=== PATIENT | male | born 1960 | race Caucasian/White ===

== ENCOUNTER 2017-08-08 11:42 | Inpatient (IN) ==
[2017-08-08] MEDS ORDERED: methylPREDNISolone 125 MG/2 ML VIAL IVP ONE (11:47)
[2017-08-08] MEDS ORDERED: Ipratropium/Albuterol Neb 3 ML IH ONE ×2 (11:47→13:13)
--- NOTE | 2017-08-08 11:50 | Emergency Department Note ---
Disposition Clinical Impression: Acute exacerbation of chronic obstructive airways disease, Tobacco abuse, Hypoxia, Respiratory distress, Respiratory acidosis, Acute on chronic respiratory failure with hypoxia and hypercapnia Disposition: Admitted As Inpatient Condition: Good Time of Disposition: 13:10 SOB HPI - General Chief Complaint: ED Shortness of Breath/Dyspnea Stated Complaint: CAMERON Time Seen by Provider: 08/08/17 11:43 Source: patient Mode of arrival: wheelchair Limitations: no limitations Nursing Notes Reviewed: Yes Vital Signs Reviewed: Yes - History of Present Illness 57-year-old male history of COPD pack per day smoker presents with difficulty breathing. Symptoms worse over the past 2 days. Reports intermittent fever with productive cough yellow sputum. He has been using his inhalers with minimal relief. No congestion. No chest pain. He does take a water pill. Denies history of blood clots. No history of coronary arterial disease he reports. Patient a his hypoxic at bedside 70% with audible wheezing in the room. Respiratory is at bedside will give him breathing treatment, steroids and BiPAP. No recent hospitalization. States it feels similar to COPD exacerbation in the past. Will place him on Levaquin Pt Subjective Complaint: shortness of breath, cough - Related Data Home Medications Medication Instructions Recorded Confirmed Fluticasone/Vilanterol [Breo 1 puff IH DAILY 08/08/17 08/08/17 Ellipta 100-25 Mcg INH] Naproxen [Naproxen] 375 mg PO BID PRN 08/08/17 08/08/17 Spironolactone [Aldactone] 25 mg PO BID 08/08/17 08/08/17 Allergies Allergy/AdvReac Type Severity Reaction Status Date / Time No Known Allergies Allergy Verified 03/03/17 09:45 All systems ED: reviewed and negative except as stated. Review of Systems: As Per HPI Constitutional: Reports: fever. Denies: chills ENT ED: Reports: congestion. Denies: throat pain, dysphagia Cardiovascular: Reports: dyspnea on exertion. Denies: chest pain Respiratory: Reports: cough, dyspnea, wheezes Gastrointestinal: Denies: abdominal pain, nausea, vomiting Genitourinary: Denies: urgency, dysuria Musculoskeletal: Denies: back pain, neck pain Integumentary: Denies: rash, abrasion, lesions Neurological: Denies: headache Psychiatric: Denies: anxiety Past Medical History - Past Medical History Attestation: Yes The following information was validated with the patient. Source: patient Medical history: Reports: CHF, COPD - Social History Smoking Status: Current every day smoker Alcohol use: Reports: occasionally Physical Exam - General Limitations: no limitations General appearance: alert, in no apparent distress - Head Head exam: atraumatic, normocephalic, normal inspection - Eye Eye exam: Present: normal appearance, PERRL, EOMI - ENT ENT exam: normal exam, normal oropharynx, mucous membranes moist - Neck Neck exam: Present: normal inspection, full ROM, trachea midline. Absent: tenderness - Chest Chest inspection: Present: normal inspection, symmetric chest wall rise - Respiratory Respiratory exam: Present: respiratory distress, wheezes - Expanded Respiratory Exam Location: wheezes: Left, Right - Cardiovascular Cardiovascular exam: Present: regular rate, normal rhythm, normal heart sounds - Abdominal Exam Abdominal exam: Present: soft (obese), Non-Tender, normal bowel sounds. Absent : tenderness, distention, guarding, rebound, rigidity - Extremities Exam Extremities exam: Present: normal inspection, full ROM, normal capillary refill , pedal edema (+2 symmetrical). Absent: tenderness, calf tenderness - Neurological Exam Neurological exam: Present: alert, oriented X3, normal gait - Psychiatric Psychiatric exam: Present: normal affect, normal mood - Skin Skin exam: Present: warm, dry, intact, normal color. Absent: rash, cyanosis, diaphoresis Course - Reevaluation(s) Reevaluation #1: Initially patient was hypertensive on arrival and respiratory distress oxygen sectors 70%. BiPAP was immediately placed with DuoNeb treatments and steroids. Patient has been tolerating BiPAP very well. Lungs continue to be scattered wheezing bilaterally. Oxygen saturation has improved. Chest x-ray does not reveal pneumonia. Her arterial blood gas shows a respiratory acidosis 7.22 with a carbon dioxide level 92 with adequate O2 saturation and appears compensated with elevated bicarb 38. This is very consistent with a COPD exacerbation. At this time he he continues to meditate fine awake alert and oriented to person place and time. Does not require intubation at this time. Treated with Levaquin for likely COPD exacerbation. He is in agreement with this plan. Reevaluation of his blood pressure has significantly improved spontaneously 115/65. Impression is COPD exacerbation, respiratory acidosis, hypercapnia, hypoxia - Consultations Consultation #1: Spoke with on-call hospitalist claus Davis to admit for COPD exacerbation, hypoxia, hypercapnia, respiratory distress/acidosis. No further orders at this time Time: 13:31 Vital Signs O2 Sat by Pulse Oximetry 52 08/08/17 11:43 Temperature 97.6 F 08/08/17 11:47 Pulse Rate 82 08/08/17 13:13 Respiratory Rate 22 08/08/17 13:18 Blood Pressure 115/65 08/08/17 13:13 O2 Sat by Pulse Oximetry 99 08/08/17 13:18 Oxygen Delivery Oxygen Delivery Bipap Shortness of Breath/Dyspnea - MDM Narrative Medical decision making narrative: Patient was discussed with my attending physician who agrees with ED management and final disposition. They independently evaluated the patient. Please refer to their attestation to this encounter for additional information. This note was generated by [employer] voice recognition software and as a result grammatical or spelling errors may occur using this program. - Medical Records Medical records reviewed: Yes I reviewed the patient's medical records. - Lab Data Lab results reviewed: Yes I reviewed the patient's lab results. Result diagrams: 08/08/17 12:19 08/08/17 12:19 Lab Results 08/08/17 08/08/17 08/08/17 Range/Units 12:08 12:19 12:19 WBC 11.4 H (4.3-11.1) K/mcL RBC 4.62 (4.19-5.50) M/mcL Hgb 15.2 (12.9-16.9) g/dL Hct 45.6 (37.5-50.1) % MCV 98.7 (83.0-100.0) fL MCH 32.9 (28.0-33.3) pg MCHC 33.3 (31.6-35.5) g/dL RDW 14.6 H (11.5-14.5) % Plt Count 324 (140-400) K/mcL MPV 10.7 (9.4-12.4) fL Immature Gran % 0.6 (0-4) % Seg Neutrophils % 68.2 % Lymphocytes % 9.9 % Monocytes % 9.1 % Eosinophils % 11.0 % Basophils % 1.2 % Neutrophils # 7.8 (1.6-8.9) K/mcL Lymphocytes # 1.1 (0.6-4.6) K/mcL Monocytes # 1.0 (0.0-1.3) K/mcL Eosinophils # 1.3 H (0.0-0.6) K/mcL Basophils # 0.1 (0.0-0.2) K/mcL Immature Plt Fraction 5.8 (1.1-6.1) % ABG pH 7.22 L (7.32-7.45) pH Units ABG pCO2 92 H* (35-45) mmHg ABG pO2 124 H (85-104) mmHg ABG HCO3 38 H (21-27) mEq/L ABG Total CO2 40 H (20-26) mEq/L ABG O2 Saturation 98 (95-98) % ABG Base Excess 6 H (-2 to 3) mEq/L Sodium 138 (136-145) mEq/L Potassium 4.2 (3.5-5.1) mEq/L Chloride 100 (98-107) mEq/L Carbon Dioxide 31 H (23-29) mEq/L BUN 15 (6-20) mg/dL Creatinine 0.79 (0.70-1.30) mg/dL Est GFR ( Amer) > 60 (> 60) Est GFR (Non-Af Amer) > 60 (> 60) BUN/Creatinine Ratio 19 (6-26) Glucose 115 H (70-105) mg/dL Calculated Osmolality 288 (280-300) Lactic Acid (0.5-2.2) mmol/L Calcium 9.0 (8.6-10.3) mg/dL Troponin I (< 0.04) ng/mL B-Natriuretic Peptide (Less than 100) pg/mL Person Notif of Lynne MCKEON 08/08/17 08/08/17 08/08/17 Range/Units 12:19 12:19 12:19 WBC (4.3-11.1) K/mcL RBC (4.19-5.50) M/mcL Hgb (12.9-16.9) g/dL Hct (37.5-50.1) % MCV (83.0-100.0) fL MCH (28.0-33.3) pg MCHC (31.6-35.5) g/dL RDW (11.5-14.5) % Plt Count (140-400) K/mcL MPV (9.4-12.4) fL Immature Gran % (0-4) % Seg Neutrophils % % Lymphocytes % % Monocytes % % Eosinophils % % Basophils % % Neutrophils # (1.6-8.9) K/mcL Lymphocytes # (0.6-4.6) K/mcL Monocytes # (0.0-1.3) K/mcL Eosinophils # (0.0-0.6) K/mcL Basophils # (0.0-0.2) K/mcL Immature Plt Fraction (1.1-6.1) % ABG pH (7.32-7.45) pH Units ABG pCO2 (35-45) mmHg ABG pO2 (85-104) mmHg ABG HCO3 (21-27) mEq/L ABG Total CO2 (20-26) mEq/L ABG O2 Saturation (95-98) % ABG Base Excess (-2 to 3) mEq/L Sodium (136-145) mEq/L Potassium (3.5-5.1) mEq/L Chloride (98-107) mEq/L Carbon Dioxide (23-29) mEq/L BUN (6-20) mg/dL Creatinine (0.70-1.30) mg/dL Est GFR ( Amer) (> 60) Est GFR (Non-Af Amer) (> 60) BUN/Creatinine Ratio (6-26) Glucose (70-105) mg/dL Calculated Osmolality (280-300) Lactic Acid 1.6 (0.5-2.2) mmol/L Calcium (8.6-10.3) mg/dL Troponin I < 0.03 (< 0.04) ng/mL B-Natriuretic Peptide 44 (Less than 100) pg/mL Person Notif of Crit - Radiology Data Radiology results reviewed: Yes I reviewed the patient's radiology results. Chest X-Ray 08/08/17 11:48 IMPRESSION: No acute abnormality. D/ / Manolo Espinoza MD / Manolo Espinoza MD Interpreting Provider: Manolo Espinoza MD - EKG Data EKG attestation: Yes I reviewed and interpreted this EKG. EKG results narrative: EKG performed 1148 normal sinus rhythm 90 bpm, normal axis, good R wave progression, intervals within normal limits, no ST elevations or depression, T wave inversion, compared to old EKG performed 01/23/2015 shows similar consistent findings. No acute ischemic changes. Critical Care Time Critical Care Time: Yes Total Critical Care Time: 35 Attestation: Critical care performed: Time is exclusive of separately billable procedures. Time includes: direct patient care, patient reassessment, coordination of patient care, interpretation of data (laboratory data, radiology data, and respiratory data), review of patient's medical records, medical consultation and documentation of patient care. Procedures included in critical care time: Procedures excluded from critical care time: Attestation Statement - Attestation Attestation: I, Shaun Miles DO, examined this patient [id number] and my medical decision-making was reviewed with Hernán Parkinson DO , Resident Physician. I agree with the documented findings, disposition and treatment plan as described except to the extent set forth below. Please see my progress notes for details. 57-year-old male presents to emergency room significantly and profoundly hypoxic with increased work of breathing. He has known COPD. He has not been utilizing his medications at home as needed. He denies any chest pain fevers chills cough congestion outside of his normal persistent cough. He has had productive sputum. Lungs are diffusely coarse and wheezy on presentation. He does have accessory muscle use he does have a cyanotic on presentation to his skin. Immediately BiPAP was applied with breathing treatments and oxygen. Pulse ox came up to greater than 90. Breathing and respirations became less labored. EKG did not show any acute signs of ST segment elevation but there is obvious ischemia noted that does appear to be acute on chronic this time. Patient again is denying any cardiac-like presentation her symptoms at this point. Vital signs reviewed. Patient's EKG chest x-ray labs and symptom treatment started here in the emergency room. IV antibiotics will most likely be provided. Hospitalist Dr. mohr evaluated the patient here in the emergency room and is happy for acceptance for admission and definitive management. No other concerns or issues noted initially. Patient will be admitted for what appears to be CHF exacerbation and bronchitis. Patient had profound hypoxia noted on presentation with an ABG of 7.2 and a PCO2 of 91. BiPAP and treatment course to be completed inpatient setting. Pulse is 35 minutes of critical care provider in this patient's treatment course. 1400 Patient feels much better after breathing treatments treatment course. No other concerns or issues noted this time. Patient will be admitted this time for definitive management.
[2017-08-08] MEDS ORDERED: Levofloxacin 750 MG/150 ML 750 MG/150 ML BAG IVPB ONE (11:52)
[2017-08-08 12:15] LABS: ABG Base Excess 6 mEq/L (-2 to 3); ABG HCO3 38 mEq/L (21-27); ABG Oxygen Saturation 98 % (95-98); ABG PCO2 92 mmHg (35-45); ABG PH 7.22 pH Units (7.32-7.45); ABG PO2 124 mmHg (85-104); ABG TCO2 40 mEq/L (20-26)
[2017-08-08 12:42] LABS: BUN/Creatinine Ratio 19 (6-26); Blood Urea Nitrogen 15 mg/dL (6-20); Carbon Dioxide 31 mEq/L (23-29); Chloride 100 mEq/L (98-107); Glucose 115 mg/dL (70-105); Osmolality,Calculated 288 (280-300); Potassium 4.2 mEq/L (3.5-5.1); Sodium 138 mEq/L (136-145); eGFR For African Americans > 60 (> 60); eGFR For Non-African Americans > 60 (> 60)
[2017-08-08] MEDS ORDERED: Naloxone 0.4 MG/ML INJ IVP PRN (12:51)
[2017-08-08] MEDS ORDERED: Ondansetron ODT 4 MG TAB.RAPDIS SL PRN (12:51)
--- NOTE | 2017-08-08 12:57 | Internal Med History&Physical ---
Date of Encounter: 08/08/17 Time of Encounter: 13:00 Assessment and Plan (1) COPD exacerbation Current visit: Yes Status: Acute We will admit the patient to the hospitalist service. We will keep her on BiPAP for now. We will repeat an ABG in 2 hours. If it still showing signs of acidosis will consult with pulmonary. Continue with IV steroids. Continue Levaquin. Continue with DuoNeb's. Wean off BiPAP as tolerated. (2) Hypertensive urgency Current visit: Yes Status: Acute Blood pressure is elevated on arrival. Per report he was in the 220s systolically. He has not received any antihypertensives while in the ED. This may be all acute secondary to his clinical picture of COPD exacerbation. I will add hydralazine to be used when necessary with parameters. (3) Tobacco abuse Current visit: Yes Status: Acute Nicotine patch (4) DVT prophylaxis Current visit: Yes Status: Acute [facility] Internal Medicine - H&P: HPI Chief complaint: Shortness of breath Admitted From: Home Plans for Post Hospital Care: Home History of present illness: Mr. Paris is a 57 year old male who has a history of tobacco abuse, chronic lower exam is swelling, suspected COPD although he has never had PFT testing who presents on 08/08/2017 through the ER the [facility] with complaints of shortness of breath that has been going on for the last 2-3 days and has been progressively getting worse despite nebulizer treatments at home. He says he used his nebulizer around the clock yesterday which gave him minimal relief and when he woke up this morning he felt significant shortness of breath for which he came to the emergency department. Upon presentation he was noted to be significantly wheezy and his oxygenation was as low as 70s per report, however I am seeing oxygenation saturations that is in the 50s per EMR. The patient was put on BiPAP right away. He was completely alert and oriented throughout this ER stay. He underwent workup including a chest x-ray which was unremarkable. He had an ABG that came back with a pH of 7.22 with a PCO2 of 92 with bicarbonate of 38. His pO2 was 124 on that. This was obtained on his BiPAP. The patient's white count was 11.4. He says he has been feeling febrile at home however is never measured her temperature. He has received multiple breathing treatments in the emergency department. He is received 125 mg of Solu-Medrol IV as well as Levaquin IV. Of note the patient's systolic blood pressure was in the 220s upon presentation which did come down without any antihypertensives and by the time of seeing the patient it was in the 130s systolically. He carries no diagnosis of hypertension. I was called to admit the patient for COPD exacerbation. He denies any sick contacts. He continues to smoke about a pack a day. He has done this for the last 30-40 years. Denies any headache, blurry vision, nausea, vomiting chest pain, abdominal pain , urinary symptoms, or neurological symptoms. Past Med Surg Social Fam HX - Past Medical History Medical history: CHF, COPD Psychiatric history: no psych history - Social History Smoking Status: Current every day smoker Smokeless Tobacco Status: No Alcohol use: occasionally Drug use: none Internal Medicine - H&P: Meds Cephalexin [Keflex] 500 mg PO QID #28 capsule 03/03/17 [Rx] 3 Allergy/AdvReac Type Severity Reaction Status Date / Time No Known Allergies Allergy Verified 03/03/17 09:45 All Systems PM: A 10-system review of systems was performed and is negative for pertinent findings except as documented above in the HPI. Review of systems: All systems reviewed are negative except as mentioned above - Constitutional Vitals: Temp Pulse Resp BP Pulse Ox 97.6 F 91 26 181/86 96 08/08/17 11:47 08/08/17 11:47 08/08/17 12:00 08/08/17 11:50 08/08/17 12:00 Exam: GEN: NAD HEENT: AT, NC, No cyanosis, oral mucosa is moist, No JVD Lymphatics: No lymphadenoapthy Eyes: Extrocular muscles intact, anicteric CVS:RRR. S1, S2, No m/r/g RESP: diminshed. Expiratroy wheezes posteriorly ABD: Soft, NT, ND, +BS EXT: No edema, No rashes, 2+ DP NEURO: Nonfocal, CN II-XII intact, No focal motor or sensory deficits Psych: Cooperative, Not anxious or depressed Internal Med - H&P Results - Labs CBC & Chem 7: 08/08/17 12:19 08/08/17 12:19 Labs: BMP 08/08/17 12:19 Sodium 138 Potassium 4.2 Chloride 100 Carbon Dioxide 31 H BUN 15 Creatinine 0.79 Glucose 115 H Calcium 9.0 Cardiac Enzymes 08/08/17 Range/Units 12:19 Troponin I < 0.03 (< 0.04) ng/mL - ABG Interpretation ABG results: 08/08/17 12:08 ABG pH 7.22 L ABG pCO2 92 H* ABG pO2 124 H ABG HCO3 38 H ABG Total CO2 40 H ABG O2 Saturation 98 ABG Base Excess 6 H - Impressions ITS Impressions Chest X-Ray 08/08/17 11:48 IMPRESSION: No acute abnormality. D/ / Manolo Espinoza MD / Manolo Espinoza MD Interpreting Provider: Manolo Espinoza MD
[2017-08-08 13:12] LABS: Basophils # 0.1 K/mcL (0.0-0.2); Basophils % 1.2 %; Eosinophils # 1.3 K/mcL (0.0-0.6); Hematocrit 45.6 % (37.5-50.1); Hemoglobin 15.2 g/dL (12.9-16.9); Immature Granulocytes % 0.6 % (0-4); Immature Platelets 5.8 % (1.1-6.1); Lymphocytes # 1.1 K/mcL (0.6-4.6); Lymphocytes % 9.9 %; Mean Corpuscular HGB Conc 33.3 g/dL (31.6-35.5); Mean Corpuscular Hemoglobin 32.9 pg (28.0-33.3); Mean Platelet Volume 10.7 fL (9.4-12.4); Monocytes % 9.1 %; Neutrophils # 7.8 K/mcL (1.6-8.9); Platelet Count 324 K/mcL (140-400); Red Blood Count 4.62 M/mcL (4.19-5.50); Red Cell Distribution Width 14.6 % (11.5-14.5); Segmented Neutrophils % 68.2 %
[2017-08-08 13:13] LABS: Mean Corpuscular Volume 98.7 fL (83.0-100.0)
[2017-08-08] MEDS: Ipratropium/Albuterol Neb 3 ML IH SCH ×4 (13:17→21:24)
[2017-08-08] MEDS: Levofloxacin 500 MG/100 ML 500 MG/100 ML BAG IVPB SCH (16:21)
[2017-08-08 16:29] LABS: ABG Base Excess 6 mEq/L (-2 to 3); ABG HCO3 34 mEq/L (21-27); ABG Oxygen Saturation 91 % (95-98); ABG PCO2 61 mmHg (35-45); ABG PH 7.36 pH Units (7.32-7.45); ABG PO2 65 mmHg (85-104); ABG TCO2 36 mEq/L (20-26)
[2017-08-08] MEDS: methylPREDNISolone 125 MG/2 ML VIAL IVP SCH (18:43)
[2017-08-08] MEDS: Nicotine 21 MG PATCH.TD24 TD SCH (22:00)
[2017-08-09] MEDS: methylPREDNISolone 125 MG/2 ML VIAL IVP SCH ×2 (00:20→05:51)
[2017-08-09] MEDS: Ipratropium/Albuterol Neb 3 ML IH SCH ×4 (03:33→22:13)
[2017-08-09] MEDS: *HR* Enoxaparin 40 MG/0.4 ML SYRINGE SQ SCH (05:51)
[2017-08-09 06:30] LABS: Basophils % 0.1 %; Hematocrit 44.7 % (37.5-50.1); Hemoglobin 14.8 g/dL (12.9-16.9); Immature Granulocytes % 0.7 % (0-4); Lymphocytes # 0.5 K/mcL (0.6-4.6); Lymphocytes % 3.5 %; Mean Corpuscular HGB Conc 33.1 g/dL (31.6-35.5); Mean Corpuscular Hemoglobin 32.7 pg (28.0-33.3); Mean Corpuscular Volume 98.7 fL (83.0-100.0); Mean Platelet Volume 10.2 fL (9.4-12.4); Monocytes # 0.4 K/mcL (0.0-1.3); Monocytes % 2.6 %; Neutrophils # 12.8 K/mcL (1.6-8.9); Platelet Count 318 K/mcL (140-400); Red Blood Count 4.53 M/mcL (4.19-5.50); Red Cell Distribution Width 14.2 % (11.5-14.5); Segmented Neutrophils % 93.1 %
[2017-08-09 06:43] LABS: BUN/Creatinine Ratio 22 (6-26); Blood Urea Nitrogen 20 mg/dL (6-20); Calcium 9.3 mg/dL (8.6-10.3); Carbon Dioxide 35 mEq/L (23-29); Chloride 101 mEq/L (98-107); Glucose 146 mg/dL (70-105); Osmolality,Calculated 291 (280-300); Potassium 4.7 mEq/L (3.5-5.1); Sodium 138 mEq/L (136-145); eGFR For African Americans > 60 (> 60); eGFR For Non-African Americans > 60 (> 60)
[2017-08-09] MEDS ORDERED: Spironolactone 25 MG TABLET PO SCH (09:00)
--- NOTE | 2017-08-09 10:10 | Internal Med Progress Note ---
Date of Encounter: 08/09/17 Time of Encounter: 10:06 - Assessment and plan (1) Acute hypercapnic respiratory failure Current Visit: Yes Status: Acute Assessment and plan: Improved off the BiPAP now Will use BiPAP as needed (2) Acute respiratory failure with hypoxia Current Visit: Yes Status: Acute Assessment and plan: IV steroids + Duoneb Try to wean him off the O2 as he tolerates (3) Acute exacerbation of chronic obstructive airways disease Current Visit: Yes Status: Acute Assessment and plan: triggered by bronchitis and smoking on empirical abx start tapering steroids cont Duoneb ROSA (4) Acute bronchitis Current Visit: Yes Status: Acute Assessment and plan: Mostly bacterial cont empirical abx Levaquin Qualifiers: Qualified Code(s): J20.9 - Acute bronchitis, unspecified (5) Tobacco abuse Current Visit: Yes Status: Acute Assessment and plan: counseled to quit smoking on nicotine patch (6) Hypertensive urgency Current Visit: Yes Status: Acute Assessment and plan: mostly due to resp failure improved and resolved now - Subjective Interval history: Mr. Paris is a 57 year old male who has a history of tobacco abuse, COPD and not on home O2 dependent who presented to ER with progressively worsening SOB and VARGAS, as well as ocugh with expectoration. He happened to be in severe hypercapneic resp failure, placed him on BiPAP. Now he is off the BiPAP, he is more alert, awake and O x 3. Denied any CP . Still has moderate VARGAS. - Constitutional Vitals: Temp Pulse Resp BP Pulse Ox 97.8 F 80 14 135/82 90 08/09/17 07:41 08/09/17 07:41 08/09/17 07:41 08/09/17 07:41 08/09/17 07:41 General appearance: Present: A&O X 3, no acute distress - Head Head exam: Present: atraumatic, normal inspection - Neck Neck exam general surgery: Present: supple - Respiratory Respiratory exam: Present: decreased breath sounds, wheezes (diffuse wheezing). Absent: rales, respiratory distress, rhonchi - Cardiovascular Cardiovascular exam: Present: RRR, +S1, +S2. Absent: tachycardia - GI/Abdominal GI/Abdominal exam: Present: normal bowel sounds, soft. Absent: rebound, rigid, tenderness - Extremities Exam Extremities exam: Absent: calf tenderness, pedal edema, tenderness - Back Exam Back exam: Absent: CVA tenderness (L), CVA tenderness (R) - Psychiatric Psychiatric exam: Present: normal affect, normal mood Internal Medicine: Result - Labs CBC & Chem 7: 08/09/17 06:04 08/09/17 06:04 Labs: Short CBC 08/09/17 Range/Units 06:04 WBC 13.8 H (4.3-11.1) K/mcL Hgb 14.8 (12.9-16.9) g/dL Hct 44.7 (37.5-50.1) % Plt Count 318 (140-400) K/mcL Neutrophils # 12.8 H (1.6-8.9) K/mcL BMP 08/09/17 06:04 Sodium 138 Potassium 4.7 Chloride 101 Carbon Dioxide 35 H BUN 20 Creatinine 0.90 Glucose 146 H Calcium 9.3 - ABG Interpretation ABG results: ABG ABG pH 7.36 pH Units (7.32-7.45) D 08/08/17 16:20 ABG pCO2 61 mmHg (35-45) H D 08/08/17 16:20 ABG pO2 65 mmHg (85-104) L D 08/08/17 16:20 ABG O2 Saturation 91 % (95-98) L 08/08/17 16:20 - VTE Documentation of Mechanical Device: Intermittent pneumatic compression device Consult Discharge Plan - Plan Referrals: Edinson Cool MD [Primary Care Provider] -
[2017-08-09] MEDS: Nicotine 21 MG PATCH.TD24 TD SCH (10:21)
[2017-08-09] MEDS: Levofloxacin 500 MG/100 ML 500 MG/100 ML BAG IVPB SCH (11:57)
[2017-08-09] MEDS: MethylPREDNISolone 40 MG/ML VIAL IVP SCH (16:51)
--- NOTE | 2017-08-09 19:55 | Electrocardiograph Report ---
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
[2017-08-10] MEDS: MethylPREDNISolone 40 MG/ML VIAL IVP SCH ×3 (00:20→18:37)
[2017-08-10 04:01] LABS: Basophils % 0.1 %; Hematocrit 40.9 % (37.5-50.1); Hemoglobin 13.8 g/dL (12.9-16.9); Immature Granulocytes % 0.7 % (0-4); Lymphocytes # 0.6 K/mcL (0.6-4.6); Lymphocytes % 2.4 %; Mean Corpuscular HGB Conc 33.7 g/dL (31.6-35.5); Mean Corpuscular Hemoglobin 33.3 pg (28.0-33.3); Mean Corpuscular Volume 98.6 fL (83.0-100.0); Mean Platelet Volume 10.4 fL (9.4-12.4); Monocytes # 1.2 K/mcL (0.0-1.3); Monocytes % 4.9 %; Neutrophils # 22.6 K/mcL (1.6-8.9); Platelet Count 288 K/mcL (140-400); Red Blood Count 4.15 M/mcL (4.19-5.50); Red Cell Distribution Width 14.2 % (11.5-14.5); Segmented Neutrophils % 91.9 %
[2017-08-10] MEDS: Ipratropium/Albuterol Neb 3 ML IH SCH ×4 (04:02→22:04)
[2017-08-10 04:18] LABS: BUN/Creatinine Ratio 31 (6-26); Blood Urea Nitrogen 28 mg/dL (6-20); Calcium 9.1 mg/dL (8.6-10.3); Carbon Dioxide 33 mEq/L (23-29); Chloride 99 mEq/L (98-107); Glucose 160 mg/dL (70-105); Magnesium 2.2 mg/dL (1.6-2.6); Osmolality,Calculated 293 (280-300); Potassium 4.2 mEq/L (3.5-5.1); Sodium 137 mEq/L (136-145); eGFR For African Americans > 60 (> 60); eGFR For Non-African Americans > 60 (> 60)
[2017-08-10 05:28] LABS: Hypersegmented Neutrophils Present (Not Present); Platelet Estimate Normal (Normal); Toxic Granulation Present (Not Present)
[2017-08-10] MEDS: *HR* Enoxaparin 40 MG/0.4 ML SYRINGE SQ SCH (05:59)
[2017-08-10] MEDS: Nicotine 21 MG PATCH.TD24 TD SCH (10:21)
[2017-08-10] MEDS: Levofloxacin 500 MG/100 ML 500 MG/100 ML BAG IVPB SCH (14:13)
--- NOTE | 2017-08-10 16:14 | Internal Med Progress Note ---
Date of Encounter: 08/10/17 Time of Encounter: 16:11 - Assessment and plan (1) Acute respiratory failure with hypoxia Current Visit: Yes Status: Acute Assessment and plan: Still on 3 lit O2 improving slowly Start tapering IV steroids + Cont ROSA Duoneb Try to wean him off the O2 as he tolerates may need home O2 eval in AM WBC started trending up..mostly due to steroids and reactive (2) Acute hypercapnic respiratory failure Current Visit: Yes Status: Acute Assessment and plan: Improved off the BiPAP now (3) Acute exacerbation of chronic obstructive airways disease Current Visit: Yes Status: Acute Assessment and plan: triggered by bronchitis and smoking on empirical abx started tapering steroids cont Duoneb ROSA (4) Acute bronchitis Current Visit: Yes Status: Acute Assessment and plan: Mostly bacterial cont empirical abx Levaquin Qualifiers: Qualified Code(s): J20.9 - Acute bronchitis, unspecified (5) Tobacco abuse Current Visit: Yes Status: Acute Assessment and plan: counseled to quit smoking on nicotine patch (6) Hypertensive urgency Current Visit: Yes Status: Acute Assessment and plan: mostly due to resp failure improved and resolved now - Subjective Interval history: Mr. Paris is a 57 year old male who has a history of tobacco abuse, COPD and not on home O2 dependent who presented to ER with progressively worsening SOB and VARGAS, as well as cough with expectoration. He happened to be in severe hypercapneic resp failure, placed him on BiPAP. Now he is off the BiPAP from last 24hrs. He is more alert, awake and O x 3. Denied any CP . Still has moderate VARGAS. Still has cough with greenish expectoration. No fever / chills. Currently on 3 lit O2 - Constitutional Vitals: Temp Pulse Resp BP Pulse Ox 98.3 F 85 18 137/68 91 08/10/17 15:16 08/10/17 15:16 08/10/17 15:16 08/10/17 15:16 08/10/17 15:16 General appearance: Present: A&O X 3, no acute distress - Head Head exam: Present: atraumatic, normal inspection - Respiratory Respiratory exam: Present: decreased breath sounds, wheezes (moderate). Absent : rales, respiratory distress, rhonchi - Cardiovascular Cardiovascular exam: Present: RRR, +S1, +S2. Absent: tachycardia - GI/Abdominal GI/Abdominal exam: Present: distended, normal bowel sounds, soft. Absent: rebound, rigid, tenderness - Extremities Exam Extremities exam: Absent: calf tenderness, pedal edema, tenderness - Back Exam Back exam: Absent: CVA tenderness (L), CVA tenderness (R) - Neurological Exam Neurological exam: Present: alert, oriented X3 - Psychiatric Psychiatric exam: Present: normal affect, normal mood Internal Medicine: Result - Labs CBC & Chem 7: 08/10/17 03:44 08/10/17 03:44 Labs: Short CBC 08/10/17 Range/Units 03:44 WBC 24.6 H D (4.3-11.1) K/mcL Hgb 13.8 (12.9-16.9) g/dL Hct 40.9 (37.5-50.1) % Plt Count 288 (140-400) K/mcL Neutrophils # 22.6 H (1.6-8.9) K/mcL BMP 08/10/17 03:44 Sodium 137 Potassium 4.2 Chloride 99 Carbon Dioxide 33 H BUN 28 H Creatinine 0.90 Glucose 160 H Calcium 9.1 - ABG Interpretation ABG results: ABG ABG pH 7.36 pH Units (7.32-7.45) D 08/08/17 16:20 ABG pCO2 61 mmHg (35-45) H D 08/08/17 16:20 ABG pO2 65 mmHg (85-104) L D 08/08/17 16:20 ABG O2 Saturation 91 % (95-98) L 08/08/17 16:20 - VTE Documentation of Mechanical Device: Intermittent pneumatic compression device Consult Discharge Plan - Plan Referrals: Edinson Cool MD [Primary Care Provider] -
[2017-08-11] MEDS: Ipratropium/Albuterol Neb 3 ML IH SCH ×3 (04:35→15:51)
[2017-08-11] MEDS: *HR* Enoxaparin 40 MG/0.4 ML SYRINGE SQ SCH (06:26)
[2017-08-11] MEDS: MethylPREDNISolone 40 MG/ML VIAL IVP SCH (06:26)
[2017-08-11 06:57] LABS: Basophils % 0.1 %; Hematocrit 42.9 % (37.5-50.1); Hemoglobin 13.6 g/dL (12.9-16.9); Immature Granulocytes % 0.5 % (0-4); Immature Platelets 7.1 % (1.1-6.1); Lymphocytes # 0.7 K/mcL (0.6-4.6); Lymphocytes % 3.8 %; Mean Corpuscular HGB Conc 31.7 g/dL (31.6-35.5); Mean Corpuscular Hemoglobin 32.4 pg (28.0-33.3); Mean Corpuscular Volume 102.1 fL (83.0-100.0); Mean Platelet Volume 10.7 fL (9.4-12.4); Monocytes # 1.2 K/mcL (0.0-1.3); Monocytes % 6.3 %; Neutrophils # 16.2 K/mcL (1.6-8.9); Platelet Count 286 K/mcL (140-400); Red Cell Distribution Width 14.7 % (11.5-14.5); Segmented Neutrophils % 89.3 %
[2017-08-11] MEDS ORDERED: levoFLOXacin 500 MG TABLET PO SCH (09:00)
[2017-08-11] MEDS: Nicotine 21 MG PATCH.TD24 TD SCH (10:02)
[2017-08-11 11:43] VITALS: BP 136/77
--- NOTE | 2017-08-11 13:56 | Discharge Summary ---
Date of Encounter: 08/11/17 Time of Encounter: 13:52 - Discharge Diagnosis (1) Acute respiratory failure with hypoxia Priority: Primary Status: Acute (2) Acute hypercapnic respiratory failure Priority: Primary Status: Acute (3) Acute exacerbation of chronic obstructive airways disease Priority: Primary Status: Acute (4) Acute bronchitis Priority: Primary Status: Acute Qualifiers: Qualified Code(s): J20.9 - Acute bronchitis, unspecified (5) Tobacco abuse Priority: Secondary Status: Acute (6) Hypertensive urgency Priority: Secondary Status: Acute - Discharge Medications Prescriptions: Albuterol Sulfate [Albuterol Inhaler] 2 puff IH Q6HR PRN #1 hfa.aer.ad PRN Reason: Shortness Of Breath levoFLOXacin [Levaquin] 500 mg PO DAILY #4 tablet Nicotine Patch [Nicoderm] 21 mg TD DAILY #30 patch.td24 PredniSONE [Deltasone] 40 mg PO DAILY #10 tablet Home Medications: Fluticasone/Vilanterol [Breo Ellipta 100-25 Mcg INH] 1 puff IH DAILY 08/08/17 [ History] Spironolactone [Aldactone] 25 mg PO BID 08/08/17 [History] Albuterol Sulfate [Albuterol Inhaler] 2 puff IH Q6HR PRN #1 hfa.aer.ad 08/11/17 [Rx] Nicotine Patch [Nicoderm] 21 mg TD DAILY #30 patch.td24 08/11/17 [Rx] PredniSONE [Deltasone] 40 mg PO DAILY #10 tablet 08/11/17 [Rx] levoFLOXacin [Levaquin] 500 mg PO DAILY #4 tablet 08/11/17 [Rx] Allergies/Adverse Reactions: 3 Allergy/AdvReac Type Severity Reaction Status Date / Time No Known Allergies Allergy Verified 03/03/17 09:45 Date of admission: 08/08/17 13:21 Primary care physician: Edinson Cool MD - Patient Status Disposition: Home, Self-Care Condition: Good Overall status at discharge: patient is back to baseline - Discharge Instructions Instructions: Heart Failure (GEN), Acute Respiratory Distress Syndrome (DC), Chronic Obstructive Pulmonary Disease (DC), Chronic Obstructive Pulmonary Disease (GEN), Abuse of Alcohol (DC), Abuse of Alcohol (GEN), Cigarette Smoking and Your Health, Sales Engagement Manager (GEN), BiPAP, Sales Engagement Manager (GEN), BiPAP (GEN ) Follow Up With: Edinson Cool MD [Primary Care Provider] - Rosalina Black MD [Partnered Physician] - Additional Instructions: Need to f/ with Pulmonary as an out pt in 1-2 weeks - Diet and Activity Activity: increase activity as tolerated, wear oxygen at all times (3 lit) Diet: low salt diet Hospital course: Mr. Paris is a 57 year old male who has a history of tobacco abuse, COPD and not on home O2 dependent who presented to ER with progressively worsening SOB and VARGAS, as well as cough with expectoration. He happened to be in severe hypercapneic resp failure, placed him on BiPAP. Also gave him high dose IV steroids and empirical abx. His symptoms started improving slowly.Now he is more alert, awake and O x 3. Denied any CP . His WBC also started trending down. It seems to be he does have chronic CO2 retaining, so I did over night BiPAP study, and he did qualify for BiAP with 16/6 RR 8, Fio2 32% / 3 lit. Also did home O2 evaluation, his Spoe dropped down to 82 % on RA, needed 3 lit O2 continuously. Consulted SW, who is trying to arrange all the equipment for him including BiPAP, Home o2, Portable tank, converted too since pt does ambulate and pretty active. I did talk to the pt about quitting smoking. Also noticed he was on Aldactone at home as diuretic, which may not be the ideal diuretic, recommend to talk to PCP about switching to HCTZ or Lasix. Recommend to f/u with Weather Teacher as an out pt in 2 weeks. - Time Spent with Patient Total time spent providing and/or coordinating discharge services: Greater than 30 minutes (Spent 45 minutes on this patient's discharge summary due to complex medical problems and patient needed a lot of education regarding discharge instructions) - Constitutional Vitals: Temp Pulse Resp BP Pulse Ox 98.4 F 102 16 136/77 95 08/11/17 11:40 08/11/17 11:40 08/11/17 11:40 08/11/17 11:40 08/11/17 13:30 General appearance: Present: A&O X 3, no acute distress - Head Head exam: Present: atraumatic, normal inspection - Neck Neck exam general surgery: Present: supple - Respiratory Respiratory exam: Present: decreased breath sounds, wheezes (mild). Absent: rales, respiratory distress, rhonchi - Cardiovascular Cardiovascular exam: Present: RRR, +S1, +S2. Absent: tachycardia - GI/Abdominal GI/Abdominal exam: Present: normal bowel sounds, soft. Absent: rebound, rigid, tenderness - Extremities Exam Extremities exam: Present: pedal edema (chronic). Absent: calf tenderness, tenderness - Back Exam Back exam: Absent: CVA tenderness (L), CVA tenderness (R) - Neurological Exam Neurological exam: Present: alert, oriented X3 - Psychiatric Psychiatric exam: Present: normal affect, normal mood - VTE Documentation of Mechanical Device: Intermittent pneumatic compression device
== END 2017-08-11 16:45 | disposition home or self-care (01) | DRG 189 ==
LOC: EMEROO 11:42 → 2NENU 13:21
PROVIDERS: ADMIT Internal Medicine Nephrology; ATTEND Family Medicine

== ENCOUNTER 2017-09-23 23:54 | Observation (INO) ==
[2017-09-24] MEDS ORDERED: Ipratropium/Albuterol Neb 3 ML ONE
[2017-09-24] MEDS ORDERED: Ipratropium/Albuterol Neb 3 ML IH ONE (00:28)
[2017-09-24] MEDS ORDERED: methylPREDNISolone 125 MG/2 ML VIAL IVP ONE (00:28)
[2017-09-24] MEDS ORDERED: Furosemide 40 MG/4 ML VIAL IVP ONE (00:29)
--- NOTE | 2017-09-24 00:36 | Emergency Department Note ---
Disposition Clinical Impression: COPD exacerbation, Hypoxia CHF (congestive heart failure) Qualifiers: Heart failure type: unspecified Heart failure chronicity: acute Qualified Code( s): I50.9 - Heart failure, unspecified Disposition: Admitted As Inpatient Condition: Serious Time of Disposition: 01:23 SOB HPI - General Chief Complaint: ED Shortness of Breath/Dyspnea Stated Complaint: CAMERON Time Seen by Provider: 09/24/17 00:06 Source: patient Limitations: no limitations Nursing Notes Reviewed: Yes Vital Signs Reviewed: Yes - History of Present Illness 57-year-old male complains of acute onset of severe shortness of breath 1 hour ago. Patient states he started feeling short of breath 3 Hours ago and took a DuoNeb treatment 1 hour later, but became severely short of breath and told his to call EMS. Patient denies any chest pain. Patient is a history of COPD, and denies history of CHF. Patient never been intubated for COPD exacerbation. He is on O2 at home 3L via nasal cannula - Related Data Home Medications Medication Instructions Recorded Confirmed Fluticasone/Vilanterol [Breo 1 puff IH DAILY 08/08/17 08/08/17 Ellipta 100-25 Mcg INH] Spironolactone [Aldactone] 25 mg PO BID 08/08/17 08/08/17 Previous Rx's Medication Instructions Recorded Albuterol Sulfate [Albuterol 2 puff IH Q6HR PRN #1 hfa.aer.ad 08/11/17 Inhaler] Nicotine Patch [Nicoderm] 21 mg TD DAILY #30 patch.td24 08/11/17 PredniSONE [Deltasone] 40 mg PO DAILY #10 tablet 08/11/17 levoFLOXacin [Levaquin] 500 mg PO DAILY #4 tablet 08/11/17 Azithromycin [Zithromax] 0 tab PO DAILY #6 tablet 08/31/17 Montelukast [Singulair] 10 mg PO HS #30 tablet 08/31/17 predniSONE [PredniSONE] 0 mg PO DAILY #22 tablet 08/31/17 Allergies Allergy/AdvReac Type Severity Reaction Status Date / Time No Known Allergies Allergy Verified 03/03/17 09:45 All systems ED: reviewed and negative except as stated. Review of Systems: As Per HPI Constitutional: Denies: fever, chills, weakness Eyes: Denies: vision change Cardiovascular: Denies: chest pain, palpitations Respiratory: Reports: dyspnea, wheezes. Denies: cough Gastrointestinal: Denies: abdominal pain, nausea, vomiting Genitourinary: Denies: urgency, dysuria, frequency Past Medical History - Past Medical History Attestation: Yes The following information was validated with the patient. Source: patient, nursing notes reviewed Medical history: Reports: COPD Psychiatric history: Reports: no psych history - Social History Smoking Status: Former smoker Smokeless Tobacco Status: Yes Alcohol use: Reports: none Drug use: Reports: none Physical Exam Vital Signs Temperature 97.9 F 09/23/17 23:58 Pulse Rate 96 09/23/17 23:58 Respiratory Rate 24 09/23/17 23:58 Blood Pressure 200/110 09/23/17 23:58 O2 Sat by Pulse Oximetry 94 09/23/17 23:58 Temperature 97.9 F 09/23/17 23:58 Pulse Rate 85 09/24/17 00:48 Respiratory Rate 20 09/24/17 00:48 Blood Pressure 124/82 09/24/17 00:48 O2 Sat by Pulse Oximetry 98 09/24/17 00:48 Oxygen Delivery Oxygen Delivery Room Air CONSTITUTIONAL: This is a 57-year-old male who is A&O X 3, and has ashen bluish coloration to his face. Patient is in respiratory distress. He is to keep neck and has severe conversational dyspnea and has to pause after each to breathe HEAD: Normocephalic; atraumatic EYES: PERRL, no scleral icterus NOSE: The nose is normal in appearance without rhinorrhea NECK: No JVD or distended neck veins RESP: Shallow breath sounds with wheezing heard on auscultation bilaterally CARD: Regular rhythm, without murmurs, rub or gallop ABD: Non-distended; non-tender, soft, without rigidity, rebound or guarding,no pulsatile mass CHEST: No pain with palpation SKIN: Normal for age and race; warm and dry without diaphoresis ; no apparent lesions EXTREMITIES: Pulses are 2 plus and equal times 2 upper extremities, bilateral lower extremity edema nonpitting skin is tense to palpation nontender - General Limitations: no limitations General appearance: alert Course - Reevaluation(s) Reevaluation #1: On reevaluation patient is doing much better. BiPAP has been removed and patient is tolerating O2 via nasal cannula. Current plan is for admission. Patient accepts this and for admission. Time: 01:18 Reevaluation #2: Patient's lab work shows no acute clinically relevant lab abnormalities. Patient continues to do well off BiPAP. He is currently comfortable and has no chest pain and has no complaints. Patient currently waiting on transfer up to inpatient he Time: 02:13 Vital Signs Temperature 97.9 F 09/23/17 23:58 Pulse Rate 96 09/23/17 23:58 Respiratory Rate 24 09/23/17 23:58 Blood Pressure 200/110 09/23/17 23:58 O2 Sat by Pulse Oximetry 94 09/23/17 23:58 Temperature 97.9 F 09/23/17 23:58 Pulse Rate 85 09/24/17 01:35 Respiratory Rate 18 09/24/17 01:35 Blood Pressure 121/76 09/24/17 01:35 O2 Sat by Pulse Oximetry 96 09/24/17 01:35 Oxygen Delivery Oxygen Delivery Nasal Cannula Shortness of Breath/Dyspnea - MDM Narrative Medical decision making narrative: Patient presents with high suspicion for CHF exacerbation and associated COPD exacerbation. Patient placed on BiPAP immediately. Patient's respiratory effort, down on BiPAP. Abdomen abscess 3 ordered, chest x-ray, CBC, BMP, troponin and BNP ordered. Nitroglycerin drip ordered and Lasix ordered. After being on BiPAP, patient had great improvement in his symptoms and came off BiPAP. He has since been able to tolerate O2 via nasal cannula at 4 L and maintaining O2 sat at 92- 94%. Patient is not back at his baseline of 3 L. Patient has no complaints at this time and accepts this is for admission for acute CHF exacerbation and associated COPD exacerbation. Chest x-ray showed no consolidations/opacification for pneumonia, no pneumothorax. It does show punctate scattered calcified granulomas seen on previous chest x-ray with no change. Dr. Richey the hospitalist has accepted patient for admission at 0122 hrs. - Lab Data Lab results reviewed: Yes I reviewed the patient's lab results. Lab results narrative: Short CBC 09/24/17 Range/Units 00:30 WBC 6.2 (4.3-11.1) K/mcL Hgb 13.6 (12.9-16.9) g/dL Hct 39.8 (37.5-50.1) % Plt Count 265 (140-400) K/mcL Neutrophils # 3.1 (1.6-8.9) K/mcL BMP 09/24/17 Range/Units 00:30 Sodium 138 (136-145) mEq/L Potassium 4.1 (3.5-5.1) mEq/L Chloride 99 (98-107) mEq/L Carbon Dioxide 36 H (23-29) mEq/L BUN 20 (6-20) mg/dL Creatinine 0.90 (0.70-1.30) mg/dL Glucose 124 H (70-105) mg/dL Calcium 8.8 (8.6-10.3) mg/dL Cardiac Enzymes 09/24/17 Range/Units 00:30 Troponin I < 0.03 (< 0.04) ng/mL Result diagrams: 09/24/17 00:30 09/24/17 00:30 Lab Results 09/24/17 09/24/17 09/24/17 Range/Units 00:30 00:30 00:30 WBC 6.2 (4.3-11.1) K/mcL RBC 4.11 L (4.19-5.50) M/mcL Hgb 13.6 (12.9-16.9) g/dL Hct 39.8 (37.5-50.1) % MCV 96.8 (83.0-100.0) fL MCH 33.1 (28.0-33.3) pg MCHC 34.2 (31.6-35.5) g/dL RDW 13.9 (11.5-14.5) % Plt Count 265 (140-400) K/mcL MPV 10.1 (9.4-12.4) fL Immature Gran % 0.8 (0-4) % Seg Neutrophils % 50.4 % Lymphocytes % 21.0 % Monocytes % 15.5 % Eosinophils % 10.9 % Basophils % 1.4 % Neutrophils # 3.1 (1.6-8.9) K/mcL Lymphocytes # 1.3 (0.6-4.6) K/mcL Monocytes # 1.0 (0.0-1.3) K/mcL Eosinophils # 0.7 H (0.0-0.6) K/mcL Basophils # 0.1 (0.0-0.2) K/mcL Sodium 138 (136-145) mEq/L Potassium 4.1 (3.5-5.1) mEq/L Chloride 99 (98-107) mEq/L Carbon Dioxide 36 H (23-29) mEq/L BUN 20 (6-20) mg/dL Creatinine 0.90 (0.70-1.30) mg/dL Est GFR ( Amer) > 60 (> 60) Est GFR (Non-Af Amer) > 60 (> 60) BUN/Creatinine Ratio 22 (6-26) Glucose 124 H (70-105) mg/dL Calculated Osmolality 290 (280-300) Calcium 8.8 (8.6-10.3) mg/dL Troponin I < 0.03 (< 0.04) ng/mL B-Natriuretic Peptide (Less than 100) pg/mL 09/24/17 Range/Units 00:30 WBC (4.3-11.1) K/mcL RBC (4.19-5.50) M/mcL Hgb (12.9-16.9) g/dL Hct (37.5-50.1) % MCV (83.0-100.0) fL MCH (28.0-33.3) pg MCHC (31.6-35.5) g/dL RDW (11.5-14.5) % Plt Count (140-400) K/mcL MPV (9.4-12.4) fL Immature Gran % (0-4) % Seg Neutrophils % % Lymphocytes % % Monocytes % % Eosinophils % % Basophils % % Neutrophils # (1.6-8.9) K/mcL Lymphocytes # (0.6-4.6) K/mcL Monocytes # (0.0-1.3) K/mcL Eosinophils # (0.0-0.6) K/mcL Basophils # (0.0-0.2) K/mcL Sodium (136-145) mEq/L Potassium (3.5-5.1) mEq/L Chloride (98-107) mEq/L Carbon Dioxide (23-29) mEq/L BUN (6-20) mg/dL Creatinine (0.70-1.30) mg/dL Est GFR ( Amer) (> 60) Est GFR (Non-Af Amer) (> 60) BUN/Creatinine Ratio (6-26) Glucose (70-105) mg/dL Calculated Osmolality (280-300) Calcium (8.6-10.3) mg/dL Troponin I (< 0.04) ng/mL B-Natriuretic Peptide 11 (Less than 100) pg/mL - EKG Data EKG attestation: Yes I reviewed and interpreted this EKG. Attestation Statement - Attestation Attestation: I examined this patient and my medical decision-making was reviewed with the Resident Physician. I agree with the documented findings, disposition and treatment plan as described except to the extent set forth below. Patient to the ED with shortness of breath. Cough. Swelling. History of COPD. He wears 2 L of home oxygen. Progressively worse over the last hour. On examination he is visibly dyspneic. Accessory muscle use. Tachypneic. Lew. Plan. Patient's oxygen saturations in the 70s. He improved drastically with CPAP. He is on nitroglycerin. Steroids and nebs. We were able to transition him to a nasal cannula. He is admitted to medicine. 30 minutes of critical care exclusive of separately billable procedures.
[2017-09-24] MEDS ORDERED: Nitroglycerin 25 MG/250 ML INFUS..BTL IVC SCH ×2 (00:45→01:00)
[2017-09-24 00:49] LABS: Basophils # 0.1 K/mcL (0.0-0.2); Basophils % 1.4 %; Eosinophils # 0.7 K/mcL (0.0-0.6); Eosinophils % 10.9 %; Hematocrit 39.8 % (37.5-50.1); Hemoglobin 13.6 g/dL (12.9-16.9); Immature Granulocytes % 0.8 % (0-4); Lymphocytes # 1.3 K/mcL (0.6-4.6); Mean Corpuscular HGB Conc 34.2 g/dL (31.6-35.5); Mean Corpuscular Hemoglobin 33.1 pg (28.0-33.3); Mean Corpuscular Volume 96.8 fL (83.0-100.0); Mean Platelet Volume 10.1 fL (9.4-12.4); Monocytes % 15.5 %; Neutrophils # 3.1 K/mcL (1.6-8.9); Platelet Count 265 K/mcL (140-400); Red Blood Count 4.11 M/mcL (4.19-5.50); Red Cell Distribution Width 13.9 % (11.5-14.5); Segmented Neutrophils % 50.4 %
[2017-09-24 01:10] LABS: BUN/Creatinine Ratio 22 (6-26); Blood Urea Nitrogen 20 mg/dL (6-20); Calcium 8.8 mg/dL (8.6-10.3); Carbon Dioxide 36 mEq/L (23-29); Chloride 99 mEq/L (98-107); Glucose 124 mg/dL (70-105); Osmolality,Calculated 290 (280-300); Potassium 4.1 mEq/L (3.5-5.1); Sodium 138 mEq/L (136-145); eGFR For African Americans > 60 (> 60); eGFR For Non-African Americans > 60 (> 60)
[2017-09-24] MEDS ORDERED: Naloxone 0.4 MG/ML INJ IVP PRN (02:25)
[2017-09-24] MEDS ORDERED: Ipratropium/Albuterol Neb 3 ML IH PRN (02:25)
--- NOTE | 2017-09-24 02:29 | Internal Med History&Physical ---
Date of Encounter: 09/24/17 Time of Encounter: 02:27 Assessment and Plan (1) COPD exacerbation Current visit: Yes Status: Acute IV duonebs, IV azithro, IV steroids prn BIPAP pulse ox (2) Obesity Current visit: Yes Status: Acute outpatient lifestyle adjustment - diet and exercise Qualifiers: Obesity classification: adult class 3 (BMI >= 40) Qualified Code(s): E66.9 - Obesity, unspecified; Z68.41 - Body mass index (BMI) 40.0-44.9, adult; Z68.41 - Body mass index (BMI) 40.0-44.9, adult; Z68.41 - Body mass index (BMI) 40.0- 44.9, adult; Z68.41 - Body mass index (BMI) 40.0-44.9, adult Internal Medicine - H&P: HPI Chief complaint: SOB History of present illness: Mr. Paris is a 57 year old male with a history of COPD who presents with acute on subacute COPD exacerbation. At baseline he uses 3 L of oxygen. He has not been feeling well since last [facility] but had continued to remain at home. He developed acute worsening of shortness of breath on home today. Shortness of breath was with ambulation. Shortness of breath improved with rest and BiPAP. He denies any flu-like symptoms. On review, has chronic back pain and he takes naproxen for that. He has quit smoking I do not see an EKG ordered. I will order one HISTORY: ORDERING SYSTEM PROVIDED HISTORY: CAMERON FINDINGS: Normal lung volumes. Scattered punctate calcified granulomas are unchanged. No pneumothorax, pleural effusion or airspace consolidation. Normal heart size and mediastinal contours. Normal pulmonary vascular markings. No acute osseous abnormality. XR/XR chest 1V portable IMPRESSION: No acute findings. Past Med Surg Social Fam HX - Past Medical History Medical history: COPD Psychiatric history: no psych history - Past Surgical History Surgical History: no surgical history - Social History Smoking Status: Former smoker Smokeless Tobacco Status: Yes Alcohol use: none Drug use: none - Family History Father Living Status: Still Living Hx Family Cardiac Disorders: Yes (open heart and stents) Internal Medicine - H&P: Meds Fluticasone/Vilanterol [Breo Ellipta 100-25 Mcg INH] 1 puff IH DAILY 08/08/17 [ History] Spironolactone [Aldactone] 25 mg PO BID 08/08/17 [History] Albuterol Sulfate [Albuterol Inhaler] 2 puff IH Q6HR PRN #1 hfa.aer.ad 08/11/17 [Rx] Nicotine Patch [Nicoderm] 21 mg TD DAILY #30 patch.td24 08/11/17 [Rx] PredniSONE [Deltasone] 40 mg PO DAILY #10 tablet 08/11/17 [Rx] levoFLOXacin [Levaquin] 500 mg PO DAILY #4 tablet 08/11/17 [Rx] Azithromycin [Zithromax] 0 tab PO DAILY #6 tablet 08/31/17 [Rx] Montelukast [Singulair] 10 mg PO HS #30 tablet 08/31/17 [Rx] predniSONE [PredniSONE] 0 mg PO DAILY #22 tablet 08/31/17 [Rx] 3 Allergy/AdvReac Type Severity Reaction Status Date / Time No Known Allergies Allergy Verified 03/03/17 09:45 All Systems PM: A 10-system review of systems was performed and is negative for pertinent findings except as documented above in the HPI. Review of systems: ROS 14 point review of systems reviewed as best as possible given presentation. Pertinent positive or negative as per HPI or otherwise reviewed as negative - Constitutional Vitals: Temp Pulse Resp BP Pulse Ox 97.9 F 83 20 129/80 94 09/23/17 23:58 09/24/17 02:13 09/24/17 02:13 09/24/17 02:13 09/24/17 02:13 Exam: General - AAO x 3. Obesity Psych - Appropriate affect/speech. No agitation Eyes - CHLOE. Eye lids intact. No scleral icterus Heart - Sinus. RRR. S1 and S2 present. No added HS/murmurs appreciated. No elevated JVD appreciated. Lung - Decrease air entry b/l, Diffuse wheezes appreciated GI - Soft, non-tender. No hepatosplenomegaly/ascites. BS+ - No CVA/suprapubic tenderness or palpable bladder distension Skin - Intact. No rash/petechiae/ecchymosis. Warm extremities Internal Med - H&P Results - Labs CBC & Chem 7: 09/24/17 00:30 09/24/17 00:30
[2017-09-24] MEDS: Azithromycin 500 MG in D5% in Water 250 ML IVPB SCH (03:28)
[2017-09-24] MEDS: Ipratropium/Albuterol Neb 3 ML IH SCH ×4 (04:30→22:10)
[2017-09-24] MEDS: MethylPREDNISolone 40 MG/ML VIAL IVP SCH ×3 (05:46→20:12)
--- NOTE | 2017-09-24 15:35 | Event Note ---
Date of Encounter: 09/24/17 Time of Encounter: 13:00 Mr Paris was placed in observation earlier today for acute exac COPD. He is beginning to feel somewhat better. His breathing has begun to improve. No fever or chills. Exam Alert Comfortable Mucus membranes dry Heart reg Diffuse end exp wheeze with good air movement. I/P 1. Exac COPD Begin taper steroids. Outpatient pulm follow up.
[2017-09-24] MEDS: Spironolactone 25 MG TABLET PO SCH (20:12)
[2017-09-25] MEDS: Azithromycin 500 MG in D5% in Water 250 ML IVPB SCH (03:51)
[2017-09-25] MEDS: MethylPREDNISolone 40 MG/ML VIAL IVP SCH ×2 (03:52→13:05)
[2017-09-25] MEDS: Ipratropium/Albuterol Neb 3 ML IH SCH ×4 (04:37→22:15)
[2017-09-25] MEDS ORDERED: (Fluticasone/Vilanterol [Breo Ellipta 100-25 Mcg Inh]) IH SCH (09:00)
[2017-09-25] MEDS: Spironolactone 25 MG TABLET PO SCH ×2 (09:45→20:30)
[2017-09-25] MEDS: Nicotine 21 MG PATCH.TD24 TD SCH (09:48)
[2017-09-25] MEDS ORDERED: predniSONE 20 MG TABLET PO ONE (13:04)
--- NOTE | 2017-09-25 13:07 | Discharge Summary ---
<Cliff Gil - Last Filed: 09/25/17 13:35> Date of Encounter: 09/25/17 Time of Encounter: 13:05 - Discharge Diagnosis (1) Acute exacerbation of chronic obstructive airways disease Priority: Primary Status: Acute (2) Acute on chronic respiratory failure with hypoxia and hypercapnia Priority: Primary Status: Acute (3) CHF (congestive heart failure) Priority: Secondary Status: Chronic Qualifiers: Heart failure type: diastolic Heart failure chronicity: chronic Qualified Code(s): I50.32 - Chronic diastolic (congestive) heart failure - Discharge Medications Prescriptions: Azithromycin [Zithromax Tri-David] 500 mg PO DAILY #3 tablet PredniSONE [Deltasone] 40 mg PO DAILY #6 tablet Home Medications: Fluticasone/Vilanterol [Breo Ellipta 100-25 Mcg INH] 1 puff IH DAILY 08/08/17 [ History] Spironolactone [Aldactone] 25 mg PO BID 08/08/17 [History] Albuterol Sulfate [Albuterol Inhaler] 2 puff IH Q6HR PRN #1 hfa.aer.ad 08/11/17 [Rx] Nicotine Patch [Nicoderm] 21 mg TD DAILY #30 patch.td24 08/11/17 [Rx] Montelukast [Singulair] 10 mg PO HS #30 tablet 08/31/17 [Rx] Albuterol Neb [Proventil Neb] 2.5 mg IH PRN PRN 09/24/17 [History] Azithromycin [Zithromax Tri-David] 500 mg PO DAILY #3 tablet 09/25/17 [Rx] PredniSONE [Deltasone] 40 mg PO DAILY #6 tablet 09/25/17 [Rx] Allergies/Adverse Reactions: 3 Allergy/AdvReac Type Severity Reaction Status Date / Time No Known Allergies Allergy Verified 03/03/17 09:45 Procedures/tests Complete & Pending: Procedures Performed prior 72 hours Category Date Time Status EKG [ECG 12 lead ECG] [ECG] Routine Y 09/24/17 02:33 Ordered EV echocardiogram Routine Y 09/25/17 15:41 Completed Date of admission: 09/24/17 01:29 Primary care physician: Edinson Cool MD Discharging clinician: Cliff Gil Anticipated date of discharge: 09/25/17 - Patient Status Disposition: Home, Self-Care Condition: Good Functional capacity at discharge: independent ambulation Overall status at discharge: patient is back to baseline - Discharge Instructions Follow Up With: Edinson Cool MD [Primary Care Provider] - (within one week) [facility] [Provider Group] Additional Instructions: Please follow up with your primary care provider at the next available appointment. Please contact and schedule an appointment for an office visit with pulmonology. Please take all medications as prescribed. Please take your azithromycin and prednisone for the next 3 days. If you have any new or worsening symptoms please return to the emergency department or contact your primary care physician. - Diet and Activity Activity: increase activity as tolerated, wear oxygen at all times Diet: advance to your usual diet Interval History: Mr. Paris states that he is doing well today. States that his breathing has improved. States that he feels like he is back to his baseline. 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 Patient denies any chest pain at this time. Patient states that he feels like he is able to go home today. Hospital course: Mr. Paris is a 57 year old male that presented to the hospital for shortness of breath. The patient was diagnosed with acute exacerbation of his COPD. Patient was given IV steroids, antibiotics and DuoNeb breathing treatments. Patient states that he has had a significant improvement and he is feeling much better at this time. Due to the patient having shortness of breath and some peripheral edema and echocardiogram was obtained that showed mild diastolic dysfunction but with a preserved ejection fraction. There was normal function of the left ventricle and right ventricle. Patient stated that he feels like he is able to go home today. Patient will be given a three-day prescription for prednisone and azithromycin to complete a 5 day course. Patient is stable and appropriate for discharge. Patient will be discharged home today. - Time Spent with Patient Total time spent providing and/or coordinating discharge services: - Constitutional Vitals: Temp Pulse Resp BP Pulse Ox 97.8 F 103 18 149/74 91 09/25/17 10:53 09/25/17 10:53 09/25/17 11:14 09/25/17 10:53 09/25/17 11:14 General appearance: Present: A&O X 3 - Head Head exam: Present: atraumatic, normocephalic - Neck Neck exam general surgery: Present: full ROM, supple, trachea midline - Respiratory Respiratory exam: Present: wheezes - Cardiovascular Cardiovascular exam: Present: +S1, +S2, tachycardia - GI/Abdominal GI/Abdominal exam: Present: normal bowel sounds, soft, no peritoneal signs. Absent: distended, tenderness - Extremities Exam Extremities exam: Present: pedal edema, warm - Neurological Exam Neurological exam: Present: oriented X3, no focal deficits. Absent: facial droop, speech deficit - Psychiatric Psychiatric exam: Present: normal affect, normal mood - Skin Skin exam: Present: dry, intact <Juan Schaeffer Michi - Last Filed: 09/25/17 15:22> Date of Encounter: 09/25/17 - Discharge Diagnosis (1) Acute respiratory failure with hypoxia Priority: Primary Status: Resolved (2) Acute exacerbation of chronic obstructive airways disease Status: Resolved (3) CHF (congestive heart failure) Status: Chronic Qualifiers: Heart failure type: diastolic Heart failure chronicity: chronic Qualified Code(s): I50.32 - Chronic diastolic (congestive) heart failure (4) Hypertensive urgency Priority: Secondary Status: Resolved (5) Morbid obesity with BMI of 40.0-44.9, adult Priority: Secondary Status: Chronic Procedures/tests Complete & Pending: Procedures Performed prior 72 hours Category Date Time Status EKG [ECG 12 lead ECG] [ECG] Routine Y 09/24/17 02:33 Completed EV echocardiogram Routine Y 09/25/17 15:41 Completed Date of admission: 09/24/17 01:29 Primary care physician: Edinson Cool MD Consults: 09/25/17 13:52 Consult to Pulmonology [CONS] Routine Consulting Provider: [facility] Reason for Consult: COPD exacerbation Time Notified: 13:52 Call Completed: Yes Hospital course: Mr. Paris is a 57 year old male - Time Spent with Patient Total time spent providing and/or coordinating discharge services: - Constitutional Vitals: Temp Pulse Resp BP Pulse Ox 99 F 103 18 145/72 93 09/25/17 15:02 09/25/17 15:02 09/25/17 15:02 09/25/17 15:02 09/25/17 15:02 - Attending Attestation I examined this patient and my medical decision-making was reviewed with the Resident Physician on 09/25/17. I agree with the documented findings, disposition and treatment plan as described except to the extent set forth below. Mr Paris has been admitted for acute exac COPD. He has steadily improved. He is breathing better and vitals are stable. He is ready for discharge home. Exam alert Comfortable Mucus membranes dry Heart reg Lungs with scattered end exp wheeze but better overall Abd soft Plan D/C home today Prednisone Follow up with PCP and pulm
--- NOTE | 2017-09-25 15:24 | Event Note ---
Date of Encounter: 09/25/17 Time of Encounter: 12:30 Mr Paris was to be discharged today but he is concerned about his overall condition. He appears to be high risk for readmission at this time. Will change to PO steroids today and monitor overnight. Anticipate d/c tomorrow.
--- NOTE | 2017-09-25 16:38 | Pulmonology Consult Note ---
Date of Encounter: 09/25/17 Time of Encounter: 04:00 Assessment and Plan (1) COPD exacerbation Current Visit: No Status: Resolved This is a very pleasant 57-year-old male with COPD exacerbation and I have explained to him there is no role for a long-term prednisone for COPD management and he understand that. I will start him on Symbicort and continue rescue inhaler. Another taper systemic steroid and antibiotics is reasonable. I have told him we will see him in the office before his vacation next month and will evaluate for oxygen need. This is discussed with primary team and thank you for consultation. (2) Suspected sleep apnea Current Visit: Yes Status: Suspected Patient was given BiPAP and has not been tolerating. I would arrange a sleep study as outpatient and appropriate titration which hopefully will help him to tolerate it better. History of Present Illness Consult date: 09/25/17 Requesting physician: Juan Schaeffer Reason for consult: COPD Chief complaint: Shortness of breath History of present illness: His is a very pleasant 57-year-old male with diagnosis of COPD who was recently discharged from the hospital and presented again with shortness of breath and the patient is concerned about if he discharged home he might have another exacerbation after he is completely off prednisone. Patient is feeling better now and he was given CPAP but has not been able to tolerate it. Patient never had a sleep study done. Patient has dyspnea on exertion and with some cough and denies any significant wheezing and denies any hemoptysis or chest pain. Patient is on oxygen 3 L. Past Med Surg Social Fam HX - Past Medical History Medical history: CHF, COPD Psychiatric history: no psych history - Past Surgical History Surgical History: no surgical history - Social History Smoking Status: Former smoker Smokeless Tobacco Status: Yes Alcohol use: none Drug use: none - Family History Father Age: 79 Living Status: Still Living Hx Family Cardiac Disorders: Yes (open heart and stents) Medications and Allergies Fluticasone/Vilanterol [Breo Ellipta 100-25 Mcg INH] 1 puff IH DAILY 08/08/17 [ History] Spironolactone [Aldactone] 25 mg PO BID 08/08/17 [History] Albuterol Sulfate [Albuterol Inhaler] 2 puff IH Q6HR PRN #1 hfa.aer.ad 08/11/17 [Rx] Nicotine Patch [Nicoderm] 21 mg TD DAILY #30 patch.td24 08/11/17 [Rx] Montelukast [Singulair] 10 mg PO HS #30 tablet 08/31/17 [Rx] Albuterol Neb [Proventil Neb] 2.5 mg IH PRN PRN 09/24/17 [History] Azithromycin [Zithromax Tri-David] 500 mg PO DAILY #3 tablet 09/25/17 [Rx] PredniSONE [Deltasone] 40 mg PO DAILY #6 tablet 09/25/17 [Rx] 3 Allergy/AdvReac Type Severity Reaction Status Date / Time No Known Allergies Allergy Verified 03/03/17 09:45 All Systems: A 10-system review of systems was performed and is negative for pertinent findings except as documented above in the HPI. Physical Examination Vital Signs: Vital Signs, Last 4 Hours Temp Pulse Resp BP Pulse Ox 09/25/17 16:01 18 93 09/25/17 15:02 99 F 103 18 145/72 93 General appearance: no acute distress Eyes: nonicteric ENT: oropharynx moist Mallampati (class): 4 Neck: supple Effort: normal Inspection: normal Auscultation: bilateral: diminished breath sounds Percussion: bilateral: not dull Cardiovascular: regular rate and rhythm Gastrointestinal: normoactive bowel sounds, non-distended Extremities: no cyanosis normal mental status, non-focal exam mood appropriate Results - Laboratory Findings CBC and BMP: 09/24/17 00:30 09/24/17 00:30 Abnormal lab findings: Abnormal lab results RBC 4.11 M/mcL (4.19-5.50) L 09/24/17 00:30 Eosinophils # 0.7 K/mcL (0.0-0.6) H 09/24/17 00:30 Carbon Dioxide 36 mEq/L (23-29) H 09/24/17 00:30 Glucose 124 mg/dL (70-105) H 09/24/17 00:30 - Diagnostic Findings Chest x-ray: report reviewed, image reviewed - Clinical Findings Intake & Output: Intake & Output 09/25/17 09/25/17 09/25/17 07:59 15:59 23:59 Intake Total 490 / 490 1760 / 1760 Output Total 0 / 0 Balance 490 / 490 1760 / 1760 Weight 133.8 kg Consult Discharge Plan - Plan Additional Instructions: Please follow up with your primary care provider at the next available appointment. Please contact and schedule an appointment for an office visit with pulmonology. Please take all medications as prescribed. Please take your azithromycin and prednisone for the next 3 days. If you have any new or worsening symptoms please return to the emergency department or contact your primary care physician. Referrals: [facility] [Provider Group] Edinson Cool MD [Primary Care Provider] - (within one week) Prescriptions: Azithromycin [Zithromax Tri-David] 500 mg PO DAILY #3 tablet PredniSONE [Deltasone] 40 mg PO DAILY #6 tablet
--- NOTE | 2017-09-25 17:02 | Electrocardiograph Report ---
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
[2017-09-25] MEDS ORDERED: Budesonide/Formoterol 160/4.5 MDI IH SCH (22:00)
[2017-09-26] MEDS: Ipratropium/Albuterol Neb 3 ML IH SCH (03:47)
[2017-09-26 06:28] VITALS: BP 121/67
[2017-09-26] MEDS ORDERED: predniSONE 20 MG TABLET PO ONE (07:00)
--- NOTE | 2017-09-26 07:41 | Internal Med Progress Note ---
<Lemuel Yarbrough - Last Filed: 09/26/17 08:45> Date of Encounter: 09/26/17 Time of Encounter: 07:39 - Assessment and plan (1) Acute exacerbation of chronic obstructive airways disease Status: Resolved Assessment and plan: Patient appears to be back at baseline. He has been transitioned to oral abx and extrended steroid taper. He was seen by pulmonology who recommended continuing his ICS/LABA and will follow-up as an outpatient. Patient is stable for discharge, please refer to yesterday's discharge summary for complete discharge information. (2) Acute on chronic respiratory failure with hypoxia and hypercapnia Status: Chronic (3) CHF (congestive heart failure) Status: Chronic Qualifiers: Heart failure type: diastolic Heart failure chronicity: chronic Qualified Code(s): I50.32 - Chronic diastolic (congestive) heart failure - Time Spent With Patient 25 - 35 minutes (Time spent on discharge) - Subjective Interval history: Patient seen and examined at bedside. Patient has no complaints this morning. He states that he feels back to baseline. He denies cough, shortness of breath , wheezing. He has baseline oxygen use - Constitutional Vitals: Temp Pulse Resp BP Pulse Ox 98 F 86 18 121/67 93 09/26/17 06:27 09/26/17 06:27 09/26/17 06:27 09/26/17 06:27 09/26/17 06:27 General appearance: Present: A&O X 3, pleasant, no acute distress - Respiratory Respiratory exam: Present: decreased breath sounds. Absent: rales, rhonchi, wheezes - Cardiovascular Cardiovascular exam: Present: RRR. Absent: gallop, rubs, systolic murmur - GI/Abdominal GI/Abdominal exam: Present: normal bowel sounds, soft. Absent: distended, tenderness - Neurological Exam Neurological exam: Present: alert, CN II-XII intact, oriented X3, no focal deficits Internal Medicine: Result - Labs CBC & Chem 7: 09/24/17 00:30 09/24/17 00:30 - Impressions Impressions Echocardiogram 09/25/17 15:41 Impressions: LVEF > 70%. Normal LV chamber size and function. Mild concentric left ventricular hypertrophy. Mild left ventricular diastolic dysfunction. Normal right ventricular structure and function. No obvious significant valvular dysfunction. No evidence of pulmonary hypertension. RVSP not well obtained due to poor TR jet. Left Ventricular Wall Motion: Rest Echo Findings All wall segments showed normal motion. Findings: Study Quality * Technically sub-optimal due to body habitus. ECG Findings * Sinus tachycardia. Left Ventricle * LVEF > 70%. * Normal LV chamber size and function. * Mild concentric left ventricular hypertrophy. * Mild left ventricular diastolic dysfunction. Right Ventricle * Normal right ventricular structure and function. Left Atrium * Moderately dilated left atrium. Right Atrium * Mild to moderately dilated right atrium. Interatrial Septum * Interatrial septum not well evaluated. Aortic Valve * Aortic valve not well visualized. * No aortic regurgitation. * No aortic stenosis. Mitral Valve * Normal mitral valve structure and function. * No mitral regurgitation. * No mitral stenosis. Tricuspid Valve * Normal tricuspid valve structure and function. * Trace tricuspid regurgitation. * No evidence of pulmonary hypertension. RVSP not well obtained due to poor TR jet. Pulmonic Valve * Pulmonic valve not well visualized. * No pulmonic regurgitation. Aorta * Normally sized aortic root. Pericardium * The pericardium appears normal. IVC * Normal IVC dimensions and inspiratory collapse. Pulmonary Artery * Pulmonary artery not well visualized. Consult Discharge Plan - Plan Instructions: Heart Failure (DC), Chronic Obstructive Pulmonary Disease (DC) Additional Instructions: Please follow up with your primary care provider at the next available appointment. Please contact and schedule an appointment for an office visit with pulmonology. Please take all medications as prescribed. Please take your azithromycin and prednisone for the next 3 days. If you have any new or worsening symptoms please return to the emergency department or contact your primary care physician. Referrals: [facility] [Provider Group] - 10/11/17 1:30 pm Edinson Cool MD [Primary Care Provider] - (within one week) Prescriptions: Azithromycin [Zithromax Tri-David] 500 mg PO DAILY #3 tablet PredniSONE [Deltasone] 40 mg PO DAILY #6 tablet predniSONE [PredniSONE] See Taper PO DAILY #50 tablet <Peterson Lopes - Last Filed: 09/26/17 10:33> Date of Encounter: 09/26/17 - Constitutional Vitals: Temp Pulse Resp BP Pulse Ox 98 F 86 18 121/67 93 09/26/17 06:27 09/26/17 06:27 09/26/17 06:27 09/26/17 06:27 09/26/17 06:27 Internal Medicine: Result - Labs CBC & Chem 7: 09/24/17 00:30 09/24/17 00:30 - Impressions Impressions Echocardiogram 09/25/17 15:41 Impressions: LVEF > 70%. Normal LV chamber size and function. Mild concentric left ventricular hypertrophy. Mild left ventricular diastolic dysfunction. Normal right ventricular structure and function. No obvious significant valvular dysfunction. No evidence of pulmonary hypertension. RVSP not well obtained due to poor TR jet. Left Ventricular Wall Motion: Rest Echo Findings All wall segments showed normal motion. Findings: Study Quality * Technically sub-optimal due to body habitus. ECG Findings * Sinus tachycardia. Left Ventricle * LVEF > 70%. * Normal LV chamber size and function. * Mild concentric left ventricular hypertrophy. * Mild left ventricular diastolic dysfunction. Right Ventricle * Normal right ventricular structure and function. Left Atrium * Moderately dilated left atrium. Right Atrium * Mild to moderately dilated right atrium. Interatrial Septum * Interatrial septum not well evaluated. Aortic Valve * Aortic valve not well visualized. * No aortic regurgitation. * No aortic stenosis. Mitral Valve * Normal mitral valve structure and function. * No mitral regurgitation. * No mitral stenosis. Tricuspid Valve * Normal tricuspid valve structure and function. * Trace tricuspid regurgitation. * No evidence of pulmonary hypertension. RVSP not well obtained due to poor TR jet. Pulmonic Valve * Pulmonic valve not well visualized. * No pulmonic regurgitation. Aorta * Normally sized aortic root. Pericardium * The pericardium appears normal. IVC * Normal IVC dimensions and inspiratory collapse. Pulmonary Artery * Pulmonary artery not well visualized. - Attending Attestation The patient was discharged on a prolonged prednisone taper 40 mg for 5 days, then 30 mg for 5 days, 20 mg for 5 days and 10 mg for 5 days. I examined this patient and my medical decision-making was reviewed with the Resident Physician. I agree with the documented findings, disposition and treatment plan as described except to the extent set forth below.
[2017-09-26] MEDS: Nicotine 21 MG PATCH.TD24 TD SCH (07:50)
[2017-09-26] MEDS: Spironolactone 25 MG TABLET PO SCH (07:50)
[2017-09-26] MEDS ORDERED: Azithromycin 250 MG TABLET PO SCH (09:00)
== END 2017-09-26 10:00 | disposition home or self-care (01) ==
LOC: 2NENU 23:54 → EMEROO 23:54 → 2NENU 09-24 02:36
PROVIDERS: ADMIT Internal Medicine Hematology & Oncology; ATTEND Internal Medicine

== ENCOUNTER 2017-11-13 18:02 | Inpatient (IN) ==
[2017-11-13] MEDS ORDERED: methylPREDNISolone 125 MG/2 ML VIAL IVP ONE (18:25)
[2017-11-13] MEDS ORDERED: Ipratropium/Albuterol Neb 3 ML IH ONE (18:25)
--- NOTE | 2017-11-13 18:35 | Emergency Department Note ---
Disposition Clinical Impression: Acute exacerbation of chronic obstructive airways disease Disposition: Still a Patient Condition: Fair Forms: ED Satisfaction Letter Time of Disposition: 18:45 SOB HPI - General Chief Complaint: ED Shortness of Breath/Dyspnea Stated Complaint: CAMERON Time Seen by Provider: 11/13/17 18:23 Source: patient Limitations: no limitations Nursing Notes Reviewed: Yes Vital Signs Reviewed: Yes - History of Present Illness Shortness of breath this started earlier today. Denies any chest pain Is on oxygen as any fevers. Denies any chest pain. Nonproductive cough. - Related Data Home Medications Medication Instructions Recorded Confirmed Fluticasone/Vilanterol [Breo 1 puff IH DAILY 08/08/17 09/24/17 Ellipta 100-25 Mcg INH] Spironolactone [Aldactone] 25 mg PO BID 08/08/17 09/24/17 Albuterol Neb [Proventil Neb] 2.5 mg IH PRN PRN 09/24/17 09/24/17 Previous Rx's Medication Instructions Recorded Albuterol Sulfate [Albuterol 2 puff IH Q6HR PRN #1 hfa.aer.ad 08/11/17 Inhaler] Nicotine Patch [Nicoderm] 21 mg TD DAILY #30 patch.td24 08/11/17 Montelukast [Singulair] 10 mg PO HS #30 tablet 08/31/17 Azithromycin [Zithromax Tri-David] 500 mg PO DAILY #3 tablet 09/25/17 PredniSONE [Deltasone] 40 mg PO DAILY #6 tablet 09/25/17 predniSONE [PredniSONE] See Taper PO DAILY #50 tablet 09/26/17 Allergies Allergy/AdvReac Type Severity Reaction Status Date / Time No Known Allergies Allergy Verified 11/13/17 18:19 All systems ED: reviewed and negative except as stated. Constitutional: Denies: fever, chills ENT ED: Denies: congestion Cardiovascular: Reports: dyspnea on exertion. Denies: chest pain, palpitations , syncope Respiratory: Reports: cough, dyspnea. Denies: wheezes Gastrointestinal: Denies: abdominal pain, nausea, vomiting Genitourinary: Denies: urgency, dysuria, frequency Musculoskeletal: Denies: back pain Integumentary: Denies: rash, abrasion Neurological: Denies: headache, weakness Past Medical History - Past Medical History Attestation: Yes The following information was validated with the patient. Source: patient Medical history: Reports: CHF, COPD Surgical history: Reports: no surgical history Psychiatric history: Reports: no psych history - Social History Smoking Status: Former smoker Smokeless Tobacco Status: Yes Alcohol use: Reports: none Drug use: Reports: none Physical Exam - General Limitations: no limitations General appearance: alert, in distress (Complaints of shortness of breath. Does appear to be short of breath. Diaphoretic.) - Head Head exam: atraumatic, normocephalic, normal inspection - Eye Eye exam: Present: normal appearance, PERRL, EOMI - ENT ENT exam: normal exam, normal oropharynx - Neck Neck exam: Present: normal inspection, full ROM - Chest Chest inspection: Present: normal inspection, symmetric chest wall rise. Absent : tenderness - Respiratory Respiratory exam: Present: respiratory distress, wheezes (Diffusely throughout) , accessory muscle use - Cardiovascular Cardiovascular exam: Present: normal rhythm, tachycardia, normal heart sounds - Abdominal Exam Abdominal exam: Present: soft, Non-Tender. Absent: tenderness, distention, guarding, rebound, rigidity - Extremities Exam Extremities exam: Present: normal inspection, full ROM, normal capillary refill , pedal edema (Pitting to knees). Absent: tenderness - Back Exam Back exam: Present: normal inspection, full ROM. Absent: tenderness - Neurological Exam Neurological exam: Present: alert, oriented X3 - Psychiatric Psychiatric exam: Present: normal affect, normal mood - Skin Skin exam: Present: warm, intact, normal color, diaphoresis Course Course Narrative: Male patient presenting to the emergency department waiting of shortness of breath. States it started earlier today whenever he was sitting on the couch. Does have a history of COPD. Is on 3 L of oxygen all the time. Not smoking. Does have wheezing diffusely. Denies any chest pain. Is diaphoretic on exam. Abdomen is distended with no peritoneal signs. No pain on palpation. Denies any nausea vomiting or diarrhea. Does have some bilateral lower extremity edema. Has been out of his Aldactone for significant amount of time. We will do a cardiac workup on patient for by them with 3 duo nebs and give steroids on board. We will get a chest x-ray. I anticipate admission for this patient. - Reevaluation(s) Reevaluation #1: We will send the patient out to the night crew. Time: 18:45 Vital Signs Temperature 98.3 F 11/13/17 18:16 Pulse Rate 97 11/13/17 18:16 Respiratory Rate 26 11/13/17 18:16 Blood Pressure 161/95 11/13/17 18:16 O2 Sat by Pulse Oximetry 87 11/13/17 18:16 Temperature 98.3 F 11/13/17 18:16 Pulse Rate 97 11/13/17 18:16 Respiratory Rate 22 11/13/17 18:33 Blood Pressure 161/95 11/13/17 18:16 O2 Sat by Pulse Oximetry 95 11/13/17 18:33 Oxygen Delivery Oxygen Delivery Nasal Cannula S.Magalys.Amy. - [place] Background: Presenting Complaint (Shortest of breath diaphoretic wheezing throughout), Relevant PMH, Meds, & Allergies (COPD) Assessment: Course and respsone to treatment (Getting 3 duo nebs. As well as steroids.) Recommendation: Recommendation based on pending studies, treatments, or consults (Chest x-ray pending, likely admission.) S.B.A.RMarilyn Report Given to: Dennis Blake Repor Time: 18:46
--- NOTE | 2017-11-13 18:36 | Emergency Department Note ---
Disposition Clinical Impression: Acute exacerbation of chronic obstructive airways disease Disposition: Still a Patient Forms: ED Satisfaction Letter General Adult HPI - General Chief complaint: ED Shortness of Breath/Dyspnea Stated complaint: CAMERON Time Seen by Provider: 11/13/17 18:23 Source: patient Limitations: no limitations Nursing Notes Reviewed: Yes Vital Signs Reviewed: Yes - History of Present Illness Pain Scale: 0 - Related Data Home Medications Medication Instructions Recorded Confirmed Fluticasone/Vilanterol [Breo 1 puff IH DAILY 08/08/17 09/24/17 Ellipta 100-25 Mcg INH] Spironolactone [Aldactone] 25 mg PO BID 08/08/17 09/24/17 Albuterol Neb [Proventil Neb] 2.5 mg IH PRN PRN 09/24/17 09/24/17 Previous Rx's Medication Instructions Recorded Albuterol Sulfate [Albuterol 2 puff IH Q6HR PRN #1 hfa.aer.ad 08/11/17 Inhaler] Nicotine Patch [Nicoderm] 21 mg TD DAILY #30 patch.td24 08/11/17 Montelukast [Singulair] 10 mg PO HS #30 tablet 08/31/17 Azithromycin [Zithromax Tri-David] 500 mg PO DAILY #3 tablet 09/25/17 PredniSONE [Deltasone] 40 mg PO DAILY #6 tablet 09/25/17 predniSONE [PredniSONE] See Taper PO DAILY #50 tablet 09/26/17 Allergies Allergy/AdvReac Type Severity Reaction Status Date / Time No Known Allergies Allergy Verified 11/13/17 18:19 Past Medical History - Past Medical History Medical history: Reports: CHF, COPD Surgical history: Reports: no surgical history Psychiatric history: Reports: no psych history - Social History Smoking Status: Former smoker Smokeless Tobacco Status: Yes Alcohol use: Reports: none Drug use: Reports: none Physical Exam - General Limitations: no limitations General appearance: alert Course Vital Signs Temperature 98.3 F 11/13/17 18:16 Pulse Rate 97 11/13/17 18:16 Respiratory Rate 26 11/13/17 18:16 Blood Pressure 161/95 11/13/17 18:16 O2 Sat by Pulse Oximetry 87 11/13/17 18:16 Temperature 98.3 F 11/13/17 18:16 Pulse Rate 97 11/13/17 18:16 Respiratory Rate 26 11/13/17 18:16 Blood Pressure 161/95 11/13/17 18:16 O2 Sat by Pulse Oximetry 87 11/13/17 18:16 Oxygen Delivery Oxygen Delivery Nasal Cannula Medical Decision Making - MDM Narrative Medical decision making narrative: This documentation is done with the assistance of Dragon dictation. Despite efforts made to ensure accuracy, there may be inaccuracies in supervisor capacitor processing or spelling and typographical errors. I examined this patient and my medical decision-making was reviewed with the Resident Physician. I agree with the documented findings, disposition and treatment plan as described except to the extent set forth below. Patient was seen and evaluated on arrival with Dr. Huitron and myself, agree with her evaluation management plan, supervise care the patient's stay. Patient resists stay with edema and COPD symptoms. Dyspnea. No chest pain at this time. Getting a cardiac workup and most likely will need admission. Patient will be stabilized and then signed out to the evening ER physician Dr. Lafleur for further management and disposition. 1825 hrs. EKG shows a sinus rhythm with a rate of 99, QRS is 95, QTC 365, no signs of acute ischemia, compare this with an EKG done earlier this year shows no changes except for rate.
[2017-11-13] MEDS ORDERED: Furosemide 40 MG/4 ML VIAL IVP ONE (18:38)
[2017-11-13 19:42] LABS: BUN/Creatinine Ratio 17 (6-26); Blood Urea Nitrogen 17 mg/dL (6-20); Carbon Dioxide 37 mEq/L (23-29); Chloride 99 mEq/L (98-107); Glucose 135 mg/dL (70-105); Osmolality,Calculated 292 (280-300); Potassium 3.9 mEq/L (3.5-5.1); Sodium 139 mEq/L (136-145); Troponin I < 0.03 ng/mL (< 0.04); eGFR For African Americans > 60 (> 60); eGFR For Non-African Americans > 60 (> 60)
--- NOTE | 2017-11-13 20:10 | Emergency Department Note ---
Disposition Clinical Impression: Acute exacerbation of chronic obstructive airways disease Disposition: Admitted As Inpatient Condition: Good Referrals: NONE,PCP [Primary Care Provider] - Forms: ED Satisfaction Letter Time of Disposition: 20:35 SOB HPI - General Chief Complaint: ED Shortness of Breath/Dyspnea Stated Complaint: CAMERON Time Seen by Provider: 11/13/17 18:23 Source: patient Limitations: no limitations - Related Data Home Medications Medication Instructions Recorded Confirmed Albuterol Neb [Proventil Neb] 2.5 mg IH PRN PRN 09/24/17 11/13/17 Levalbuterol Tartrate 1 puff IH DAILY 11/13/17 11/13/17 [Levalbuterol Tartrate Hfa] Naproxen [Naproxen] 375 mg PO BID PRN 11/13/17 11/13/17 Previous Rx's Medication Instructions Recorded Albuterol Sulfate [Albuterol 2 puff IH Q6HR PRN #1 hfa.aer.ad 08/11/17 Inhaler] Montelukast [Singulair] 10 mg PO HS #30 tablet 08/31/17 Allergies Allergy/AdvReac Type Severity Reaction Status Date / Time No Known Allergies Allergy Verified 11/13/17 20:29 Constitutional: Denies: fever, chills ENT ED: Denies: congestion Cardiovascular: Reports: dyspnea on exertion. Denies: chest pain, palpitations , syncope Respiratory: Reports: cough, dyspnea. Denies: wheezes Gastrointestinal: Denies: abdominal pain, nausea, vomiting Genitourinary: Denies: urgency, dysuria, frequency Musculoskeletal: Denies: back pain Integumentary: Denies: rash, abrasion Neurological: Denies: headache, weakness Past Medical History - Past Medical History Medical history: Reports: CHF, COPD Surgical history: Reports: no surgical history Psychiatric history: Reports: no psych history - Social History Smoking Status: Former smoker Smokeless Tobacco Status: Yes Alcohol use: Reports: none Drug use: Reports: none Physical Exam - General Limitations: no limitations General appearance: alert, in distress (Complaints of shortness of breath. Does appear to be short of breath. Diaphoretic.) Course Course Narrative: 57-year-old male signed out to us by the day team with COPD exacerbation. Patient had basic laboratory analysis which was within normal limits. Chest x- ray within normal limits. Patient does have diffuse wheezing even after 3 back- to-back do nebs. Patient given steroids. Patient did have 2+ pitting edema on the bilateral lower extremities the patient states this is baseline for him. X- ray did not show any signs of CHF. Patient was given IV Lasix as well. Patient is alert and oriented 3 in the room with stable vital signs. We will plan to admit the patient at this time for COPD exacerbation. I spoke with the hospitalist on-call Dr. Rai who agrees to accept the patient at this time. Patient agrees with this plan. Vital Signs Temperature 98.3 F 11/13/17 18:16 Pulse Rate 97 11/13/17 18:16 Respiratory Rate 26 11/13/17 18:16 Blood Pressure 161/95 11/13/17 18:16 O2 Sat by Pulse Oximetry 87 11/13/17 18:16 Temperature 98.3 F 11/13/17 18:16 Pulse Rate 91 11/13/17 20:08 Respiratory Rate 18 11/13/17 20:08 Blood Pressure 139/83 11/13/17 20:08 O2 Sat by Pulse Oximetry 93 11/13/17 20:08 Oxygen Delivery Oxygen Delivery Nasal Cannula Shortness of Breath/Dyspnea - Lab Data Result diagrams: 11/13/17 18:51 11/13/17 18:51 Lab Results 11/13/17 11/13/17 11/13/17 Range/Units 18:51 18:51 18:51 WBC 9.7 (4.3-11.1) K/mcL RBC 3.97 L (4.19-5.50) M/mcL Hgb 13.2 (12.9-16.9) g/dL Hct 38.6 (37.5-50.1) % MCV 97.2 (83.0-100.0) fL MCH 33.2 (28.0-33.3) pg MCHC 34.2 (31.6-35.5) g/dL RDW 13.7 (11.5-14.5) % Plt Count 332 (140-400) K/mcL MPV 10.4 (9.4-12.4) fL Immature Gran % 0.7 (0-4) % Seg Neutrophils % 65.7 % Lymphocytes % 10.9 % Monocytes % 11.9 % Eosinophils % 10.0 % Basophils % 0.8 % Neutrophils # 6.4 (1.6-8.9) K/mcL Lymphocytes # 1.1 (0.6-4.6) K/mcL Monocytes # 1.2 (0.0-1.3) K/mcL Eosinophils # 1.0 H (0.0-0.6) K/mcL Basophils # 0.1 (0.0-0.2) K/mcL Nucleated RBCs/100 WBC 0.2 H (0) /100 WBC Immature Plt Fraction 3.4 (1.1-6.1) % Sodium 139 (136-145) mEq/L Potassium 3.9 (3.5-5.1) mEq/L Chloride 99 (98-107) mEq/L Carbon Dioxide 37 H (23-29) mEq/L BUN 17 (6-20) mg/dL Creatinine 0.99 (0.70-1.30) mg/dL Est GFR ( Amer) > 60 (> 60) Est GFR (Non-Af Amer) > 60 (> 60) BUN/Creatinine Ratio 17 (6-26) Glucose 135 H (70-105) mg/dL Calculated Osmolality 292 (280-300) Lactic Acid 1.1 (0.5-2.2) mmol/L Calcium 9.0 (8.6-10.3) mg/dL Troponin I < 0.03 (< 0.04) ng/mL B-Natriuretic Peptide (Less than 100) pg/mL 11/13/17 Range/Units 18:51 WBC (4.3-11.1) K/mcL RBC (4.19-5.50) M/mcL Hgb (12.9-16.9) g/dL Hct (37.5-50.1) % MCV (83.0-100.0) fL MCH (28.0-33.3) pg MCHC (31.6-35.5) g/dL RDW (11.5-14.5) % Plt Count (140-400) K/mcL MPV (9.4-12.4) fL Immature Gran % (0-4) % Seg Neutrophils % % Lymphocytes % % Monocytes % % Eosinophils % % Basophils % % Neutrophils # (1.6-8.9) K/mcL Lymphocytes # (0.6-4.6) K/mcL Monocytes # (0.0-1.3) K/mcL Eosinophils # (0.0-0.6) K/mcL Basophils # (0.0-0.2) K/mcL Nucleated RBCs/100 WBC (0) /100 WBC Immature Plt Fraction (1.1-6.1) % Sodium (136-145) mEq/L Potassium (3.5-5.1) mEq/L Chloride (98-107) mEq/L Carbon Dioxide (23-29) mEq/L BUN (6-20) mg/dL Creatinine (0.70-1.30) mg/dL Est GFR ( Amer) (> 60) Est GFR (Non-Af Amer) (> 60) BUN/Creatinine Ratio (6-26) Glucose (70-105) mg/dL Calculated Osmolality (280-300) Lactic Acid (0.5-2.2) mmol/L Calcium (8.6-10.3) mg/dL Troponin I (< 0.04) ng/mL B-Natriuretic Peptide 20 (Less than 100) pg/mL
[2017-11-13 20:22] LABS: Basophils # 0.1 K/mcL (0.0-0.2); Basophils % 0.8 %; Hematocrit 38.6 % (37.5-50.1); Hemoglobin 13.2 g/dL (12.9-16.9); Immature Granulocytes % 0.7 % (0-4); Immature Platelets 3.4 % (1.1-6.1); Lymphocytes # 1.1 K/mcL (0.6-4.6); Lymphocytes % 10.9 %; Mean Corpuscular HGB Conc 34.2 g/dL (31.6-35.5); Mean Corpuscular Hemoglobin 33.2 pg (28.0-33.3); Mean Corpuscular Volume 97.2 fL (83.0-100.0); Mean Platelet Volume 10.4 fL (9.4-12.4); Monocytes # 1.2 K/mcL (0.0-1.3); Monocytes % 11.9 %; Neutrophils # 6.4 K/mcL (1.6-8.9); Nucleated Red Blood Cells 0.2 /100 WBC (0); Platelet Count 332 K/mcL (140-400); Red Blood Count 3.97 M/mcL (4.19-5.50); Red Cell Distribution Width 13.7 % (11.5-14.5); Segmented Neutrophils % 65.7 %
--- NOTE | 2017-11-13 20:55 | Internal Med History&Physical ---
Date of Encounter: 11/13/17 Time of Encounter: 20:53 Assessment and Plan (1) Acute exacerbation of chronic obstructive airways disease Current visit: Yes Status: Acute The patient will be admitted for COPD exacerbation. O2 support and wean down to his chronic O2 needs as tolerated. Continue IV Solu-Medrol. Continue nebulizers. We will start the patient on IV Zithromax. (2) Lower extremity edema Current visit: Yes Status: Acute The patient has been out of his spironolactone. He is not sure how much he is on. He gets it from his PCP. Received a dose of Lasix IV. Monitor I&O's. The patient is not to have overt signs of CHF other than lower extremity edema. We will see how he does with the Lasix. Restart home Spironalactone once dose is confirmed by pharmacy. (3) Morbid obesity with BMI of 40.0-44.9, adult Current visit: No Status: Chronic Counseled (4) DVT prophylaxis Current visit: No Status: Acute Heparin subcutaneous Internal Medicine - H&P: HPI Admitted From: Emergency Dept Plans for Post Hospital Care: Home (Shortness of breath) History of present illness: Mr. Paris is a 57 year old male with a history of COPD, diastolic heart failure who presents with shortness of breath has been worsening for couple days. The patient is on chronic 2-3 L O2. In the emergency department he was satting 91-93% on 4 L. According to the ED staff the patient was significantly wheezy and needed 3 nebulizers treatments and was still wheezing. Received 125 mg of IV Solu-Medrol. The patient usually takes spironolactone has been out of it for a few days. They noted that his lower extremities were swollen and they gave Lasix 40 mg IV. Chest x-ray with no acute disease. Labs were mostly unremarkable. Denies fever, chills, headache, nausea, vomiting, chest pain, abdominal pain, urinary symptoms, or neurological symptoms. The patient had a recent admission in September for COPD exacerbation. Past Med Surg Social Fam HX - Past Medical History Medical history: CHF, COPD Psychiatric history: no psych history - Past Surgical History Surgical History: no surgical history - Social History Smoking Status: Former smoker Smokeless Tobacco Status: Yes Alcohol use: none Drug use: none - Family History Father Living Status: Still Living Hx Family Cardiac Disorders: Yes (open heart and stents) Internal Medicine - H&P: Meds Albuterol Sulfate [Albuterol Inhaler] 2 puff IH Q6HR PRN #1 hfa.aer.ad 08/11/17 [Rx] Montelukast [Singulair] 10 mg PO HS #30 tablet 08/31/17 [Rx] Albuterol Neb [Proventil Neb] 2.5 mg IH PRN PRN 09/24/17 [History] Levalbuterol Tartrate [Levalbuterol Tartrate Hfa] 1 puff IH DAILY 11/13/17 [ History] Naproxen [Naproxen] 375 mg PO BID PRN 11/13/17 [History] 3 Allergy/AdvReac Type Severity Reaction Status Date / Time No Known Allergies Allergy Verified 11/13/17 20:29 All Systems PM: A 10-system review of systems was performed and is negative for pertinent findings except as documented above in the HPI. Review of systems: All systems are negative except as mentioned above - Constitutional Vitals: Temp Pulse Resp BP Pulse Ox 98.3 F 91 18 139/83 93 11/13/17 18:16 11/13/17 20:08 11/13/17 20:08 11/13/17 20:08 11/13/17 20:08 Exam: GEN: NAD HEENT: AT, NC, No cyanosis, oral mucosa is moist, No JVD Lymphatics: No lymphadenoapthy Eyes: Extrocular muscles intact, anicteric CVS:RRR. S1, S2, No m/r/g RESP: Diminished with expiratory wheezes posteriorly ABD: Soft, NT, ND, +BS EXT:2+ edema, No rashes, 2+ DP NEURO: Nonfocal, CN II-XII intact, No focal motor or sensory deficits Psych: Cooperative, Not anxious or depressed Internal Med - H&P Results - Labs CBC & Chem 7: 11/13/17 18:51 11/13/17 18:51 Labs: Short CBC 11/13/17 Range/Units 18:51 WBC 9.7 (4.3-11.1) K/mcL Hgb 13.2 (12.9-16.9) g/dL Hct 38.6 (37.5-50.1) % Plt Count 332 (140-400) K/mcL Neutrophils # 6.4 (1.6-8.9) K/mcL BMP 11/13/17 18:51 Sodium 139 Potassium 3.9 Chloride 99 Carbon Dioxide 37 H BUN 17 Creatinine 0.99 Glucose 135 H Calcium 9.0 Cardiac Enzymes 11/13/17 Range/Units 18:51 Troponin I < 0.03 (< 0.04) ng/mL - Impressions ITS Impressions Chest X-Ray 11/13/17 18:25 IMPRESSION: 1. No active pulmonary disease. D/ / Aakash Lyle MD / Aakash Lyle MD Interpreting Provider: Aakash Lyle MD
[2017-11-13] MEDS ORDERED: Naloxone 0.4 MG/ML INJ IVP PRN (20:58)
[2017-11-13] MEDS ORDERED: Acetaminophen 325 MG TABLET PO PRN (20:58)
[2017-11-13] MEDS: *HR* Heparin 5,000 UNIT/ML VIAL SQ SCH (22:39)
[2017-11-13] MEDS: Azithromycin 500 MG in D5% in Water 250 ML IVPB SCH (22:40)
[2017-11-13] MEDS: Ipratropium/Albuterol Neb 3 ML IH SCH (23:39)
[2017-11-14] MEDS: methylPREDNISolone 125 MG/2 ML VIAL IVP SCH ×4 (01:03→23:03)
[2017-11-14] MEDS: Ipratropium/Albuterol Neb 3 ML IH SCH ×4 (04:03→21:09)
[2017-11-14] MEDS: *HR* Heparin 5,000 UNIT/ML VIAL SQ SCH ×3 (05:15→21:46)
[2017-11-14 07:48] LABS: Mean Platelet Volume 10.5 fL (9.4-12.4)
[2017-11-14 08:45] LABS: Basophils % 0.3 %; Hemoglobin 12.7 g/dL (12.9-16.9); Immature Granulocytes % 1.3 % (0-4); Immature Platelets 3.7 % (1.1-6.1); Lymphocytes # 0.4 K/mcL (0.6-4.6); Lymphocytes % 5.6 %; Mean Corpuscular HGB Conc 34.3 g/dL (31.6-35.5); Mean Corpuscular Hemoglobin 32.8 pg (28.0-33.3); Monocytes # 0.1 K/mcL (0.0-1.3); Monocytes % 1.3 %; Neutrophils # 6.8 K/mcL (1.6-8.9); Platelet Count 326 K/mcL (140-400); Red Blood Count 3.87 M/mcL (4.19-5.50); Red Cell Distribution Width 13.7 % (11.5-14.5); Segmented Neutrophils % 91.5 %
[2017-11-14 08:55] LABS: Mean Corpuscular Volume 95.6 fL (83.0-100.0)
[2017-11-14 09:33] LABS: BUN/Creatinine Ratio 18 (6-26); Blood Urea Nitrogen 17 mg/dL (6-20); Calcium 8.9 mg/dL (8.6-10.3); Carbon Dioxide 32 mEq/L (23-29); Chloride 100 mEq/L (98-107); Glucose 244 mg/dL (70-105); Osmolality,Calculated 300 (280-300); Potassium 4.1 mEq/L (3.5-5.1); Sodium 140 mEq/L (136-145); eGFR For African Americans > 60 (> 60); eGFR For Non-African Americans > 60 (> 60)
--- NOTE | 2017-11-14 15:57 | Internal Med Progress Note ---
Date of Encounter: 11/14/17 Time of Encounter: 15:57 - Assessment and plan (1) DVT prophylaxis Current Visit: No Status: Acute Assessment and plan: heparin subcut (2) Morbid obesity with BMI of 40.0-44.9, adult Current Visit: No Status: Chronic Assessment and plan: Lifestyle modifications and dietary modifications recommended (3) Acute exacerbation of chronic obstructive airways disease Current Visit: Yes Status: Acute Assessment and plan: 49-year-old male with a history of COPD, diastolic HEART failure and smokeless tobacco use with home O2 of 2-3 L presented with shortness of breath that had been worsening over the previous few days before admission. Patient was placed on 4 L and emergency room was satting 91-93%. Patient was significantly wheezy and required 3 nebulizer treatments and 125 mg of IV Solu-Medrol to contain the wheeze. Patient states he has been out of spironolactone since October 12. He was noted to have significant lower extremity edema and was given Lasix 40 mg IV 1. Chest x-ray showed no acute pulmonary findings. Continue Solu-Medrol at decreased dose and wean Continue nebulizers Continue IV Zithromax Continue to monitor O2 sats and titrate O2 to maintain sats greater than 92% tessalon for cough control (4) Lower extremity edema Current Visit: Yes Status: Acute Assessment and plan: Repeat Lasix 40 IV Intake and output Daily weights Monitor blood work (5) Patient's noncompliance with other medical treatment and regimen Current Visit: Yes Status: Acute Assessment and plan: Patient's PCP retired and he had not followed up with a new primary care physician. His prescriptions and he has had none of his home medications since October 14. He states he is to see an CALIBRATION TECHNICIAN in office on the of this month. He is requesting prescriptions to get him through until he would see her. We are checking with [facility] for his medication list and dosages (6) Tobacco chew use Current Visit: Yes Status: Chronic Assessment and plan: cessation advised - Time Spent With Patient Total time spent is greater than 50% in coordination of care (as documented) at patient's floor/unit and/or counseling patient: - Subjective Interval history: Patient is feeling a little bit better. He is at his baseline oxygen at this time. His edema is a little bit better but still worse than normal per the patient's report. He feels his breathing is a little better. No fevers chills or sweats. Still with productive harsh cough - Constitutional Vitals: Temp Pulse Resp BP Pulse Ox 98.4 F 87 17 130/72 93 11/14/17 15:41 11/14/17 15:41 11/14/17 15:41 11/14/17 15:41 11/14/17 15:41 General appearance: Present: cooperative, pleasant, obese, answers questions appropriately - Head Head exam: Present: atraumatic, normocephalic - Eye Eye exam: Present: PERRL, conjuntiva pink, sclera anicteric Pupils: Present: PERRL - Neck Neck exam general surgery: Present: supple, trachea midline. Absent: lymphadenopathy - Respiratory Respiratory exam: Present: decreased breath sounds, prolonged expiratory phase, wheezes. Absent: accessory muscle use, rales, respiratory distress, rhonchi - Cardiovascular Cardiovascular exam: Present: RRR, +S1, +S2. Absent: diastolic murmur, gallop, rubs, systolic murmur - GI/Abdominal GI/Abdominal exam: Present: normal bowel sounds, soft, no peritoneal signs. Absent: distended, tenderness - Extremities Exam Extremities exam: Present: pedal edema, warm, radial pulses palpable and symmetrical. Absent: calf tenderness, cyanotic - Neurological Exam Neurological exam: Present: CN II-XII intact, oriented X3, no focal deficits. Absent: pronater drift, facial droop, speech deficit - Skin Skin exam: Present: dry, intact, normal color, warm Internal Medicine: Result - Labs CBC & Chem 7: 11/14/17 06:33 11/14/17 06:33 Labs: Short CBC 11/14/17 Range/Units 06:33 WBC 7.4 (4.3-11.1) K/mcL Hgb 12.7 L (12.9-16.9) g/dL Hct 37.0 L (37.5-50.1) % Plt Count 326 (140-400) K/mcL Neutrophils # 6.8 (1.6-8.9) K/mcL BMP 11/14/17 06:33 Sodium 140 Potassium 4.1 Chloride 100 Carbon Dioxide 32 H BUN 17 Creatinine 0.92 Glucose 244 H Calcium 8.9 Consult Discharge Plan - Plan Referrals: NONE,PCP [Primary Care Provider] -
[2017-11-14] MEDS ORDERED: Furosemide 40 MG/4 ML VIAL IVP ONE (16:05)
[2017-11-14] MEDS ORDERED: Benzonatate 100 MG CAPSULE PO PRN (16:06)
--- NOTE | 2017-11-14 19:32 | Electrocardiograph Report ---
[place] [id number] Test Date: 2017-11-13 Pat Name: Maksim Paris Department: 103 Room: 3B Gender: M Titrator: : 1960 Requested By: Christie Huitron Order Number: [id number] Reading MD: Justin Niño Measurements Intervals [place] Rate: 99 P: 72 MA: 178 QRS: 64 QRSD: 95 T: 59 QT: 309 QTc: 365 Interpretive Statements SINUS RHYTHM Electronically Signed On 11-14-2017 19:30:57 EDT by Justin Niño
[2017-11-14] MEDS: Azithromycin 500 MG in D5% in Water 250 ML IVPB SCH (21:51)
[2017-11-15] MEDS: Ipratropium/Albuterol Neb 3 ML IH SCH ×3 (03:52→15:40)
[2017-11-15] MEDS: *HR* Heparin 5,000 UNIT/ML VIAL SQ SCH (05:02)
[2017-11-15] MEDS: methylPREDNISolone 125 MG/2 ML VIAL IVP SCH (09:17)
[2017-11-15 09:42] LABS: BUN/Creatinine Ratio 24 (6-26); Blood Urea Nitrogen 23 mg/dL (6-20); Calcium 9.1 mg/dL (8.6-10.3); Carbon Dioxide 34 mEq/L (23-29); Chloride 100 mEq/L (98-107); Glucose 309 mg/dL (70-105); Osmolality,Calculated 305 (280-300); Potassium 5.1 mEq/L (3.5-5.1); Sodium 140 mEq/L (136-145); eGFR For African Americans > 60 (> 60); eGFR For Non-African Americans > 60 (> 60)
[2017-11-15 10:52] VITALS: BP 117/62
[2017-11-15 12:00] LABS: Hematocrit 33.7 % (37.5-50.1); Hemoglobin 11.6 g/dL (12.9-16.9); Mean Corpuscular HGB Conc 34.4 g/dL (31.6-35.5); Mean Corpuscular Hemoglobin 33.1 pg (28.0-33.3); Mean Platelet Volume 10.4 fL (9.4-12.4); Platelet Count 307 K/mcL (140-400)
[2017-11-15 12:02] LABS: Mean Corpuscular Volume 96.3 fL (83.0-100.0)
--- NOTE | 2017-11-15 15:01 | Discharge Summary ---
- NOTES TO OUTPATIENT PROVIDER Notes to Outpatient Provider: f/u with new provider on 11/28/17 as scheduled Date of Encounter: 11/15/17 Time of Encounter: 14:51 - Discharge Diagnosis (1) Morbid obesity with BMI of 40.0-44.9, adult Priority: Primary Status: Chronic Comments: Would benefit from lifestyle modifications including activity and dietary modifications (2) Acute exacerbation of chronic obstructive airways disease Priority: Primary Status: Acute Comments: Patient was on Solu-Medrol during his hospitalization Discharged on prednisone taper and Levaquin to complete a course of antibiotic treatment. He will resume his home O2 of 3 L nasal cannula as that is why he required during his stay. Provided Tessalon for cough control Provided duo nebs for his home nebulizer (3) Lower extremity edema Priority: Primary Status: Acute Comments: Improved with Lasix. We will discharge on Lasix 20 by mouth daily He was previously on spironolactone but had not taken for over a month (4) Patient's noncompliance with other medical treatment and regimen Priority: Primary Status: Acute Comments: Gave him a month's supply of his prescriptions until he can get to see a new provider that is scheduled to be seen next week. (5) Tobacco chew use Priority: Primary Status: Chronic Comments: Not interested in cessation (6) Diastolic CHF Priority: Primary Status: Chronic Comments: Chest x-ray with no acute pulmonary disease Maintain oxygen levels with home O2 of 3 L BNP was 20 Peripheral edema was chronic per patient report Qualifiers: Heart failure chronicity: chronic Qualified Code(s): I50.32 - Chronic diastolic (congestive) heart failure (7) Diastolic CHF, chronic Priority: Primary Status: Chronic Hospital course: Mr. Paris is a 57 year old male - Time Spent with Patient Total time spent providing and/or coordinating discharge services: - Discharge Medications Prescriptions: Albuterol Sulfate [Albuterol Inhaler] 2 puff IH Q6HR PRN #1 hfa.aer.ad PRN Reason: Shortness Of Breath Benzonatate [Tessalon] 200 mg PO TID PRN #21 capsule PRN Reason: Cough Furosemide [Lasix] 20 mg PO DAILY #15 tablet Montelukast [Singulair] 10 mg PO HS #30 tablet Naproxen 375 mg PO BID #20 tablet predniSONE [PredniSONE] 10 mg PO DAILY #30 tablet Home Medications: Albuterol Neb [Proventil Neb] 2.5 mg IH PRN PRN 09/24/17 [History] Levalbuterol Tartrate [Levalbuterol Tartrate Hfa] 1 puff IH DAILY 11/13/17 [ History] Albuterol Sulfate [Albuterol Inhaler] 2 puff IH Q6HR PRN #1 hfa.aer.ad 11/15/17 [Rx] Benzonatate [Tessalon] 200 mg PO TID PRN #21 capsule 11/15/17 [Rx] Furosemide [Lasix] 20 mg PO DAILY #15 tablet 11/15/17 [Rx] Montelukast [Singulair] 10 mg PO HS #30 tablet 11/15/17 [Rx] Naproxen 375 mg PO BID #20 tablet 11/15/17 [Rx] predniSONE [PredniSONE] 10 mg PO DAILY #30 tablet 11/15/17 [Rx] Allergies/Adverse Reactions: 3 Allergy/AdvReac Type Severity Reaction Status Date / Time No Known Allergies Allergy Verified 11/13/17 20:29 Date of admission: 11/13/17 21:05 Primary care physician: PCP NONE Consults: 11/14/17 10:13 Consult to Nurse Navigator [CONS] Routine Comment: Discharging clinician: Lanie Holloway Anticipated date of discharge: 11/15/17 - Constitutional Vitals: Temp Pulse Resp BP Pulse Ox 97.9 F 88 18 117/62 98 11/15/17 10:51 11/15/17 10:51 11/15/17 07:23 11/15/17 10:51 11/15/17 10:51 General appearance: Present: cooperative, pleasant, obese, answers questions appropriately - Patient Status Disposition: Home, Self-Care Condition: Good Functional capacity at discharge: independent ambulation Overall status at discharge: patient is back to baseline - Discharge Instructions Instructions: Benzonatate (By mouth), Furosemide (By mouth), Naproxen (By mouth ), Albuterol (By breathing), Prednisone (By mouth), Montelukast (By mouth) Follow Up With: NONE,PCP [Primary Care Provider] - - Diet and Activity Activity: increase activity as tolerated Diet: advance to your usual diet, low fat, low cholesterol, low salt diet
--- NOTE | 2017-11-15 18:35 | Discharge Summary ---
- NOTES TO OUTPATIENT PROVIDER Notes to Outpatient Provider: Follow-up with new provider on 11/28/17 as scheduled Date of Encounter: 11/15/17 Time of Encounter: 18:29 - Discharge Diagnosis (1) Morbid obesity with BMI of 40.0-44.9, adult Priority: Primary Status: Chronic Comments: Would benefit from lifestyle modifications including both activity and dietary (2) Acute exacerbation of chronic obstructive airways disease Priority: Primary Status: Acute Comments: Patient was on Solu-Medrol during this hospitalization and discharge on a prednisone taper. He was also on antibiotics and was discharged with oral Levaquin to complete a course of treatment. He will continue his home O2 of 3 L nasal cannula as that is likely he required during his stay. Tessalon pearls for cough control Continue albuterol inhaler as previously (3) Lower extremity edema Priority: Primary Status: Acute Comments: Improved with IV Lasix. Discharged on Lasix 20 a mouth daily. Also given prescription for potassium 10 mEq daily. He was previously on Spironalatohe which he had not taken for over a month (4) Patient's noncompliance with other medical treatment and regimen Priority: Primary Status: Chronic Comments: gave him a month's supplled to be seen ne (5) Tobacco chew use Priority: Primary Status: Chronic Comments: no desire to quit (6) Diastolic CHF, chronic Priority: Primary Status: Chronic Comments: Chest x-ray with no acute pulmonary disease Maintain oxygen levels with home O2 level 3 L nasal cannula BNP was 20 Peripheral edema chronic but was improved after IV Lasix. Hospital course: Mr. Paris is a 57 year old male admitted with exacerbation of COPD and increased peripheral edema with noncompliance of his home medication regime. Please refer to details in assessment and plan for further information on this admission. Discharge discussed with: patient, family, nurse Time spent discussing smoking cessation with patient: 3 to 10 minutes - Time Spent with Patient Total time spent providing and/or coordinating discharge services: Less than 30 minutes - Discharge Medications Prescriptions: Albuterol Sulfate [Albuterol Inhaler] 2 puff IH Q6HR PRN #1 hfa.aer.ad PRN Reason: Shortness Of Breath Benzonatate [Tessalon] 200 mg PO TID PRN #21 capsule PRN Reason: Cough Furosemide [Lasix] 20 mg PO DAILY #15 tablet Montelukast [Singulair] 10 mg PO HS #30 tablet Naproxen 375 mg PO BID #20 tablet predniSONE [PredniSONE] 10 mg PO DAILY #30 tablet Home Medications: Albuterol Neb [Proventil Neb] 2.5 mg IH PRN PRN 09/24/17 [History] Levalbuterol Tartrate [Levalbuterol Tartrate Hfa] 1 puff IH DAILY 11/13/17 [ History] Albuterol Sulfate [Albuterol Inhaler] 2 puff IH Q6HR PRN #1 hfa.aer.ad 11/15/17 [Rx] Benzonatate [Tessalon] 200 mg PO TID PRN #21 capsule 11/15/17 [Rx] Furosemide [Lasix] 20 mg PO DAILY #15 tablet 11/15/17 [Rx] Montelukast [Singulair] 10 mg PO HS #30 tablet 11/15/17 [Rx] Naproxen 375 mg PO BID #20 tablet 11/15/17 [Rx] predniSONE [PredniSONE] 10 mg PO DAILY #30 tablet 11/15/17 [Rx] Allergies/Adverse Reactions: 3 Allergy/AdvReac Type Severity Reaction Status Date / Time No Known Allergies Allergy Verified 11/13/17 20:29 Date of admission: 11/13/17 21:05 Primary care physician: PCP NONE Consults: 11/14/17 10:13 Consult to Nurse Navigator [CONS] Routine Comment: Discharging clinician: Lanie Holloway Anticipated date of discharge: 11/15/17 - Constitutional Vitals: Temp Pulse Resp BP Pulse Ox 97.9 F 88 18 117/62 97 11/15/17 10:51 11/15/17 10:51 11/15/17 15:40 11/15/17 10:51 11/15/17 15:40 General appearance: Present: cooperative, pleasant, obese, answers questions appropriately - Head Head exam: Present: atraumatic, normocephalic - Eye Eye exam: Present: PERRL, conjuntiva pink, sclera anicteric Pupils: Present: PERRL - Neck Neck exam general surgery: Present: supple, trachea midline. Absent: lymphadenopathy - Respiratory Respiratory exam: Present: decreased breath sounds, CTAB, prolonged expiratory phase. Absent: accessory muscle use, rales, rhonchi, wheezes - Cardiovascular Cardiovascular exam: Present: RRR, +S1, +S2. Absent: diastolic murmur, gallop, rubs, systolic murmur - GI/Abdominal GI/Abdominal exam: Present: normal bowel sounds, soft, no peritoneal signs. Absent: distended, tenderness - Extremities Exam Extremities exam: Present: pedal edema, warm, radial pulses palpable and symmetrical. Absent: calf tenderness, cyanotic - Neurological Exam Neurological exam: Present: alert, CN II-XII intact, normal gait, oriented X3, no focal deficits, strengths equal and symetr throughout. Absent: pronater drift, facial droop, speech deficit - Skin Skin exam: Present: dry, intact, normal color, warm - Patient Status Disposition: Home, Self-Care Condition: Good - Discharge Instructions Instructions: Benzonatate (By mouth), Furosemide (By mouth), Naproxen (By mouth ), Albuterol (By breathing), Prednisone (By mouth), Montelukast (By mouth) Follow Up With: NONE,PCP [Primary Care Provider] -
== END 2017-11-15 16:15 | disposition home or self-care (01) | DRG 191 ==
LOC: EMEROO 18:02 → 3BNU 18:02
PROVIDERS: ADMIT Internal Medicine; ATTEND Registered Nurse

== ENCOUNTER 2017-12-08 09:40 | Observation (INO) ==
[2017-12-08] MEDS ORDERED: Ipratropium/Albuterol Neb 3 ML ONE (09:43)
[2017-12-08] MEDS ORDERED: Ipratropium/Albuterol Neb 3 ML IH ONE (09:49)
[2017-12-08] MEDS ORDERED: methylPREDNISolone 125 MG/2 ML VIAL IVP ONE (09:49)
[2017-12-08] MEDS ORDERED: Albuterol 2.5 MG/3 ML NEBULIZER IH ONE (09:50)
--- NOTE | 2017-12-08 09:52 | Emergency Department Note ---
Disposition Clinical Impression: COPD with acute exacerbation, SOB (shortness of breath) on exertion, Hypercapnia Disposition: Admitted As Inpatient Condition: Good Prescriptions: Doxycycline 100 mg PO BID #14 capsule Referrals: NONE,PCP [Primary Care Provider] - Time of Disposition: 12:59 General Adult HPI - General Chief complaint: ED Shortness of Breath/Dyspnea Stated complaint: CAMERON/Chest pain Time Seen by Provider: 12/08/17 09:44 Nursing Notes Reviewed: Yes Vital Signs Reviewed: Yes - History of Present Illness HPI Narrative: 57-year-old male complains of acute onset of shortness of breath times one day ago. Patient has a history of COPD, and he is on home O2 at 3 L. Patient states that since worsening of shortness of breath symptoms he has been using his DuoNeb times every 4 hours and increase his O2 to 4 L symptoms continue to worsen. Patient brought in by EMS who placed him on an DuoNeb and brought him. Patient denies fever, chills, chest pain but complains of some chest tightness. Also, has dyspnea on exertion, but denies any radiating chest pain, diaphoresis, nausea or vomiting. Patient denies prior HI but has a history of CHF. - Related Data Home Medications Medication Instructions Recorded Confirmed Albuterol Neb [Proventil Neb] 2.5 mg IH PRN PRN 09/24/17 11/13/17 Levalbuterol Tartrate 1 puff IH DAILY 11/13/17 11/13/17 [Levalbuterol Tartrate Hfa] Naproxen 375 mg PO BID PRN 12/08/17 12/08/17 Previous Rx's Medication Instructions Recorded Albuterol Sulfate [Albuterol 2 puff IH Q6HR PRN #1 hfa.aer.ad 11/15/17 Inhaler] Furosemide [Lasix] 20 mg PO DAILY #15 tablet 11/15/17 Montelukast [Singulair] 10 mg PO HS #30 tablet 11/15/17 Doxycycline 100 mg PO BID #14 capsule 12/08/17 Allergies Allergy/AdvReac Type Severity Reaction Status Date / Time No Known Allergies Allergy Verified 11/13/17 20:29 All systems ED: reviewed and negative except as stated. Review of Systems: As Per HPI Constitutional: Denies: fever, chills ENT ED: Denies: congestion Cardiovascular: Denies: chest pain, palpitations Respiratory: Reports: cough, dyspnea, wheezes Gastrointestinal: Denies: abdominal pain, nausea, vomiting, diarrhea Musculoskeletal: Denies: back pain Past Medical History - Past Medical History Attestation: Yes The following information was validated with the patient. Source: patient, nursing notes reviewed Medical history: Reports: CHF, COPD Surgical history: Reports: no surgical history Psychiatric history: Reports: no psych history - Social History Smoking Status: Former smoker Smokeless Tobacco Status: Yes Alcohol use: Reports: none Drug use: Reports: none Physical Exam Vital Signs Temperature 0 F L 12/08/17 09:47 Pulse Rate 110 12/08/17 09:47 Respiratory Rate 24 12/08/17 09:47 Blood Pressure 126/103 12/08/17 09:47 O2 Sat by Pulse Oximetry 100 12/08/17 09:47 Temperature 0 F L 12/08/17 09:47 Pulse Rate 110 12/08/17 09:47 Respiratory Rate 24 12/08/17 09:47 Blood Pressure 126/103 12/08/17 09:47 O2 Sat by Pulse Oximetry 100 12/08/17 09:47 Oxygen Delivery Oxygen Delivery Aerosol Mask CONSTITUTIONAL: Unwell-appearing; well-nourished; A&O X 3, in acute respiratory distress. Patient has to take a breath after each word. HEAD: Normocephalic; atraumatic EYES: PERRL, no scleral icterus NOSE: The nose is normal in appearance without rhinorrhea NECK: No JVD or distended neck veins RESP: Shallow breathing bilaterally with markedly wheezing bilaterally. No rhonchi or rales CARD: Regular rhythm, without murmurs, rub or gallop ABD: Non-distended; non-tender, soft, without rigidity, rebound or guarding,no pulsatile mass CHEST: No pain with palpation SKIN: Normal for age and race; warm and dry without diaphoresis ; no apparent lesions EXTREMITIES: Pulses are 2 plus and equal times 4 extremities, no calf muscle pain. Patient positive for bilateral lower extremity 1 plus pitting edema. - General General appearance: alert, anxious Course - Reevaluation(s) Reevaluation #1: On DuoNeb therapy Time: 10:48 Reevaluation #2: Patient is breathing better after completion of DuoNeb therapy and albuterol nebulizer therapy. He still has wheezing of bilateral lung tariq and will start treatment with albuterol inhaler and spacer. Patient's O2 consumption via nasal cannula is currently at 3 L and he is maintaining O2 saturation 92-95% , still is very short of breath. Patient's laboratory findings reflect negative elevation of WBC, his anemia is at his normal baseline, and CO2 around baseline elevation. waiting for VBG to assess for hypercapnia. Patient currently does not require BiPAP. Patient's chest x-ray today appears improved from previous chest x-ray used for comparison taken on 11/13/2017. No consolidation seen on today's chest x-ray for pneumonia, no pneumothorax, no pleural effusions. Time: 11:10 Reevaluation #3: The patient's ABG shows that he is retaining CO2 above what his lab for his expected compensation. Since patient has hypercapnia patient will be admitted and started on IV antibiotics, doxycycline 100 mg twice a day. Patient is improving but still has persistent wheezing as well. Patient understands and agrees to treatment and plan for admission. Time: 11:52 - Consultations Consultation #1: Dr. Doshi the hospitalist's has accepted the patient for admission. Time: 12:59 Vital Signs Temperature 98.3 F 12/08/17 09:47 Pulse Rate 110 12/08/17 09:47 Respiratory Rate 24 12/08/17 09:47 Blood Pressure 126/103 12/08/17 09:47 O2 Sat by Pulse Oximetry 100 12/08/17 09:47 Temperature 98.8 F 12/08/17 13:39 Pulse Rate 99 12/08/17 13:39 Respiratory Rate 18 12/08/17 13:19 Blood Pressure 122/73 12/08/17 13:39 O2 Sat by Pulse Oximetry 95 12/08/17 13:39 Oxygen Delivery Oxygen Delivery Room Air Medical Decision Making - [facility] Narrative Medical decision making narrative: Patient is acute COPD exacerbation. Patient complains of chest tightness and will investigate of signs of ACS/HI. Chest x-ray will identify any pneumothorax but patient does not have any unilateral decrease in lung sounds on exam. Patient is tachycardic but does not have any other clinical signs or symptoms of DVT, no pleuritic chest pain, and has not been immobile for the past 3 days or have any previous surgeries in the past 4 weeks, no hemoptysis or malignancies. low risk under Wells criteria for PE. DuoNeb therapy 3 as well as albuterol nebulizer 3 and IV Solu-Medrol 125 mg. Labs were negative for elevation of WBC, and troponin. Patient's CO2 was elevated, so I checked a VBG which reflected hypercapnia within increase in CO2 above allowable compensation with bicarbonate levels. Given patient's overall impression of persistent wheezing recommend admission palpation return to baseline COPD status. Patient started on doxycycline 100 mg IV for prophylaxis against lung infection, given 125 Solu-Medrol, DuoNeb therapy 3, albuterol therapy 3, albuterol inhaler 4 puffs, but still has some mild wheezing. Of note, patient states that he is out of his home prescription for Lasix and does not have a prescriber currently. Ordered 40 mg IV Lasix for the patient today for bilateral lower extremity pitting edema. Patient understands and agrees to decision for admission for COPD exacerbation with hypercapnia. Dr. Doshi the hospitalist's has accepted the patient for admission. - Medical Records Medical records reviewed: Yes I reviewed the patient's medical records. Review of patient's echocardiogram taken 09/25/2017 shows a EF of 70% with mild diastolic dysfunction. - Lab Data Lab results reviewed: Yes I reviewed the patient's lab results. Result diagrams: 12/08/17 10:05 12/08/17 10:05 Lab Results 12/08/17 12/08/17 12/08/17 Range/Units 10:05 10:05 11:15 WBC 8.2 (4.3-11.1) K/mcL RBC 3.64 L (4.19-5.50) M/mcL Hgb 12.6 L (12.9-16.9) g/dL Hct 35.9 L (37.5-50.1) % MCV 98.6 (83.0-100.0) fL MCH 34.6 H (28.0-33.3) pg MCHC 35.1 (31.6-35.5) g/dL RDW 14.6 H (11.5-14.5) % Plt Count 309 (140-400) K/mcL MPV 10.0 (9.4-12.4) fL Immature Gran % 0.7 (0-4) % Seg Neutrophils % 56.8 % Lymphocytes % 12.8 % Monocytes % 11.2 % Eosinophils % 17.6 % Basophils % 0.9 % Neutrophils # 4.7 (1.6-8.9) K/mcL Lymphocytes # 1.1 (0.6-4.6) K/mcL Monocytes # 0.9 (0.0-1.3) K/mcL Eosinophils # 1.5 H (0.0-0.6) K/mcL Basophils # 0.1 (0.0-0.2) K/mcL VBG pH 7.33 (7.32-7.42) pH Units VBG pCO2 68 H (41-51) mmHg VBG pO2 141 H (25-50) mmHg VBG HCO3 36 H (21-27) mEq/L Sodium 140 (136-145) mEq/L Potassium 4.5 (3.5-5.1) mEq/L Chloride 99 (98-107) mEq/L Carbon Dioxide 38 H (23-29) mEq/L BUN 16 (6-20) mg/dL Creatinine 0.85 (0.70-1.30) mg/dL Est GFR ( Amer) > 60 (> 60) Est GFR (Non-Af Amer) > 60 (> 60) BUN/Creatinine Ratio 19 (6-26) Glucose 124 H (70-105) mg/dL Calculated Osmolality 293 (280-300) Calcium 9.0 (8.6-10.3) mg/dL Troponin I < 0.03 (< 0.04) ng/mL B-Natriuretic Peptide (Less than 100) pg/mL 12/08/17 Range/Units 11:49 WBC (4.3-11.1) K/mcL RBC (4.19-5.50) M/mcL Hgb (12.9-16.9) g/dL Hct (37.5-50.1) % MCV (83.0-100.0) fL MCH (28.0-33.3) pg MCHC (31.6-35.5) g/dL RDW (11.5-14.5) % Plt Count (140-400) K/mcL MPV (9.4-12.4) fL Immature Gran % (0-4) % Seg Neutrophils % % Lymphocytes % % Monocytes % % Eosinophils % % Basophils % % Neutrophils # (1.6-8.9) K/mcL Lymphocytes # (0.6-4.6) K/mcL Monocytes # (0.0-1.3) K/mcL Eosinophils # (0.0-0.6) K/mcL Basophils # (0.0-0.2) K/mcL VBG pH (7.32-7.42) pH Units VBG pCO2 (41-51) mmHg VBG pO2 (25-50) mmHg VBG HCO3 (21-27) mEq/L Sodium (136-145) mEq/L Potassium (3.5-5.1) mEq/L Chloride (98-107) mEq/L Carbon Dioxide (23-29) mEq/L BUN (6-20) mg/dL Creatinine (0.70-1.30) mg/dL Est GFR ( Amer) (> 60) Est GFR (Non-Af Amer) (> 60) BUN/Creatinine Ratio (6-26) Glucose (70-105) mg/dL Calculated Osmolality (280-300) Calcium (8.6-10.3) mg/dL Troponin I (< 0.04) ng/mL B-Natriuretic Peptide 21 (Less than 100) pg/mL - Radiology Data Radiology results reviewed: Yes I reviewed the patient's radiology results. Chest X-Ray 12/08/17 09:51 IMPRESSION: No acute cardiopulmonary disease D/ / Edmundo Harrison MD / Edmundo Harrison MD Interpreting Provider: Edmundo Harrison MD - EKG Data EKG #1 EKG attestation: Yes I reviewed and interpreted this EKG. EKG results narrative: EKG taken 12/08/2017 0950 hrs. shows a sinus rhythm at a rate of [address] elevations or depressions and a leads, QRS widening or QT prolongation. No change in EKG morphology from previous EKG taken 11/13/2017 for comparison.
[2017-12-08 10:10] LABS: Basophils # 0.1 K/mcL (0.0-0.2); Basophils % 0.9 %; Eosinophils # 1.5 K/mcL (0.0-0.6); Eosinophils % 17.6 %; Hematocrit 35.9 % (37.5-50.1); Hemoglobin 12.6 g/dL (12.9-16.9); Immature Granulocytes % 0.7 % (0-4); Lymphocytes # 1.1 K/mcL (0.6-4.6); Lymphocytes % 12.8 %; Mean Corpuscular HGB Conc 35.1 g/dL (31.6-35.5); Mean Corpuscular Hemoglobin 34.6 pg (28.0-33.3); Mean Corpuscular Volume 98.6 fL (83.0-100.0); Monocytes # 0.9 K/mcL (0.0-1.3); Monocytes % 11.2 %; Neutrophils # 4.7 K/mcL (1.6-8.9); Platelet Count 309 K/mcL (140-400); Red Blood Count 3.64 M/mcL (4.19-5.50); Red Cell Distribution Width 14.6 % (11.5-14.5); Segmented Neutrophils % 56.8 %
[2017-12-08 10:30] LABS: BUN/Creatinine Ratio 19 (6-26); Blood Urea Nitrogen 16 mg/dL (6-20); Carbon Dioxide 38 mEq/L (23-29); Chloride 99 mEq/L (98-107); Glucose 124 mg/dL (70-105); Osmolality,Calculated 293 (280-300); Potassium 4.5 mEq/L (3.5-5.1); Sodium 140 mEq/L (136-145); eGFR For African Americans > 60 (> 60); eGFR For Non-African Americans > 60 (> 60)
[2017-12-08] MEDS ORDERED: Doxycycline 100 MG CAPSULE PO ONE (11:09)
[2017-12-08 11:18] LABS: VBG HCO3 36 mEq/L (21-27); VBG PCO2 68 mmHg (41-51); VBG PH 7.33 pH Units (7.32-7.42); VBG PO2 141 mmHg (25-50)
[2017-12-08] MEDS ORDERED: Doxycycline 100 MG in 0.9 % Sodium Chloride Mini Bag 100 ML IVPB ONE (11:46)
[2017-12-08 11:52] LABS: Troponin I < 0.03 ng/mL (< 0.04)
--- NOTE | 2017-12-08 12:23 | Emergency Department Note ---
Disposition Clinical Impression: COPD with acute exacerbation, SOB (shortness of breath) on exertion, Hypercapnia Disposition: Admitted As Inpatient Condition: Good Prescriptions: Doxycycline 100 mg PO BID #14 capsule Referrals: NONE,PCP [Primary Care Provider] - General Adult HPI - General Chief complaint: ED Shortness of Breath/Dyspnea Stated complaint: CAMERON/Chest pain Time Seen by Provider: 12/08/17 09:44 Source: patient Limitations: no limitations - History of Present Illness Pain Scale: 0 - Related Data Home Medications Medication Instructions Recorded Confirmed Albuterol Neb [Proventil Neb] 2.5 mg IH PRN PRN 09/24/17 11/13/17 Levalbuterol Tartrate 1 puff IH DAILY 11/13/17 11/13/17 [Levalbuterol Tartrate Hfa] Naproxen 375 mg PO BID PRN 12/08/17 12/08/17 Previous Rx's Medication Instructions Recorded Albuterol Sulfate [Albuterol 2 puff IH Q6HR PRN #1 hfa.aer.ad 11/15/17 Inhaler] Furosemide [Lasix] 20 mg PO DAILY #15 tablet 11/15/17 Montelukast [Singulair] 10 mg PO HS #30 tablet 11/15/17 Doxycycline 100 mg PO BID #14 capsule 12/08/17 Allergies Allergy/AdvReac Type Severity Reaction Status Date / Time No Known Allergies Allergy Verified 11/13/17 20:29 Constitutional: Denies: fever, chills ENT ED: Denies: congestion Cardiovascular: Denies: chest pain, palpitations Respiratory: Reports: cough, dyspnea, wheezes Gastrointestinal: Denies: abdominal pain, nausea, vomiting, diarrhea Musculoskeletal: Denies: back pain Past Medical History - Past Medical History Medical history: Reports: CHF, COPD Surgical history: Reports: no surgical history Psychiatric history: Reports: no psych history - Social History Smoking Status: Former smoker Smokeless Tobacco Status: Yes Alcohol use: Reports: none Drug use: Reports: none Physical Exam - General Limitations: no limitations General appearance: alert, anxious Course Vital Signs Temperature 98.3 F 12/08/17 09:47 Pulse Rate 110 12/08/17 09:47 Respiratory Rate 24 12/08/17 09:47 Blood Pressure 126/103 12/08/17 09:47 O2 Sat by Pulse Oximetry 100 12/08/17 09:47 Temperature 98.8 F 12/08/17 13:39 Pulse Rate 99 12/08/17 13:39 Respiratory Rate 18 12/08/17 13:19 Blood Pressure 122/73 12/08/17 13:39 O2 Sat by Pulse Oximetry 95 12/08/17 13:39 Oxygen Delivery Oxygen Delivery Room Air Medical Decision Making - Lab Data Result diagrams: 12/08/17 10:05 12/08/17 10:05 Lab Results 12/08/17 12/08/17 12/08/17 Range/Units 10:05 10:05 11:15 WBC 8.2 (4.3-11.1) K/mcL RBC 3.64 L (4.19-5.50) M/mcL Hgb 12.6 L (12.9-16.9) g/dL Hct 35.9 L (37.5-50.1) % MCV 98.6 (83.0-100.0) fL MCH 34.6 H (28.0-33.3) pg MCHC 35.1 (31.6-35.5) g/dL RDW 14.6 H (11.5-14.5) % Plt Count 309 (140-400) K/mcL MPV 10.0 (9.4-12.4) fL Immature Gran % 0.7 (0-4) % Seg Neutrophils % 56.8 % Lymphocytes % 12.8 % Monocytes % 11.2 % Eosinophils % 17.6 % Basophils % 0.9 % Neutrophils # 4.7 (1.6-8.9) K/mcL Lymphocytes # 1.1 (0.6-4.6) K/mcL Monocytes # 0.9 (0.0-1.3) K/mcL Eosinophils # 1.5 H (0.0-0.6) K/mcL Basophils # 0.1 (0.0-0.2) K/mcL VBG pH 7.33 (7.32-7.42) pH Units VBG pCO2 68 H (41-51) mmHg VBG pO2 141 H (25-50) mmHg VBG HCO3 36 H (21-27) mEq/L Sodium 140 (136-145) mEq/L Potassium 4.5 (3.5-5.1) mEq/L Chloride 99 (98-107) mEq/L Carbon Dioxide 38 H (23-29) mEq/L BUN 16 (6-20) mg/dL Creatinine 0.85 (0.70-1.30) mg/dL Est GFR ( Amer) > 60 (> 60) Est GFR (Non-Af Amer) > 60 (> 60) BUN/Creatinine Ratio 19 (6-26) Glucose 124 H (70-105) mg/dL Calculated Osmolality 293 (280-300) Calcium 9.0 (8.6-10.3) mg/dL Troponin I < 0.03 (< 0.04) ng/mL B-Natriuretic Peptide (Less than 100) pg/mL 12/08/17 Range/Units 11:49 WBC (4.3-11.1) K/mcL RBC (4.19-5.50) M/mcL Hgb (12.9-16.9) g/dL Hct (37.5-50.1) % MCV (83.0-100.0) fL MCH (28.0-33.3) pg MCHC (31.6-35.5) g/dL RDW (11.5-14.5) % Plt Count (140-400) K/mcL MPV (9.4-12.4) fL Immature Gran % (0-4) % Seg Neutrophils % % Lymphocytes % % Monocytes % % Eosinophils % % Basophils % % Neutrophils # (1.6-8.9) K/mcL Lymphocytes # (0.6-4.6) K/mcL Monocytes # (0.0-1.3) K/mcL Eosinophils # (0.0-0.6) K/mcL Basophils # (0.0-0.2) K/mcL VBG pH (7.32-7.42) pH Units VBG pCO2 (41-51) mmHg VBG pO2 (25-50) mmHg VBG HCO3 (21-27) mEq/L Sodium (136-145) mEq/L Potassium (3.5-5.1) mEq/L Chloride (98-107) mEq/L Carbon Dioxide (23-29) mEq/L BUN (6-20) mg/dL Creatinine (0.70-1.30) mg/dL Est GFR ( Amer) (> 60) Est GFR (Non-Af Amer) (> 60) BUN/Creatinine Ratio (6-26) Glucose (70-105) mg/dL Calculated Osmolality (280-300) Calcium (8.6-10.3) mg/dL Troponin I (< 0.04) ng/mL B-Natriuretic Peptide 21 (Less than 100) pg/mL Attestation Statement - Attestation Attestation: I examined this patient and my medical decision-making was reviewed with the Resident Physician. I agree with the documented findings, disposition and treatment plan as described except to the extent set forth below. Patient to the ED with shortness of breath. Started last night. Been using home nebulizer without much relief. Patient appears dyspneic on examination. He is tachypneic tachycardic. Lungs with diffuse wheezing. Plan. Patient improved with nebs and steroids. He is satting well on nasal cannula. Labs unremarkable. Patient is admitted for further treatment of his COPD exacerbation is requiring increasing oxygen demand. Patient given antibiotics. Improved with nebs. Admitted to hospitalists.
[2017-12-08] MEDS ORDERED: Furosemide 40 MG/4 ML VIAL IVP ONE (12:40)
[2017-12-08] MEDS ORDERED: Naloxone 0.4 MG/ML INJ IVP PRN (13:22)
--- NOTE | 2017-12-08 13:30 | Internal Med History&Physical ---
Date of Encounter: 12/08/17 Time of Encounter: 13:26 Internal Medicine - H&P: HPI Admitted From: Home Plans for Post Hospital Care: Home History of present illness: Mr. Paris is a 57 year old male with history of severe COPD on 3 L home oxygen , ERNESTINA on CPAP, diastolic heart failure with preserved EF echo was done in September 2017 presented to ER with complaint of acute onset of shortness of breath times started yesterday afternoon when he tried to walk to the bathroom without oxygen. Generally he wears 3 L home oxygen. After coming back from bathroom he increased home oxygen level 4 L but still did not feel any relieved. He took 5-6 breathing treatment overnight that helped him but did not last long. Today morning felt short of breath getting worse therefore decided to come to ER. In ER patient was found to be in severe dyspnea therefore loading dose of Solu-Medrol along with breathing treatment and 40 mg IV Lasix given and patient felt more than 50% better. ABG consistent with hypercapnia. ER physician called on-call hospitalists for the admission with the diagnosis of COPD exacerbation with hypercapnia. Patient denies fever, chills, nausea, vomiting, headache, dizziness, chest pain , abdominal pain, urinary or bowel complaint. Denies any recent trauma or travel. Past Med Surg Social Fam HX - Past Medical History Medical history: CHF, COPD Psychiatric history: no psych history - Past Surgical History Surgical History: no surgical history - Social History Smoking Status: Former smoker Smokeless Tobacco Status: Yes Alcohol use: none Drug use: none - Family History Father Living Status: Still Living Hx Family Cardiac Disorders: Yes Internal Medicine - H&P: Meds Albuterol Neb [Proventil Neb] 2.5 mg IH PRN PRN 09/24/17 [History] Levalbuterol Tartrate [Levalbuterol Tartrate Hfa] 1 puff IH DAILY 11/13/17 [ History] Albuterol Sulfate [Albuterol Inhaler] 2 puff IH Q6HR PRN #1 hfa.aer.ad 11/15/17 [Rx] Furosemide [Lasix] 20 mg PO DAILY #15 tablet 11/15/17 [Rx] Montelukast [Singulair] 10 mg PO HS #30 tablet 11/15/17 [Rx] Doxycycline 100 mg PO BID #14 capsule 12/08/17 [Rx] Naproxen 375 mg PO BID PRN 12/08/17 [History] 3 Allergy/AdvReac Type Severity Reaction Status Date / Time No Known Allergies Allergy Verified 11/13/17 20:29 All Systems PM: A 10-system review of systems was performed and is negative for pertinent findings except as documented above in the HPI. - Constitutional Vitals: Temp Pulse Resp BP Pulse Ox 98.2 F 110 18 128/99 94 12/08/17 13:19 12/08/17 09:47 12/08/17 13:19 12/08/17 13:19 12/08/17 11:47 Exam: General appearance: No acute distress, A&O X 3, obese, 3 L oxygen by nasal cannula. Family at bedside. Patient has good conversation and also in happy mood with family Head exam: Atraumatic Eye exam: EOMI, PERRLA ENT exam: Moist oral mucosa Neck nontender, supple Respiratory exam: Decreased breath sound and scattered Wheezing bilaterally Cardiovascular exam: Regular rate and rhythm, no systolic murmur Abdominal exam: Soft, nontender, nondistended, positive bowel sounds Extremities exam: No calf tenderness, +2 /3 bilateral pedal edema Present Skin-no rash, warm, dry, intact Neurological exam: Alert, awake, oriented 3, CN II-XII intact, no focal deficits. No facial droop. Normal speech. Normal gait. Romberg sign negative Internal Med - H&P Results - Labs CBC & Chem 7: 12/08/17 10:05 12/08/17 10:05 - Assessment and plan (1) COPD exacerbation Current Visit: Yes Status: Acute Assessment and plan: Patient presented with shortness of breath and no chest pain initial troponin I negative and no acute finding in EKG. Very low risk for PE. Most likely due to Acute on chronic COPD exacerbation. Home oxygen 3 L. Patient had multiple episodes almost 3-4 in last 6 months. Patient also had multiple rounds of antibiotic last Levaquin already this month. Doxycycline was restarted in the ER but patient does not appear toxic and no associated systemic sign and symptom and normal white count therefore will hold on antibiotic for now but consider if needed. Chest x-ray with no acute finding. Patient needs to follow with his pulmonologists on OPD basis for further management. IV Solu- Medrol 40 mg IV every 6 hours, DuoNeb, spirometry and oxygen supplementation as started. (2) Diastolic CHF Current Visit: Yes Status: Chronic Assessment and plan: Chronic diastolic dysfunction. Bilateral lower extremity edema, Normal BNP, echocardiogram done in September 2017 with preserved EF but diastolic dysfunction. IV Lasix 1 given the ER. Will continue home dose of Lasix with a strict I&O's. Qualifiers: Heart failure chronicity: chronic Qualified Code(s): I50.32 - Chronic diastolic (congestive) heart failure (3) ERNESTINA (obstructive sleep apnea) Current Visit: Yes Status: Chronic Assessment and plan: Continue CPAP. (4) DVT prophylaxis Current Visit: Yes Status: Acute Assessment and plan: SCDs - Time Spent With Patient Total time spent is greater than 50% in coordination of care (as documented) at patient's floor/unit and/or counseling patient:
[2017-12-08] MEDS: Ipratropium/Albuterol Neb 3 ML IH SCH ×2 (16:26→22:56)
[2017-12-08] MEDS: MethylPREDNISolone 40 MG/ML VIAL IVP SCH ×2 (16:39→23:27)
--- NOTE | 2017-12-08 19:03 | Electrocardiograph Report ---
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
[2017-12-09] MEDS: Ipratropium/Albuterol Neb 3 ML IH SCH (04:10)
[2017-12-09] MEDS: MethylPREDNISolone 40 MG/ML VIAL IVP SCH (05:34)
[2017-12-09 06:10] LABS: BUN/Creatinine Ratio 23 (6-26); Blood Urea Nitrogen 25 mg/dL (6-20); Carbon Dioxide 30 mEq/L (23-29); Chloride 95 mEq/L (98-107); Glucose 328 mg/dL (70-105); Osmolality,Calculated 299 (280-300); Potassium 4.1 mEq/L (3.5-5.1); Sodium 136 mEq/L (136-145); eGFR For African Americans > 60 (> 60); eGFR For Non-African Americans > 60 (> 60)
[2017-12-09 06:50] LABS: Basophils % 0.2 %; Hematocrit 33.6 % (37.5-50.1); Hemoglobin 11.3 g/dL (12.9-16.9); Immature Granulocytes % 1.2 % (0-4); Immature Platelets 3.9 % (1.1-6.1); Lymphocytes # 0.4 K/mcL (0.6-4.6); Lymphocytes % 2.8 %; Mean Corpuscular HGB Conc 33.6 g/dL (31.6-35.5); Mean Corpuscular Hemoglobin 32.7 pg (28.0-33.3); Mean Corpuscular Volume 97.1 fL (83.0-100.0); Mean Platelet Volume 10.5 fL (9.4-12.4); Monocytes # 0.3 K/mcL (0.0-1.3); Monocytes % 1.6 %; Neutrophils # 14.6 K/mcL (1.6-8.9); Platelet Count 327 K/mcL (140-400); Red Blood Count 3.46 M/mcL (4.19-5.50); Red Cell Distribution Width 14.6 % (11.5-14.5); Segmented Neutrophils % 94.2 %
[2017-12-09] MEDS: Furosemide 20 MG TABLET PO SCH (08:08)
[2017-12-09] MEDS ORDERED: Albuterol 2.5 MG/3 ML NEBULIZER IH PRN (09:13)
--- NOTE | 2017-12-09 09:13 | Internal Med Progress Note ---
Date of Encounter: 12/09/17 Time of Encounter: 09:00 - Assessment and plan (1) COPD exacerbation Current Visit: Yes Status: Acute Assessment and plan: Plan #1 finish 5 days of prednisone #2 start LABA, LAMA, ICS #3 exercise oximetry to assess O2 needs #4 pulmonary function testing and walk test in clinic with bowling ball weigher and packer after discharge #5 pulmonary rehabilitation post discharge (2) ERNESTINA (obstructive sleep apnea) Current Visit: Yes Status: Chronic Assessment and plan: ERNESTINA was uncontrolled with CPAP 16 cm. He had persistent hypopneas. Plan Trial of CPAP 20 cm. He will need a repeat CPAP titration with early transition to BiPAP after discharge (3) Diastolic CHF Current Visit: Yes Status: Chronic Assessment and plan: He does have lower extremity edema but BNP is low. Is unlikely his heart failure is decompensated. Qualifiers: Heart failure chronicity: chronic Qualified Code(s): I50.32 - Chronic diastolic (congestive) heart failure (4) DVT prophylaxis Current Visit: Yes Status: Acute Assessment and plan: SCDs - Time Spent With Patient Total time spent is greater than 50% in coordination of care (as documented) at patient's floor/unit and/or counseling patient: 25 - 35 minutes - Subjective Interval history: Reports improvement in dyspnea. No cough. - Constitutional Vitals: Temp Pulse Resp BP Pulse Ox 97.4 F L 98 18 131/73 95 12/09/17 06:34 12/09/17 06:34 12/09/17 06:34 12/09/17 06:34 12/09/17 08:00 General appearance: Present: A&O X 3 Exam: Physical exam Gen: Comfortable, laying in bed, in no visible distress morbid obesity HEENT: Normocephalic, atraumatic. No conjunctival icterus. Moist oral mucosa. Neck: Supple Lungs: Clear to auscultation, no foreign sounds Heart: Normal S1-S2, no murmurs rubs or gallops Abdomen: Normoactive bowel sounds, no guarding rigidity or tenderness Extremities: 2+ pitting edema Neuro: Alert oriented 3, no focal deficits Skin: No skin lesions Internal Medicine: Result - Labs CBC & Chem 7: 12/09/17 04:16 12/09/17 04:16 Labs: Short CBC 12/09/17 Range/Units 04:16 WBC 15.5 H D (4.3-11.1) K/mcL Hgb 11.3 L (12.9-16.9) g/dL Hct 33.6 L (37.5-50.1) % Plt Count 327 (140-400) K/mcL Neutrophils # 14.6 H (1.6-8.9) K/mcL BMP 12/09/17 04:16 Sodium 136 Potassium 4.1 Chloride 95 L Carbon Dioxide 30 H BUN 25 H Creatinine 1.07 Glucose 328 H Calcium 9.0 Consult Discharge Plan - Plan Referrals: NONE,PCP [Primary Care Provider] -
[2017-12-09] MEDS ORDERED: *HR* Dextrose 50 % in Water (Syg) 50 ML SYRINGE IVP PRN (09:22)
[2017-12-09] MEDS ORDERED: D5% in Water 1,000 ML IVC PRN (09:22)
[2017-12-09] MEDS ORDERED: Dextrose Gel 15 GM/37.5 ML TUBE PO PRN ×2 (09:22)
[2017-12-09] MEDS: predniSONE 20 MG TABLET PO SCH (09:37)
[2017-12-09] MEDS: Tiotropium 18 MCG inhalation IH SCH (11:05)
[2017-12-09] MEDS: Budesonide/Formoterol 160/4.5 MDI IH SCH ×2 (11:05→19:46)
[2017-12-09] MEDS: Insulin LISPRO 300 UNITS/3 ML VIAL SQ SCH ×3 (12:05→21:21)
[2017-12-10 07:07] VITALS: BP 133/70
[2017-12-10] MEDS: Furosemide 20 MG TABLET PO SCH (07:34)
[2017-12-10] MEDS: predniSONE 20 MG TABLET PO SCH (07:34)
[2017-12-10] MEDS: Insulin LISPRO 300 UNITS/3 ML VIAL SQ SCH (07:34)
[2017-12-10 07:58] LABS: Estimated Average Glucose 108 mg/dl; Hemoglobin A1C 5.4 %
--- NOTE | 2017-12-10 09:13 | Discharge Summary ---
- NOTES TO OUTPATIENT PROVIDER Notes to Outpatient Provider: Pulmonary medicine follow-up within next 2-4 weeks Date of Encounter: 12/10/17 Time of Encounter: 08:00 - Discharge Diagnosis (1) COPD exacerbation Priority: Primary Status: Acute Assessment and Plan: Precipitated by poor education and lack of maintenance inhalers outpatient. Plan #1 finish 5 days of prednisone #2 start LABA, LAMA, ICS #3 exercise oximetry to assess O2 needs #4 pulmonary function testing and walk test in clinic with textile converter after discharge #5 pulmonary rehabilitation post discharge (2) ERNESTINA (obstructive sleep apnea) Priority: Primary Status: Chronic Assessment and Plan: ERNESTINA was uncontrolled with CPAP 16 cm. He had persistent hypopneas. Plan He will need a repeat CPAP titration with early transition to BiPAP after discharge (3) Diastolic CHF Priority: Secondary Status: Chronic Assessment and Plan: He does have lower extremity edema but BNP is low. It is unlikely his heart failure is decompensated. Qualifiers: Heart failure chronicity: chronic Qualified Code(s): I50.32 - Chronic diastolic (congestive) heart failure (4) Morbid obesity Priority: Secondary Status: Acute (5) Respiratory failure Priority: Primary Status: Acute Qualifiers: Chronicity: acute on chronic Respiratory failure complication: hypoxia Qualified Code(s): J96.21 - Acute and chronic respiratory failure with hypoxia Hospital course: Mr. Paris is a 57 year old male with known COPD who was recently admitted in early November for a COPD exacerbation and released home. He returned on 2017 with dyspnea on exertion preventing ambulation he went was bathroom. He usually wears 3 L per oxygen all the time for chronic respiratory failure from COPD. He tried 56 venous treatments prior to his arrival. In the emergency room, he was found to be dyspneic and given Solu-Medrol and Lasix. ABG was suggestive of hypercapnia and hypoxemia. He was diagnosed with COPD exacerbation and admitted to the hospital. We continued intravenous steroids and transitioned to oral steroids. There were clear infectious triggers and as such no antibiotics were given. Of note, patient is off any maintenance therapy for COPD. This was started. On further review of his prior history, he has obstructive sleep apnea. His last sleep study showed CPAP of 16 was inadequate to control bleeding events. A repeat CPAP titration will be recommended at discharge. Patient will benefit from outpatient follow-up with pulmonary medicine for repeat pulmonary function testing and a 6 minute walk test. He needs pulmonary rehabilitation. Discharge discussed with: patient - Time Spent with Patient Total time spent providing and/or coordinating discharge services: Greater than 30 minutes - Discharge Medications Prescriptions: Budesonide/Formoterol 160/4.5 [Symbicort 160/4.5] 2 puff IH BIDR #1 inhaler predniSONE [PredniSONE] 40 mg PO DAILY #5 tablet Tiotropium [Spiriva] 18 mcg IH DAILYR #1 inh Home Medications: Albuterol Sulfate [Albuterol Inhaler] 2 puff IH Q6HR PRN #1 hfa.aer.ad 11/15/17 [Rx] Furosemide [Lasix] 20 mg PO DAILY #15 tablet 11/15/17 [Rx] Naproxen 375 mg PO BID PRN 12/08/17 [History] Albuterol Neb [Proventil Neb] 2.5 mg IH [id number] PRN inhsol 12/10/17 [Rx] Budesonide/Formoterol 160/4.5 [Symbicort 160/4.5] 2 puff IH BIDR #1 inhaler [Rx] Tiotropium [Spiriva] 18 mcg IH DAILYR #1 inh 12/10/17 [Rx] predniSONE [PredniSONE] 40 mg PO DAILY #5 tablet 12/10/17 [Rx] Allergies/Adverse Reactions: 3 Allergy/AdvReac Type Severity Reaction Status Date / Time No Known Allergies Allergy Verified 11/13/17 20:29 Date of admission: 12/08/17 12:43 Primary care physician: PCP NONE Consults: 12/08/17 13:22 Consult to Nurse Navigator [CONS] Routine Comment: Discharging clinician: Elizabeth Jones Anticipated date of discharge: 12/10/17 - Constitutional Vitals: Temp Pulse Resp BP Pulse Ox 97.7 F 98 17 133/70 96 12/10/17 07:05 12/10/17 07:05 12/10/17 07:05 12/10/17 07:05 12/10/17 07:30 General appearance: Present: A&O X 3 Exam: Physical exam Gen: Comfortable, laying in bed, in no visible distress, morbidly obese HEENT: Normocephalic, atraumatic. No conjunctival icterus. Moist oral mucosa. Neck: Supple Lungs: Diminished breath sounds Heart: Normal S1-S2, no murmurs rubs or gallops Abdomen: Normoactive bowel sounds, no guarding rigidity or tenderness Extremities: No clubbing or cyanosis. 1+ edema of lower extremities Neuro: Alert oriented 3, no focal deficits Skin: No skin lesions - Patient Status Disposition: Home, Self-Care Condition: Good - Ambulatory Orders Ambulatory Orders: Pulmonary Rehab w COPD [CRS] Time Frame: 4 Weeks, Facility: [facility] [place], Location: Rehab Services - Discharge Instructions Follow Up With: NONE,PCP [Primary Care Provider] - Bijan Goldberg MD [Partnered Physician] - - Diet and Activity Activity: resume usual activities as tolerated, wear oxygen at all times Diet: diabetic diet, low fat, low cholesterol
[2017-12-10] MEDS: Budesonide/Formoterol 160/4.5 MDI IH SCH (10:18)
[2017-12-10] MEDS: Tiotropium 18 MCG inhalation IH SCH (10:19)
== END 2017-12-10 11:13 | disposition home or self-care (01) | DRG 190 ==
LOC: 3BNU 09:40 → EMEROO 09:40 → 3BNU 13:23
PROVIDERS: ADMIT Student in an Organized Health Care Education/Training Program; ATTEND Internal Medicine

== ENCOUNTER 2017-12-24 17:24 | Inpatient (IN) ==
[2017-12-24] MEDS ORDERED: methylPREDNISolone 125 MG/2 ML VIAL IVP ONE (17:38)
[2017-12-24] MEDS ORDERED: Ipratropium/Albuterol Neb 3 ML IH ONE (17:38)
--- NOTE | 2017-12-24 17:59 | Emergency Department Note ---
Disposition Clinical Impression: COPD exacerbation Disposition: Still a Patient Referrals: NONE,PCP [Primary Care Provider] - Forms: ED Satisfaction Letter SOB HPI - General Chief Complaint: ED Shortness of Breath/Dyspnea Stated Complaint: copd Time Seen by Provider: 12/24/17 17:31 Source: patient Mode of arrival: EMS Limitations: no limitations Nursing Notes Reviewed: Yes Vital Signs Reviewed: Yes - History of Present Illness 57 yo M c PMHx of COPD on 3L home O2, diastolic CHF reports to the ED c/o increased SOB since waking up this morning. Patient was recently hospitalized for COPD exacerbation and discharged on 12/10/17. Patient was started on LAMA and LABA at that time. Patient established with a new PCP following this admission on the and followed up with pulmonology on the . He had PFT testing on Monday which showed obstructive pattern. He is scheduled for pulmonary rehab and is having an U/S of his gallbladder tomorrow morning. Patient reports today he felt more short of breath and more tight in his ribs than he had felt previously. He finished a course of prednisone 3-4 days ago. He reports his pulse Ox at home has ranged from 96-88 today. He reports dyspnea on exertion. He denies chest pain, productive cough, fever, increased swelling in his legs. He took albuterol at 4pm today without relief. Pt Subjective Complaint: shortness of breath Onset (ago): hour(s) Known history of: COPD, congestive heart failure Associated symptoms: Denies: chest pain, fever Treatment prior to arrival: oxygen - Related Data Home Medications Medication Instructions Recorded Confirmed Naproxen 375 mg PO BID PRN 12/08/17 12/08/17 Previous Rx's Medication Instructions Recorded Albuterol Sulfate [Albuterol 2 puff IH Q6HR PRN #1 hfa.aer.ad 11/15/17 Inhaler] Albuterol Neb [Proventil Neb] 2.5 mg IH [id number] PRN inhsol 12/10/17 Budesonide/Formoterol 160/4.5 2 puff IH BIDR #1 inhaler 12/10/17 [Symbicort 160/4.5] Furosemide [Lasix] 20 mg PO DAILY #30 tablet 12/10/17 Tiotropium [Spiriva] 18 mcg IH DAILYR #1 inh 12/10/17 predniSONE [PredniSONE] 40 mg PO DAILY #5 tablet 12/10/17 Allergies Allergy/AdvReac Type Severity Reaction Status Date / Time No Known Allergies Allergy Verified 11/13/17 20:29 Review of Systems: As Per HPI Past Medical History - Past Medical History Medical history: Reports: CHF, COPD Surgical history: Reports: no surgical history Psychiatric history: Reports: no psych history - Social History Smoking Status: Former smoker Smokeless Tobacco Status: Yes Alcohol use: Reports: none Drug use: Reports: none Physical Exam - General Limitations: no limitations General appearance: alert - Head Head exam: atraumatic, normocephalic - Eye Eye exam: Present: PERRL, EOMI - ENT ENT exam: normal oropharynx, mucous membranes moist - Neck Neck exam: Present: full ROM, trachea midline - Chest Chest inspection: Present: symmetric chest wall rise. Absent: tenderness - Respiratory Respiratory exam: Present: wheezes (end expiratory), prolonged expiratory phase. Absent: respiratory distress - Cardiovascular Cardiovascular exam: Present: regular rate, normal rhythm, normal heart sounds - Abdominal Exam Abdominal exam: Present: soft, Non-Tender - Extremities Exam Extremities exam: Present: pedal edema (BLE pitting edema). Absent: tenderness - Neurological Exam Neurological exam: Present: alert, oriented X3 - Psychiatric Psychiatric exam: Present: normal affect, normal mood - Skin Skin exam: Present: warm, dry Course Course Narrative: Will check CXR, CBC, BMP, BNP, LA, troponin, EKG. Will treat with duonebs and solumedrol. - Reevaluation(s) Reevaluation #1: CXR shows no acute process. WBC normal. Hgb at baseline. Reevaluation #2: Patient desated on ambulation. Will admit to hospitalist for COPD exacerbation. - Consultations Consultation #1: Discussed case with Hospitalist. Hospitalist requiring d-dimer prior to further discussing the case for admission. Vital Signs Temperature 98.3 F 12/24/17 17:48 Pulse Rate 106 12/24/17 17:48 Respiratory Rate 16 12/24/17 17:48 Blood Pressure 148/93 12/24/17 17:48 O2 Sat by Pulse Oximetry 93 12/24/17 17:48 Temperature 98.3 F 12/24/17 17:54 Pulse Rate 101 12/24/17 17:54 Respiratory Rate 18 12/24/17 17:57 Blood Pressure 148/93 12/24/17 17:54 O2 Sat by Pulse Oximetry 94 12/24/17 17:57 Oxygen Delivery Oxygen Delivery Nasal Cannula Shortness of Breath/Dyspnea - [facility] Narrative Medical decision making narrative: Likely COPD exacerbation. CXR shows no acute process. Patient desated while ambulating. Will admit to hospitlaist for COPD exacerbation once D-Dimer results return. - Lab Data Result diagrams: 12/24/17 18:02 12/24/17 18:02 Lab Results 12/24/17 12/24/17 12/24/17 Range/Units 18:02 18:02 18:02 WBC 9.7 (4.3-11.1) K/mcL RBC 3.38 L (4.19-5.50) M/mcL Hgb 11.8 L (12.9-16.9) g/dL Hct 33.3 L (37.5-50.1) % MCV 98.5 (83.0-100.0) fL MCH 34.9 H (28.0-33.3) pg MCHC 35.4 (31.6-35.5) g/dL RDW 14.5 (11.5-14.5) % Plt Count 283 (140-400) K/mcL MPV 10.3 (9.4-12.4) fL Immature Gran % 1.7 (0-4) % Seg Neutrophils % 62.0 % Lymphocytes % 10.7 % Monocytes % 14.4 % Eosinophils % 10.5 % Basophils % 0.7 % Neutrophils # 6.0 (1.6-8.9) K/mcL Lymphocytes # 1.0 (0.6-4.6) K/mcL Monocytes # 1.4 H (0.0-1.3) K/mcL Eosinophils # 1.0 H (0.0-0.6) K/mcL Basophils # 0.1 (0.0-0.2) K/mcL Sodium 140 (136-145) mEq/L Potassium 3.8 (3.5-5.1) mEq/L Chloride 99 (98-107) mEq/L Carbon Dioxide 34 H (23-29) mEq/L BUN 18 (6-20) mg/dL Creatinine 0.75 (0.70-1.30) mg/dL Est GFR ( Amer) > 60 (> 60) Est GFR (Non-Af Amer) > 60 (> 60) BUN/Creatinine Ratio 24 (6-26) Glucose 151 H (70-105) mg/dL Calculated Osmolality 295 (280-300) Lactic Acid 2.0 (0.5-2.2) mmol/L Calcium 8.8 (8.6-10.3) mg/dL Troponin I < 0.03 (< 0.04) ng/mL B-Natriuretic Peptide (Less than 100) pg/mL 12/24/17 Range/Units 18:02 WBC (4.3-11.1) K/mcL RBC (4.19-5.50) M/mcL Hgb (12.9-16.9) g/dL Hct (37.5-50.1) % MCV (83.0-100.0) fL MCH (28.0-33.3) pg MCHC (31.6-35.5) g/dL RDW (11.5-14.5) % Plt Count (140-400) K/mcL MPV (9.4-12.4) fL Immature Gran % (0-4) % Seg Neutrophils % % Lymphocytes % % Monocytes % % Eosinophils % % Basophils % % Neutrophils # (1.6-8.9) K/mcL Lymphocytes # (0.6-4.6) K/mcL Monocytes # (0.0-1.3) K/mcL Eosinophils # (0.0-0.6) K/mcL Basophils # (0.0-0.2) K/mcL Sodium (136-145) mEq/L Potassium (3.5-5.1) mEq/L Chloride (98-107) mEq/L Carbon Dioxide (23-29) mEq/L BUN (6-20) mg/dL Creatinine (0.70-1.30) mg/dL Est GFR ( Amer) (> 60) Est GFR (Non-Af Amer) (> 60) BUN/Creatinine Ratio (6-26) Glucose (70-105) mg/dL Calculated Osmolality (280-300) Lactic Acid (0.5-2.2) mmol/L Calcium (8.6-10.3) mg/dL Troponin I (< 0.04) ng/mL B-Natriuretic Peptide 11 (Less than 100) pg/mL
[2017-12-24 18:20] LABS: Eosinophils % 10.5 %; Hematocrit 33.3 % (37.5-50.1); Hemoglobin 11.8 g/dL (12.9-16.9); Immature Granulocytes % 1.7 % (0-4); Lymphocytes % 10.7 %; Mean Corpuscular HGB Conc 35.4 g/dL (31.6-35.5); Mean Corpuscular Hemoglobin 34.9 pg (28.0-33.3); Mean Corpuscular Volume 98.5 fL (83.0-100.0); Mean Platelet Volume 10.3 fL (9.4-12.4); Monocytes % 14.4 %; Platelet Count 283 K/mcL (140-400); Red Blood Count 3.38 M/mcL (4.19-5.50); Red Cell Distribution Width 14.5 % (11.5-14.5)
[2017-12-24 18:21] LABS: Basophils # 0.1 K/mcL (0.0-0.2); Basophils % 0.7 %; Monocytes # 1.4 K/mcL (0.0-1.3)
[2017-12-24 18:42] LABS: BUN/Creatinine Ratio 24 (6-26); Blood Urea Nitrogen 18 mg/dL (6-20); Calcium 8.8 mg/dL (8.6-10.3); Carbon Dioxide 34 mEq/L (23-29); Chloride 99 mEq/L (98-107); Glucose 151 mg/dL (70-105); Osmolality,Calculated 295 (280-300); Potassium 3.8 mEq/L (3.5-5.1); Sodium 140 mEq/L (136-145); Troponin I < 0.03 ng/mL (< 0.04); eGFR For African Americans > 60 (> 60); eGFR For Non-African Americans > 60 (> 60)
--- NOTE | 2017-12-24 18:50 | Emergency Department Note ---
Disposition Clinical Impression: COPD exacerbation Disposition: Still a Patient Instructions: Chronic Obstructive Pulmonary Disease (ED) Referrals: NONE,PCP [Primary Care Provider] - Forms: ED Satisfaction Letter General Adult HPI - General Chief complaint: ED Shortness of Breath/Dyspnea Stated complaint: copd Time Seen by Provider: 12/24/17 17:31 Source: patient Mode of arrival: EMS Limitations: no limitations - History of Present Illness Pain Scale: 5 - Related Data Home Medications Medication Instructions Recorded Confirmed Naproxen 375 mg PO BID PRN 12/08/17 12/08/17 Previous Rx's Medication Instructions Recorded Albuterol Sulfate [Albuterol 2 puff IH Q6HR PRN #1 hfa.aer.ad 11/15/17 Inhaler] Albuterol Neb [Proventil Neb] 2.5 mg IH [id number] PRN inhsol 12/10/17 Budesonide/Formoterol 160/4.5 2 puff IH BIDR #1 inhaler 12/10/17 [Symbicort 160/4.5] Furosemide [Lasix] 20 mg PO DAILY #30 tablet 12/10/17 Tiotropium [Spiriva] 18 mcg IH DAILYR #1 inh 12/10/17 predniSONE [PredniSONE] 40 mg PO DAILY #5 tablet 12/10/17 Allergies Allergy/AdvReac Type Severity Reaction Status Date / Time No Known Allergies Allergy Verified 11/13/17 20:29 Past Medical History - Past Medical History Medical history: Reports: CHF, COPD Surgical history: Reports: no surgical history Psychiatric history: Reports: no psych history - Social History Smoking Status: Former smoker Smokeless Tobacco Status: Yes Alcohol use: Reports: none Drug use: Reports: none Physical Exam - General Limitations: no limitations General appearance: alert Course Vital Signs Temperature 98.3 F 12/24/17 17:48 Pulse Rate 106 12/24/17 17:48 Respiratory Rate 16 12/24/17 17:48 Blood Pressure 148/93 12/24/17 17:48 O2 Sat by Pulse Oximetry 93 12/24/17 17:48 Temperature 98.3 F 12/24/17 17:54 Pulse Rate 101 12/24/17 17:54 Respiratory Rate 18 12/24/17 17:57 Blood Pressure 148/93 12/24/17 17:54 O2 Sat by Pulse Oximetry 94 12/24/17 17:57 Oxygen Delivery Oxygen Delivery Nasal Cannula Medical Decision Making - Lab Data Result diagrams: 12/24/17 18:02 12/24/17 18:02 Lab Results 12/24/17 12/24/17 12/24/17 Range/Units 18:02 18:02 18:02 WBC 9.7 (4.3-11.1) K/mcL RBC 3.38 L (4.19-5.50) M/mcL Hgb 11.8 L (12.9-16.9) g/dL Hct 33.3 L (37.5-50.1) % MCV 98.5 (83.0-100.0) fL MCH 34.9 H (28.0-33.3) pg MCHC 35.4 (31.6-35.5) g/dL RDW 14.5 (11.5-14.5) % Plt Count 283 (140-400) K/mcL MPV 10.3 (9.4-12.4) fL Immature Gran % 1.7 (0-4) % Seg Neutrophils % 62.0 % Lymphocytes % 10.7 % Monocytes % 14.4 % Eosinophils % 10.5 % Basophils % 0.7 % Neutrophils # 6.0 (1.6-8.9) K/mcL Lymphocytes # 1.0 (0.6-4.6) K/mcL Monocytes # 1.4 H (0.0-1.3) K/mcL Eosinophils # 1.0 H (0.0-0.6) K/mcL Basophils # 0.1 (0.0-0.2) K/mcL Sodium 140 (136-145) mEq/L Potassium 3.8 (3.5-5.1) mEq/L Chloride 99 (98-107) mEq/L Carbon Dioxide 34 H (23-29) mEq/L BUN 18 (6-20) mg/dL Creatinine 0.75 (0.70-1.30) mg/dL Est GFR ( Amer) > 60 (> 60) Est GFR (Non-Af Amer) > 60 (> 60) BUN/Creatinine Ratio 24 (6-26) Glucose 151 H (70-105) mg/dL Calculated Osmolality 295 (280-300) Lactic Acid 2.0 (0.5-2.2) mmol/L Calcium 8.8 (8.6-10.3) mg/dL Troponin I < 0.03 (< 0.04) ng/mL B-Natriuretic Peptide (Less than 100) pg/mL 12/24/17 Range/Units 18:02 WBC (4.3-11.1) K/mcL RBC (4.19-5.50) M/mcL Hgb (12.9-16.9) g/dL Hct (37.5-50.1) % MCV (83.0-100.0) fL MCH (28.0-33.3) pg MCHC (31.6-35.5) g/dL RDW (11.5-14.5) % Plt Count (140-400) K/mcL MPV (9.4-12.4) fL Immature Gran % (0-4) % Seg Neutrophils % % Lymphocytes % % Monocytes % % Eosinophils % % Basophils % % Neutrophils # (1.6-8.9) K/mcL Lymphocytes # (0.6-4.6) K/mcL Monocytes # (0.0-1.3) K/mcL Eosinophils # (0.0-0.6) K/mcL Basophils # (0.0-0.2) K/mcL Sodium (136-145) mEq/L Potassium (3.5-5.1) mEq/L Chloride (98-107) mEq/L Carbon Dioxide (23-29) mEq/L BUN (6-20) mg/dL Creatinine (0.70-1.30) mg/dL Est GFR ( Amer) (> 60) Est GFR (Non-Af Amer) (> 60) BUN/Creatinine Ratio (6-26) Glucose (70-105) mg/dL Calculated Osmolality (280-300) Lactic Acid (0.5-2.2) mmol/L Calcium (8.6-10.3) mg/dL Troponin I (< 0.04) ng/mL B-Natriuretic Peptide 11 (Less than 100) pg/mL Attestation Statement - Attestation Attestation: I examined this patient and my medical decision-making was reviewed with the Resident Physician. I agree with the documented findings, disposition and treatment plan as described except to the extent set forth below. 57 year old male presents to the ED with complaints of dyspnea with oxygenation of 88% and has been trying steroid therapy with immeadiate relief but as soon as he is off his steroids he becomes more dyspniec. He states that he typically waer 2-3LCN continuosuly at home and now he cant walk more than 20 ft without becoming increasingly short of breath and is dyspneic when speaking and is 88% during exertion. We tried to admit to hospital for COPDE but hospital would nely a D-dimer before admission to rule out PE. Sign out to night team.
--- NOTE | 2017-12-24 20:35 | Emergency Department Note ---
Disposition Clinical Impression: COPD exacerbation, Elevated d-dimer Disposition: Admitted As Inpatient Condition: Good Time of Disposition: 21:53 SOB HPI - General Chief Complaint: ED Shortness of Breath/Dyspnea Stated Complaint: copd Time Seen by Provider: 12/24/17 17:31 Source: patient Mode of arrival: EMS Limitations: no limitations Nursing Notes Reviewed: Yes Vital Signs Reviewed: Yes - History of Present Illness Patient signed out to me from daytime physicians Dr. Bush and Dr. Archer for D dimer result in final disposition. Please see their note for further details. Associated symptoms: Denies: chest pain, fever Treatment prior to arrival: oxygen - Related Data Home Medications Medication Instructions Recorded Confirmed Naproxen 375 mg PO BID PRN 12/08/17 12/08/17 Furosemide [Lasix] 40 mg PO DAILY 12/24/17 12/24/17 Previous Rx's Medication Instructions Recorded Albuterol Neb [Proventil Neb] 2.5 mg IH [id number] PRN inhsol 12/10/17 Budesonide/Formoterol 160/4.5 2 puff IH BIDR #1 inhaler 12/10/17 [Symbicort 160/4.5] Tiotropium [Spiriva] 18 mcg IH DAILYR #1 inh 12/10/17 Allergies Allergy/AdvReac Type Severity Reaction Status Date / Time No Known Allergies Allergy Verified 11/13/17 20:29 Past Medical History - Past Medical History Medical history: Reports: CHF, COPD Surgical history: Reports: no surgical history Psychiatric history: Reports: no psych history - Social History Smoking Status: Former smoker Smokeless Tobacco Status: Yes Alcohol use: Reports: none Drug use: Reports: none Physical Exam - General Limitations: no limitations General appearance: alert Course Course Narrative: Patient signed out to me from daytime physicians Dr. Bush and Dr. Arhcer for D dimer result in final disposition. Please see their note for further details. Maksim is a 57-year-old male history of COPD on 3 L nasal cannula with 27 feet extension presenting with dyspnea. Been ongoing for past few days worse today. Sounds like he was recently placed on steroids without significant improvement. On examination here patient was diffusely wheezing with tight aeration. Treatment for COPD exacerbation. Anemia baseline 11. Labs or otherwise unremarkable. Troponin less than 0.03. Given his tachycardia and hypoxia D dimer was performed per request of hospitalist. Patient d dimer resulted 504. With age adjustment low concern for pulmonary embolism. Patient was also reportedly hypoxic when trying to ambulate through the emergency department. Patient will be admitted for COPD exacerbation. - Consultations Consultation #1: Spoke with on-call hospitalist claus Jones to admit for COPD exacerbation and elevated d-dimer. Patient reports improvement of his breathing. He continues to have some diffuse wheezing on examination. His D dimer is slightly elevated 504 with age adjustment d-dimer low concern for pulmonary embolism. Dr. Reyez recommended to give a one-time dose of 1 milligrams per kilogram Lovenox. No CT scan performed at this time. Patient denies any G.I. symptoms such as what he stool, black tarry stool, hemoptysis or hematemesis. Time: 21:52 Vital Signs Temperature 98.3 F 12/24/17 17:48 Pulse Rate 106 12/24/17 17:48 Respiratory Rate 16 12/24/17 17:48 Blood Pressure 148/93 12/24/17 17:48 O2 Sat by Pulse Oximetry 93 12/24/17 17:48 Temperature 98.3 F 12/24/17 17:54 Pulse Rate 87 12/24/17 22:07 Respiratory Rate 18 12/24/17 22:07 Blood Pressure 118/75 12/24/17 22:07 O2 Sat by Pulse Oximetry 93 12/24/17 22:07 Oxygen Delivery Oxygen Delivery Nasal Cannula Shortness of Breath/Dyspnea - MDM Narrative Medical decision making narrative: Patient was discussed with my attending physician who agrees with ED management and final disposition. They independently evaluated the patient. Please refer to their attestation to this encounter for additional information. This note was generated by [employer] voice recognition software and as a result grammatical or spelling errors may occur using this program. - Medical Records Medical records reviewed: Yes I reviewed the patient's medical records. - Lab Data Lab results reviewed: Yes I reviewed the patient's lab results. Result diagrams: 12/24/17 18:02 12/24/17 18:02 Lab Results 12/24/17 12/24/17 12/24/17 Range/Units 18:02 18:02 18:02 WBC 9.7 (4.3-11.1) K/mcL RBC 3.38 L (4.19-5.50) M/mcL Hgb 11.8 L (12.9-16.9) g/dL Hct 33.3 L (37.5-50.1) % MCV 98.5 (83.0-100.0) fL MCH 34.9 H (28.0-33.3) pg MCHC 35.4 (31.6-35.5) g/dL RDW 14.5 (11.5-14.5) % Plt Count 283 (140-400) K/mcL MPV 10.3 (9.4-12.4) fL Immature Gran % 1.7 (0-4) % Seg Neutrophils % 62.0 % Lymphocytes % 10.7 % Monocytes % 14.4 % Eosinophils % 10.5 % Basophils % 0.7 % Neutrophils # 6.0 (1.6-8.9) K/mcL Lymphocytes # 1.0 (0.6-4.6) K/mcL Monocytes # 1.4 H (0.0-1.3) K/mcL Eosinophils # 1.0 H (0.0-0.6) K/mcL Basophils # 0.1 (0.0-0.2) K/mcL D-Dimer (0-500) ng/mLFEU Sodium 140 (136-145) mEq/L Potassium 3.8 (3.5-5.1) mEq/L Chloride 99 (98-107) mEq/L Carbon Dioxide 34 H (23-29) mEq/L BUN 18 (6-20) mg/dL Creatinine 0.75 (0.70-1.30) mg/dL Est GFR ( Amer) > 60 (> 60) Est GFR (Non-Af Amer) > 60 (> 60) BUN/Creatinine Ratio 24 (6-26) Glucose 151 H (70-105) mg/dL Calculated Osmolality 295 (280-300) Lactic Acid 2.0 (0.5-2.2) mmol/L Calcium 8.8 (8.6-10.3) mg/dL Troponin I < 0.03 (< 0.04) ng/mL B-Natriuretic Peptide (Less than 100) pg/mL 12/24/17 12/24/17 Range/Units 18:02 19:48 WBC (4.3-11.1) K/mcL RBC (4.19-5.50) M/mcL Hgb (12.9-16.9) g/dL Hct (37.5-50.1) % MCV (83.0-100.0) fL MCH (28.0-33.3) pg MCHC (31.6-35.5) g/dL RDW (11.5-14.5) % Plt Count (140-400) K/mcL MPV (9.4-12.4) fL Immature Gran % (0-4) % Seg Neutrophils % % Lymphocytes % % Monocytes % % Eosinophils % % Basophils % % Neutrophils # (1.6-8.9) K/mcL Lymphocytes # (0.6-4.6) K/mcL Monocytes # (0.0-1.3) K/mcL Eosinophils # (0.0-0.6) K/mcL Basophils # (0.0-0.2) K/mcL D-Dimer 504 H (0-500) ng/mLFEU Sodium (136-145) mEq/L Potassium (3.5-5.1) mEq/L Chloride (98-107) mEq/L Carbon Dioxide (23-29) mEq/L BUN (6-20) mg/dL Creatinine (0.70-1.30) mg/dL Est GFR ( Amer) (> 60) Est GFR (Non-Af Amer) (> 60) BUN/Creatinine Ratio (6-26) Glucose (70-105) mg/dL Calculated Osmolality (280-300) Lactic Acid (0.5-2.2) mmol/L Calcium (8.6-10.3) mg/dL Troponin I (< 0.04) ng/mL B-Natriuretic Peptide 11 (Less than 100) pg/mL - Radiology Data Radiology results reviewed: Yes I reviewed the patient's radiology results. Chest X-Ray 12/24/17 17:38 IMPRESSION: No acute process. D/ / Raul Gonzalez MD / Raul Gonzalez MD Interpreting Provider: Raul Gonzalez MD
[2017-12-24] MEDS ORDERED: *HR* Enoxaparin 150 MG/ML SYRINGE SQ STA (21:26)
--- NOTE | 2017-12-24 22:15 | Emergency Department Note ---
Disposition Clinical Impression: COPD exacerbation, Elevated d-dimer Disposition: Admitted As Inpatient Condition: Good General Adult HPI - General Chief complaint: ED Shortness of Breath/Dyspnea Stated complaint: copd Time Seen by Provider: 12/24/17 17:31 Source: patient Mode of arrival: EMS Limitations: no limitations Nursing Notes Reviewed: Yes Vital Signs Reviewed: Yes - History of Present Illness Pain Scale: 5 - Related Data Home Medications Medication Instructions Recorded Confirmed Naproxen 375 mg PO BID PRN 12/08/17 12/08/17 Previous Rx's Medication Instructions Recorded Albuterol Sulfate [Albuterol 2 puff IH Q6HR PRN #1 hfa.aer.ad 11/15/17 Inhaler] Albuterol Neb [Proventil Neb] 2.5 mg IH [id number] PRN inhsol 12/10/17 Budesonide/Formoterol 160/4.5 2 puff IH BIDR #1 inhaler 12/10/17 [Symbicort 160/4.5] Furosemide [Lasix] 20 mg PO DAILY #30 tablet 12/10/17 Tiotropium [Spiriva] 18 mcg IH DAILYR #1 inh 12/10/17 predniSONE [PredniSONE] 40 mg PO DAILY #5 tablet 12/10/17 Allergies Allergy/AdvReac Type Severity Reaction Status Date / Time No Known Allergies Allergy Verified 11/13/17 20:29 Past Medical History - Past Medical History Medical history: Reports: CHF, COPD Surgical history: Reports: no surgical history Psychiatric history: Reports: no psych history - Social History Smoking Status: Former smoker Smokeless Tobacco Status: Yes Alcohol use: Reports: none Drug use: Reports: none Physical Exam - General Limitations: no limitations General appearance: alert Course Vital Signs Temperature 98.3 F 12/24/17 17:48 Pulse Rate 106 12/24/17 17:48 Respiratory Rate 16 12/24/17 17:48 Blood Pressure 148/93 12/24/17 17:48 O2 Sat by Pulse Oximetry 93 12/24/17 17:48 Temperature 98.3 F 12/24/17 17:54 Pulse Rate 87 12/24/17 22:07 Respiratory Rate 18 12/24/17 22:07 Blood Pressure 118/75 12/24/17 22:07 O2 Sat by Pulse Oximetry 93 12/24/17 22:07 Oxygen Delivery Oxygen Delivery Nasal Cannula Medical Decision Making - Lab Data Result diagrams: 12/24/17 18:02 12/24/17 18:02 Lab Results 12/24/17 12/24/17 12/24/17 Range/Units 18:02 18:02 18:02 WBC 9.7 (4.3-11.1) K/mcL RBC 3.38 L (4.19-5.50) M/mcL Hgb 11.8 L (12.9-16.9) g/dL Hct 33.3 L (37.5-50.1) % MCV 98.5 (83.0-100.0) fL MCH 34.9 H (28.0-33.3) pg MCHC 35.4 (31.6-35.5) g/dL RDW 14.5 (11.5-14.5) % Plt Count 283 (140-400) K/mcL MPV 10.3 (9.4-12.4) fL Immature Gran % 1.7 (0-4) % Seg Neutrophils % 62.0 % Lymphocytes % 10.7 % Monocytes % 14.4 % Eosinophils % 10.5 % Basophils % 0.7 % Neutrophils # 6.0 (1.6-8.9) K/mcL Lymphocytes # 1.0 (0.6-4.6) K/mcL Monocytes # 1.4 H (0.0-1.3) K/mcL Eosinophils # 1.0 H (0.0-0.6) K/mcL Basophils # 0.1 (0.0-0.2) K/mcL D-Dimer (0-500) ng/mLFEU Sodium 140 (136-145) mEq/L Potassium 3.8 (3.5-5.1) mEq/L Chloride 99 (98-107) mEq/L Carbon Dioxide 34 H (23-29) mEq/L BUN 18 (6-20) mg/dL Creatinine 0.75 (0.70-1.30) mg/dL Est GFR ( Amer) > 60 (> 60) Est GFR (Non-Af Amer) > 60 (> 60) BUN/Creatinine Ratio 24 (6-26) Glucose 151 H (70-105) mg/dL Calculated Osmolality 295 (280-300) Lactic Acid 2.0 (0.5-2.2) mmol/L Calcium 8.8 (8.6-10.3) mg/dL Troponin I < 0.03 (< 0.04) ng/mL B-Natriuretic Peptide (Less than 100) pg/mL 12/24/17 12/24/17 Range/Units 18:02 19:48 WBC (4.3-11.1) K/mcL RBC (4.19-5.50) M/mcL Hgb (12.9-16.9) g/dL Hct (37.5-50.1) % MCV (83.0-100.0) fL MCH (28.0-33.3) pg MCHC (31.6-35.5) g/dL RDW (11.5-14.5) % Plt Count (140-400) K/mcL MPV (9.4-12.4) fL Immature Gran % (0-4) % Seg Neutrophils % % Lymphocytes % % Monocytes % % Eosinophils % % Basophils % % Neutrophils # (1.6-8.9) K/mcL Lymphocytes # (0.6-4.6) K/mcL Monocytes # (0.0-1.3) K/mcL Eosinophils # (0.0-0.6) K/mcL Basophils # (0.0-0.2) K/mcL D-Dimer 504 H (0-500) ng/mLFEU Sodium (136-145) mEq/L Potassium (3.5-5.1) mEq/L Chloride (98-107) mEq/L Carbon Dioxide (23-29) mEq/L BUN (6-20) mg/dL Creatinine (0.70-1.30) mg/dL Est GFR ( Amer) (> 60) Est GFR (Non-Af Amer) (> 60) BUN/Creatinine Ratio (6-26) Glucose (70-105) mg/dL Calculated Osmolality (280-300) Lactic Acid (0.5-2.2) mmol/L Calcium (8.6-10.3) mg/dL Troponin I (< 0.04) ng/mL B-Natriuretic Peptide 11 (Less than 100) pg/mL Attestation Statement - Attestation Attestation: I, Jose Antonio Rehman MD, personally evaluated this patient and discussed their management with the resident physician. I reviewed the resident's note and agree with the documented findings, medical decision making, and plan of care. This patient was signed out at shift change from Dr. Wedlon and Dr. Christelle Archer. Please refer to their notes for complete details of the history and physical examination. Patient presented with one-day history of increased shortness of breath. He has COPD and is on continuous home oxygen. Workup was unremarkable however patient's oxygen saturation dropped into the 80s with ambulation. They consulted the dayshift hospitalist for admission but the hospitalist refused to accept the patient without a d-dimer. At shift change patient is awaiting a d-dimer. D-dimer returned at 504 with a normal limit up to 500 however patient's age adjusted upper limit is 580. On examination patient is a well-developed obese male in no acute distress. He is alert and oriented 3. There is no cyanosis or diaphoresis. Breath sounds are decreased but equal bilaterally. No rales or wheezes noted. Heart regular rate and rhythm. The hospitalist, Dr. Reyez, was consulted and accepted admission of the patient.
--- NOTE | 2017-12-24 22:54 | Internal Med History&Physical ---
<Yusef Hinkle - Last Filed: 12/25/17 00:55> Date of Encounter: 12/25/17 Time of Encounter: 22:55 Internal Medicine - H&P: HPI Chief complaint: Shortness of Breath Admitted From: Emergency Dept Plans for Post Hospital Care: Home History of present illness: Mr. Paris is a 57 year old male with PMHX of COPD on 3L home O2, diastolic CHF , presents to ED with complaints of worsening SOB since waking up this morning. SOB has not improved with home inhalers Spiriva, Symbicort, and Proventil. Patient reports that he has been hospitalized 5 times in the last 6 months for COPD exacerbation. His last hospitalization was in 12/10/17, when he was started on LAMA and LABA. Outpatient PFTs demonstrated severe airway obstructive pattern and he is scheduled for pulmonary rehab and gallbladder ultrasound tomorrow morning. The patient reports that the current episode differs from previous due to "rib pain". He had finished dose of prednisone 3 days ago and reports that he experiences worsening SOB everytime he discontinues short term steroids. 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 At ED, he received dose of solumedrol, which has relieved his SOB. He denies CP, productive cough, f/c/n/v , recent illness. Does admit to chronically swollen legs, which he takes a water pill for. Reports quitting smoking since his first admission in 07/2017. Past Med Surg Social Fam HX - Past Medical History Medical history: CHF, COPD Psychiatric history: no psych history - Past Surgical History Surgical History: no surgical history - Social History Smoking Status: Former smoker Smokeless Tobacco Status: Yes Alcohol use: none Drug use: none - Family History Father Living Status: Still Living Hx Family Cardiac Disorders: Yes (CABG pacer) Mother Living Status: Hx Family Cardiac Disorders: Yes ([place]) Internal Medicine - H&P: Meds Naproxen 375 mg PO BID PRN 12/08/17 [History] Albuterol Neb [Proventil Neb] 2.5 mg IH [id number] PRN inhsol 12/10/17 [Rx] Budesonide/Formoterol 160/4.5 [Symbicort 160/4.5] 2 puff IH BIDR #1 inhaler [Rx] Tiotropium [Spiriva] 18 mcg IH DAILYR #1 inh 12/10/17 [Rx] Furosemide [Lasix] 40 mg PO DAILY 12/24/17 [History] 3 Allergy/AdvReac Type Severity Reaction Status Date / Time No Known Allergies Allergy Verified 11/13/17 20:29 All Systems PM: A 10-system review of systems was performed and is negative for pertinent findings except as documented above in the HPI. - Constitutional Constitutional: no chills, no fever(s), no night sweats - EENT Eyes: no change in vision, no discharge, no pain, no photophobia Ears: no ear discharge, no ear pain, no tinnitus Nose, mouth and throat: no dysphagia, no nasal discharge, no neck pain, no sore throat - Cardiovascular Cardiovascular ROS IM: no chest pain, no diaphoresis, no dyspnea, no lightheadedness, no palpitations, no syncope - Respiratory Respiratory: dyspnea, wheezing, no cough, no excessive phlegm production - Gastrointestinal Gastrointestinal: no abdominal pain, no diarrhea, no hematemesis, no hematochezia, no melena, no nausea, no vomiting Additional comments: bilateral "rib pain" - Genitourinary Genitourinary ROS male: no dysuria, no hematuria, no urinary urgency - Musculoskeletal Musculoskeletal ROS IM: no numbness, no tingling - Integumentary Integumentary IM: no rash, no unusual bruising - Neurological Neurological ROS: no confusion, no convulsions, no focal weakness, no numbness, no tingling, no tremor(s) - Hematologic/Lymphatic Hematologic/Lymphatic: no easy bruising - Constitutional Vitals: Temp Pulse Resp BP Pulse Ox 98.3 F 87 18 118/75 93 12/24/17 17:54 12/24/17 22:07 12/24/17 22:07 12/24/17 22:07 12/24/17 22:07 General appearance: Present: A&O X 3, no acute distress - Head Head exam: Present: atraumatic, normocephalic - Eye Eye exam: Present: normal appearance, conjuntiva pink, sclera anicteric - Neck Neck exam general surgery: Present: supple, trachea midline. Absent: lymphadenopathy - Respiratory Respiratory exam: Present: CTAB. Absent: accessory muscle use, rales, rhonchi, wheezes - Cardiovascular Cardiovascular exam: Present: RRR, +S1, +S2. Absent: diastolic murmur, gallop, rubs, systolic murmur - GI/Abdominal GI/Abdominal exam: Present: normal bowel sounds, soft, no peritoneal signs. Absent: distended, tenderness - Extremities Exam Extremities exam: Present: warm, radial pulses palpable and symmetrical. Absent : calf tenderness, cyanotic, pedal edema - Neurological Exam Neurological exam: Present: CN II-XII intact, oriented X3, no focal deficits. Absent: pronater drift, facial droop, speech deficit - Skin Skin exam: Present: dry, intact Internal Med - H&P Results - Labs CBC & Chem 7: 12/25/17 00:28 12/24/17 18:02 - Assessment and plan (1) COPD exacerbation Current Visit: Yes Status: Resolved Assessment and plan: 57M with 5th episode of COPD exacerbation in the last 6 months. SOB relieved with steroids and duoneb at ED. Last visit 12/10/17. CXR = negative for acute process Continue with nebulizers, Solu-Medrol. Continue 3L O2 NC with goal O2 88-92% Start doxycycline (2) CHF (congestive heart failure) Current Visit: No Status: Chronic Assessment and plan: Stable. Continue home lasix Qualifiers: Heart failure type: diastolic Heart failure chronicity: chronic Qualified Code(s): I50.32 - Chronic diastolic (congestive) heart failure (3) Obesity (BMI 35.0-39.9 without comorbidity) Current Visit: No Status: Acute (4) DVT prophylaxis Current Visit: No Status: Acute Assessment and plan: Patient received dose of lovenox. Avoid heparin for tonight. (5) Elevated d-dimer Current Visit: Yes Status: Acute Assessment and plan: slightly elevated. Unlikely to be PE. D-dimer can be elevated with any acute inflammatory process. No acute interventions required at this time. - Time Spent With Patient Total time spent is greater than 50% in coordination of care (as documented) at patient's floor/unit and/or counseling patient: Greater than 35 minutes <John Reyez - Last Filed: 12/25/17 03:26> Date of Encounter: 12/25/17 Time of Encounter: 02:05 - Cardiovascular Cardiovascular ROS IM: no chest pain, no lightheadedness - Respiratory Respiratory: dyspnea, wheezing, change in phlegm color, no excessive phlegm production - Gastrointestinal Gastrointestinal: no abdominal pain - Musculoskeletal Musculoskeletal ROS IM: no arthralgias, no back pain - Integumentary Integumentary IM: no rash - Neurological Neurological ROS: no focal weakness, no frequent falls - Psychiatric Psychiatric: no anxiety, no depression - Allergic/Immunologic Allergic/Immunologic: wheezing, GI upset with certain foods - Constitutional Vitals: Temp Pulse Resp BP Pulse Ox 97.7 F 91 19 135/79 92 12/24/17 23:41 12/24/17 23:41 12/24/17 23:41 12/24/17 23:41 12/24/17 23:41 General appearance: Present: cooperative, A&O X 3, pleasant, answers questions appropriately - Eye Eye exam: Absent: scleral icterus - ENT ENT exam: Present: mucous membranes dry, normal oropharynx - Neck Neck exam general surgery: Present: supple, trachea midline - Respiratory Respiratory exam: Present: chest wall tenderness (both lower ribs -- reproducible with palpation), decreased breath sounds, prolonged expiratory phase, wheezes. Absent: CTAB, respiratory distress - Cardiovascular Cardiovascular exam: Present: distant heart sounds, RRR, +S1, +S2. Absent: diastolic murmur, systolic murmur - GI/Abdominal GI/Abdominal exam: Present: soft. Absent: tenderness - Back Exam Back exam: Absent: CVA tenderness (L), CVA tenderness (R) - Neurological Exam Neurological exam: Present: no focal deficits - Psychiatric Psychiatric exam: Present: normal affect, normal mood - Skin Skin exam: Present: dry, warm Internal Med - H&P Results - Labs CBC & Chem 7: 12/25/17 00:28 12/25/17 00:28 Labs: Short CBC 12/25/17 Range/Units 00:28 WBC 10.6 (4.3-11.1) K/mcL Hgb 11.4 L (12.9-16.9) g/dL Hct 33.6 L (37.5-50.1) % Plt Count 271 (140-400) K/mcL Neutrophils # 9.9 H (1.6-8.9) K/mcL BMP 12/25/17 00:28 Sodium 137 Potassium 4.2 Chloride 97 L Carbon Dioxide 31 H BUN 20 Creatinine 0.82 Glucose 263 H Calcium 8.8 Cardiac Enzymes 12/25/17 Range/Units 00:28 Troponin I < 0.03 (< 0.04) ng/mL - Diagnostic Studies Chest x-ray Status: image reviewed by me (negative) - Attending Attestation I discussed the [place], past medical history, review of systems, lab data, and exam findings with Dr. Hinkle. I then saw and examined patient independently. He states he feels much better after aerosols, but he is still short of breath and weak and coughing at times. He states that he's been hospitalized 5 times now in the last 6 months for COPD exacerbation. He states that as soon as he weans off steroids, his COPD flares up and he becomes quite anxious, coughing vigorously, and becomes acutely short of breath. He last finished steroids about 3 days ago and has progressively worsened over last couple days. He denies any fevers or chills. Exam is consistent with COPD exacerbation, and I also note that he improved significantly with aerosol treatments. I discussed with the ER staff the elevated d-dimer which is just borderline. He did receive a one-time dose of Lovenox as I recommended. However, after I saw and examined patient I do not feel he needs any further anticoagulation as I have a very low suspicion of PE. Symptoms appear to be classically and clinically due to COPD flareup. As such, we will treat him for COPD exacerbation and I recommend a slow steroid taper. Given his failed multiple treatments for COPD exacerbation, patient may become steroid-dependent. However, I will defer that to his time study clerk -- Dr. Black. Other than my comments above and noted exam findings, I agree with Dr. Hinkle's assessment and plan. - Assessment and plan (1) COPD exacerbation Current Visit: Yes Status: Resolved (2) CHF (congestive heart failure) Current Visit: No Status: Chronic Qualifiers: Heart failure type: diastolic Heart failure chronicity: chronic Qualified Code(s): I50.32 - Chronic diastolic (congestive) heart failure (3) Obesity (BMI 35.0-39.9 without comorbidity) Current Visit: No Status: Acute (4) DVT prophylaxis Current Visit: No Status: Acute (5) Elevated d-dimer Current Visit: Yes Status: Acute - Time Spent With Patient Total time spent is greater than 50% in coordination of care (as documented) at patient's floor/unit and/or counseling patient:
[2017-12-24] MEDS ORDERED: Acetaminophen 325 MG TABLET PO PRN (23:38)
[2017-12-24] MEDS ORDERED: Naloxone 0.4 MG/ML INJ IVP PRN (23:38)
[2017-12-25 00:39] LABS: Basophils # 0.1 K/mcL (0.0-0.2); Basophils % 0.5 %; Eosinophils # 0.1 K/mcL (0.0-0.6); Eosinophils % 0.5 %; Hematocrit 33.6 % (37.5-50.1); Hemoglobin 11.4 g/dL (12.9-16.9); Immature Granulocytes % 1.8 % (0-4); Lymphocytes # 0.3 K/mcL (0.6-4.6); Lymphocytes % 2.4 %; Mean Corpuscular HGB Conc 33.9 g/dL (31.6-35.5); Mean Corpuscular Hemoglobin 32.9 pg (28.0-33.3); Mean Corpuscular Volume 97.1 fL (83.0-100.0); Monocytes # 0.2 K/mcL (0.0-1.3); Monocytes % 1.9 %; Neutrophils # 9.9 K/mcL (1.6-8.9); Platelet Count 271 K/mcL (140-400); Red Blood Count 3.46 M/mcL (4.19-5.50); Red Cell Distribution Width 14.6 % (11.5-14.5); Segmented Neutrophils % 92.9 %
[2017-12-25 00:43] LABS: INR 1.1; Prothrombin Time 11.3 Seconds (9.4-12.1)
[2017-12-25 01:04] LABS: BUN/Creatinine Ratio 24 (6-26); Blood Urea Nitrogen 20 mg/dL (6-20); Calcium 8.8 mg/dL (8.6-10.3); Carbon Dioxide 31 mEq/L (23-29); Chloride 97 mEq/L (98-107); Glucose 263 mg/dL (70-105); Osmolality,Calculated 296 (280-300); Potassium 4.2 mEq/L (3.5-5.1); Sodium 137 mEq/L (136-145); eGFR For African Americans > 60 (> 60); eGFR For Non-African Americans > 60 (> 60)
[2017-12-25] MEDS: Ipratropium/Albuterol Neb 3 ML IH SCH ×7 (02:29→23:34)
[2017-12-25] MEDS: methylPREDNISolone 125 MG/2 ML VIAL IVP SCH ×2 (06:28→17:21)
[2017-12-25] MEDS: Doxycycline 100 MG in 0.9 % Sodium Chloride Mini Bag 100 ML IVPB SCH ×2 (06:28→17:19)
[2017-12-25] MEDS: *HR* Heparin 5,000 UNIT/ML VIAL SQ SCH ×3 (06:28→21:44)
--- NOTE | 2017-12-25 09:39 | Pulmonology Consult Note ---
Date of Encounter: 12/25/17 Time of Encounter: 09:37 Assessment and Plan (1) Acute on chronic respiratory failure with hypoxia and hypercapnia Current Visit: No Status: Chronic Impression: In conclusion Mr. Paris is a pleasant 57-year-old gentleman who suffers from COPD and heart failure with preserved ejection fraction along with ERNESTINA and morbid obesity. He has had multiple admissions to the hospital for respiratory distress in large part complicated by exacerbation of his underlying obstructive lung disease. This admission appears similar to prior admissions and I agree the patient is in a COPD exacerbation that is undoubtedly complicated by his underlying heart failure preserved ejection fraction still grossly volume overloaded on exam. Although BNP is normal with his obesity I am not sure that this is a accurate representation of his true atrial stretch. Mr. Paris has complex respiratory physiology his underlying obstructive lung disease and she falls into a category consistent with asthma with COPD overlap syndrome (ACOS) and I suspect a strong environmental allergic triggers in large part responsible for his recurrent admissions. This may be driven by his chronic exposure to cats and dogs at home although the pets belong to his and he is almost certain that they could not be removed from the house at this juncture. Although he is had tremendous difficulties with the medical noncompliance in the past every optimistic that he is taken the necessary steps to try to stay out of the hospital he is compliant with all his home medications from COPD standpoint he has been dutifully wearing his CPAP mask at night and during naps and he has lobbied made to enroll him in pulmonary rehabilitation which I did last clinic appointment all this is very encouraging. Additionally he tells me that his tobacco abuse is in remission Recs: -Supplemental O2 to keep saturation greater than 88% around 92% -I agree with steroids would dose 40 mg of prednisone daily with plan to taper by 10 mg weekly and he should be on no lower than 10 mg at next pulmonary follow -up appointment which ideally would be in the next 1-2 weeks. -Agree with doxycycline 100 mg twice a day he can complete about a 5 day course should be appropriate for COPD exacerbation and see any evidence of acute pneumonia -Start fluticasone nasal spray 50 g in both nares daily -Start montelukast 10 mg nightly -Start a nondrowsy second-generation antihistamine such as Zyrtec 10 mg daily -Continue patient's home regimen which includes Symbicort 160/4.5 twice a day and Spiriva Respimat 2 puff once daily -Continue supplemental albuterol treatments via metered-dose inhaler or nebulizer on an as-needed basis -Please provide patient with CPAP while in patient his settings are CPAP [id number] with 3LO2 bleed -Continue active diuresis with goal -1-1.5 L over the next 12-24 hours with the monitoring of electrolytes and renal function per primary medicine service; ideally his diuretic regimen could be optimized prior to discharge blood pressure acceptable but still slightly on the higher side - Outpatient pulmonary follow-up as above okay to continue pulmonary rehabilitation as scheduledbe later in the week or into early next week -Please call with any questions thank you for this consultation (2) Acute exacerbation of chronic obstructive airways disease Current Visit: No Status: Resolved (3) Diastolic CHF Current Visit: No Status: Chronic Qualifiers: Heart failure chronicity: chronic Qualified Code(s): I50.32 - Chronic diastolic (congestive) heart failure (4) ERNESTINA (obstructive sleep apnea) Current Visit: No Status: Chronic (5) Morbid obesity Current Visit: No Status: Acute (6) Environmental allergies Current Visit: Yes Status: Acute History of Present Illness Consult date: 12/25/17 Requesting physician: Madeleine Cleary Chief complaint: Difficulty in Breathing History of present illness: Mr. Paris is a very pleasant 57-year-old gentleman with a past medical history of chronic respiratory failure on 3 L of oxygen; morbid obesity with obstructive sleep apnea, COPD tobacco abuse now in remission, and heart failure with preserved ejection fraction. I had the pleasure of following up with the patient about a week ago in pulmonary clinic were he was seen after a recent hospitalization. At that time he was having baseline breathing function and was being referred to pulmonary rehabilitation. He was on a steroid taper which he completed over the weekend and symptoms including increased shortness of breath wheezing and cough had returned he was admitted with a COPD exacerbation. Given frequent hospitalizations the pulmonary service was appropriately consulted for inpatient evaluation. The patient states he is doing fairly well up until the weekend when he stopped taking steroids and hand acute flare of his breathing. This prompted admission to the hospital. He does note that he does have chronic nasal stuffiness and has 3 cats and 2 dogs at home. He reports compliance with all home COPD medications and his been wearing his CPAP regularly including during times of napping at home. Past Med Surg Social Fam HX - Past Medical History Medical history: CHF, COPD Psychiatric history: no psych history - Past Surgical History Surgical History: no surgical history - Social History Smoking Status: Former smoker Smokeless Tobacco Status: Yes Alcohol use: none Drug use: none - Family History Father Living Status: Still Living Hx Family Cardiac Disorders: Yes (CABG pacer) Mother Living Status: Hx Family Cardiac Disorders: Yes ([place]) Medications and Allergies Naproxen 375 mg PO BID PRN 12/08/17 [History] Albuterol Neb [Proventil Neb] 2.5 mg IH [id number] PRN inhsol 12/10/17 [Rx] Budesonide/Formoterol 160/4.5 [Symbicort 160/4.5] 2 puff IH BIDR #1 inhaler [Rx] Tiotropium [Spiriva] 18 mcg IH DAILYR #1 inh 12/10/17 [Rx] Furosemide [Lasix] 40 mg PO DAILY 12/24/17 [History] 3 Allergy/AdvReac Type Severity Reaction Status Date / Time No Known Allergies Allergy Verified 12/25/17 09:36 All Systems: The remainder of the systems were reviewed and are negative Physical Examination Vital Signs: Vital Signs, Last 4 Hours Temp Pulse Resp BP Pulse Ox 12/25/17 07:44 16 95 12/25/17 07:13 98.7 F 83 15 149/82 92 General appearance: no acute distress Eyes: nonicteric ENT: oropharynx moist Effort: normal Auscultation: bilateral: wheezes, rales Cardiovascular: regular rate and rhythm Gastrointestinal: normoactive bowel sounds, soft, non-tender, other (Obese) Integumentary: normal Extremities: edema (1+ bilateral lower extremity edema) normal mental status, non-focal exam mood appropriate Results - Laboratory Findings CBC and BMP: 12/25/17 00:28 12/25/17 00:28 PT/INR, D-dimer PT 11.3 Seconds (9.4-12.1) 12/25/17 00:28 D-Dimer 504 ng/mLFEU (0-500) H 12/24/17 19:48 Abnormal lab findings: Abnormal lab results RBC 3.46 M/mcL (4.19-5.50) L 12/25/17 00:28 Hgb 11.4 g/dL (12.9-16.9) L 12/25/17 00:28 Hct 33.6 % (37.5-50.1) L 12/25/17 00:28 RDW 14.6 % (11.5-14.5) H 12/25/17 00:28 Neutrophils # 9.9 K/mcL (1.6-8.9) H 12/25/17 00:28 Lymphocytes # 0.3 K/mcL (0.6-4.6) L 12/25/17 00:28 D-Dimer 504 ng/mLFEU (0-500) H 12/24/17 19:48 Chloride 97 mEq/L (98-107) L 12/25/17 00:28 Carbon Dioxide 31 mEq/L (23-29) H 12/25/17 00:28 Glucose 263 mg/dL (70-105) H 12/25/17 00:28 - Diagnostic Findings Chest x-ray: report reviewed, image reviewed PFT's: report reviewed, image reviewed (Severe obstruction with significant bronchodilator response) - Clinical Findings Intake & Output: Intake & Output 12/24/17 12/25/17 12/25/17 23:59 07:59 15:59 Intake Total 0 / 0 Output Total 0 / 0 Balance 0 / 0 Consult Discharge Plan - Plan Referrals: NONE,PCP [Primary Care Provider] -
[2017-12-25] MEDS ORDERED: Tiotropium 18 MCG inhalation IH SCH (10:00)
[2017-12-25] MEDS: Furosemide 40 MG TABLET PO SCH (10:16)
--- NOTE | 2017-12-25 11:16 | Internal Med Progress Note ---
Date of Encounter: 12/25/17 Time of Encounter: 09:30 - Assessment and plan (1) COPD exacerbation Current Visit: Yes Status: Resolved Assessment and plan: 57M with 5th episode of COPD exacerbation in the last 6 months. SOB relieved with steroids and duoneb at ED. Last visit 12/10/17. CXR = negative for acute process Continue with nebulizers, Solu-Medrol. Continue 3L O2 NC with goal O2 88-92% Start doxycycline 12/25/2017-improving since initiation of steroids. Continue IV Solu-Medrol 6212 hours. Patient has been recently weaned off from oral steroid course and saw our pulmonary service as an outpatient and underwent full pulmonary function testing. He has reportedly been more compliant recently with his CPAP and wears it at least 4-6 hours every night. He takes spiriva/Symbicort/albuterol all as an outpatient but still continues to have repeated admissions to the hospital for COPD exacerbation and is a very high readmission risk. I would like to consult pulmonary medicine for optimization of his care so that we have a good follow-up plan established prior to discharging him this time. Off note he is also not taking any GI prophylaxis and does take naproxen on a daily basis for chronic back pain. Have asked him to switch to Tylenol 650 every 6 hours when necessary for back pain and I will also initiate GI prophylaxis in terms of a PPI. He was explained the risks of long-term steroids and NSAID use on gastric ulcers and gastritis. I discussed his case with on-call pulmonary outreach consultant group and they will be in to see (2) CHF (congestive heart failure) Current Visit: No Status: Chronic Assessment and plan: Stable. Continue home lasix and monitor with daily weights Qualifiers: Heart failure type: diastolic Heart failure chronicity: chronic Qualified Code(s): I50.32 - Chronic diastolic (congestive) heart failure (3) Obesity (BMI 35.0-39.9 without comorbidity) Current Visit: No Status: Acute Assessment and plan: Dietary education provided (4) DVT prophylaxis Current Visit: No Status: Acute Assessment and plan: Subcutaneous Lovenox (5) Elevated d-dimer Current Visit: Yes Status: Acute Assessment and plan: Most likely due to chronic COPD as well as inflammatory lung disease - Time Spent With Patient Total time spent is greater than 50% in coordination of care (as documented) at patient's floor/unit and/or counseling patient: Greater than 35 minutes (More than 50% of the time in [id number] counseling with the patient and his at the bedside) - Subjective Interval history: Patient states his breathing is significantly better as compared to admission and he feels he is at his baseline. His and him both had multiple questions regarding his current care and all were answered to the best of my ability - Constitutional Vitals: Temp Pulse Resp BP Pulse Ox 98.7 F 83 16 149/82 94 12/25/17 07:13 12/25/17 07:13 12/25/17 11:09 12/25/17 07:13 12/25/17 11:09 General appearance: Present: cooperative, A&O X 3, pleasant, answers questions appropriately Exam: GENERAL: Alert, no distress, cooperative, morbidly obese EYES: PERRLA, EOMI EARS: External ears normal, canals clear OROPHARYNX: Lips, mucosa, and tongue normal. Teeth and gums normal. Oropharynx normal. NECK: No jugulovenous distention, No carotid bruits, Carotid pulse normal contour, Supple LUNGS: Lungs distant breath sounds. No wheezing no rhonchi heard CARDIAC: Normal S1 and S2; no rubs, murmurs, or gallops ABDOMEN: Abdomen soft, non-tender, BS normal, No masses or organomegaly PULSES: 2+ radial, 2+ carotid Rest of the exam is non contributory Internal Medicine: Result - Labs CBC & Chem 7: 12/25/17 00:28 12/25/17 00:28 Labs: Short CBC 12/25/17 Range/Units 00:28 WBC 10.6 (4.3-11.1) K/mcL Hgb 11.4 L (12.9-16.9) g/dL Hct 33.6 L (37.5-50.1) % Plt Count 271 (140-400) K/mcL Neutrophils # 9.9 H (1.6-8.9) K/mcL BMP 12/25/17 00:28 Sodium 137 Potassium 4.2 Chloride 97 L Carbon Dioxide 31 H BUN 20 Creatinine 0.82 Glucose 263 H Calcium 8.8 Cardiac Enzymes 12/25/17 12/25/17 Range/Units 00:28 06:11 Troponin I < 0.03 < 0.03 (< 0.04) ng/mL - ABG Interpretation ABG results: PT/INR, D-dimer PT 11.3 Seconds (9.4-12.1) 12/25/17 00:28 D-Dimer 504 ng/mLFEU (0-500) H 12/24/17 19:48 Consult Discharge Plan - Plan Referrals: NONE,PCP [Primary Care Provider] -
[2017-12-26] MEDS: Ipratropium/Albuterol Neb 3 ML IH SCH ×6 (03:50→23:07)
[2017-12-26] MEDS: methylPREDNISolone 125 MG/2 ML VIAL IVP SCH ×2 (05:41→18:28)
[2017-12-26] MEDS: *HR* Heparin 5,000 UNIT/ML VIAL SQ SCH ×3 (05:41→22:01)
[2017-12-26] MEDS: Doxycycline 100 MG in 0.9 % Sodium Chloride Mini Bag 100 ML IVPB SCH (05:41)
--- NOTE | 2017-12-26 06:49 | Electrocardiograph Report ---
[address] [address] Test Date: 2017-12-24 Pat Name: Maksim Paris Department: 103 Room: 2A Gender: M Rewinder Operator: : 1960 Requested By: Enrique Bush Order Number: [id number] Reading MD: Denis Yang Measurements Intervals [place] Rate: 94 P: 66 NE: 172 QRS: 59 QRSD: 96 T: 68 QT: 324 QTc: 376 Interpretive Statements SINUS RHYTHM Electronically Signed On 12-26-2017 6:47:49 EDT by Denis Yang
[2017-12-26] MEDS ORDERED: Cetirizine HCl 5 MG/5 ML UDC PO SCH (09:00)
[2017-12-26] MEDS: Fluticasone Propionate Nasal 50 MCG/SPRAY BOTTLE NS SCH (09:22)
[2017-12-26] MEDS: Loratadine 10 MG TABLET PO SCH (09:22)
[2017-12-26] MEDS: Furosemide 40 MG TABLET PO SCH (09:22)
[2017-12-26] MEDS ORDERED: Furosemide 40 MG/4 ML VIAL IVP ONE (09:34)
--- NOTE | 2017-12-26 10:06 | Internal Med Progress Note ---
Date of Encounter: 12/26/17 Time of Encounter: 10:03 - Assessment and plan (1) COPD exacerbation Current Visit: Yes Status: Resolved Assessment and plan: 57M with 5th episode of COPD exacerbation in the last 6 months. SOB relieved with steroids and duoneb at ED. Last visit 12/10/17. CXR = negative for acute process Continue with nebulizers, Solu-Medrol. Continue 3L O2 NC with goal O2 88-92% Start doxycycline 12/25/2017-improving since initiation of steroids. Continue IV Solu-Medrol 6212 hours. Patient has been recently weaned off from oral steroid course and saw our pulmonary service as an outpatient and underwent full pulmonary function testing. He has reportedly been more compliant recently with his CPAP and wears it at least 4-6 hours every night. He takes spiriva/Symbicort/albuterol all as an outpatient but still continues to have repeated admissions to the hospital for COPD exacerbation and is a very high readmission risk. I would like to consult pulmonary medicine for optimization of his care so that we have a good follow-up plan established prior to discharging him this time. Off note he is also not taking any GI prophylaxis and does take naproxen on a daily basis for chronic back pain. Have asked him to switch to Tylenol 650 every 6 hours when necessary for back pain and I will also initiate GI prophylaxis in terms of a PPI. He was explained the risks of long-term steroids and NSAID use on gastric ulcers and gastritis. I discussed his case with on-call pulmonary [employer] consultant group and they will be in to see 12/26/17- Appreciae pulm recommendations Will continue current steroid dosing w switch to PO prednisone w prolonged taper as per recs when ready for DC He has weight gain of almost 5 kg ( dont think this is accurate ) per EMR. will add extra diuresis and monitor closely. Aiming for 1.5L offload. He does have CHF hx and we want to be careful optimize COPD w additional meds per pulm recs will follow along Very high readmit risk (2) CHF (congestive heart failure) Current Visit: No Status: Chronic Assessment and plan: Hx of Chronic diastolic CHF w acute worsening . weigh gain per EMR. Has some edema and appears now to have fluid overload . added extra diuresis today Qualifiers: Heart failure type: diastolic Heart failure chronicity: acute on chronic Qualified Code(s): I50.33 - Acute on chronic diastolic (congestive) heart failure (3) Obesity (BMI 35.0-39.9 without comorbidity) Current Visit: Yes Status: Acute Assessment and plan: Dietary education provided (4) DVT prophylaxis Current Visit: No Status: Acute Assessment and plan: Subcutaneous Lovenox (5) Elevated d-dimer Current Visit: Yes Status: Acute Assessment and plan: Most likely due to chronic COPD as well as inflammatory lung disease - Time Spent With Patient Total time spent is greater than 50% in coordination of care (as documented) at patient's floor/unit and/or counseling patient: Greater than 35 minutes (more than 50 % time spent on face to face counselling) - Subjective Interval history: states breathing is getting better albeit slowly - Constitutional Vitals: Temp Pulse Resp BP Pulse Ox 97.7 F 92 18 157/82 97 12/26/17 07:13 12/26/17 07:13 12/26/17 07:35 12/26/17 07:13 12/26/17 07:35 General appearance: Present: cooperative, A&O X 3, pleasant, answers questions appropriately Exam: GENERAL: Alert, no distress, cooperative, morbidly obese NECK: No jugulovenous distention, No carotid bruits, Carotid pulse normal contour, Supple LUNGS: faint crackles on bilaterla bases No wheezing no rhonchi heard CARDIAC: Normal S1 and S2; no rubs, murmurs, or gallops ABDOMEN: Abdomen soft, non-tender, BS normal, No masses or organomegaly BLE edema 1+ PULSES: 2+ radial, 2+ carotid Rest of the exam is non contributory Internal Medicine: Result - Labs CBC & Chem 7: 12/25/17 00:28 12/25/17 00:28 - ABG Interpretation ABG results: PT/INR, D-dimer PT 11.3 Seconds (9.4-12.1) 12/25/17 00:28 D-Dimer 504 ng/mLFEU (0-500) H 12/24/17 19:48 Consult Discharge Plan - Plan Instructions: Asthma (DC), Acute Respiratory Distress Syndrome (DC), Chronic Obstructive Pulmonary Disease (DC) Referrals: NONE,PCP [Primary Care Provider] -
[2017-12-26 10:41] LABS: Alanine Aminotransferase 30 Units/L (7-52); Albumin 3.8 g/dL (3.5-5.7); Albumin/Globulin Ratio 1.5 (1.1-2.2); Alkaline Phosphatase 80 Units/L (34-104); Aspartate Amino Transferase 11 Units/L (13-39); BUN/Creatinine Ratio 29 (6-26); Bilirubin,Total 1.7 mg/dL (0.3-1.0); Blood Urea Nitrogen 24 mg/dL (6-20); Calcium 8.9 mg/dL (8.6-10.3); Carbon Dioxide 27 mEq/L (23-29); Chloride 97 mEq/L (98-107); Globulin 2.5 g/dL (2.4-3.5); Glucose 379 mg/dL (70-105); Osmolality,Calculated 298 (280-300); Potassium 4.5 mEq/L (3.5-5.1); Sodium 134 mEq/L (136-145); Total Protein 6.3 g/dL (6.4-8.9); eGFR For African Americans > 60 (> 60); eGFR For Non-African Americans > 60 (> 60)
[2017-12-26 11:10] LABS: Hemoglobin 11.3 g/dL (12.9-16.9); Mean Corpuscular HGB Conc 33.2 g/dL (31.6-35.5); Mean Corpuscular Hemoglobin 32.7 pg (28.0-33.3); Mean Corpuscular Volume 98.3 fL (83.0-100.0); Platelet Count 273 K/mcL (140-400); Red Blood Count 3.46 M/mcL (4.19-5.50); Red Cell Distribution Width 14.7 % (11.5-14.5)
[2017-12-26 11:38] LABS: Platelet Estimate Normal (Normal)
[2017-12-26 11:39] LABS: Lymphocytes # 0.5 K/mcL (0.6-4.6); Monocytes # 1.3 K/mcL (0.0-1.3); Neutrophils # 23.6 K/mcL (1.6-8.9)
[2017-12-26] MEDS: Doxycycline 100 MG CAPSULE PO SCH (22:01)
[2017-12-27] MEDS: Ipratropium/Albuterol Neb 3 ML IH SCH ×6 (04:32→23:01)
[2017-12-27] MEDS: *HR* Heparin 5,000 UNIT/ML VIAL SQ SCH ×3 (05:08→20:06)
[2017-12-27] MEDS: methylPREDNISolone 125 MG/2 ML VIAL IVP SCH (05:08)
[2017-12-27] MEDS: Furosemide 40 MG TABLET PO SCH (10:26)
[2017-12-27] MEDS: Loratadine 10 MG TABLET PO SCH (10:26)
[2017-12-27] MEDS: Doxycycline 100 MG CAPSULE PO SCH ×2 (10:26→20:06)
[2017-12-27] MEDS: Fluticasone Propionate Nasal 50 MCG/SPRAY BOTTLE NS SCH (10:27)
[2017-12-27] MEDS ORDERED: Furosemide 40 MG/4 ML VIAL IVP ONE (13:57)
--- NOTE | 2017-12-27 14:38 | Internal Med Progress Note ---
Date of Encounter: 12/27/17 Time of Encounter: 14:36 - Assessment and plan (1) COPD exacerbation Current Visit: Yes Status: Resolved Assessment and plan: 57M with 5th episode of COPD exacerbation in the last 6 months. SOB relieved with steroids and duoneb at ED. Last visit 12/10/17. CXR = negative for acute process Continue with nebulizers, Solu-Medrol. Continue 3L O2 NC with goal O2 88-92% Start doxycycline 12/25/2017-improving since initiation of steroids. Continue IV Solu-Medrol 6212 hours. Patient has been recently weaned off from oral steroid course and saw our pulmonary service as an outpatient and underwent full pulmonary function testing. He has reportedly been more compliant recently with his CPAP and wears it at least 4-6 hours every night. He takes spiriva/Symbicort/albuterol all as an outpatient but still continues to have repeated admissions to the hospital for COPD exacerbation and is a very high readmission risk. I would like to consult pulmonary medicine for optimization of his care so that we have a good follow-up plan established prior to discharging him this time. Off note he is also not taking any GI prophylaxis and does take naproxen on a daily basis for chronic back pain. Have asked him to switch to Tylenol 650 every 6 hours when necessary for back pain and I will also initiate GI prophylaxis in terms of a PPI. He was explained the risks of long-term steroids and NSAID use on gastric ulcers and gastritis. I discussed his case with on-call pulmonary transportation consultant group and they will be in to see 12/26/17- Appreciae pulm recommendations Will continue current steroid dosing w switch to PO prednisone w prolonged taper as per recs when ready for DC He has weight gain of almost 5 kg ( dont think this is accurate ) per EMR. will add extra diuresis and monitor closely. Aiming for 1.5L offload. He does have CHF hx and we want to be careful optimize COPD w additional meds per pulm recs will follow along Very high readmit risk 12/27-bilateral lower extremity edema is significant. He has 1.5 L of offloading since yesterday. Continue extra dose of Lasix today Potential discharge tomorrow with double dose of Lasix at home. I will also transitioned to oral steroids tomorrow and continue gradual taper as prescribed by pulmonary medicine. He will be set up with pulmonary service as an outpatient and continues to be a high readmission risk (2) CHF (congestive heart failure) Current Visit: No Status: Chronic Qualifiers: Heart failure type: diastolic Heart failure chronicity: acute on chronic Qualified Code(s): I50.33 - Acute on chronic diastolic (congestive) heart failure (3) Obesity (BMI 35.0-39.9 without comorbidity) Current Visit: Yes Status: Acute Assessment and plan: Dietary education provided (4) DVT prophylaxis Current Visit: No Status: Acute Assessment and plan: Subcutaneous Lovenox (5) Elevated d-dimer Current Visit: Yes Status: Acute Assessment and plan: Most likely due to chronic COPD as well as inflammatory lung disease - Time Spent With Patient Total time spent is greater than 50% in coordination of care (as documented) at patient's floor/unit and/or counseling patient: 25 - 35 minutes - Subjective Interval history: Bilateral lower extremity swelling is still present. Patient feels less winded overall. - Constitutional Vitals: Temp Pulse Resp BP Pulse Ox 97.5 F L 104 20 140/85 94 12/27/17 08:12 12/27/17 08:12 12/27/17 11:22 12/27/17 08:12 12/27/17 11:22 General appearance: Present: cooperative, A&O X 3, pleasant, answers questions appropriately Exam: GENERAL: Alert, no distress, cooperative, morbidly obese NECK: No jugulovenous distention, No carotid bruits, Carotid pulse normal contour, Supple LUNGS: faint crackles on bilaterla bases No wheezing no rhonchi heard CARDIAC: Normal S1 and S2; no rubs, murmurs, or gallops ABDOMEN: Abdomen soft, non-tender, BS normal, No masses or organomegaly BLE edema 1+ PULSES: 2+ radial, 2+ carotid Rest of the exam is non contributory Internal Medicine: Result - Labs CBC & Chem 7: 12/26/17 09:45 12/26/17 09:45 - ABG Interpretation ABG results: PT/INR, D-dimer PT 11.3 Seconds (9.4-12.1) 12/25/17 00:28 D-Dimer 504 ng/mLFEU (0-500) H 12/24/17 19:48 Consult Discharge Plan - Plan Instructions: Asthma (DC), Acute Respiratory Distress Syndrome (DC), Chronic Obstructive Pulmonary Disease (DC) Referrals: NONE,PCP [Primary Care Provider] -
[2017-12-28] MEDS: Ipratropium/Albuterol Neb 3 ML IH SCH ×2 (03:10→07:44)
[2017-12-28] MEDS: *HR* Heparin 5,000 UNIT/ML VIAL SQ SCH (05:43)
[2017-12-28 07:23] VITALS: BP 144/86
[2017-12-28] MEDS: Doxycycline 100 MG CAPSULE PO SCH (08:01)
[2017-12-28] MEDS: Loratadine 10 MG TABLET PO SCH (08:01)
[2017-12-28] MEDS: Furosemide 40 MG TABLET PO SCH (08:01)
[2017-12-28] MEDS: Fluticasone Propionate Nasal 50 MCG/SPRAY BOTTLE NS SCH (08:02)
[2017-12-28] MEDS ORDERED: predniSONE 20 MG TABLET PO SCH (09:00)
--- NOTE | 2017-12-28 09:16 | Discharge Summary ---
- NOTES TO OUTPATIENT PROVIDER Notes to Outpatient Provider: Patient has chronic history of COPD and diastolic heart failure. He has been optimized on his outpatient COPD management including a prolonged prednisone taper. As for pulmonary instructions he has also been increased on his daily Lasix from 40 once a day to 40 twice a day. He will need an outpatient follow-up on his weights as well as a BMP to monitor electrolytes while on this increased dosage of furosemide. He will also need a close follow-up with pulmonary medicine within 1-2 weeks time Orders not resulted at time of discharge: Pending orders 12/25/17 14:28 Immunoglobulin E Routine Date of Encounter: 12/28/17 Time of Encounter: 09:13 - Discharge Diagnosis (1) COPD exacerbation Priority: Primary Status: Resolved (2) CHF (congestive heart failure) Priority: Secondary Status: Chronic Qualifiers: Heart failure type: diastolic Heart failure chronicity: acute on chronic Qualified Code(s): I50.33 - Acute on chronic diastolic (congestive) heart failure (3) Obesity (BMI 35.0-39.9 without comorbidity) Priority: Secondary Status: Acute (4) DVT prophylaxis Priority: Secondary Status: Acute (5) Elevated d-dimer Priority: Secondary Status: Acute Hospital course: Mr. Paris is a 57 year old male with a past medical history significant for COPD with multiple readmissions within the last 6 months as well as diastolic heart failure he presented with shortness of breath and was treated with IV steroids, antibiotics. The patient also has sleep apnea and was continued on CPAP. He was also optimized as far as his diuresis is concerned and at the time of discharge his furosemide has been increased to twice a day. The patient has been taking NSAIDs in addition to steroids for last several months and that does put him at a risk for gastric ulcers I have asked him to stop taking his naproxen and switch to Tylenol 650 as needed for pain. Pulmonology saw the patient in house and further optimize his management. He now will also take Spiriva, Symbicort, montelukast and follow-up with pulmonary medicine within 1-2 weeks time. He plans to be compliant with his CPAP and also refrain from smoking further. Discharge discussed with: patient, nurse Time spent discussing smoking cessation with patient: more than 10 minutes - Time Spent with Patient Total time spent providing and/or coordinating discharge services: Greater than 30 minutes - Discharge Medications Prescriptions: Doxycycline 100 mg PO BID 3 Days #6 capsule Fluticasone Propionate Nasal [Flonase] 50 mcg NS DAILY #1 bottle Furosemide [Lasix] 40 mg PO BID #40 tablet Omeprazole [PriLOSEC] 20 mg PO DAILY@0630 #30 capsule. predniSONE [PredniSONE] See Taper PO DAILY #60 tablet Home Medications: Albuterol Neb [Proventil Neb] 2.5 mg IH [id number] PRN inhsol 12/10/17 [Rx] Budesonide/Formoterol 160/4.5 [Symbicort 160/4.5] 2 puff IH BIDR #1 inhaler [Rx] Tiotropium [Spiriva] 18 mcg IH DAILYR #1 inh 12/10/17 [Rx] Acetaminophen [Tylenol] 650 mg PO Q6H PRN tablet 12/28/17 [Rx] Doxycycline 100 mg PO BID 3 Days #6 capsule 12/28/17 [Rx] Fluticasone Propionate Nasal [Flonase] 50 mcg NS DAILY #1 bottle 12/28/17 [Rx] Furosemide [Lasix] 40 mg PO BID #40 tablet 12/28/17 [Rx] Montelukast [Singulair] 10 mg PO HS tablet 12/28/17 [Rx] Omeprazole [PriLOSEC] 20 mg PO DAILY@0630 #30 capsule. 12/28/17 [Rx] predniSONE [PredniSONE] See Taper PO DAILY #60 tablet 12/28/17 [Rx] Allergies/Adverse Reactions: 3 Allergy/AdvReac Type Severity Reaction Status Date / Time No Known Allergies Allergy Verified 12/25/17 09:36 Date of admission: 12/25/17 11:53 Primary care physician: PCP NONE - Constitutional Vitals: Temp Pulse Resp BP Pulse Ox 97.5 F L 78 18 144/86 98 12/28/17 07:20 12/28/17 07:20 12/28/17 07:46 12/28/17 07:20 12/28/17 08:06 General appearance: Present: cooperative, A&O X 3, pleasant, answers questions appropriately Exam: ENERAL: Alert, no distress, cooperative, morbidly obese NECK: No jugulovenous distention, No carotid bruits, Carotid pulse normal contour, Supple LUNGS: faint crackles on bilaterla bases No wheezing no rhonchi heard CARDIAC: Normal S1 and S2; no rubs, murmurs, or gallops ABDOMEN: Abdomen soft, non-tender, BS normal, No masses or organomegaly BLE edema 1+ PULSES: 2+ radial, 2+ carotid Rest of the exam is non contributory - Patient Status Disposition: Home, Self-Care Functional capacity at discharge: independent ambulation - Discharge Instructions Instructions: Asthma (DC), Acute Respiratory Distress Syndrome (DC), Chronic Obstructive Pulmonary Disease (DC), Heart Failure (DC) Follow Up With: NONE,PCP [Primary Care Provider] - - Diet and Activity Activity: increase activity as tolerated, resume usual activities as tolerated Diet: low fat, low cholesterol
== END 2017-12-28 10:48 | disposition home or self-care (01) | DRG 190 ==
LOC: 2ANU 17:24 → EMEROO 17:24 → SUATTDRO 21:52 → 2ANU 23:01 → SUATTDRO 12-25 11:53
PROVIDERS: ADMIT Pediatrics; ATTEND Internal Medicine

== ENCOUNTER 2018-01-11 08:10 | Inpatient (IN) ==
--- NOTE | 2018-01-11 08:17 | Emergency Department Note ---
Disposition Clinical Impression: Dyspnea, Hyponatremia, Hypokalemia, Alkalosis, STEVAN (acute kidney injury) Disposition: Admitted As Inpatient Condition: Fair General Adult HPI - General Stated complaint: diff breathing Time Seen by Provider: 01/11/18 08:14 Nursing Notes Reviewed: Yes Vital Signs Reviewed: Yes - History of Present Illness HPI Narrative: This documentation is done with the assistance of Dragon dictation. Despite efforts made to ensure accuracy, there may be inaccuracies in crusher setter or spelling and typographical errors. I examined this patient and my medical decision-making was reviewed with the Resident Physician. I agree with the documented findings, disposition and treatment plan as described except to the extent set forth below. Patient seen and evaluated on arrival with EMS and Dr. Bush I agree with his evaluation and treatment plan, supervise care the patient's stay. Medical Decision Making - [facility] Narrative Medical decision making narrative: Patient seen today after he was coming in for pulmonary rehabilitation. He forgot something in his house and he decided to go back and walked in and got short of breath. No chest pain. Had some abdominal discomfort. Medics state that now he is feeling better no breathing treatments he is on oxygen. We will order a workup on him and reassess we will discuss find out who he is seeing for pulmonary rehabilitation and discussed with them also. He is in agreement with this plan. - Related Data Home Medications Medication Instructions Recorded Confirmed Aspirin 81 mg PO DAILY 01/11/18 01/11/18 Furosemide [Lasix] 80 mg PO BID 01/11/18 01/11/18 metOLazone [Zaroxolyn] 5 mg PO DAILY 01/11/18 01/11/18 Previous Rx's Medication Instructions Recorded Albuterol Neb [Proventil Neb] 2.5 mg IH [id number] PRN inhsol 12/10/17 Budesonide/Formoterol 160/4.5 2 puff IH BIDR #1 inhaler 12/10/17 [Symbicort 160/4.5] Tiotropium [Spiriva] 18 mcg IH DAILYR #1 inh 12/10/17 Acetaminophen [Tylenol] 650 mg PO Q6H PRN tablet 12/28/17 Fluticasone Propionate Nasal 50 mcg NS DAILY #1 bottle 12/28/17 [Flonase] Montelukast [Singulair] 10 mg PO HS tablet 12/28/17 Omeprazole [PriLOSEC] 20 mg PO DAILY@0630 #30 capsule. 12/28/17 predniSONE [PredniSONE] See Taper PO DAILY #60 tablet 12/28/17 Allergies Allergy/AdvReac Type Severity Reaction Status Date / Time No Known Allergies Allergy Verified 12/25/17 09:36 Past Medical History - Past Medical History Medical history: Reports: CHF, COPD Surgical history: Reports: no surgical history Psychiatric history: Reports: no psych history - Social History Smoking Status: Former smoker Smokeless Tobacco Status: Yes Alcohol use: Reports: none Drug use: Reports: none Course Vital Signs Temperature 97.7 F 01/11/18 08:24 Pulse Rate 98 01/11/18 08:24 Respiratory Rate 16 01/11/18 08:24 Blood Pressure 131/78 01/11/18 08:24 O2 Sat by Pulse Oximetry 94 01/11/18 08:24 Temperature 97.7 F 01/11/18 08:24 Pulse Rate 89 01/11/18 11:14 Respiratory Rate 18 01/11/18 11:14 Blood Pressure 124/79 01/11/18 11:14 O2 Sat by Pulse Oximetry 93 01/11/18 11:14 Oxygen Delivery Oxygen Delivery Nasal Cannula Medical Decision Making - [facility] Narrative Medical decision making narrative: Chest X-Ray 01/11/18 08:17 IMPRESSION: 1. No radiographic finding to account for patient's shortness of breath. D/ / Blaze Burks MD / Blaze Burks MD Interpreting Provider: Blaze Burks MD 0948 hrs.: Patient's lab was called back as critical, potassium of 2, we will supplement potassium. CO2 greater than 40 so we will order VBG. This may be consistent with a COPD. 1010 hrs.: Lab called and his pH on his VBG is 7.6 the PCO2 of 52. 1130 hrs.: Critical care seen the patient in the emergency department due to his hypokalemia and metabolic alkalosis. They are in admitted to hospitalist with critical care consult N. Patient's in agreement with this plan. We think his condition is probably due to his chronic Lasix and not taking potassium supplementation along with a COPD. - Lab Data Result diagrams: 01/11/18 10:39 01/11/18 10:39 Lab Results 01/11/18 01/11/18 01/11/18 Range/Units 08:34 10:05 10:35 WBC (4.3-11.1) K/mcL RBC (4.19-5.50) M/mcL Hgb (12.9-16.9) g/dL Hct (37.5-50.1) % MCV (83.0-100.0) fL MCH (28.0-33.3) pg MCHC (31.6-35.5) g/dL RDW (11.5-14.5) % Plt Count (140-400) K/mcL MPV (9.4-12.4) fL Immature Gran % (0-4) % Seg Neutrophils % % Lymphocytes % % Monocytes % % Eosinophils % % Basophils % % Neutrophils # (1.6-8.9) K/mcL Lymphocytes # (0.6-4.6) K/mcL Monocytes # (0.0-1.3) K/mcL Eosinophils # (0.0-0.6) K/mcL Basophils # (0.0-0.2) K/mcL Nucleated RBCs/100 WBC (0) /100 WBC VBG pH 7.68 H* (7.32-7.42) pH Units VBG pCO2 53 H (41-51) mmHg VBG pO2 190 H (25-50) mmHg VBG HCO3 62 H (21-27) mEq/L Sodium 126 L (136-145) mEq/L Potassium 2.0 L* (3.5-5.1) mEq/L Chloride 56 L (98-107) mEq/L Carbon Dioxide > 45 H* (23-29) mEq/L BUN 56 H (6-20) mg/dL Creatinine 1.45 H (0.70-1.30) mg/dL Est GFR ( Amer) > 60 (> 60) Est GFR (Non-Af Amer) 50 L (> 60) BUN/Creatinine Ratio 39 H (6-26) Glucose 289 H (70-105) mg/dL Calculated Osmolality 288 (280-300) Calcium 9.9 (8.6-10.3) mg/dL Magnesium (1.6-2.6) mg/dL Total Bilirubin (0.3-1.0) mg/dL AST (13-39) Units/L ALT (7-52) Units/L Alkaline Phosphatase (34-104) Units/L Troponin I 0.04 H* (< 0.04) ng/mL Serum Total Protein (6.4-8.9) g/dL Albumin (3.5-5.7) g/dL Globulin (2.4-3.5) g/dL Albumin/Globulin Ratio (1.1-2.2) Specimen Rejected MCV Delta Person Notif of Crit dr. clancy 01/11/18 01/11/18 Range/Units 10:39 10:39 WBC 19.5 H (4.3-11.1) K/mcL RBC 4.07 L (4.19-5.50) M/mcL Hgb 13.5 (12.9-16.9) g/dL Hct 35.7 L (37.5-50.1) % MCV 87.7 D (83.0-100.0) fL MCH 33.2 (28.0-33.3) pg MCHC 37.8 H (31.6-35.5) g/dL RDW 12.9 (11.5-14.5) % Plt Count 318 (140-400) K/mcL MPV 10.5 (9.4-12.4) fL Immature Gran % 0.9 (0-4) % Seg Neutrophils % 91.9 % Lymphocytes % 1.8 % Monocytes % 5.1 % Eosinophils % 0.1 % Basophils % 0.2 % Neutrophils # 17.9 H (1.6-8.9) K/mcL Lymphocytes # 0.4 L (0.6-4.6) K/mcL Monocytes # 1.0 (0.0-1.3) K/mcL Eosinophils # 0.0 (0.0-0.6) K/mcL Basophils # 0.0 (0.0-0.2) K/mcL Nucleated RBCs/100 WBC 0.3 H (0) /100 WBC VBG pH (7.32-7.42) pH Units VBG pCO2 (41-51) mmHg VBG pO2 (25-50) mmHg VBG HCO3 (21-27) mEq/L Sodium 125 L (136-145) mEq/L Potassium 2.2 L* (3.5-5.1) mEq/L Chloride 56 L (98-107) mEq/L Carbon Dioxide > 45 H* (23-29) mEq/L BUN 57 H (6-20) mg/dL Creatinine (0.70-1.30) mg/dL Est GFR ( Amer) (> 60) Est GFR (Non-Af Amer) (> 60) BUN/Creatinine Ratio (6-26) Glucose 336 H (70-105) mg/dL Calculated Osmolality 289 (280-300) Calcium 9.6 (8.6-10.3) mg/dL Magnesium 2.3 (1.6-2.6) mg/dL Total Bilirubin 7.4 H (0.3-1.0) mg/dL AST 23 (13-39) Units/L ALT 33 (7-52) Units/L Alkaline Phosphatase 118 H (34-104) Units/L Troponin I (< 0.04) ng/mL Serum Total Protein 6.7 (6.4-8.9) g/dL Albumin 4.2 (3.5-5.7) g/dL Globulin 2.5 (2.4-3.5) g/dL Albumin/Globulin Ratio 1.7 (1.1-2.2) Specimen Rejected Person Notif of Crit Critical Care Time Critical Care Time: Yes Total Critical Care Time: 45 Attestation: Excluding any separately billable procedures.
[2018-01-11] MEDS ORDERED: methylPREDNISolone 125 MG/2 ML VIAL IVP ONE (08:22)
[2018-01-11] MEDS ORDERED: Ipratropium/Albuterol Neb 3 ML IH ONE (08:22)
--- NOTE | 2018-01-11 08:26 | Emergency Department Note ---
Disposition Clinical Impression: Hyponatremia, Hypokalemia, Alkalosis, STEVAN (acute kidney injury) Dyspnea Qualifiers: Dyspnea type: unspecified Qualified Code(s): R06.00 - Dyspnea, unspecified Disposition: Admitted As Inpatient Condition: Fair Referrals: Edinson Benedict MD [Primary Care Provider] - Forms: ED Satisfaction Letter Time of Disposition: 10:43 Chest Pain HPI - General Chief Complaint: ED Shortness of Breath/Dyspnea Stated Complaint: diff breathing Time Seen by Provider: 01/11/18 08:14 Source: patient Mode of arrival: ambulatory Limitations: no limitations Vital Signs Reviewed: Yes Nursing Notes Reviewed: Yes - History of Present Illness HPI Narrative: Patient is a 57-year-old male with past medical history of CHF, COPD, currently on 80 mg of Lasix daily. He is also enrolled in pulmonary rehabilitation. He states that he is on his way to pulmonary rehabilitation today, became short of breath while he was walking and came to the ED instead of pulmonary rehabilitation. He states that he has had shortness of breath since July but was acutely short of breath above his baseline this morning. Denies any chest pain but does admit to some very mild epigastric discomfort. Denies any other nausea, vomiting, fevers, sweating, dysuria, hematuria. He wears 3 L nasal cannula chronically, was wearing this today when he got short of breath. Denies any other cough above his baseline. No other URI symptoms. - Related Data Home Medications Medication Instructions Recorded Confirmed Aspirin 81 mg PO DAILY 01/11/18 01/11/18 Furosemide [Lasix] 80 mg PO BID 01/11/18 01/11/18 metOLazone [Zaroxolyn] 5 mg PO DAILY 01/11/18 01/11/18 Previous Rx's Medication Instructions Recorded Albuterol Neb [Proventil Neb] 2.5 mg IH [id number] PRN inhsol 12/10/17 Budesonide/Formoterol 160/4.5 2 puff IH BIDR #1 inhaler 12/10/17 [Symbicort 160/4.5] Tiotropium [Spiriva] 18 mcg IH DAILYR #1 inh 12/10/17 Acetaminophen [Tylenol] 650 mg PO Q6H PRN tablet 12/28/17 Fluticasone Propionate Nasal 50 mcg NS DAILY #1 bottle 12/28/17 [Flonase] Montelukast [Singulair] 10 mg PO HS tablet 12/28/17 Omeprazole [PriLOSEC] 20 mg PO DAILY@0630 #30 capsule. 12/28/17 predniSONE [PredniSONE] See Taper PO DAILY #60 tablet 12/28/17 Allergies Allergy/AdvReac Type Severity Reaction Status Date / Time No Known Allergies Allergy Verified 12/25/17 09:36 All systems ED: reviewed and negative except as stated. Constitutional: Denies: fever Cardiovascular: Denies: chest pain Respiratory: Reports: dyspnea. Denies: cough Gastrointestinal: Reports: abdominal pain. Denies: nausea, vomiting, diarrhea Genitourinary: Denies: urgency, dysuria Neurological: Denies: headache, weakness, numbness Chest Pain PMH - Past Medical History Medical history: Reports: CHF, COPD Surgical history: Reports: no surgical history Psychiatric history: Reports: no psych history - Social History Smoking Status: Former smoker Alcohol use: Reports: none Drug use: Reports: none Physical Exam - General Limitations: no limitations General appearance: alert, in no apparent distress - Head Head exam: atraumatic, normocephalic, normal inspection - Eye Eye exam: Present: normal appearance, PERRL, EOMI - ENT ENT exam: normal exam, normal oropharynx, mucous membranes moist - Neck Neck exam: Present: normal inspection, full ROM, trachea midline - Chest Chest inspection: Present: normal inspection, symmetric chest wall rise - Respiratory Respiratory exam: Present: wheezes ([id number] wheezes in bilateral lower lobes, [id number] increased work of breathing.). Absent: stridor, accessory muscle use - Cardiovascular Cardiovascular exam: Present: regular rate, normal rhythm, normal heart sounds - Abdominal Exam Abdominal exam: Present: soft, Non-Tender. Absent: tenderness, distention, guarding, rebound, rigidity - Extremities Exam Extremities exam: Present: normal inspection, full ROM. Absent: tenderness, pedal edema, calf tenderness - Neurological Exam Neurological exam: Present: alert, oriented X3 - Psychiatric Psychiatric exam: Present: normal affect, normal mood - Skin Skin exam: Present: warm, dry, intact, normal color Course Course Narrative: Patient was 94% on usual 3 L nasal cannula. Did wheezes in bilateral lower lobes, mild to moderate wheezing in the bilateral lower lobes. Multiple moderate increased work of breathing. He was offered BiPAP and refuses. We will give the patient DuoNeb, Solu-Medrol, perform EKG, basic blood work, troponin. 10:41 patient reassessed. He is having some shortness of breath after treatments, still refuses BiPAP at this time. labs show a metabolic alkalosis, hypokalemia at 2.0, low sodium and chloride. Trop 0.04, again no active chest pain. No fluids given at this time due to patient recently having CHF exacerbation, concern for fluid overload. Patient was given 40 mEq potassium supplementation here in the department. EDC is pending due to agglutinins. I talked with hospitalist, he is going to talk with latin dance instructor and may admit to ICU. He recommended calling nephrology due to STEVAN, alkalosis, and electrolyte abnormalities. Waiting on Dr. Leigh to call back. Hospitalist will call back after talking with latin dance instructor. 10:54 Dr. Bloom requested NS be started at 125ml/hr and to give additional Kride 40meq in addition to PO potassium given. This has been ordered. 11:[address] Trevizo, latin dance instructor, he recommended starting 1L NS bolus and 500mg acetazolamide to help with alkalosis. They will act as consult. The recommend admission to 2N through hospitalist with latin dance instructor as consult. Vital Signs Temperature 97.7 F 01/11/18 08:24 Pulse Rate 98 01/11/18 08:24 Respiratory Rate 16 01/11/18 08:24 Blood Pressure 131/78 01/11/18 08:24 O2 Sat by Pulse Oximetry 94 01/11/18 08:24 Temperature 97.7 F 01/11/18 08:24 Pulse Rate 89 01/11/18 11:14 Respiratory Rate 18 01/11/18 11:14 Blood Pressure 124/79 01/11/18 11:14 O2 Sat by Pulse Oximetry 93 01/11/18 11:14 Oxygen Delivery Oxygen Delivery Nasal Cannula Chest Pain - MDM Narrative Medical decision making narrative: Patient was 94% on usual 3 L nasal cannula. Did wheezes in bilateral lower lobes, mild to moderate wheezing in the bilateral lower lobes. Multiple moderate increased work of breathing. He was offered BiPAP and refuses. We will give the patient DuoNeb, Solu-Medrol, perform EKG, basic blood work, troponin. 10:41 patient reassessed. He is having some shortness of breath after treatments, still refuses BiPAP at this time. labs show a metabolic alkalosis, hypokalemia at 2.0, low sodium and chloride. Trop 0.04, again no active chest pain. No fluids given at this time due to patient recently having CHF exacerbation, concern for fluid overload. Patient was given 40 mEq potassium supplementation here in the department. EDC is pending due to agglutinins. I talked with hospitalist, he is going to talk with latin dance instructor and may admit to ICU. He recommended calling nephrology due to STEVAN, alkalosis, and electrolyte abnormalities. Waiting on Dr. Leigh to call back. Hospitalist will call back after talking with latin dance instructor. 10:54 Dr. Bloom requested NS be started at 125ml/hr and to give additional Kride 40meq in addition to PO potassium given. This has been ordered. 11:[address] Trevizo, latin dance instructor, he recommended starting 1L NS bolus and 500mg acetazolamide to help with alkalosis. They will act as consult. The recommend admission to 2N through hospitalist with latin dance instructor as consult. - Medical Records Medical records reviewed: Yes I reviewed the patient's medical records. - Lab Data Lab results reviewed: Yes I reviewed the patient's lab results. Result diagrams: 01/11/18 10:39 01/11/18 10:39 Lab Results 01/11/18 01/11/18 01/11/18 Range/Units 08:34 10:05 10:35 WBC (4.3-11.1) K/mcL RBC (4.19-5.50) M/mcL Hgb (12.9-16.9) g/dL Hct (37.5-50.1) % MCV (83.0-100.0) fL MCH (28.0-33.3) pg MCHC (31.6-35.5) g/dL RDW (11.5-14.5) % Plt Count (140-400) K/mcL MPV (9.4-12.4) fL Immature Gran % (0-4) % Seg Neutrophils % % Lymphocytes % % Monocytes % % Eosinophils % % Basophils % % Neutrophils # (1.6-8.9) K/mcL Lymphocytes # (0.6-4.6) K/mcL Monocytes # (0.0-1.3) K/mcL Eosinophils # (0.0-0.6) K/mcL Basophils # (0.0-0.2) K/mcL Nucleated RBCs/100 WBC (0) /100 WBC VBG pH 7.68 H* (7.32-7.42) pH Units VBG pCO2 53 H (41-51) mmHg VBG pO2 190 H (25-50) mmHg VBG HCO3 62 H (21-27) mEq/L Sodium 126 L (136-145) mEq/L Potassium 2.0 L* (3.5-5.1) mEq/L Chloride 56 L (98-107) mEq/L Carbon Dioxide > 45 H* (23-29) mEq/L BUN 56 H (6-20) mg/dL Creatinine 1.45 H (0.70-1.30) mg/dL Est GFR ( Amer) > 60 (> 60) Est GFR (Non-Af Amer) 50 L (> 60) BUN/Creatinine Ratio 39 H (6-26) Glucose 289 H (70-105) mg/dL Calculated Osmolality 288 (280-300) Calcium 9.9 (8.6-10.3) mg/dL Magnesium (1.6-2.6) mg/dL Total Bilirubin (0.3-1.0) mg/dL AST (13-39) Units/L ALT (7-52) Units/L Alkaline Phosphatase (34-104) Units/L Troponin I 0.04 H* (< 0.04) ng/mL Serum Total Protein (6.4-8.9) g/dL Albumin (3.5-5.7) g/dL Globulin (2.4-3.5) g/dL Albumin/Globulin Ratio (1.1-2.2) Specimen Rejected MCV Delta Person Notif of Crit dr. clancy 01/11/18 01/11/18 Range/Units 10:39 10:39 WBC 19.5 H (4.3-11.1) K/mcL RBC 4.07 L (4.19-5.50) M/mcL Hgb 13.5 (12.9-16.9) g/dL Hct 35.7 L (37.5-50.1) % MCV 87.7 D (83.0-100.0) fL MCH 33.2 (28.0-33.3) pg MCHC 37.8 H (31.6-35.5) g/dL RDW 12.9 (11.5-14.5) % Plt Count 318 (140-400) K/mcL MPV 10.5 (9.4-12.4) fL Immature Gran % 0.9 (0-4) % Seg Neutrophils % 91.9 % Lymphocytes % 1.8 % Monocytes % 5.1 % Eosinophils % 0.1 % Basophils % 0.2 % Neutrophils # 17.9 H (1.6-8.9) K/mcL Lymphocytes # 0.4 L (0.6-4.6) K/mcL Monocytes # 1.0 (0.0-1.3) K/mcL Eosinophils # 0.0 (0.0-0.6) K/mcL Basophils # 0.0 (0.0-0.2) K/mcL Nucleated RBCs/100 WBC 0.3 H (0) /100 WBC VBG pH (7.32-7.42) pH Units VBG pCO2 (41-51) mmHg VBG pO2 (25-50) mmHg VBG HCO3 (21-27) mEq/L Sodium 125 L (136-145) mEq/L Potassium 2.2 L* (3.5-5.1) mEq/L Chloride 56 L (98-107) mEq/L Carbon Dioxide > 45 H* (23-29) mEq/L BUN 57 H (6-20) mg/dL Creatinine (0.70-1.30) mg/dL Est GFR ( Amer) (> 60) Est GFR (Non-Af Amer) (> 60) BUN/Creatinine Ratio (6-26) Glucose 336 H (70-105) mg/dL Calculated Osmolality 289 (280-300) Calcium 9.6 (8.6-10.3) mg/dL Magnesium 2.3 (1.6-2.6) mg/dL Total Bilirubin 7.4 H (0.3-1.0) mg/dL AST 23 (13-39) Units/L ALT 33 (7-52) Units/L Alkaline Phosphatase 118 H (34-104) Units/L Troponin I (< 0.04) ng/mL Serum Total Protein 6.7 (6.4-8.9) g/dL Albumin 4.2 (3.5-5.7) g/dL Globulin 2.5 (2.4-3.5) g/dL Albumin/Globulin Ratio 1.7 (1.1-2.2) Specimen Rejected Person Notif of Crit - Radiology Data Radiology results reviewed: Yes I reviewed the patient's radiology results. Chest X-Ray 01/11/18 08:17 IMPRESSION: 1. No radiographic finding to account for patient's shortness of breath. D/ / Blaze Burks MD / Blaze Burks MD Interpreting Provider: Blaze Burks MD - EKG Data EKG attestation: Yes I reviewed and interpreted this EKG. EKG results narrative: 01/11/2018 and 08:09. Normal sinus rhythm. Rate 87. FL 172. QRS 113. QTc 363. Normal axis. No acute ST elevation or depression.
[2018-01-11 09:07] LABS: Troponin I 0.04 ng/mL (< 0.04)
[2018-01-11] MEDS ORDERED: Aspirin 325 MG TABLET PO ONE (09:07)
[2018-01-11 09:48] LABS: BUN/Creatinine Ratio 39 (6-26); Blood Urea Nitrogen 56 mg/dL (6-20); Calcium 9.9 mg/dL (8.6-10.3); Carbon Dioxide > 45 mEq/L (23-29); Chloride 56 mEq/L (98-107); Glucose 289 mg/dL (70-105); Osmolality,Calculated 288 (280-300); Sodium 126 mEq/L (136-145); eGFR For African Americans > 60 (> 60); eGFR For Non-African Americans 50 (> 60)
[2018-01-11] MEDS ORDERED: Potassium Chloride Elixir 20 MEQ/15 ML UDC PO ONE ×2 (09:48→11:29)
[2018-01-11 10:09] LABS: VBG HCO3 62 mEq/L (21-27); VBG PCO2 53 mmHg (41-51); VBG PH 7.68 pH Units (7.32-7.42); VBG PO2 190 mmHg (25-50)
[2018-01-11 10:50] LABS: Basophils % 0.2 %; Eosinophils % 0.1 %; Nucleated Red Blood Cells 0.3 /100 WBC (0)
[2018-01-11 10:52] LABS: Hematocrit 35.7 % (37.5-50.1); Hemoglobin 13.5 g/dL (12.9-16.9); Immature Granulocytes % 0.9 % (0-4); Lymphocytes # 0.4 K/mcL (0.6-4.6); Lymphocytes % 1.8 %; Mean Corpuscular HGB Conc 37.8 g/dL (31.6-35.5); Mean Corpuscular Hemoglobin 33.2 pg (28.0-33.3); Mean Corpuscular Volume 87.7 fL (83.0-100.0); Mean Platelet Volume 10.5 fL (9.4-12.4); Monocytes % 5.1 %; Neutrophils # 17.9 K/mcL (1.6-8.9); Platelet Count 318 K/mcL (140-400); Red Blood Count 4.07 M/mcL (4.19-5.50); Red Cell Distribution Width 12.9 % (11.5-14.5); Segmented Neutrophils % 91.9 %
[2018-01-11] MEDS ORDERED: Potassium Chloride 40 MEQ, Lidocaine 1% 2 ML in D5% in Water 500 ML IVPB ONE (10:55)
[2018-01-11] MEDS ORDERED: 0.9 % Sodium Chloride 1,000 ML IVC SCH (11:00)
[2018-01-11 11:11] LABS: Alanine Aminotransferase 33 Units/L (7-52); Albumin 4.2 g/dL (3.5-5.7); Albumin/Globulin Ratio 1.7 (1.1-2.2); Alkaline Phosphatase 118 Units/L (34-104); Aspartate Amino Transferase 23 Units/L (13-39); Bilirubin,Total 7.4 mg/dL (0.3-1.0); Blood Urea Nitrogen 57 mg/dL (6-20); Calcium 9.6 mg/dL (8.6-10.3); Carbon Dioxide > 45 mEq/L (23-29); Chloride 56 mEq/L (98-107); Globulin 2.5 g/dL (2.4-3.5); Glucose 336 mg/dL (70-105); Magnesium 2.3 mg/dL (1.6-2.6); Osmolality,Calculated 289 (280-300); Potassium 2.2 mEq/L (3.5-5.1); Sodium 125 mEq/L (136-145); Total Protein 6.7 g/dL (6.4-8.9)
[2018-01-11] MEDS ORDERED: 0.9 % Sodium Chloride 1,000 ML IVC ONE (11:13)
[2018-01-11] MEDS ORDERED: Lidocaine -MPF 1% 5 ML AMPUL INFILT ONE ×2 (11:14→14:17)
[2018-01-11] MEDS ORDERED: *HR* HYDROcodone/Acet 5/325 mg TABLET PO PRN (11:44)
[2018-01-11] MEDS ORDERED: Acetaminophen 325 MG TABLET PO PRN (11:44)
[2018-01-11] MEDS ORDERED: Naloxone 0.4 MG/ML INJ IVP PRN (11:44)
[2018-01-11] MEDS ORDERED: *HR* Promethazine 25 MG/ML VIAL IVP PRN (11:44)
[2018-01-11] MEDS ORDERED: Ondansetron 4 MG/2 ML VIAL IVP PRN (11:44)
[2018-01-11 11:53] LABS: BUN/Creatinine Ratio 34 (6-26); eGFR For African Americans 51 (> 60); eGFR For Non-African Americans 42 (> 60)
--- NOTE | 2018-01-11 12:00 | Internal Med History&Physical ---
Date of Encounter: 01/11/18 Time of Encounter: 10:45 Internal Medicine - H&P: HPI Chief complaint: Shortness of breath Admitted From: Emergency Dept Plans for Post Hospital Care: Home History of present illness: Mr. Paris is a 57 year old male with PMHX of COPD, chronic hypoxic respiratory failure on 3L home O2, diastolic CHF, hypertension and morbidly obese patient was recently discharged from this hospital with COPD exacerbation , now he presented emergency room with progressive worsening shortness of breath also complained about some jerky movements in his extremities of both upper and lower from last 3 to 4 days. Patient denied of any chest pain. He had a further lab work presented emergency room, patient seems to be in severe contractile alkalosis with pH 7.68, chloride 56, bicarb greater than 45, sodium at 126 and severe hypokalemia with K + 2.0. Patient did mention that he has been taking exacerbation Lasix at home at 80 mg PO b.i.d. along with the Mets thousand 5 mg PO daily since last couple of weeks due to his leg swelling initiated by his primary care doctor. Past Med Surg Social Fam HX - Past Medical History Medical history: CHF, COPD Additional medical history: Possible COPD Psychiatric history: no psych history - Past Surgical History Surgical History: no surgical history - Social History Smoking Status: Former smoker Smokeless Tobacco Status: Yes Alcohol use: none Drug use: none - Family History Father Living Status: Still Living Hx Family Cardiac Disorders: Yes (CABG pacer) Mother Living Status: Hx Family Cardiac Disorders: Yes (PA) Internal Medicine - H&P: Meds Albuterol Neb [Proventil Neb] 2.5 mg IH [id number] PRN inhsol 12/10/17 [Rx] Budesonide/Formoterol 160/4.5 [Symbicort 160/4.5] 2 puff IH BIDR #1 inhaler [Rx] Tiotropium [Spiriva] 18 mcg IH DAILYR #1 inh 12/10/17 [Rx] Acetaminophen [Tylenol] 650 mg PO Q6H PRN tablet 12/28/17 [Rx] Fluticasone Propionate Nasal [Flonase] 50 mcg NS DAILY #1 bottle 12/28/17 [Rx] Montelukast [Singulair] 10 mg PO HS tablet 12/28/17 [Rx] Omeprazole [PriLOSEC] 20 mg PO DAILY@0630 #30 capsule. 12/28/17 [Rx] predniSONE [PredniSONE] See Taper PO DAILY #60 tablet 12/28/17 [Rx] Aspirin 81 mg PO DAILY 01/11/18 [History] Furosemide [Lasix] 80 mg PO BID 01/11/18 [History] metOLazone [Zaroxolyn] 5 mg PO DAILY 01/11/18 [History] 3 Allergy/AdvReac Type Severity Reaction Status Date / Time No Known Allergies Allergy Verified 12/25/17 09:36 All Systems PM: A 10-system review of systems was performed and is negative for pertinent findings except as documented above in the HPI. Review of systems: All the systems are reviewed everything is benign except the systems and symptoms I mentioned in the history of present illness - Constitutional Vitals: Temp Pulse Resp BP Pulse Ox 97.7 F 77 18 116/58 97 01/11/18 08:24 01/11/18 11:46 01/11/18 11:46 01/11/18 11:46 01/11/18 11:46 General appearance: Present: mild distress, A&O X 3, answers questions appropriately - Head Head exam: Present: atraumatic, normal inspection - Neck Neck exam general surgery: Present: supple - Respiratory Respiratory exam: Present: decreased breath sounds, respiratory distress (Mild) , wheezes (Moderate to severe). Absent: rales, rhonchi - Cardiovascular Cardiovascular exam: Present: RRR, +S1, +S2. Absent: tachycardia - GI/Abdominal GI/Abdominal exam: Present: normal bowel sounds, soft. Absent: rebound, rigid, tenderness - Extremities Exam Extremities exam: Present: pedal edema (Trace). Absent: calf tenderness, tenderness - Back Exam Back exam: Absent: CVA tenderness (L), CVA tenderness (R) - Neurological Exam Neurological exam: Present: alert, oriented X3 - Psychiatric Psychiatric exam: Present: normal affect, normal mood Internal Med - H&P Results - Labs CBC & Chem 7: 01/11/18 10:39 01/11/18 10:39 - Assessment and plan (1) Metabolic alkalosis Current Visit: Yes Status: Acute Assessment and plan: Admit the pt into Tele @ Step down unit He does have severe metabolic alkalosis with severe electrolyte abnormalities due to excessive diuresis with Lasix + metolazone Reviewed VBG - Ph-7.68 Held diuretics Started him on IV hydration with NS 20 Kcl x 2 bags close monitoring of electrolytes Q4hr BMP, Mg Critical care and Nephro consulted for further management Talked to Dr. Goldberg, recommend Acetazolamide x 1 dose (2) Acute and chronic respiratory failure with hypoxia Current Visit: Yes Status: Acute Assessment and plan: Due to COPD exacerbation started him on IV steroids Duoneb and O2 no need of abx (3) Acute exacerbation of chronic obstructive airways disease Current Visit: No Status: Acute (4) STEVAN (acute kidney injury) Current Visit: Yes Status: Acute Assessment and plan: does have mild STEVAN - due to aggressive diuresis cont holding diuretics avoid nephro toxic meds (5) Hypokalemia Current Visit: Yes Status: Acute Assessment and plan: severe hypokalemia @ 2.0 cont replacing K + Reviewed EKG non specific T wave changes will give 1 Gm Calcium Gluconate (6) Hyponatremia Current Visit: Yes Status: Acute Assessment and plan: cont IV hydration Goal of correction 0.5 meq/hr not more than 8-10 meq/day (7) Tobacco abuse Current Visit: No Status: Acute Assessment and plan: counseled to quit (8) Diastolic CHF, chronic Current Visit: No Status: Chronic Assessment and plan: stable not in exacerbation (9) Chronic hypercapnic respiratory failure Current Visit: Yes Status: Acute Assessment and plan: He does have chronic hypercapnea he may get benefit with over night BiPAP study before he goes home - Time Spent With Patient Total time spent is greater than 50% in coordination of care (as documented) at patient's floor/unit and/or counseling patient:
--- NOTE | 2018-01-11 12:01 | Pulmonology Consult Note ---
<Demian Leigh - Last Filed: 01/11/18 11:40> Date of Encounter: 01/11/18 Time of Encounter: 11:41 Assessment and Plan (1) Alkalosis Current Visit: Yes Status: Acute Patient does have a metabolic alkalosis most likely secondary to contraction due to overdiuresis from taking too much Lasix. Patient is been taking 80 mg Lasix for the past 2 weeks due to him being fluid overloaded this is done by his primary care physician. There is been no I replacement including potassium. Patient VBG when he got to the emergency department was a pH of 7.68 , PCO2 53, PO2 190, bicarbonate 62. He also had a hyponatremia of 125, hypokalemia of 2.2, hypochloremia of 56, elevated bicarbonate of greater than 45. He also has some elevated creatinine looking at old labs this seems like it is) his normalize he is 1.68. Patient does not do dialysis. Nephrology is also consulted Plan Place midline for better IV access. Fluid resuscitate with 2 L IV fluid bolus. Patient does have CHF his EF though is 60% this is all diastolic dysfunction. Replace potassium 500 mg Diamox once to correct the alkalosis. Every 4 hour BMP, electrolytes. Appreciate nephrology's recommendations. (2) Hypokalemia Current Visit: Yes Status: Acute Patient's original potassium was 2.2 in the emergency department he was given 40 mEq potassium elixir by mouth as well as 40 mEq IV. We did recommend they return to give another 40 mEq by mouth. We will continue to monitor. Patient' s EKG had no acute T-wave changes. There were no flattening or U waves present. Patient had no arrhythmias. Plan Replace potassium via electrolyte protocol Every 4 hour BMP. Telemetry to monitor for arrhythmias Nephrology following (3) Hyponatremia Current Visit: Yes Status: Acute Patient does have hyponatremia most likely again secondary to being over diuresed this is also affecting his hypochloremic metabolic contraction alkalosis. Plan 2 L 0.9% normal saline IV bolus Electrolyte protocol Every 4 hour BMP Nephrology following (4) COPD (chronic obstructive pulmonary disease) Current Visit: Yes Status: Chronic Patient does have history of COPD he was actually going to pulmonary rehabilitation when he became short of breath. Patient's lung does have mild wheezes will be diligent and how many DuoNeb to give him to not worsen his hypokalemia. He was given 9 mL DuoNeb in the emergency department. Patient did have mild wheezing this is chronic. He said he is less short of breath now after coming to the emergency department. He is on 4 L oxygen at home chronically. Continue home oxygen Duo nebs when necessary every 4 hours Qualifiers: COPD type: unspecified COPD Qualified Code(s): J44.9 - Chronic obstructive pulmonary disease, unspecified (5) Diastolic CHF, chronic Current Visit: No Status: Chronic Patient does have history of diastolic CHF which is chronic. He has a echo that was done 09/25/17. It was read as left ventricular ejection fraction greater than 70%, mild concentric left ventricle hypertrophy, mild left ventricle diastolic dysfunction, moderately dilated left atrium, mildly to moderately dilated right atrium. Due to patient having most likely diastolic dysfunction there is less worry about fluid overloading this patient. We will continue to monitor fluid status to be sure we do not fluid overload him during the fluid resuscitation. History of Present Illness Consult date: 01/11/18 Requesting physician: Mati Bloom Reason for consult: other (Critical care/Electrolyte abnormalities.) Chief complaint: Shortness of breath History of present illness: 57-year-old presented to the emergency department on 01/11/18. He does have past medical history of CHF, COPD. Patient 2 weeks ago had his normal by mouth dose of Lasix changed from 40 mg to 80 mg daily. Patient has noticed decrease in his pedal swelling. He says that he feels like he is less fluid overloaded than he has in the past. He was on his way to pulmonary rehabilitation when he said he forgot his keys so he ran back to his car and that time he became short of breath and that is why transferred him to the emergency department. He does not have any pain. Shortness of breath is nearly alleviated now he is back on oxygen. He does wear 3 L of oxygen via nasal cannula chronically. He does not have any cough any fevers or any chills. In the emergency department they did basic labs VBG showed a profound alkalosis most likely metabolic also with alleged slight abnormalities including potassium, sodium, chloride. After looking at labs this most likely was due to a contraction alkalosis due to overdiuresis. They did give him by mouth potassium as well as IV potassium. No skin patient DuoNeb helped with his breathing. He was started on maintenance fluids as due to CHF they do not want to fluid overload him. Patient due to the R abnormalities as well as the alkalosis was admitted to the hospitalist. He is being sent to N. Critical care was consulted for the management of his critical electrolytes. Nephrology is also consulted Past Med Surg Social Fam HX - Past Medical History Medical history: CHF, COPD Additional medical history: Possible COPD Psychiatric history: no psych history - Past Surgical History Surgical History: no surgical history - Social History Smoking Status: Former smoker Smokeless Tobacco Status: Yes Alcohol use: none Drug use: none - Family History Father Living Status: Still Living Hx Family Cardiac Disorders: Yes (CABG pacer) Mother Living Status: Hx Family Cardiac Disorders: Yes ([place]) Medications and Allergies Albuterol Neb [Proventil Neb] 2.5 mg IH [id number] PRN inhsol 12/10/17 [Rx] Budesonide/Formoterol 160/4.5 [Symbicort 160/4.5] 2 puff IH BIDR #1 inhaler [Rx] Tiotropium [Spiriva] 18 mcg IH DAILYR #1 inh 12/10/17 [Rx] Acetaminophen [Tylenol] 650 mg PO Q6H PRN tablet 12/28/17 [Rx] Fluticasone Propionate Nasal [Flonase] 50 mcg NS DAILY #1 bottle 12/28/17 [Rx] Montelukast [Singulair] 10 mg PO HS tablet 12/28/17 [Rx] Omeprazole [PriLOSEC] 20 mg PO DAILY@0630 #30 capsule. 12/28/17 [Rx] predniSONE [PredniSONE] See Taper PO DAILY #60 tablet 12/28/17 [Rx] Aspirin 81 mg PO DAILY 01/11/18 [History] Furosemide [Lasix] 80 mg PO BID 01/11/18 [History] metOLazone [Zaroxolyn] 5 mg PO DAILY 01/11/18 [History] 3 Allergy/AdvReac Type Severity Reaction Status Date / Time No Known Allergies Allergy Verified 12/25/17 09:36 All Systems: The remainder of the systems were reviewed and are negative - Constitutional Constitutional: weight loss, no chills, no fatigue, no fever(s), no weight gain - EENT Eyes: no loss of peripheral vision, no loss of vision, no photophobia Ears: no decreased hearing Nose, mouth and throat: no dry mouth - Cardiovascular Cardiovascular: no chest pain, no chest pain at rest, no chest pain with activity, no leg ulcers, no lightheadedness, no orthopnea - Respiratory Respiratory: dyspnea, dyspnea on exertion, wheezing, no cough, no hemoptysis, no snoring, no stridor, no pain on inspirtation, no chest congestion, no excessive phlegm production, no pain with cough - Gastrointestinal Gastrointestinal: no abdominal pain, no cramping, no diarrhea - Genitourinary Genitourinary: no difficulty urinating, no dysuria, no urinary frequency, no urinary hesitancy - Musculoskeletal Musculoskeletal: no weakness, no arthralgias, no back pain, no neck pain, no numbness, no tingling - Integumentary Integumentary: no erythema, no rash - Neurological Neurological: no abnormal gait, no abnormal movements, no behavioral changes, no burning sensations, no headache(s), no memory loss, no sensory deficit, no syncope, no tingling, no vertigo - Psychiatric Psychiatric: no anxiety - Endocrine Endocrine: no cold intolerance - Hematologic/Lymphatic Hematologic/Lymphatic: no easy bleeding, no easy bruising, no lymphadenopathy - Allergic/Immunologic Allergic/Immunologic: no tongue swelling, no throat swelling Physical Examination General appearance: no acute distress Eyes: nonicteric ENT: oropharynx moist Neck: supple Effort: normal Inspection: normal Auscultation: bilateral: wheezes, rhonchi Cardiovascular: regular rate and rhythm Gastrointestinal: normoactive bowel sounds, non-distended Integumentary: normal Extremities: no cyanosis, no edema, no clubbing Musculoskeletal: no deformities, ROM normal normal mental status, non-focal exam, motor strength normal and symmetric Results - Laboratory Findings CBC and BMP: 01/11/18 10:39 01/11/18 10:39 Abnormal lab findings: Abnormal lab results WBC 19.5 K/mcL (4.3-11.1) H 01/11/18 10:39 RBC 4.07 M/mcL (4.19-5.50) L 01/11/18 10:39 Hct 35.7 % (37.5-50.1) L 01/11/18 10:39 MCHC 37.8 g/dL (31.6-35.5) H 01/11/18 10:39 Neutrophils # 17.9 K/mcL (1.6-8.9) H 01/11/18 10:39 Lymphocytes # 0.4 K/mcL (0.6-4.6) L 01/11/18 10:39 Nucleated RBCs/100 WBC 0.3 /100 WBC (0) H 01/11/18 10:39 VBG pH 7.68 pH Units (7.32-7.42) H* 01/11/18 10:05 VBG pCO2 53 mmHg (41-51) H 01/11/18 10:05 VBG pO2 190 mmHg (25-50) H 01/11/18 10:05 VBG HCO3 62 mEq/L (21-27) H 01/11/18 10:05 Sodium 125 mEq/L (136-145) L 01/11/18 10:39 Potassium 2.2 mEq/L (3.5-5.1) L* 01/11/18 10:39 Chloride 56 mEq/L (98-107) L 01/11/18 10:39 Carbon Dioxide > 45 mEq/L (23-29) H* 01/11/18 10:39 BUN 57 mg/dL (6-20) H 01/11/18 10:39 Creatinine 1.45 mg/dL (0.70-1.30) H 01/11/18 08:34 Est GFR (Non-Af Amer) 50 (> 60) L 01/11/18 08:34 BUN/Creatinine Ratio 39 (6-26) H 01/11/18 08:34 Glucose 336 mg/dL (70-105) H 01/11/18 10:39 Total Bilirubin 7.4 mg/dL (0.3-1.0) H 01/11/18 10:39 Alkaline Phosphatase 118 Units/L (34-104) H 01/11/18 10:39 Troponin I 0.04 ng/mL (< 0.04) H* 01/11/18 08:34 - Diagnostic Findings Chest x-ray: report reviewed, image reviewed Consult Discharge Plan - Plan Referrals: Cris Fong, BLACK OFF WORKER [Advanced Practice Nurse] - 01/15/18 10:30 am <Bijan Goldberg S - Last Filed: 01/11/18 22:13> Date of Encounter: 01/11/18 All Systems: The remainder of the systems were reviewed and are negative Physical Examination Vital Signs: Vital Signs, Last 4 Hours Temp Pulse Resp BP Pulse Ox 01/11/18 20:36 16 94 01/11/18 19:23 97.7 F 79 18 128/79 94 Results - Laboratory Findings CBC and BMP: 01/11/18 10:39 01/11/18 18:40 ABG ABG pH 7.56 pH Units (7.32-7.45) H 01/11/18 13:48 ABG pCO2 59 mmHg (35-45) H 01/11/18 13:48 ABG pO2 57 mmHg (85-104) L 01/11/18 13:48 ABG O2 Saturation 92 % (95-98) L 01/11/18 13:48 Abnormal lab findings: Abnormal lab results WBC 19.5 K/mcL (4.3-11.1) H 01/11/18 10:39 RBC 4.07 M/mcL (4.19-5.50) L 01/11/18 10:39 Hct 35.7 % (37.5-50.1) L 01/11/18 10:39 MCHC 37.8 g/dL (31.6-35.5) H 01/11/18 10:39 Neutrophils # 17.9 K/mcL (1.6-8.9) H 01/11/18 10:39 Lymphocytes # 0.4 K/mcL (0.6-4.6) L 01/11/18 10:39 Nucleated RBCs/100 WBC 0.3 /100 WBC (0) H 01/11/18 10:39 ABG pH 7.56 pH Units (7.32-7.45) H 01/11/18 13:48 ABG pCO2 59 mmHg (35-45) H 01/11/18 13:48 ABG pO2 57 mmHg (85-104) L 01/11/18 13:48 ABG HCO3 53 mEq/L (21-27) H 01/11/18 13:48 ABG Total CO2 54 mEq/L (20-26) H 01/11/18 13:48 ABG O2 Saturation 92 % (95-98) L 01/11/18 13:48 ABG Base Excess 26 mEq/L (-2 to 3) H 01/11/18 13:48 VBG pH 7.68 pH Units (7.32-7.42) H* 01/11/18 10:05 VBG pCO2 53 mmHg (41-51) H 01/11/18 10:05 VBG pO2 190 mmHg (25-50) H 01/11/18 10:05 VBG HCO3 62 mEq/L (21-27) H 01/11/18 10:05 Sodium 125 mEq/L (136-145) L 01/11/18 18:40 Potassium 2.3 mEq/L (3.5-5.1) L* 01/11/18 18:40 Chloride 66 mEq/L (98-107) L 01/11/18 18:40 Carbon Dioxide 44 mEq/L (23-29) H* 01/11/18 18:40 BUN 54 mg/dL (6-20) H 01/11/18 18:40 Creatinine 1.67 mg/dL (0.70-1.30) H 01/11/18 18:40 Est GFR ( Amer) 51 (> 60) L 01/11/18 18:40 Est GFR (Non-Af Amer) 42 (> 60) L 01/11/18 18:40 BUN/Creatinine Ratio 32 (6-26) H 01/11/18 18:40 Glucose 333 mg/dL (70-105) H 01/11/18 18:40 POC Glucose 383 mg/dL (70-99) H 01/11/18 19:57 Uric Acid 19.4 mg/dL (2.3-7.6) H 01/11/18 13:51 Venous Ioniz Calcium 0.85 mmol/L (1.15-1.35) L 01/11/18 16:52 Total Bilirubin 7.4 mg/dL (0.3-1.0) H 01/11/18 10:39 Alkaline Phosphatase 118 Units/L (34-104) H 01/11/18 10:39 Urine pH 8.5 pH Units (5.0-8.0) H 01/11/18 14:30 - Clinical Findings Intake & Output: Intake & Output 01/11/18 01/11/18 01/11/18 07:59 15:59 23:59 Intake Total 1000 / 1000 642 / 642 Output Total 650 / 650 Balance 350 / 350 642 / 642 - Attending Attestation I saw and evaluated this patient and my medical decision-making was reviewed with the Resident Physician. I agree with the documented findings, disposition and treatment plan as described except to the extent set forth below. We independently had [id number] contact with the patient. Patient seen and examined at bedside Labs, radiology, chart personally reviewed. Management was reviewed during multidisciplinary critical care rounds. PERSONAL INJURY ATTORNEY:Patient is conscious oriented x 3 no acute neurological findings Pulm: Patient COPD Chronic hypercapnic respiratory failure with metabolic alkalosis acceptable oxygenation and ventilation will keep O2 supplementation to keep SPO2 around 88% -90% Cards:Patient is hemodynamically stable has diastolic heart failure was on Lasix 80 mg daily looks like he was overdiuresed . Will hold diuresed will get gentle hydration . FEN-GI: Patient can have diet as tolerated Renal: STEVAN most likely due to over diuresis ID: No active infectious issues Heme/Onc: Labs reviewed Endo: Glucose Monitored Integ/MSK: Skin Care per routine Nursing protocol Lines: All lines examined without evidence of infection : Dispo: Patient to remain in step down if there is any acute deterioration can be shifted to the ICU CODE:Full Code
[2018-01-11] MEDS ORDERED: Albuterol 2.5 MG/3 ML NEBULIZER IH PRN (12:06)
[2018-01-11 12:24] LABS: Phosphorous 3.8 mg/dL (2.7-4.5)
[2018-01-11] MEDS: MethylPREDNISolone 40 MG/ML VIAL IVP SCH ×3 (13:42→23:37)
[2018-01-11] MEDS: 0.9 % Sodium Chloride w KCl 20 MEQ/1,000 ML MLS IVC SCH (13:43)
--- NOTE | 2018-01-11 13:44 | Nephrology Consult Note ---
Date of Encounter: 01/11/18 Time of Encounter: 13:36 Assessment and Plan (1) STEVAN (acute kidney injury) Current Visit: Yes Status: Acute Appears to be from increased use of PO Lasix at home. Strict I/O. Renal Diet Retroperitoneal UTS ordered. Urine and serum studies ordered to rule out other processes. (2) Acute and chronic respiratory failure with hypoxia Current Visit: Yes Status: Acute Pulmonology on board. (3) Alkalosis Current Visit: Yes Status: Acute Per primary. (4) Dyspnea Current Visit: Yes Status: Acute Has improved, is on 3 liters o2 per n/c. Qualifiers: Dyspnea type: unspecified Qualified Code(s): R06.00 - Dyspnea, unspecified (5) Hypokalemia Current Visit: Yes Status: Acute Replacement in progress. Recheck at 1500. History of Present Illness - Reason for Consult Consult date: 01/11/18 Acute Kidney Injury - Chief Complaint Difficulty in breathing - History of Present Illness Mr. Paris is a 57 year old male who presented to ED with difficulty in breathing. PMH: COPD, chronic hypoxic respiratory failure on 3L home O2, diastolic CHF, hypertension. Was just discharged 2 weeks ago from hospital for COPD exacerbation. This morning he was leaving his house for his first cardiac rehab appointment and he felt "okay" but had to go back into the house to get his keys and by the time he returned to his car he could not breathe and came to the ED for evaluation. He admits to taking 80 mg PO Lasix at home per his PCP to help lose water weight. Initial labs in ED: K 2, PH 7.68 Chloride 56 and HCO3 greater than 45. Upon examination patient is alert /oriented and feels "fine". He does complain of bilateral twitching of hands and feet that started about 2 weeks ago. No history of CKD or AKIs per the patient and old records. Has never seen a rural carrier, no family history that he is aware of. Does not use NSAIDS at home and only medication change is the increase in PO Lasix. Initial Scr 1.45 and GFR 50. Potassium has been replaced and there is a repeat chemistry ordered for 1500 today. Past Med Surg Social Fam HX - Past Medical History Medical history: CHF, COPD Additional medical history: Possible COPD Psychiatric history: no psych history - Past Surgical History Surgical History: no surgical history - Social History Smoking Status: Former smoker Smokeless Tobacco Status: Yes Alcohol use: none Drug use: none - Family History Father Living Status: Still Living Hx Family Cardiac Disorders: Yes (CABG pacer) Mother Living Status: Hx Family Cardiac Disorders: Yes ([place]) Medications and Allergies Albuterol Neb [Proventil Neb] 2.5 mg IH [id number] PRN inhsol 12/10/17 [Rx] Budesonide/Formoterol 160/4.5 [Symbicort 160/4.5] 2 puff IH BIDR #1 inhaler [Rx] Tiotropium [Spiriva] 18 mcg IH DAILYR #1 inh 12/10/17 [Rx] Acetaminophen [Tylenol] 650 mg PO Q6H PRN tablet 12/28/17 [Rx] Fluticasone Propionate Nasal [Flonase] 50 mcg NS DAILY #1 bottle 12/28/17 [Rx] Montelukast [Singulair] 10 mg PO HS tablet 12/28/17 [Rx] Omeprazole [PriLOSEC] 20 mg PO DAILY@0630 #30 capsule. 12/28/17 [Rx] predniSONE [PredniSONE] See Taper PO DAILY #60 tablet 12/28/17 [Rx] Aspirin 81 mg PO DAILY 01/11/18 [History] Furosemide [Lasix] 80 mg PO BID 01/11/18 [History] metOLazone [Zaroxolyn] 5 mg PO DAILY 01/11/18 [History] 3 Allergy/AdvReac Type Severity Reaction Status Date / Time No Known Allergies Allergy Verified 12/25/17 09:36 Review of Systems Constitutional: fatigue, no anorexia, no chills, no fever(s) Cardiovascular: dyspnea, lightheadedness, no chest pain, no chest pain at rest, no chest pain with activity Gastrointestinal: no change in bowel habits, no change in stool character Neurological: tremor(s) Exam - Vital Signs Vital signs: Initial Vital Signs Temp Pulse Resp BP Pulse Ox 97.7 F 98 16 131/78 94 01/11/18 08:24 01/11/18 08:24 01/11/18 08:24 01/11/18 08:24 01/11/18 08:24 Vital Signs - Last 8 Hours Temp Pulse Resp BP Pulse Ox 01/11/18 12:35 98.7 F 83 18 118/77 95 01/11/18 12:33 98.7 F 83 18 118/77 95 01/11/18 11:46 77 18 116/58 97 Intake and Output 01/10/18 01/11/18 01/11/18 23:59 07:59 15:59 Intake Total 0 / 0 Output Total 0 / 0 Balance 0 / 0 Intake: Oral 0 / 0 Output: Urine 0 / 0 Other: Blood Glucose* 371 - General Appearance General appearance: obese EENT: ATNC, hearing intact, vision intact Neck: supple Respiratory: clear Cardiology: edema (Trace BLL.), regular rate, regular rhythm, normal S1, normal S2 Gastrointestinal: normoactive bowel sounds, no tenderness, no guarding Integumentary: no rash, warm and dry Neurologic: alert and oriented x3 Psychiatric: mood/affect appropriate, cooperative Results - Lab Results 01/11/18 10:39 01/11/18 13:25 Most recent lab results Calcium 9.6 mg/dL (8.6-10.3) 01/11/18 10:39 Phosphorus 3.8 mg/dL (2.7-4.5) 01/11/18 10:39 Magnesium 2.3 mg/dL (1.6-2.6) 01/11/18 10:39 Consult Discharge Plan - Plan Referrals: Cris Fong, CLINICAL TRIAL EDUCATOR [Advanced Practice Nurse] - 01/15/18 10:30 am
[2018-01-11 13:51] LABS: ABG Base Excess 26 mEq/L (-2 to 3); ABG HCO3 53 mEq/L (21-27); ABG Oxygen Saturation 92 % (95-98); ABG PCO2 59 mmHg (35-45); ABG PH 7.56 pH Units (7.32-7.45); ABG PO2 57 mmHg (85-104); ABG TCO2 54 mEq/L (20-26)
[2018-01-11] MEDS: Ipratropium/Albuterol Neb 3 ML IH SCH ×3 (13:57→20:36)
[2018-01-11 14:44] LABS: Bilirubin,Urine Negative (Negative); Blood,Urine Negative (Negative); Clarity,Urine Clear (Clear); Color,Urine Yellow (Yellow); Glucose,Urine (UA) Normal (Normal); Ketones,Urine Negative (Negative); Leukocyte Esterase,Urine Negative (Negative); Nitrite,Urine Negative (Negative); PH,Urine 8.5 pH Units (5.0-8.0); Protein,Urine Negative (Neg-Trace); Specific Gravity,Urine 1.011 (1.010-1.025); Urobilinogen,Urine Normal (Normal)
[2018-01-11 15:03] LABS: Protein/Creatinine Ratio,Urine 0.15 mg/mg (0.00-0.20); Sodium, Urine 79.5 mEq/L
[2018-01-11 15:16] LABS: BUN/Creatinine Ratio 31 (6-26); Blood Urea Nitrogen 55 mg/dL (6-20); Calcium 8.7 mg/dL (8.6-10.3); Carbon Dioxide > 45 mEq/L (23-29); Chloride 65 mEq/L (98-107); Glucose 411 mg/dL (70-105); Osmolality,Calculated 294 (280-300); Potassium 2.3 mEq/L (3.5-5.1); Sodium 126 mEq/L (136-145); Troponin I < 0.03 ng/mL (< 0.04); eGFR For African Americans 49 (> 60); eGFR For Non-African Americans 40 (> 60)
[2018-01-11 16:55] LABS: VBG Ionized Calcium 0.85 mmol/L (1.15-1.35)
[2018-01-11 20:33] LABS: Calcium 9.2 mg/dL (8.6-10.3); Potassium 2.3 mEq/L (3.5-5.1)
[2018-01-11] MEDS: Budesonide/Formoterol 160/4.5 MDI IH SCH (20:36)
[2018-01-12 00:29] LABS: VBG HCO3 43 mEq/L (21-27); VBG PCO2 51 mmHg (41-51); VBG PH 7.54 pH Units (7.32-7.42); VBG PO2 150 mmHg (25-50)
[2018-01-12 00:52] LABS: Calcium 9.2 mg/dL (8.6-10.3); Potassium 2.3 mEq/L (3.5-5.1)
[2018-01-12] MEDS: Ipratropium/Albuterol Neb 3 ML IH SCH ×7 (01:26→23:10)
[2018-01-12] MEDS ORDERED: 0.9 % Sodium Chloride 1,000 ML IVC ONE (01:35)
[2018-01-12] MEDS: 0.9 % Sodium Chloride w KCl 20 MEQ/1,000 ML MLS IVC SCH ×3 (02:32→23:43)
[2018-01-12 06:06] LABS: BUN/Creatinine Ratio 35 (6-26); Blood Urea Nitrogen 51 mg/dL (6-20); Carbon Dioxide 42 mEq/L (23-29); Chloride 77 mEq/L (98-107); Chol/HDL Ratio 3.7 (0-4.9); Cholesterol 157 mg/dL (< 200); Glucose 279 mg/dL (70-105); HDL Cholesterol 42 mg/dL (40-59); LDL Cholesterol,Calculated 86 mg/dL (0-99); Magnesium 2.4 mg/dL (1.6-2.6); Osmolality,Calculated 292 (280-300); Phosphorous 2.5 mg/dL (2.7-4.5); Potassium 2.3 mEq/L (3.5-5.1); Sodium 129 mEq/L (136-145); Triglycerides 145 mg/dL (< 150); eGFR For African Americans > 60 (> 60); eGFR For Non-African Americans 50 (> 60)
[2018-01-12 06:48] LABS: Basophils % 0.1 %; Hematocrit 28.9 % (37.5-50.1); Hemoglobin 11.1 g/dL (12.9-16.9); Immature Granulocytes % 1.2 % (0-4); Lymphocytes # 0.7 K/mcL (0.6-4.6); Lymphocytes % 2.9 %; Mean Corpuscular Hemoglobin 34.4 pg (28.0-33.3); Mean Corpuscular Volume 89.5 fL (83.0-100.0); Mean Platelet Volume 10.9 fL (9.4-12.4); Monocytes # 1.5 K/mcL (0.0-1.3); Monocytes % 6.2 %; Neutrophils # 21.1 K/mcL (1.6-8.9); Nucleated Red Blood Cells 0.3 /100 WBC (0); Platelet Count 276 K/mcL (140-400); Red Blood Count 3.23 M/mcL (4.19-5.50); Red Cell Distribution Width 13.2 % (11.5-14.5); Segmented Neutrophils % 89.6 %
[2018-01-12 06:49] LABS: Mean Corpuscular HGB Conc 38.4 g/dL (31.6-35.5)
[2018-01-12] MEDS: *HR* Enoxaparin 40 MG/0.4 ML SYRINGE SQ SCH (07:01)
[2018-01-12] MEDS: MethylPREDNISolone 40 MG/ML VIAL IVP SCH ×3 (07:01→17:17)
[2018-01-12] MEDS: Budesonide/Formoterol 160/4.5 MDI IH SCH ×2 (07:30→23:10)
[2018-01-12] MEDS: Fluticasone Propionate Nasal 50 MCG/SPRAY BOTTLE NS SCH (08:02)
[2018-01-12] MEDS: Aspirin 81 MG TAB.CHEW PO SCH (08:02)
[2018-01-12 09:04] LABS: Calcium 9.1 mg/dL (8.6-10.3); Potassium 2.8 mEq/L (3.5-5.1)
[2018-01-12] MEDS ORDERED: Potassium Chloride Elixir 20 MEQ/15 ML UDC PO SCH (10:30)
--- NOTE | 2018-01-12 11:39 | Pulmonology Progress Note ---
<Demian Leigh - Last Filed: 01/12/18 13:20> Date of Encounter: 01/12/18 Time of Encounter: 11:25 Assessment and Plan (1) Alkalosis Current Visit: Yes Status: Acute Patient does have a metabolic alkalosis most likely secondary to contraction due to overdiuresis from taking too much Lasix. Patient is been taking 80 mg Lasix for the past 2 weeks due to him being fluid overloaded this is done by his primary care physician. There is been no electrolyte replacement including potassium. Patient VBG when he got to the emergency department was a pH of 7.68 , PCO2 53, PO2 190, bicarbonate 62. He also had a hyponatremia of 125, hypokalemia of 2.2, hypochloremia of 56, elevated bicarbonate of greater than 45. He also has some elevated creatinine looking at old labs this seems like it is his normalize he is 1.68. Patient does not do dialysis. Nephrology is also consulted Plan Fluid resuscitate with 2 L IV fluid bolus. Patient does have CHF his EF though is 60% this is all diastolic dysfunction. Replace potassium, total of 116 mEq of potassium have been given. Current potassium is 2.8 degrees was not going fast is due to patient's alkalosis. 500 mg Diamox given emergency department. We will give 250 twice today to help more with the alkalosis spelled normalize her potassium. Daily BMPs Appreciate nephrology's recommendations. (2) Hypokalemia Current Visit: Yes Status: Acute Patient's original potassium was 2.2 in the emergency department he was given 40 mEq potassium elixir by mouth as well as 40 mEq IV. We did recommend they return to give another 40 mEq by mouth. We will continue to monitor. Patient' s EKG had no acute T-wave changes. There were no flattening or U waves present. Patient had no arrhythmias. Most recent potassium was 2.8. Is slowly going up after getting 160 mEq of potassium. This most likely is due to his alkalosis still keeping the potassium in the cells. We will give another dose of Diamox 250 twice daily for 1 day to see if the alkalosis correction we will also correct the potassium. Plan Replace potassium via electrolyte protocol Every 4 hour BMP. 2 or 50 Diamox twice a day today Telemetry to monitor for arrhythmias Nephrology following (3) Hyponatremia Current Visit: Yes Status: Acute Patient does have hyponatremia most likely again secondary to being over diuresed this is also affecting his hypochloremic metabolic contraction alkalosis. Sodium originally was 127 is now normalizing to 130. We will continue to monitor and give IV fluids to help normalize. Plan 2 L 0.9% normal saline IV bolus Electrolyte protocol Daily BMP Nephrology following (4) COPD (chronic obstructive pulmonary disease) Current Visit: Yes Status: Chronic Patient does have history of COPD he was actually going to pulmonary rehabilitation when he became short of breath. Patient's lung does have mild wheezes will be diligent and how many DuoNeb to give him to not worsen his hypokalemia. He was given 9 mL DuoNeb in the emergency department. Patient did have mild wheezing this is chronic. He said he is less short of breath now after coming to the emergency department. He is on 4 L oxygen at home chronically. Continue home oxygen Duo nebs when necessary every 4 hours Qualifiers: COPD type: unspecified COPD Qualified Code(s): J44.9 - Chronic obstructive pulmonary disease, unspecified (5) Diastolic CHF, chronic Current Visit: No Status: Chronic Patient does have history of diastolic CHF which is chronic. He has a echo that was done 09/25/17. It was read as left ventricular ejection fraction greater than 70%, mild concentric left ventricle hypertrophy, mild left ventricle diastolic dysfunction, moderately dilated left atrium, mildly to moderately dilated right atrium. Due to patient having most likely diastolic dysfunction there is less worry about fluid overloading this patient. We will continue to monitor fluid status to be sure we do not fluid overload him during the fluid resuscitation. Subjective Principal diagnosis: Metabolic alkalosis Interval history: Patient did well overnight he had one episode where nursing said he did not will know where he was at. The resident when checked on him and the patient was asleep in bed. Patient states he has no pain says he does feel fine says he has having no shortness of breath at this time. He says he feels his normal energy level. Otherwise there are no complaints. No other events Objective PUL Vital signs: Last Vital Signs Temp 98.0 F 01/12/18 07:41 Pulse 105 01/12/18 10:24 Resp 17 01/12/18 11:02 BP 117/81 01/12/18 07:41 Pulse Ox 98 01/12/18 11:02 General appearance: no acute distress Eyes: nonicteric ENT: oropharynx moist Neck: supple Effort: normal Auscultation: bilateral: wheezes Cardiovascular: regular rate and rhythm Gastrointestinal: normoactive bowel sounds, soft, non-tender, non-distended Integumentary: normal Extremities: no cyanosis, no edema, no clubbing Musculoskeletal: no deformities, ROM normal normal mental status, non-focal exam, pupils equal and round, motor strength normal and symmetric Results - Laboratory Findings CBC and BMP: 01/12/18 05:10 01/12/18 08:20 ABG ABG pH 7.56 pH Units (7.32-7.45) H 01/11/18 13:48 ABG pCO2 59 mmHg (35-45) H 01/11/18 13:48 ABG pO2 57 mmHg (85-104) L 01/11/18 13:48 ABG O2 Saturation 92 % (95-98) L 01/11/18 13:48 Abnormal lab findings: Abnormal lab results WBC 23.5 K/mcL (4.3-11.1) H 01/12/18 05:10 RBC 3.23 M/mcL (4.19-5.50) L 01/12/18 05:10 Hgb 11.1 g/dL (12.9-16.9) L D 01/12/18 05:10 Hct 28.9 % (37.5-50.1) L 01/12/18 05:10 MCH 34.4 pg (28.0-33.3) H 01/12/18 05:10 MCHC 38.4 g/dL (31.6-35.5) H 01/12/18 05:10 Neutrophils # 21.1 K/mcL (1.6-8.9) H 01/12/18 05:10 Monocytes # 1.5 K/mcL (0.0-1.3) H 01/12/18 05:10 Nucleated RBCs/100 WBC 0.3 /100 WBC (0) H 01/12/18 05:10 ABG pH 7.56 pH Units (7.32-7.45) H 01/11/18 13:48 ABG pCO2 59 mmHg (35-45) H 01/11/18 13:48 ABG pO2 57 mmHg (85-104) L 01/11/18 13:48 ABG HCO3 53 mEq/L (21-27) H 01/11/18 13:48 ABG Total CO2 54 mEq/L (20-26) H 01/11/18 13:48 ABG O2 Saturation 92 % (95-98) L 01/11/18 13:48 ABG Base Excess 26 mEq/L (-2 to 3) H 01/11/18 13:48 VBG pH 7.54 pH Units (7.32-7.42) H 01/12/18 00:27 VBG pO2 150 mmHg (25-50) H 01/12/18 00:27 VBG HCO3 43 mEq/L (21-27) H 01/12/18 00:27 Sodium 130 mEq/L (136-145) L 01/12/18 08:20 Potassium 2.8 mEq/L (3.5-5.1) L 01/12/18 08:20 Chloride 79 mEq/L (98-107) L 01/12/18 08:20 Carbon Dioxide 39 mEq/L (23-29) H 01/12/18 08:20 BUN 50 mg/dL (6-20) H 01/12/18 08:20 Creatinine 1.48 mg/dL (0.70-1.30) H 01/12/18 08:20 Est GFR ( Amer) 59 (> 60) L 01/12/18 08:20 Est GFR (Non-Af Amer) 49 (> 60) L 01/12/18 08:20 BUN/Creatinine Ratio 34 (6-26) H 01/12/18 08:20 Glucose 299 mg/dL (70-105) H 01/12/18 08:20 POC Glucose 383 mg/dL (70-99) H 01/11/18 19:57 Uric Acid 19.4 mg/dL (2.3-7.6) H 01/11/18 13:51 Venous Ioniz Calcium 0.85 mmol/L (1.15-1.35) L 01/11/18 16:52 Phosphorus 2.5 mg/dL (2.7-4.5) L 01/12/18 05:10 Total Bilirubin 7.4 mg/dL (0.3-1.0) H 01/11/18 10:39 Alkaline Phosphatase 118 Units/L (34-104) H 01/11/18 10:39 Urine pH 8.5 pH Units (5.0-8.0) H 01/11/18 14:30 - Diagnostic Findings Chest x-ray: image reviewed CT scan - chest: image reviewed - Clinical Findings Intake & Output: Intake & Output 01/11/18 01/12/18 01/12/18 23:59 07:59 15:59 Intake Total 962 / 962 1000 / 1000 240 / 240 Output Total 1400 / 1400 800 / 800 Balance -438 / -438 200 / 200 240 / 240 Consult Discharge Plan - Plan Referrals: Cris Fong, SI[employer]ING END BANDER [Advanced Practice Nurse] - 01/15/18 10:30 am <Bijan Goldberg - Last Filed: 01/12/18 21:45> Date of Encounter: 01/12/18 Objective PUL Vital signs: Last Vital Signs Temp 97.9 F 01/12/18 19:16 Pulse 91 01/12/18 19:16 Resp 20 01/12/18 19:16 BP 138/77 01/12/18 19:16 Pulse Ox 100 01/12/18 19:16 Results - Laboratory Findings CBC and BMP: 01/12/18 05:10 01/12/18 14:00 ABG ABG pH 7.56 pH Units (7.32-7.45) H 01/11/18 13:48 ABG pCO2 59 mmHg (35-45) H 01/11/18 13:48 ABG pO2 57 mmHg (85-104) L 01/11/18 13:48 ABG O2 Saturation 92 % (95-98) L 01/11/18 13:48 Abnormal lab findings: Abnormal lab results WBC 23.5 K/mcL (4.3-11.1) H 01/12/18 05:10 RBC 3.23 M/mcL (4.19-5.50) L 01/12/18 05:10 Hgb 11.1 g/dL (12.9-16.9) L D 01/12/18 05:10 Hct 28.9 % (37.5-50.1) L 01/12/18 05:10 MCH 34.4 pg (28.0-33.3) H 01/12/18 05:10 MCHC 38.4 g/dL (31.6-35.5) H 01/12/18 05:10 Neutrophils # 21.1 K/mcL (1.6-8.9) H 01/12/18 05:10 Monocytes # 1.5 K/mcL (0.0-1.3) H 01/12/18 05:10 Nucleated RBCs/100 WBC 0.3 /100 WBC (0) H 01/12/18 05:10 ABG pH 7.56 pH Units (7.32-7.45) H 01/11/18 13:48 ABG pCO2 59 mmHg (35-45) H 01/11/18 13:48 ABG pO2 57 mmHg (85-104) L 01/11/18 13:48 ABG HCO3 53 mEq/L (21-27) H 01/11/18 13:48 ABG Total CO2 54 mEq/L (20-26) H 01/11/18 13:48 ABG O2 Saturation 92 % (95-98) L 01/11/18 13:48 ABG Base Excess 26 mEq/L (-2 to 3) H 01/11/18 13:48 VBG pH 7.54 pH Units (7.32-7.42) H 01/12/18 00:27 VBG pO2 150 mmHg (25-50) H 01/12/18 00:27 VBG HCO3 43 mEq/L (21-27) H 01/12/18 00:27 Sodium 130 mEq/L (136-145) L 01/12/18 14:00 Potassium 2.5 mEq/L (3.5-5.1) L* 01/12/18 14:00 Chloride 82 mEq/L (98-107) L 01/12/18 14:00 Carbon Dioxide 38 mEq/L (23-29) H 01/12/18 14:00 BUN 49 mg/dL (6-20) H 01/12/18 14:00 Creatinine 1.49 mg/dL (0.70-1.30) H 01/12/18 14:00 Est GFR ( Amer) 59 (> 60) L 01/12/18 14:00 Est GFR (Non-Af Amer) 48 (> 60) L 01/12/18 14:00 BUN/Creatinine Ratio 33 (6-26) H 01/12/18 14:00 Glucose 306 mg/dL (70-105) H 01/12/18 14:00 POC Glucose 316 mg/dL (70-99) H 01/12/18 16:38 Uric Acid 15.4 mg/dL (2.3-7.6) H 01/12/18 11:04 Venous Ioniz Calcium 0.85 mmol/L (1.15-1.35) L 01/11/18 16:52 Phosphorus 2.5 mg/dL (2.7-4.5) L 01/12/18 05:10 Total Bilirubin 7.4 mg/dL (0.3-1.0) H 01/11/18 10:39 Alkaline Phosphatase 118 Units/L (34-104) H 01/11/18 10:39 Urine pH 8.5 pH Units (5.0-8.0) H 01/11/18 14:30 - Clinical Findings Intake & Output: Intake & Output 01/12/18 01/12/18 01/12/18 07:59 15:59 23:59 Intake Total 1000 / 1000 1600 / 1600 360 / 360 Output Total 800 / 800 1060 / 1060 Balance 200 / 200 1600 / 1600 -700 / -700 - Attending Attestation I saw and evaluated this patient and my medical decision-making was reviewed with the Resident Physician. I agree with the documented findings, disposition and treatment plan as described except to the extent set forth below. We independently had [id number] contact with the patient. Patient seen and examined at bedside Labs, radiology, chart personally reviewed. Management was reviewed during multidisciplinary critical care rounds. STUDIO ASSISTANT:Patient is conscious oriented x 3 no acute neurological findings Pulm: Patient COPD Chronic hypercapnic respiratory failure with metabolic alkalosis acceptable oxygenation and ventilation will keep O2 supplementation to keep SPO2 around 88% -90% No BIPAP for now because of alkalosis Cards:Patient is hemodynamically stable has diastolic heart failure was on Lasix 80 mg daily looks like he was overdiuresed . Will hold diuresed will get gentle hydration . 1/ Will continue gentle hydration patient doesnt look fluid overloaded FEN-GI: Patient can have diet as tolerated Renal: STEVAN most likely due to over diuresis slowly getting improved . Hyponatremia and hypokalemia nephrology following ID: No active infectious issues Heme/Onc: Labs reviewed Endo: Glucose Monitored Integ/MSK: Skin Care per routine Nursing protocol Lines: All lines examined without evidence of infection : Dispo: Patient to remain in step down no active critical care issues will sign off as Nephrology following for electrolytes issues CODE:Full Code
[2018-01-12] MEDS ORDERED: D5% in Water 1,000 ML IVC PRN (14:13)
[2018-01-12] MEDS ORDERED: Dextrose Gel 15 GM/37.5 ML TUBE PO PRN ×2 (14:13)
[2018-01-12] MEDS ORDERED: *HR* Dextrose 50 % in Water (Syg) 50 ML SYRINGE IVP PRN (14:13)
--- NOTE | 2018-01-12 14:20 | Nephrology Progress Note ---
<Cleopatra Le - Last Filed: 01/12/18 14:24> Date of Encounter: 01/12/18 Time of Encounter: 14:18 - Assessment and Plan (1) STEVAN (acute kidney injury) Current Visit: Yes Status: Acute Scr 1.48 and GFR 49 today, both improving. K 2.8, improving. Great urine output, 2 Liters yesterday and 800 so far today. Continue to avoid nephrotoxins and renal dose all medications. Uric Acid ordered for recheck was 19.4 yesterday. (2) Acute and chronic respiratory failure with hypoxia Current Visit: Yes Status: Acute Per pulmonology team. (3) Alkalosis Current Visit: Yes Status: Acute Per primary team. (4) Dyspnea Current Visit: Yes Status: Acute Improving, Bipap at HS, 3 liters n/c during the day. Per primary team. Qualifiers: Dyspnea type: unspecified Qualified Code(s): R06.00 - Dyspnea, unspecified (5) Hypokalemia Current Visit: Yes Status: Acute See above. Subjective Principal diagnosis: Metabolic alkalosis Interval history: Pt seen and examined. No signs of distress. Objective - Vital Signs Vital signs: Vital Signs Temp Pulse Resp BP Pulse Ox 01/12/18 13:48 86 95 01/12/18 11:49 84 20 94 01/12/18 11:47 80 01/12/18 11:41 98.2 F 85 18 138/100 95 01/12/18 11:02 17 98 01/12/18 10:24 105 20 01/12/18 07:49 83 01/12/18 07:47 84 20 98 01/12/18 07:41 98.0 F 90 18 117/81 98 01/12/18 07:32 13 99 01/12/18 03:30 98.1 F 87 20 103/74 92 01/12/18 03:25 77 01/12/18 01:26 16 94 01/11/18 23:35 87 01/11/18 23:00 98.0 F 90 18 140/72 91 01/11/18 20:36 16 94 01/11/18 19:40 80 01/11/18 19:23 97.7 F 79 18 128/79 94 01/11/18 16:27 98.5 F 83 18 145/77 91 Intake and Output 01/11/18 01/12/18 01/12/18 23:59 07:59 15:59 Intake Total 962 / 962 1000 / 1000 1600 / 1600 Output Total 1400 / 1400 800 / 800 Balance -438 / -438 200 / 200 1600 / 1600 Intake: IV Fluids 522 / 522 1000 / 1000 1000 / 1000 KCl 20 mEq in 0.9% Sodium 1000 / 1000 1000 / 1000 Chloride 20 meq In 1,000 ml @ 100 mls/hr IVC .Q10H ROSA Rx#: [id number] KCl 40 MEQ Xylocaine 2 ML In 522 / 522 Dextrose 5% 500 ML @ 130.5 mls/ hr IVPB ONCE ONE Rx#:[id number] Oral 440 / 440 600 / 600 Output: Urine 1400 / 1400 800 / 800 Other: Meal Dinner Lunch Percent of Meal Consumed 40% 100% # Voids 1 Blood Glucose* 383 299 324 - General Appearance General appearance: Present: appears started age, obese EENT: Present: ATNC, hearing intact, vision intact Respiratory: Present: clear Cardiology: Present: no edema, regular rate, regular rhythm, normal S1, normal S2 Gastrointestinal: Present: normoactive bowel sounds, no tenderness, no guarding Integumentary: Present: no rash, warm and dry Neurologic: Present: alert and oriented x3 Psychiatric: Present: mood/affect appropriate, cooperative - Lab 01/12/18 05:10 01/12/18 08:20 Most recent lab results ABG pH 7.56 pH Units (7.32-7.45) H 01/11/18 13:48 ABG pCO2 59 mmHg (35-45) H 01/11/18 13:48 ABG pO2 57 mmHg (85-104) L 01/11/18 13:48 ABG HCO3 53 mEq/L (21-27) H 01/11/18 13:48 ABG O2 Saturation 92 % (95-98) L 01/11/18 13:48 Calcium 9.1 mg/dL (8.6-10.3) 01/12/18 08:20 Phosphorus 2.5 mg/dL (2.7-4.5) L 01/12/18 05:10 Magnesium 2.4 mg/dL (1.6-2.6) 01/12/18 05:10 Urine Creatinine 27 mg/dL 01/11/18 14:30 Urine Sodium 79.5 mEq/L 01/11/18 14:30 Urine Total Protein 4 mg/dL (1-14) 01/11/18 14:30 Consult Discharge Plan - Plan Referrals: Cris Fong, MUD MIXER OPERATOR [Advanced Practice Nurse] - 01/15/18 10:30 am <Elton Garcia Jackeline - Last Filed: 01/13/18 11:18> Date of Encounter: 01/12/18 - Assessment and Plan (1) STEVAN (acute kidney injury) Current Visit: Yes Status: Acute (2) Hypokalemia Current Visit: Yes Status: Acute (3) Hyponatremia Current Visit: Yes Status: Acute (4) Metabolic alkalosis Current Visit: Yes Status: Acute Objective - Vital Signs Vital signs: Vital Signs Temp Pulse Resp BP Pulse Ox 01/13/18 08:28 18 99 01/13/18 06:55 97.9 F 83 18 116/67 99 01/13/18 04:12 20 128/79 95 01/13/18 02:54 97.6 F 82 21 128/79 98 01/12/18 23:22 23 99 01/12/18 23:10 17 96 01/12/18 22:54 97.7 F 93 19 132/77 96 01/12/18 19:16 97.9 F 91 20 138/77 100 01/12/18 17:38 100 01/12/18 17:33 92 01/12/18 17:32 91 22 100 01/12/18 16:39 20 138/100 95 01/12/18 16:37 97.9 F 87 18 127/59 95 01/12/18 13:48 86 95 01/12/18 11:49 84 20 94 01/12/18 11:47 80 01/12/18 11:41 98.2 F 85 18 138/100 95 Intake and Output 01/12/18 01/13/18 01/13/18 23:59 07:59 15:59 Intake Total 1360 / 1360 510 / 510 1335 / 1335 Output Total 1360 / 1360 730 / 730 400 / 400 Balance 0 / 0 -220 / -220 935 / 935 Intake: IV Fluids 1000 / 1000 110 / 110 975 / 975 KCl 20 mEq in 0.9% Sodium 1000 / 1000 975 / 975 Chloride 20 meq In 1,000 ml @ 100 mls/hr IVC .Q10H ROSA Rx#: [id number] Calcium Gluconate 1,000 MG In 0 110 / 110 .9 % Sodium Chloride 100 ML @ 220 mls/hr IVPB Q6HR PRN Rx#: [id number] Oral 360 / 360 400 / 400 360 / 360 Output: Urine 1360 / 1360 730 / 730 400 / 400 Other: Meal Dinner Breakfast Percent of Meal Consumed 100% 100% # Voids 1 Weight 139.5 kg Blood Glucose* 398 335 Patient Weight 01/13/18 23:59 Weight 139.5 kg - Lab 01/13/18 04:00 01/13/18 10:00 Most recent lab results ABG pH 7.56 pH Units (7.32-7.45) H 01/11/18 13:48 ABG pCO2 59 mmHg (35-45) H 01/11/18 13:48 ABG pO2 57 mmHg (85-104) L 01/11/18 13:48 ABG HCO3 53 mEq/L (21-27) H 01/11/18 13:48 ABG O2 Saturation 92 % (95-98) L 01/11/18 13:48 Calcium 9.1 mg/dL (8.6-10.3) 01/13/18 04:00 Phosphorus 2.5 mg/dL (2.7-4.5) L 01/13/18 10:00 Magnesium 2.5 mg/dL (1.6-2.6) 01/12/18 21:00 Urine Creatinine 27 mg/dL 01/11/18 14:30 Urine Sodium 79.5 mEq/L 01/11/18 14:30 Urine Total Protein 4 mg/dL (1-14) 01/11/18 14:30 - Attending Attestation I examined this patient and my medical decision-making was reviewed with the Resident Physician/MUD MIXER OPERATOR. I agree with the documented findings, disposition and treatment plan as described except to the extent set forth below. Pt seen and examined comfortable on biPAP but able to take off and speak full sentences. On exam trace to no LE edema noted with slightly decerased BS bases on lungs. SCr improving at 1.48, GFR 49. Potassium still low at 2.8, continue aggressive repletion. Bicarb also improving with fluids, will continue for one more day.Uric acid noted veru elevated, consistent with decreased clearance, will repeat today for signs of improvement.
[2018-01-12 16:25] LABS: Calcium 8.9 mg/dL (8.6-10.3); Potassium 2.5 mEq/L (3.5-5.1)
[2018-01-12] MEDS ORDERED: Insulin LISPRO 300 UNITS/3 ML VIAL SQ SCH ×2 (16:30→21:00)
[2018-01-12] MEDS: Potassium Chloride Elixir 20 MEQ/15 ML UDC PO PRN ×2 (17:17→22:59)
[2018-01-12] MEDS: Insulin LISPRO 300 UNITS/3 ML VIAL SQ SCH (17:18)
--- NOTE | 2018-01-12 17:58 | Electrocardiograph Report ---
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
--- NOTE | 2018-01-12 18:36 | Internal Med Progress Note ---
Date of Encounter: 01/12/18 Time of Encounter: 18:34 - Assessment and plan (1) Metabolic alkalosis Current Visit: Yes Status: Acute Assessment and plan: Nephrology and pulmonology consulted; appreciate input. Continue telemetry. Continue to hold diuretics. Continue IV NS with KCl. Monitor electrolytes and replete per nursing protocol. Recheck BMP in AM. (2) Acute and chronic respiratory failure with hypoxia Current Visit: Yes Status: Acute Assessment and plan: Likely secondary to COPD exacerbation. Pulmonology consulted; appreciate input. Continue IV steroids and scheduled duonebs. No need for antibiotics at this time. CPAP QHS. Monitor closely. (3) Acute exacerbation of chronic obstructive airways disease Current Visit: Yes Status: Acute Assessment and plan: Management as per above. (4) STEVAN (acute kidney injury) Current Visit: Yes Status: Acute Assessment and plan: Improving. Nephrology consulted; appreciate input. Continue to hold diuretics. Avoid nephrotoxins. IVF as per above. Recheck BMP in AM. (5) Hyponatremia Current Visit: Yes Status: Acute Assessment and plan: Nephrology consulted; appreciate input. IVF as per above. Recheck BMP in AM. Do not correct more than 8-10 in 24 hours. (6) Hypokalemia Current Visit: Yes Status: Acute Assessment and plan: Slightly improved. Nephrology consulted; appreciate input. Continue to replete per nursing protocol. Recheck BMP in AM. (7) Diastolic CHF, chronic Current Visit: Yes Status: Chronic Assessment and plan: Stable. Euvolemic on exam. Continue to hold diuretics as per above. Continue other home medications. (8) Tobacco abuse Current Visit: Yes Status: Chronic Assessment and plan: Counseled on smoking cessation. (9) Chronic hypercapnic respiratory failure Current Visit: Yes Status: Chronic - Time Spent With Patient Total time spent is greater than 50% in coordination of care (as documented) at patient's floor/unit and/or counseling patient: less than 15 minutes - Subjective Interval history: Patient had no acute events overnight. He states that he is feeling well today. He is currently on CPAP because he was sleeping. He is easy to arouse and converses appropriately. He denies chest pain, SOB, fever, chills, nausea, vomiting, or abdominal pain. He has no complaints at this time. - Constitutional Vitals: Temp Pulse Resp BP Pulse Ox 97.9 F 92 22 138/100 100 06/01/18 16:37 01/12/18 17:33 01/12/18 17:32 01/12/18 16:39 01/12/18 17:38 General appearance: Present: cooperative, A&O X 3, pleasant, no acute distress, answers questions appropriately - Respiratory Respiratory exam: Absent: accessory muscle use, rales, rhonchi, wheezes Additional comments: Normal WOB, coarse breath sounds bilaterally - Cardiovascular Cardiovascular exam: Present: RRR, +S1, +S2. Absent: diastolic murmur, gallop, rubs, systolic murmur - GI/Abdominal GI/Abdominal exam: Present: normal bowel sounds, soft. Absent: distended, hepatomegaly, mass, splenomegaly, tenderness - Psychiatric Psychiatric exam: Present: normal affect, normal mood. Absent: agitated, anxious, depressed - Skin Skin exam: Present: dry, intact, warm. Absent: cyanosis, rash Internal Medicine: Result - Labs CBC & Chem 7: 01/12/18 05:10 01/12/18 14:00 Labs: Short CBC 01/12/18 Range/Units 05:10 WBC 23.5 H (4.3-11.1) K/mcL Hgb 11.1 L D (12.9-16.9) g/dL Hct 28.9 L (37.5-50.1) % Plt Count 276 (140-400) K/mcL Neutrophils # 21.1 H (1.6-8.9) K/mcL BMP 01/11/18 01/11/18 01/12/18 18:40 23:00 05:10 Sodium 125 L 127 L 129 L Potassium 2.3 L* 2.3 L* 2.3 L* Chloride 66 L 70 L 77 L Carbon Dioxide 44 H* 45 H* 42 H* BUN 54 H 57 H 51 H Creatinine 1.67 H 1.65 H 1.46 H Glucose 333 H 322 H 279 H Calcium 9.2 9.2 9.0 01/12/18 01/12/18 08:20 14:00 Sodium 130 L 130 L Potassium 2.8 L 2.5 L* Chloride 79 L 82 L Carbon Dioxide 39 H 38 H BUN 50 H 49 H Creatinine 1.48 H 1.49 H Glucose 299 H 306 H Calcium 9.1 8.9 Cardiac Enzymes 01/11/18 Range/Units 18:40 Troponin I 0.03 (< 0.04) ng/mL - ABG Interpretation ABG results: ABG ABG pH 7.56 pH Units (7.32-7.45) H 01/11/18 13:48 ABG pCO2 59 mmHg (35-45) H 01/11/18 13:48 ABG pO2 57 mmHg (85-104) L 01/11/18 13:48 ABG O2 Saturation 92 % (95-98) L 01/11/18 13:48 Consult Discharge Plan - Plan Referrals: Cris Fong, STORE MANAGER [Advanced Practice Nurse] - 01/15/18 10:30 am
[2018-01-12 22:07] LABS: Magnesium 2.5 mg/dL (1.6-2.6); Phosphorous 2.3 mg/dL (2.7-4.5); Potassium 2.6 mEq/L (3.5-5.1)
[2018-01-12 22:39] LABS: VBG Ionized Calcium 1.05 mmol/L (1.15-1.35)
[2018-01-12] MEDS: Potassium Phosphate 44 MEQ in 0.9 % Sodium Chloride 250 ML IVPB PRN (23:36)
[2018-01-12 23:43] LABS: VBG Ionized Calcium 1.07 mmol/L (1.15-1.35)
[2018-01-13] MEDS: MethylPREDNISolone 40 MG/ML VIAL IVP SCH ×3 (00:20→17:04)
[2018-01-13] MEDS: Ipratropium/Albuterol Neb 3 ML IH SCH ×5 (04:12→22:51)
[2018-01-13 04:29] LABS: VBG Ionized Calcium 1.11 mmol/L (1.15-1.35)
[2018-01-13 04:34] LABS: Basophils % 0.1 %; Mean Platelet Volume 10.7 fL (9.4-12.4); Nucleated Red Blood Cells 0.3 /100 WBC (0)
[2018-01-13 04:36] LABS: Hematocrit 27.8 % (37.5-50.1); Hemoglobin 10.2 g/dL (12.9-16.9); Immature Granulocytes % 2.4 % (0-4); Lymphocytes # 0.7 K/mcL (0.6-4.6); Lymphocytes % 2.4 %; Mean Corpuscular HGB Conc 36.7 g/dL (31.6-35.5); Mean Corpuscular Hemoglobin 33.2 pg (28.0-33.3); Mean Corpuscular Volume 90.6 fL (83.0-100.0); Monocytes # 1.3 K/mcL (0.0-1.3); Monocytes % 4.5 %; Neutrophils # 25.3 K/mcL (1.6-8.9); Platelet Count 269 K/mcL (140-400); Red Blood Count 3.07 M/mcL (4.19-5.50); Red Cell Distribution Width 13.6 % (11.5-14.5); Segmented Neutrophils % 90.6 %
[2018-01-13 04:48] LABS: BUN/Creatinine Ratio 38 (6-26); Blood Urea Nitrogen 45 mg/dL (6-20); Calcium 9.1 mg/dL (8.6-10.3); Carbon Dioxide 34 mEq/L (23-29); Chloride 90 mEq/L (98-107); Glucose 260 mg/dL (70-105); Osmolality,Calculated 297 (280-300); Potassium 2.7 mEq/L (3.5-5.1); Sodium 133 mEq/L (136-145); eGFR For African Americans > 60 (> 60); eGFR For Non-African Americans > 60 (> 60)
[2018-01-13] MEDS: Potassium Chloride Elixir 20 MEQ/15 ML UDC PO PRN ×2 (05:40→21:09)
[2018-01-13] MEDS: *HR* Enoxaparin 40 MG/0.4 ML SYRINGE SQ SCH (05:41)
[2018-01-13 05:58] LABS: Platelet Estimate Normal (Normal)
[2018-01-13 05:59] LABS: Anisocytosis 1+ (Not Present)
[2018-01-13] MEDS: Aspirin 81 MG TAB.CHEW PO SCH (08:15)
[2018-01-13] MEDS: Fluticasone Propionate Nasal 50 MCG/SPRAY BOTTLE NS SCH (08:16)
[2018-01-13] MEDS: Insulin LISPRO 300 UNITS/3 ML VIAL SQ SCH ×4 (08:16→21:04)
[2018-01-13] MEDS: Budesonide/Formoterol 160/4.5 MDI IH SCH ×2 (08:27→22:52)
[2018-01-13] MEDS: Acetylcysteine 10% 2 ML INHSOL IH SCH ×3 (09:50→22:51)
[2018-01-13] MEDS: 0.9 % Sodium Chloride w KCl 20 MEQ/1,000 ML MLS IVC SCH ×3 (09:51→20:18)
[2018-01-13 09:57] LABS: Estimated Average Glucose 143 mg/dl; Hemoglobin A1C 6.6 %
--- NOTE | 2018-01-13 11:14 | Nephrology Progress Note ---
Date of Encounter: 01/13/18 Time of Encounter: 12:00 - Assessment and Plan (1) STEVAN (acute kidney injury) Current Visit: Yes Status: Resolved SCr normalized at 1.18, GFR >60, great UOP great at 2160cc in the past 24hrs Can taper fluids off and continue po intake (2) Hypokalemia Current Visit: Yes Status: Acute Potassium slowly improving, continue give intermittent potassium supplements po at this time; 40meq bid standing (3) Hyponatremia Current Visit: Yes Status: Acute Sodium almost normalized at 133, will monitor (4) Metabolic alkalosis Current Visit: Yes Status: Acute Bicarb improved with fluids and diamox Subjective Principal diagnosis: Metabolic alkalosis Interval history: Pt seen and examined feels better, at bedside. Objective - Vital Signs Vital signs: Vital Signs Temp Pulse Resp BP Pulse Ox 01/13/18 08:28 18 99 01/13/18 06:55 97.9 F 83 18 116/67 99 01/13/18 04:12 20 128/79 95 01/13/18 02:54 97.6 F 82 21 128/79 98 01/12/18 23:22 23 99 01/12/18 23:10 17 96 01/12/18 22:54 97.7 F 93 19 132/77 96 01/12/18 19:16 97.9 F 91 20 138/77 100 01/12/18 17:38 100 01/12/18 17:33 92 01/12/18 17:32 91 22 100 01/12/18 16:39 20 138/100 95 01/12/18 16:37 97.9 F 87 18 127/59 95 01/12/18 13:48 86 95 01/12/18 11:49 84 20 94 01/12/18 11:47 80 01/12/18 11:41 98.2 F 85 18 138/100 95 Intake and Output 01/12/18 01/13/18 01/13/18 23:59 07:59 15:59 Intake Total 1360 / 1360 510 / 510 1335 / 1335 Output Total 1360 / 1360 730 / 730 400 / 400 Balance 0 / 0 -220 / -220 935 / 935 Intake: IV Fluids 1000 / 1000 110 / 110 975 / 975 KCl 20 mEq in 0.9% Sodium 1000 / 1000 975 / 975 Chloride 20 meq In 1,000 ml @ 100 mls/hr IVC .Q10H ROSA Rx#: [id number] Calcium Gluconate 1,000 MG In 0 110 / 110 .9 % Sodium Chloride 100 ML @ 220 mls/hr IVPB Q6HR PRN Rx#: [id number] Oral 360 / 360 400 / 400 360 / 360 Output: Urine 1360 / 1360 730 / 730 400 / 400 Other: Meal Dinner Breakfast Percent of Meal Consumed 100% 100% # Voids 1 Weight 139.5 kg Blood Glucose* 398 335 Patient Weight 01/13/18 23:59 Weight 139.5 kg - General Appearance General appearance: Present: obese (NAD), chronically ill EENT: Present: ATNC, mucous membranes moist Neck: Present: no JVD, supple Respiratory: Present: clear (ant bilat) Cardiology: Present: edema (trace LE bilat better than baseline), normal S1, normal S2 Gastrointestinal: Present: no tenderness, no guarding, obese Integumentary: Present: warm and dry Neurologic: Present: no focal deficit Musculoskeletal: Present: no deformities Psychiatric: Present: mood/affect appropriate, cooperative - Lab 01/14/18 02:45 01/14/18 08:00 Most recent lab results ABG pH 7.56 pH Units (7.32-7.45) H 01/11/18 13:48 ABG pCO2 59 mmHg (35-45) H 01/11/18 13:48 ABG pO2 57 mmHg (85-104) L 01/11/18 13:48 ABG HCO3 53 mEq/L (21-27) H 01/11/18 13:48 ABG O2 Saturation 92 % (95-98) L 01/11/18 13:48 Calcium 9.1 mg/dL (8.6-10.3) 01/13/18 04:00 Phosphorus 2.5 mg/dL (2.7-4.5) L 01/13/18 10:00 Magnesium 2.5 mg/dL (1.6-2.6) 01/12/18 21:00 Urine Creatinine 27 mg/dL 01/11/18 14:30 Urine Sodium 79.5 mEq/L 01/11/18 14:30 Urine Total Protein 4 mg/dL (1-14) 01/11/18 14:30 Consult Discharge Plan - Plan Instructions: How to Check Your Blood Sugar (DC), Diabetic Foot Care (DC), Diabetes Mellitus Type 2 in Adults (DC), Basic Carbohydrate Counting (DC), Meal Planning with the Plate Model (DC) Referrals: Cris Fong, ORTHOPEDIC TECHNICIAN [Advanced Practice Nurse] - 01/15/18 10:30 am
[2018-01-13] MEDS: Insulin DETEMIR 100 UNIT/ML X5UNITS SQ SCH (12:04)
--- NOTE | 2018-01-13 16:14 | Internal Med Progress Note ---
Date of Encounter: 01/13/18 Time of Encounter: 16:12 - Assessment and plan (1) Metabolic alkalosis Current Visit: Yes Status: Acute Assessment and plan: Nephrology and pulmonology consulted; appreciate input. Continue telemetry. Continue to hold diuretics. Continue IV NS with KCl as managed by nephrology. Monitor electrolytes and replete per nursing protocol. Recheck BMP in AM. (2) Acute and chronic respiratory failure with hypoxia Current Visit: Yes Status: Acute Assessment and plan: Greatly improved. Likely secondary to COPD exacerbation. Pulmonology consulted ; appreciate input. Continue IV steroids at lower dose, and scheduled duonebs. No need for antibiotics at this time. CPAP QHS. Monitor closely. (3) Acute exacerbation of chronic obstructive airways disease Current Visit: Yes Status: Acute Assessment and plan: Management as per above. (4) STEVAN (acute kidney injury) Current Visit: Yes Status: Resolved Assessment and plan: Resolved. Nephrology consulted; appreciate input. Continue to hold diuretics. Avoid nephrotoxins. IVF as per nephrology. Recheck BMP in AM. (5) Hyponatremia Current Visit: Yes Status: Acute Assessment and plan: Improved. Nephrology consulted; appreciate input. IVF as per nephrology. Recheck BMP in AM. Do not correct more than 8-10 in 24 hours. (6) Hypokalemia Current Visit: Yes Status: Acute Assessment and plan: Improved. Nephrology consulted; appreciate input. Continue to replete per nursing protocol. Recheck BMP in AM. (7) Diastolic CHF, chronic Current Visit: Yes Status: Chronic Assessment and plan: Stable. Euvolemic on exam. Continue to hold diuretics as per above. Continue other home medications. (8) Tobacco abuse Current Visit: Yes Status: Chronic Assessment and plan: Counseled on smoking cessation. (9) Chronic hypercapnic respiratory failure Current Visit: Yes Status: Chronic Assessment and plan: Management as per above. - Time Spent With Patient Total time spent is greater than 50% in coordination of care (as documented) at patient's floor/unit and/or counseling patient: less than 15 minutes - Subjective Interval history: Patient had no acute events overnight. He states that he is feeling "great" today. He is awake and more talkative today. He denies chest pain, SOB, fever , chills, nausea, vomiting, or abdominal pain. He has no complaints at this time. - Constitutional Vitals: Temp Pulse Resp BP Pulse Ox 98.0 F 89 16 147/85 95 01/13/18 11:19 01/13/18 11:19 01/13/18 11:19 01/13/18 11:19 01/13/18 11:19 General appearance: Present: cooperative, A&O X 3, pleasant, no acute distress, obese, answers questions appropriately - Respiratory Respiratory exam: Absent: accessory muscle use, rales, rhonchi, wheezes Additional comments: Normal WOB, coarse breath sounds bilaterally - Cardiovascular Cardiovascular exam: Present: RRR, +S1, +S2. Absent: diastolic murmur, gallop, rubs, systolic murmur Additional comments: Trace BLE edema - GI/Abdominal GI/Abdominal exam: Present: normal bowel sounds, soft. Absent: distended, hepatomegaly, mass, splenomegaly, tenderness - Psychiatric Psychiatric exam: Present: normal affect, normal mood. Absent: agitated, anxious, depressed - Skin Skin exam: Present: dry, intact, warm. Absent: cyanosis, rash Internal Medicine: Result - Labs CBC & Chem 7: 01/13/18 04:00 01/13/18 10:00 Labs: Short CBC 01/13/18 Range/Units 04:00 WBC 27.9 H (4.3-11.1) K/mcL Hgb 10.2 L (12.9-16.9) g/dL Hct 27.8 L (37.5-50.1) % Plt Count 269 (140-400) K/mcL Neutrophils # 25.3 H (1.6-8.9) K/mcL BMP 01/12/18 01/12/18 01/13/18 14:00 21:00 04:00 Sodium 130 L 130 L 133 L Potassium 2.5 L* 2.6 L 2.7 L Chloride 82 L 90 L Carbon Dioxide 38 H 34 H BUN 49 H 45 H Creatinine 1.49 H 1.18 Glucose 306 H 260 H Calcium 8.9 9.1 01/13/18 10:00 Sodium Potassium 3.0 L Chloride Carbon Dioxide BUN Creatinine Glucose Calcium - ABG Interpretation ABG results: ABG ABG pH 7.56 pH Units (7.32-7.45) H 01/11/18 13:48 ABG pCO2 59 mmHg (35-45) H 01/11/18 13:48 ABG pO2 57 mmHg (85-104) L 01/11/18 13:48 ABG O2 Saturation 92 % (95-98) L 01/11/18 13:48 Consult Discharge Plan - Plan Instructions: How to Check Your Blood Sugar (DC), Diabetic Foot Care (DC), Diabetes Mellitus Type 2 in Adults (DC), Basic Carbohydrate Counting (DC), Meal Planning with the Plate Model (DC) Referrals: Cris Fong, MARGUERITE [Advanced Practice Nurse] - 01/15/18 10:30 am
[2018-01-13 20:58] LABS: Phosphorous 2.6 mg/dL (2.7-4.5); Potassium 2.8 mEq/L (3.5-5.1)
[2018-01-13] MEDS: Potassium Phosphate 44 MEQ in 0.9 % Sodium Chloride 250 ML IVPB PRN (21:41)
[2018-01-14 03:56] LABS: BUN/Creatinine Ratio 33 (6-26); Blood Urea Nitrogen 34 mg/dL (6-20); Carbon Dioxide 33 mEq/L (23-29); Chloride 95 mEq/L (98-107); Glucose 276 mg/dL (70-105); Osmolality,Calculated 297 (280-300); Potassium 3.3 mEq/L (3.5-5.1); Sodium 135 mEq/L (136-145); eGFR For African Americans > 60 (> 60); eGFR For Non-African Americans > 60 (> 60)
[2018-01-14 04:21] LABS: Basophils # 0.1 K/mcL (0.0-0.2); Basophils % 0.2 %; Hematocrit 26.7 % (37.5-50.1); Hemoglobin 9.8 g/dL (12.9-16.9); Immature Granulocytes % 4.5 % (0-4); Lymphocytes # 0.9 K/mcL (0.6-4.6); Lymphocytes % 3.5 %; Mean Corpuscular HGB Conc 36.7 g/dL (31.6-35.5); Mean Corpuscular Hemoglobin 34.1 pg (28.0-33.3); Mean Platelet Volume 10.7 fL (9.4-12.4); Monocytes # 1.7 K/mcL (0.0-1.3); Monocytes % 6.6 %; Neutrophils # 22.2 K/mcL (1.6-8.9); Nucleated Red Blood Cells 0.4 /100 WBC (0); Platelet Count 261 K/mcL (140-400); Red Blood Count 2.87 M/mcL (4.19-5.50); Red Cell Distribution Width 13.8 % (11.5-14.5); Segmented Neutrophils % 85.2 %
[2018-01-14 04:25] LABS: Platelet Estimate Normal (Normal)
[2018-01-14] MEDS: Acetylcysteine 10% 2 ML INHSOL IH SCH ×4 (04:54→21:44)
[2018-01-14] MEDS: Ipratropium/Albuterol Neb 3 ML IH SCH ×4 (04:54→21:44)
[2018-01-14] MEDS: MethylPREDNISolone 40 MG/ML VIAL IVP SCH ×2 (05:07→17:15)
[2018-01-14] MEDS: Potassium Chloride Elixir 20 MEQ/15 ML UDC PO PRN ×2 (05:07→11:40)
[2018-01-14] MEDS: *HR* Enoxaparin 40 MG/0.4 ML SYRINGE SQ SCH (05:08)
[2018-01-14] MEDS: 0.9 % Sodium Chloride w KCl 20 MEQ/1,000 ML MLS IVC SCH ×2 (06:17→20:28)
[2018-01-14] MEDS: Insulin LISPRO 300 UNITS/3 ML VIAL SQ SCH ×4 (07:52→20:24)
[2018-01-14] MEDS: Insulin DETEMIR 100 UNIT/ML X5UNITS SQ SCH (07:53)
[2018-01-14] MEDS: Aspirin 81 MG TAB.CHEW PO SCH (07:53)
[2018-01-14] MEDS: Fluticasone Propionate Nasal 50 MCG/SPRAY BOTTLE NS SCH (07:53)
[2018-01-14] MEDS: Budesonide/Formoterol 160/4.5 MDI IH SCH ×2 (10:19→21:45)
--- NOTE | 2018-01-14 11:42 | Nephrology Progress Note ---
Date of Encounter: 01/14/18 Time of Encounter: 12:00 - Assessment and Plan (1) STEVAN (acute kidney injury) Current Visit: Yes Status: Resolved SCr remains normalized at 1.04, GFR >60 UOP great at 3230cc in the past 24hrs Will signoff, please reconsult prn (2) Hypokalemia Current Visit: Yes Status: Acute Potassium Normalized at 3.5, will need supplements on discharge (3) Hyponatremia Current Visit: Yes Status: Acute Sodium almost normalized at 135 (4) Metabolic alkalosis Current Visit: Yes Status: Acute Bicarb resolving after fluids and diamox Subjective Principal diagnosis: Metabolic alkalosis Interval history: Pt seen and examined Objective - Vital Signs Vital signs: Vital Signs Temp Pulse Resp BP Pulse Ox 01/14/18 11:00 97.8 F 106 17 170/74 99 01/14/18 10:22 18 84 01/14/18 08:00 98.4 F 84 18 154/81 84 01/14/18 07:36 98.4 F 84 18 154/81 84 01/14/18 05:21 98.2 F 90 20 142/79 97 01/14/18 04:54 18 93 01/14/18 00:28 98 F 83 22 117/62 98 01/13/18 23:02 18 99 01/13/18 21:01 98.1 F 82 20 135/73 100 01/13/18 16:35 98.4 F 96 19 135/76 97 Intake and Output 01/13/18 01/14/18 01/14/18 23:59 07:59 15:59 Intake Total 2210 / 2210 1600 / 1600 680 / 680 Output Total 1600 / 1600 675 / 675 175 / 175 Balance 610 / 610 925 / 925 505 / 505 Intake: IV Fluids 1000 / 1000 1000 / 1000 KCl 20 mEq in 0.9% Sodium 1000 / 1000 1000 / 1000 Chloride 20 meq In 1,000 ml @ 100 mls/hr IVC .Q10H ROSA Rx#: [id number] Oral 1210 / 1210 600 / 600 680 / 680 Output: Urine 1600 / 1600 675 / 675 175 / 175 Other: Meal Dinner Breakfast Percent of Meal Consumed 100% 100% Blood Glucose* 247 227 338 - Lab 01/14/18 02:45 01/14/18 08:00 Most recent lab results ABG pH 7.56 pH Units (7.32-7.45) H 01/11/18 13:48 ABG pCO2 59 mmHg (35-45) H 01/11/18 13:48 ABG pO2 57 mmHg (85-104) L 01/11/18 13:48 ABG HCO3 53 mEq/L (21-27) H 01/11/18 13:48 ABG O2 Saturation 92 % (95-98) L 01/11/18 13:48 Calcium 9.0 mg/dL (8.6-10.3) 01/14/18 03:00 Phosphorus 2.5 mg/dL (2.7-4.5) L 01/14/18 08:00 Magnesium 2.5 mg/dL (1.6-2.6) 01/12/18 21:00 Urine Creatinine 27 mg/dL 01/11/18 14:30 Urine Sodium 79.5 mEq/L 01/11/18 14:30 Urine Total Protein 4 mg/dL (1-14) 01/11/18 14:30 Consult Discharge Plan - Plan Instructions: How to Check Your Blood Sugar (DC), Diabetic Foot Care (DC), Diabetes Mellitus Type 2 in Adults (DC), Basic Carbohydrate Counting (DC), Meal Planning with the Plate Model (DC) Referrals: Cris Fong, MARGUERITE [Advanced Practice Nurse] - 01/15/18 10:30 am
[2018-01-14] MEDS ORDERED: Insulin DETEMIR 100 UNIT/ML X5UNITS SQ STA (13:42)
--- NOTE | 2018-01-14 13:46 | Internal Med Progress Note ---
Date of Encounter: 01/14/18 Time of Encounter: 13:44 - Assessment and plan (1) Metabolic alkalosis Current Visit: Yes Status: Acute Assessment and plan: Nephrology and pulmonology consulted; appreciate input. Continue telemetry. Continue to hold diuretics. Continue IV NS with KCl as managed by nephrology. Monitor electrolytes and replete per nursing protocol. Recheck BMP in AM. (2) Acute and chronic respiratory failure with hypoxia Current Visit: Yes Status: Acute Assessment and plan: Greatly improved. Likely secondary to COPD exacerbation. Pulmonology consulted ; appreciate input. Continue IV steroids and scheduled duonebs. No need for antibiotics at this time. CPAP QHS. Monitor closely. Plan for discharge home tomorrow with prednisone taper as long as blood glucose is better. (3) Acute exacerbation of chronic obstructive airways disease Current Visit: Yes Status: Acute Assessment and plan: Management as per above. (4) STEVAN (acute kidney injury) Current Visit: Yes Status: Resolved Assessment and plan: Resolved. Nephrology consulted; appreciate input. Continue to hold diuretics. Avoid nephrotoxins. IVF as per nephrology. Recheck BMP in AM. (5) Hyponatremia Current Visit: Yes Status: Resolved Assessment and plan: Resolved. Nephrology consulted; appreciate input. IVF as per nephrology. Recheck BMP in AM. Do not correct more than 8-10 in 24 hours. (6) Hypokalemia Current Visit: Yes Status: Resolved Assessment and plan: Resolved. Nephrology consulted; appreciate input. Continue to replete per nursing protocol. Recheck BMP in AM. (7) Diastolic CHF, chronic Current Visit: Yes Status: Chronic Assessment and plan: Stable. Euvolemic on exam. Continue to hold diuretics as per above. Continue other home medications. (8) Tobacco abuse Current Visit: Yes Status: Chronic Assessment and plan: Counseled on smoking cessation. (9) Chronic hypercapnic respiratory failure Current Visit: Yes Status: Chronic Assessment and plan: Management as per above. (10) Hyperglycemia Current Visit: Yes Status: Acute Assessment and plan: Likely secondary to steroid use. Last A1C = 6.6%. Increased levemir dose today. Continue accuchecks and high dose SSI QID AC/HS. Recheck BMP in AM. (11) DVT prophylaxis Current Visit: Yes Status: Acute Assessment and plan: Continue SQ lovenox. - Time Spent With Patient Total time spent is greater than 50% in coordination of care (as documented) at patient's floor/unit and/or counseling patient: less than 15 minutes - Subjective Interval history: Patient had no acute events overnight. He states that he is feeling "good" today. He is up to side of bed doing crossword puzzle. Nursing staff reports some increased blood glucose readings today. He denies chest pain, SOB, fever, chills, nausea, vomiting, or abdominal pain. He has no complaints at this time. - Constitutional Vitals: Temp Pulse Resp BP Pulse Ox 97.8 F 106 17 170/74 99 01/14/18 11:45 01/14/18 11:45 01/14/18 11:45 01/14/18 11:45 01/14/18 11:45 General appearance: Present: cooperative, A&O X 3, pleasant, no acute distress, obese, answers questions appropriately - Respiratory Respiratory exam: Absent: accessory muscle use, rales, rhonchi, wheezes Additional comments: Normal WOB, coarse breath sounds bilaterally - Cardiovascular Cardiovascular exam: Present: RRR, +S1, +S2. Absent: diastolic murmur, gallop, rubs, systolic murmur Additional comments: Trace BLE edema - GI/Abdominal GI/Abdominal exam: Present: normal bowel sounds, soft. Absent: distended, hepatomegaly, mass, splenomegaly, tenderness - Psychiatric Psychiatric exam: Present: normal affect, normal mood. Absent: agitated, anxious, depressed - Skin Skin exam: Present: dry, intact, warm. Absent: cyanosis, rash Internal Medicine: Result - Labs CBC & Chem 7: 01/14/18 02:45 01/14/18 08:00 Labs: Short CBC 01/14/18 Range/Units 02:45 WBC 26.1 H (4.3-11.1) K/mcL Hgb 9.8 L (12.9-16.9) g/dL Hct 26.7 L (37.5-50.1) % Plt Count 261 (140-400) K/mcL Neutrophils # 22.2 H (1.6-8.9) K/mcL BMP 01/13/18 01/14/18 01/14/18 20:23 03:00 08:00 Sodium 135 L Potassium 2.8 L 3.3 L 3.5 Chloride 95 L Carbon Dioxide 33 H BUN 34 H Creatinine 1.04 Glucose 276 H Calcium 9.0 - ABG Interpretation ABG results: ABG ABG pH 7.56 pH Units (7.32-7.45) H 01/11/18 13:48 ABG pCO2 59 mmHg (35-45) H 01/11/18 13:48 ABG pO2 57 mmHg (85-104) L 01/11/18 13:48 ABG O2 Saturation 92 % (95-98) L 01/11/18 13:48 Consult Discharge Plan - Plan Instructions: How to Check Your Blood Sugar (DC), Diabetic Foot Care (DC), Diabetes Mellitus Type 2 in Adults (DC), Basic Carbohydrate Counting (DC), Meal Planning with the Plate Model (DC) Referrals: Cris Fong, VETERINARIAN [Advanced Practice Nurse] - 01/15/18 10:30 am
[2018-01-14] MEDS ORDERED: Insulin DETEMIR 100 UNIT/ML X5UNITS SQ SCH (21:00)
[2018-01-15] MEDS: Acetylcysteine 10% 2 ML INHSOL IH SCH ×3 (04:09→15:46)
[2018-01-15] MEDS: Ipratropium/Albuterol Neb 3 ML IH SCH ×3 (04:09→15:46)
[2018-01-15 04:46] LABS: BUN/Creatinine Ratio 34 (6-26); Blood Urea Nitrogen 30 mg/dL (6-20); Calcium 8.8 mg/dL (8.6-10.3); Carbon Dioxide 33 mEq/L (23-29); Chloride 100 mEq/L (98-107); Glucose 171 mg/dL (70-105); Magnesium 2.2 mg/dL (1.6-2.6); Osmolality,Calculated 296 (280-300); Phosphorous 3.3 mg/dL (2.7-4.5); Potassium 3.6 mEq/L (3.5-5.1); Sodium 138 mEq/L (136-145); eGFR For African Americans > 60 (> 60); eGFR For Non-African Americans > 60 (> 60)
[2018-01-15] MEDS: *HR* Enoxaparin 40 MG/0.4 ML SYRINGE SQ SCH (05:08)
[2018-01-15] MEDS: MethylPREDNISolone 40 MG/ML VIAL IVP SCH (05:08)
[2018-01-15 05:24] LABS: Basophils # 0.1 K/mcL (0.0-0.2); Basophils % 0.3 %; Eosinophils % 0.2 %; Hematocrit 26.2 % (37.5-50.1); Hemoglobin 9.4 g/dL (12.9-16.9); Immature Granulocytes % 6.1 % (0-4); Immature Platelets 4.9 % (1.1-6.1); Lymphocytes # 1.1 K/mcL (0.6-4.6); Lymphocytes % 5.7 %; Mean Corpuscular HGB Conc 35.9 g/dL (31.6-35.5); Mean Corpuscular Hemoglobin 34.3 pg (28.0-33.3); Mean Corpuscular Volume 95.6 fL (83.0-100.0); Mean Platelet Volume 10.5 fL (9.4-12.4); Monocytes # 1.7 K/mcL (0.0-1.3); Nucleated Red Blood Cells 0.8 /100 WBC (0); Platelet Count 231 K/mcL (140-400); Red Blood Count 2.74 M/mcL (4.19-5.50); Red Cell Distribution Width 14.1 % (11.5-14.5); Segmented Neutrophils % 78.7 %
[2018-01-15 05:29] LABS: Neutrophils # 14.6 K/mcL (1.6-8.9)
[2018-01-15 05:50] LABS: Hypersegmented Neutrophils Present (Not Present)
[2018-01-15 05:51] LABS: Platelet Estimate Normal (Normal); Polychromasia 1+ (Not Present)
[2018-01-15] MEDS: 0.9 % Sodium Chloride w KCl 20 MEQ/1,000 ML MLS IVC SCH ×2 (06:33→15:34)
[2018-01-15] MEDS: Fluticasone Propionate Nasal 50 MCG/SPRAY BOTTLE NS SCH (08:51)
[2018-01-15] MEDS: Aspirin 81 MG TAB.CHEW PO SCH (08:55)
[2018-01-15] MEDS: Insulin LISPRO 300 UNITS/3 ML VIAL SQ SCH (08:55)
[2018-01-15] MEDS: Budesonide/Formoterol 160/4.5 MDI IH SCH (11:08)
--- NOTE | 2018-01-15 14:58 | Discharge Summary ---
- NOTES TO OUTPATIENT PROVIDER Notes to Outpatient Provider: Follow up with PCP in 2-3 days after discharge. Recheck BMP and CBC at that time. Keep follow up with pulmonology as directed. Orders not resulted at time of discharge: Pending orders 01/15/18 04:00 Ionized Calcium,venous blood AM 0400 Date of Encounter: 01/15/18 Time of Encounter: 14:56 - Discharge Diagnosis (1) Metabolic alkalosis Priority: Primary Status: Resolved (2) Acute and chronic respiratory failure with hypoxia Priority: Secondary Status: Acute (3) Acute exacerbation of chronic obstructive airways disease Priority: Secondary Status: Acute (4) STEVAN (acute kidney injury) Priority: Secondary Status: Resolved (5) Hyponatremia Priority: Secondary Status: Resolved (6) Hypokalemia Priority: Secondary Status: Resolved (7) Diastolic CHF, chronic Priority: Secondary Status: Chronic (8) Tobacco abuse Priority: Secondary Status: Chronic (9) Chronic hypercapnic respiratory failure Priority: Secondary Status: Chronic (10) Hyperglycemia Priority: Secondary Status: Acute (11) DVT prophylaxis Priority: Secondary Status: Acute Hospital course: Mr. Paris is a 57 year old male admitted for metabolic acidosis and electrolyte abnormalities, in addition to acute on chronic respiratory failure likely secondary to acute exacerbation of COPD. Patient was admitted to step down unit with telemetry. He was placed on CPAP. Nebulizer treatments were ordered. He was started on IV steroids. Nephrology and pulmonology were consulted. He was placed on diamox by nephrology. His home lasix and metolazone was held; he was last taking lasix 80 mg BID in addition to metolazone 5 mg QD. He was hydrate and electrolytes repleted. Patient's status continued to slowly improve. On day of discharge, he was weaned down to his home 3L NC. He remained euvolemic during whole hospitalization despite holding all diuretics. I advised him on appropriate diuretic use and the need for monitoring labwork regularly. We will restart home lasix at 40 mg PO QD and continue to hold home metolazone until he follows up with PCP. He will follow up with PCP in 2-3 days after discharge. A repeat BMP and CBC can be obtained at that time. He had some hyperglycemia while on steroids. Blood glucose improved with start of steroid taper. Patient does not want to check blood glucose or take insulin at home because he does not think he is diabetic. Last blood glucose was 170s, so I think he will be fine as long as we taper the steroids. 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 Patient has met maximum benefit of this hospitalization and will be discharged home in stable condition. Discharge discussed with: patient, nurse, other (Pharmacist) - Time Spent with Patient Total time spent providing and/or coordinating discharge services: Greater than 30 minutes - Discharge Medications Prescriptions: Furosemide [Lasix] 40 mg PO DAILY 14 Days #14 tablet Potassium Chloride 40 meq PO DAILY 14 Days #28 tab.er.prt predniSONE [PredniSONE] See Taper PO DAILY 15 Days #54 tablet Home Medications: Albuterol Neb [Proventil Neb] 2.5 mg IH [id number] PRN inhsol 12/10/17 [Rx] Budesonide/Formoterol 160/4.5 [Symbicort 160/4.5] 2 puff IH BIDR #1 inhaler [Rx] Tiotropium [Spiriva] 18 mcg IH DAILYR #1 inh 12/10/17 [Rx] Acetaminophen [Tylenol] 650 mg PO Q6H PRN tablet 12/28/17 [Rx] Fluticasone Propionate Nasal [Flonase] 50 mcg NS DAILY #1 bottle 12/28/17 [Rx] Montelukast [Singulair] 10 mg PO HS tablet 12/28/17 [Rx] Omeprazole [PriLOSEC] 20 mg PO DAILY@0630 #30 capsule. 12/28/17 [Rx] Aspirin 81 mg PO DAILY 01/11/18 [History] Furosemide [Lasix] 40 mg PO DAILY 14 Days #14 tablet 01/15/18 [Rx] Potassium Chloride 40 meq PO DAILY 14 Days #28 tab.er.prt 01/15/18 [Rx] predniSONE [PredniSONE] See Taper PO DAILY 15 Days #54 tablet 01/15/18 [Rx] Allergies/Adverse Reactions: 3 Allergy/AdvReac Type Severity Reaction Status Date / Time No Known Allergies Allergy Verified 12/25/17 09:36 Date of admission: 01/11/18 11:44 Primary care physician: Edinson Benedict MD Consults: Nephrology Pulmonology 01/11/18 14:17 Consult to Invasive Line Access Team [CONS] Routine Reason for Consult: Picc Line Insertion Line Type: PICC 01/13/18 08:40 Consult to Diabetes Education [CONS] Stat Comment: Reason for Consult: Diabetic Diet Education 01/13/18 08:46 Consult to Respiratory Therapy [CONS] Routine Reason for Consult: COPD, CHF Call Completed: No Discharging clinician: David Borja Anticipated date of discharge: 01/15/18 - Constitutional Vitals: Temp Pulse Resp BP Pulse Ox 98.9 F 86 18 133/78 97 01/15/18 10:36 01/15/18 10:36 01/15/18 11:07 01/15/18 10:36 01/15/18 11:07 General appearance: Present: cooperative, A&O X 3, pleasant, no acute distress, obese, answers questions appropriately - Respiratory Respiratory exam: Absent: accessory muscle use, rales, rhonchi, wheezes Additional comments: Normal WOB, coarse breath sounds bilaterally - Cardiovascular Cardiovascular exam: Present: RRR, +S1, +S2. Absent: diastolic murmur, gallop, rubs, systolic murmur Additional comments: Trace BLE edema - GI/Abdominal GI/Abdominal exam: Present: normal bowel sounds, soft. Absent: distended, hepatomegaly, mass, splenomegaly, tenderness - Psychiatric Psychiatric exam: Present: normal affect, normal mood. Absent: agitated, anxious, depressed - Skin Skin exam: Present: dry, intact, warm. Absent: cyanosis, rash - Patient Status Disposition: Home, Self-Care Condition: Good Overall status at discharge: patient is progressing back to baseline - Discharge Instructions Instructions: How to Check Your Blood Sugar (DC), Diabetic Foot Care (DC), Diabetes Mellitus Type 2 in Adults (DC), Basic Carbohydrate Counting (DC), Meal Planning with the Plate Model (DC) Follow Up With: Edinson Benedict MD [Primary Care Provider] - (Per Annie at Dr. Benedict's office they will call the patient at home with follow up appointment) Additional Instructions: Follow up with PCP in 2-3 days after discharge. Recheck BMP and CBC at that time. Keep follow up with pulmonology as directed. - Diet and Activity Activity: resume usual activities as tolerated Diet: diabetic diet, low fat, low cholesterol, low salt diet, other (Cardiac Diet, 2L/day fluid restriction diet, 2 gram sodium/day diet)
[2018-01-15 15:13] VITALS: BP 131/83
== END 2018-01-15 16:30 | disposition home or self-care (01) | DRG 189 ==
LOC: EMEROO 08:10 → 2NNU 08:10
PROVIDERS: ADMIT Family Medicine; ATTEND Family Medicine

== ENCOUNTER 2018-03-14 14:44 | Inpatient (IN) ==
--- NOTE | 2018-03-14 14:56 | Emergency Department Note ---
Disposition Clinical Impression: Acute exacerbation of chronic obstructive airways disease, Elevated liver enzymes Fluid overload Qualifiers: Hypervolemia type: unspecified Qualified Code(s): E87.70 - Fluid overload, unspecified Disposition: Admitted As Inpatient Condition: Fair Time of Disposition: 19:00 General Adult HPI - General Chief complaint: ED Shortness of Breath/Dyspnea Stated complaint: SOB, ABD pain, Legs swelling Time Seen by Provider: 03/14/18 14:53 Nursing Notes Reviewed: Yes Vital Signs Reviewed: Yes - History of Present Illness HPI Narrative: 57-year-old male presents to the emergency department with concern for increasing shortness of breath on exertion, lower extremity swelling or last few days. Patient states that he does not have a history of congestive heart failure. However, he is currently taking Lasix. Patient states that when he ambulates, he began to get really short of breath. He is noted that this is progressing worse. Patient reports abdominal swelling, but no abdominal pain. Denies any nausea or vomiting. Denies any fevers. Pain Scale: 8 - Related Data Home Medications Medication Instructions Recorded Confirmed Furosemide [Lasix] 40 mg PO DAILY 02/05/18 03/14/18 Tiotropium [Spiriva] 18 mcg IH DAILY 02/08/18 03/14/18 Potassium Chloride [K-Tab ER] 80 meq PO DAILY 02/13/18 03/14/18 Fluticasone Propionate Nasal 1 spr NS DAILY 03/14/18 03/14/18 [Flonase] Spironolactone [Aldactone] 25 mg PO DAILY 03/14/18 03/14/18 Previous Rx's Medication Instructions Recorded Albuterol Neb [Proventil Neb] 2.5 mg IH [id number] PRN inhsol 12/10/17 Budesonide/Formoterol 160/4.5 2 puff IH BIDR #1 inhaler 12/10/17 [Symbicort 160/4.5] Acetaminophen [Tylenol] 650 mg PO Q6H PRN tablet 12/28/17 Montelukast [Singulair] 10 mg PO HS tablet 12/28/17 Allergies Allergy/AdvReac Type Severity Reaction Status Date / Time No Known Allergies Allergy Verified 02/08/18 10:30 All systems ED: reviewed and negative except as stated. Review of Systems: As Per HPI Constitutional: Denies: fever Cardiovascular: Denies: chest pain, palpitations Respiratory: Reports: dyspnea. Denies: cough, wheezes Gastrointestinal: Reports: other (Abdominal fullness). Denies: abdominal pain, nausea, vomiting Genitourinary: Denies: urgency, dysuria, frequency Musculoskeletal: Denies: back pain Past Medical History - Past Medical History Medical history: Reports: asthma, CHF, COPD, GERD Surgical history: Reports: no surgical history Psychiatric history: Reports: no psych history - Social History Smoking Status: Former smoker Smokeless Tobacco Status: No Alcohol use: Reports: none Drug use: Reports: none Physical Exam - General General appearance: alert - Head Head exam: normocephalic - Eye Eye exam: Present: EOMI - ENT ENT exam: mucous membranes moist - Neck Neck exam: Present: trachea midline - Chest Chest inspection: Present: symmetric chest wall rise - Respiratory Respiratory exam: Present: normal lung sounds bilaterally, other (Decreased air movement throughout) - Cardiovascular Cardiovascular exam: Present: regular rate, normal rhythm, normal heart sounds - Abdominal Exam Abdominal exam: Present: distention. Absent: guarding, rebound, rigidity - Extremities Exam Extremities exam: Present: other (Bilateral lower extremity edema with redness and erythema,) - Neurological Exam Neurological exam: Present: alert, oriented X3 - Psychiatric Psychiatric exam: Present: normal affect, normal mood - Skin Skin exam: Present: warm, dry, intact, normal color Course Vital Signs Temperature 97.7 F 03/14/18 14:48 Pulse Rate 99 03/14/18 14:48 Respiratory Rate 22 03/14/18 14:48 Blood Pressure 129/78 03/14/18 14:48 O2 Sat by Pulse Oximetry 93 03/14/18 14:48 Temperature 97.7 F 03/14/18 16:50 Pulse Rate 86 03/14/18 18:50 Respiratory Rate 16 03/14/18 19:53 Blood Pressure 114/95 03/14/18 19:53 O2 Sat by Pulse Oximetry 97 03/14/18 18:50 Oxygen Delivery Oxygen Delivery Nasal Cannula Medical Decision Making - [facility] Narrative Medical decision making narrative: 57-year-old male presents to the emergency department with concern for increasing dyspnea on exertion, increasing bilateral pitting edema, distended abdomen. Patient has recent echo performed a few months ago with normal left ventricular ejection fraction of 70%. He does have history of COPD though. Patient was given 40 mg of Lasix here in the emergency department. He was also given 3 DuoNeb's as patient was not aerating well on initial physical exam. EKG did not reveal any ischemic ST changes. Troponin was negative. BNP was within normal limits. Clinically, patient appeared very edematous. The of 40 mg of Lasix. Kidney function is normal. Patient AST and ALTs were doubled from a previous visit in September. Bilirubin mildly elevated as well. We obtained a CTA of the chest as well as CT of the abdomen and pelvis. There was concern for possibility of pulmonary embolus. CT scans did not reveal any acute pulmonary abnormality or any acute abdominopelvic abnormality as well. Patient has mild leukocytosis at 13.4. Hemoglobin is 11.9, but this is his normal. Potassium is 2.9. I have placed this with 40 mg of potassium. I have ordered a magnesium. This study is pending at time of admission. At this time, we will admit this patient for worsening symptoms of volume overload as well as COPD exacerbation. I spoke with the hospitalist on the phone. He was concerned about possibility of right heart failure. Patient does have risk factors for this as he has COPD as well as possibility of obstructive sleep apnea due to his body habitus. Patient admitted. Hemodynamically stable and not in any acute distress. Patient stated that the DuoNeb's did help with his breathing. He agrees with plan for admission. Chest X-Ray 03/14/18 14:55 IMPRESSION: 1. No acute abnormality. D/ / Maksim Hill MD / Maksim Hill MD Interpreting Provider: Maksim Hill MD Abdomen/Pelvis CT 03/14/18 17:00 IMPRESSION: 1. No evidence for acute pulmonary embolism. 2. No evidence for pneumonia. 3. Scattered calcified pulmonary nodules ranging from 5-12 mm. 4. No acute infective or inflammatory process in the abdomen or pelvis. 5. No bowel obstruction. 6. Hepatic steatosis. 7. Numerous bilateral renal cysts unchanged measuring up to 8 cm. D/ / Nando Fry MD / Nando Fry MD Interpreting Provider: Nando Fry MD Chest CTA 03/14/18 17:00 IMPRESSION: 1. No evidence for acute pulmonary embolism. 2. No evidence for pneumonia. 3. Scattered calcified pulmonary nodules ranging from 5-12 mm. 4. No acute infective or inflammatory process in the abdomen or pelvis. 5. No bowel obstruction. 6. Hepatic steatosis. 7. Numerous bilateral renal cysts unchanged measuring up to 8 cm. D/ / Nando Fry MD / Nando Fry MD Interpreting Provider: Nando Fry MD Vital Signs Temperature 97.7 F 03/14/18 14:48 Pulse Rate 99 03/14/18 14:48 Respiratory Rate 22 03/14/18 14:48 Blood Pressure 129/78 03/14/18 14:48 O2 Sat by Pulse Oximetry 93 03/14/18 14:48 Temperature 97.7 F 03/14/18 14:48 Pulse Rate 99 03/14/18 14:48 Respiratory Rate 18 03/14/18 15:41 Blood Pressure 129/78 03/14/18 14:48 O2 Sat by Pulse Oximetry 96 03/14/18 15:41 Oxygen Delivery Oxygen Delivery Nasal Cannula - Lab Data Result diagrams: 03/14/18 15:35 03/14/18 15:35 Lab Results 03/14/18 03/14/18 03/14/18 Range/Units 15:35 15:35 15:35 WBC 13.4 H (4.3-11.1) K/mcL RBC 3.54 L (4.19-5.50) M/mcL Hgb 11.9 L (12.9-16.9) g/dL Hct 32.7 L (37.5-50.1) % MCV 92.4 (83.0-100.0) fL MCH 33.6 H (28.0-33.3) pg MCHC 36.4 H (31.6-35.5) g/dL RDW 13.8 (11.5-14.5) % Plt Count 376 (140-400) K/mcL MPV 10.0 (9.4-12.4) fL Immature Gran % 0.5 (0-4) % Seg Neutrophils % 45.6 % Lymphocytes % 11.9 % Monocytes % 11.9 % Eosinophils % 29.0 % Basophils % 1.1 % Neutrophils # 6.1 (1.6-8.9) K/mcL Lymphocytes # 1.6 (0.6-4.6) K/mcL Monocytes # 1.6 H (0.0-1.3) K/mcL Eosinophils # 3.9 H (0.0-0.6) K/mcL Basophils # 0.2 (0.0-0.2) K/mcL PT 11.8 (9.4-12.1) Seconds INR 1.0 APTT 27.2 (26.0-36.0) Seconds D-Dimer 881 H (0-500) ng/mLFEU Sodium (136-145) mEq/L Potassium (3.5-5.1) mEq/L Chloride (98-107) mEq/L Carbon Dioxide (23-29) mEq/L BUN (6-20) mg/dL Creatinine (0.70-1.30) mg/dL Est GFR ( Amer) (> 60) Est GFR (Non-Af Amer) (> 60) BUN/Creatinine Ratio (6-26) Glucose (70-105) mg/dL Calculated Osmolality (280-300) Calcium (8.6-10.3) mg/dL Total Bilirubin (0.3-1.0) mg/dL Direct Bilirubin (0.0-0.2) mg/dL Indirect Bilirubin (0.0-1.2) mg/dL AST (13-39) Units/L ALT (7-52) Units/L Alkaline Phosphatase (34-104) Units/L Troponin I (< 0.04) ng/mL B-Natriuretic Peptide 40 (Less than 100) pg/mL Serum Total Protein (6.4-8.9) g/dL Albumin (3.5-5.7) g/dL Globulin (2.4-3.5) g/dL Albumin/Globulin Ratio (1.1-2.2) Lipase (11-82) Units/L 03/14/18 Range/Units 15:35 WBC (4.3-11.1) K/mcL RBC (4.19-5.50) M/mcL Hgb (12.9-16.9) g/dL Hct (37.5-50.1) % MCV (83.0-100.0) fL MCH (28.0-33.3) pg MCHC (31.6-35.5) g/dL RDW (11.5-14.5) % Plt Count (140-400) K/mcL MPV (9.4-12.4) fL Immature Gran % (0-4) % Seg Neutrophils % % Lymphocytes % % Monocytes % % Eosinophils % % Basophils % % Neutrophils # (1.6-8.9) K/mcL Lymphocytes # (0.6-4.6) K/mcL Monocytes # (0.0-1.3) K/mcL Eosinophils # (0.0-0.6) K/mcL Basophils # (0.0-0.2) K/mcL PT (9.4-12.1) Seconds INR APTT (26.0-36.0) Seconds D-Dimer (0-500) ng/mLFEU Sodium 136 (136-145) mEq/L Potassium 2.9 L (3.5-5.1) mEq/L Chloride 88 L (98-107) mEq/L Carbon Dioxide 39 H (23-29) mEq/L BUN 20 (6-20) mg/dL Creatinine 1.17 (0.70-1.30) mg/dL Est GFR ( Amer) > 60 (> 60) Est GFR (Non-Af Amer) > 60 (> 60) BUN/Creatinine Ratio 17 (6-26) Glucose 135 H (70-105) mg/dL Calculated Osmolality 287 (280-300) Calcium 9.3 (8.6-10.3) mg/dL Total Bilirubin 2.9 H (0.3-1.0) mg/dL Direct Bilirubin 0.5 H (0.0-0.2) mg/dL Indirect Bilirubin 2.4 H (0.0-1.2) mg/dL AST 53 H (13-39) Units/L ALT 93 H (7-52) Units/L Alkaline Phosphatase 100 (34-104) Units/L Troponin I < 0.03 (< 0.04) ng/mL B-Natriuretic Peptide (Less than 100) pg/mL Serum Total Protein 6.6 (6.4-8.9) g/dL Albumin 3.9 (3.5-5.7) g/dL Globulin 2.7 (2.4-3.5) g/dL Albumin/Globulin Ratio 1.4 (1.1-2.2) Lipase 19 (11-82) Units/L - EKG Data EKG #1 EKG attestation: Yes I reviewed and interpreted this EKG. EKG results narrative: 15:13 Ventricular rate 94 bpm, MT interval 176 ms, QRS duration 117 ms, QT 366 ms, QTC 418 ms, normal axis. Sinus rhythm with a ventricular rate of 94 bpm. No evidence of any ischemic ST changes. Attestation Statement - Attestation Attestation: Patient was seen with resident physician. I reviewed the history, physical, assessment and plan, and agree with the findings. I also personally evaluated this patient and had [id number] time with this patient. 57-year-old male presents emergency Department with chief complaint of shortness of breath. Patient states she has a history of COPD and body swelling , which is been resulting in hospitalization intermittently since August 08 of this year. Patient states he been placed on Lasix. He takes breathing treatments for COPD. He is on home O2 at the rate of 3 L per nasal cannula at a baseline. He says what prompted his visit today is worsening swelling of his lower extremities resulting in some seepage, and also and more importantly he feels that he is gotten more short of breath. He says he can barely walk anywhere without feeling short of breath. Denies fevers or chills no cough area no chest pain. Review of systems as above remainder negative. Physical exam vital signs were stable pulse ox was 94% on 3 L per nasal cannula. ENT is unremarkable. Heart regular rhythm and rate. Lungs poor air exchange slight increased work of breathing no respiratory distress. Slight wheezing as well. Abdomen soft obese nontender. Extremities considerable swelling in the lower extremities bilaterally it is symmetric these got 2-3+ pitting edema. Neurologically intact. Skin no obvious rashes. Psych normal. ED course we will do workup for shortness of breath COPD exacerbation CHF. We will treat for both fluid overload as well as for COPD. Likely disposition for this patient as admission secondary to his multiple comorbidities and initial presentation. Workup did not reveal significant abnormalities, responded somewhat to the breathing treatments and was given IV Lasix. However the patient just appears so fluid overloaded we felt that bringing amending getting him some fluid management and some additional evaluation to check for right- sided heart failure. We spoke with the hospitalist service agreed to accept the patient for admission additional workup. Hemodynamically he was stable in the emergency department. I agree with the resident physician assessment and plan
[2018-03-14] MEDS ORDERED: Furosemide 40 MG/4 ML VIAL IVP ONE (15:20)
[2018-03-14] MEDS ORDERED: methylPREDNISolone 125 MG/2 ML VIAL IVP ONE (15:20)
[2018-03-14] MEDS ORDERED: Ipratropium/Albuterol Neb 3 ML IH ONE (15:21)
[2018-03-14 15:50] LABS: Basophils # 0.2 K/mcL (0.0-0.2); Basophils % 1.1 %; Eosinophils # 3.9 K/mcL (0.0-0.6); Hematocrit 32.7 % (37.5-50.1); Hemoglobin 11.9 g/dL (12.9-16.9); Immature Granulocytes % 0.5 % (0-4); Lymphocytes # 1.6 K/mcL (0.6-4.6); Lymphocytes % 11.9 %; Mean Corpuscular HGB Conc 36.4 g/dL (31.6-35.5); Mean Corpuscular Hemoglobin 33.6 pg (28.0-33.3); Mean Corpuscular Volume 92.4 fL (83.0-100.0); Monocytes # 1.6 K/mcL (0.0-1.3); Monocytes % 11.9 %; Neutrophils # 6.1 K/mcL (1.6-8.9); Platelet Count 376 K/mcL (140-400); Red Blood Count 3.54 M/mcL (4.19-5.50); Red Cell Distribution Width 13.8 % (11.5-14.5); Segmented Neutrophils % 45.6 %
[2018-03-14 15:55] LABS: Prothrombin Time 11.8 Seconds (9.4-12.1)
[2018-03-14 15:58] LABS: Activated Partial Thrombo Time 27.2 Seconds (26.0-36.0)
[2018-03-14 16:12] LABS: Alanine Aminotransferase 93 Units/L (7-52); Albumin 3.9 g/dL (3.5-5.7); Albumin/Globulin Ratio 1.4 (1.1-2.2); Alkaline Phosphatase 100 Units/L (34-104); Aspartate Amino Transferase 53 Units/L (13-39); BUN/Creatinine Ratio 17 (6-26); Bilirubin,Direct 0.5 mg/dL (0.0-0.2); Bilirubin,Indirect 2.4 mg/dL (0.0-1.2); Bilirubin,Total 2.9 mg/dL (0.3-1.0); Blood Urea Nitrogen 20 mg/dL (6-20); Calcium 9.3 mg/dL (8.6-10.3); Carbon Dioxide 39 mEq/L (23-29); Chloride 88 mEq/L (98-107); Globulin 2.7 g/dL (2.4-3.5); Glucose 135 mg/dL (70-105); Lipase 19 Units/L (11-82); Osmolality,Calculated 287 (280-300); Potassium 2.9 mEq/L (3.5-5.1); Sodium 136 mEq/L (136-145); Total Protein 6.6 g/dL (6.4-8.9); Troponin I < 0.03 ng/mL (< 0.04); eGFR For Non-African Americans > 60 (> 60)
[2018-03-14] MEDS ORDERED: Isovue-370 500 ML INFUS..BTL IV ONE (17:00)
[2018-03-14] MEDS ORDERED: Acetaminophen 325 MG TABLET PO PRN (20:03)
[2018-03-14] MEDS ORDERED: Potassium Chloride Elixir 20 MEQ/15 ML UDC PO ONE (22:00)
[2018-03-14] MEDS ORDERED: Bumetanide 1 MG/4 ML VIAL IVP ONE (22:00)
--- NOTE | 2018-03-14 22:07 | Internal Med History&Physical ---
Date of Encounter: 03/14/18 Time of Encounter: 22:03 Internal Medicine - H&P: HPI Chief complaint: shortness of breath Admitted From: Home Plans for Post Hospital Care: Home History of present illness: Mr. Paris is a 57 year old male with a history of 2-3 pack a day smoking history over 40 years who quit in July 2017, COPD currently going to pulmonary rehabilitation on 3 L home oxygen per nasal cannula at baseline who presents to the emergency room with the complaint of increasing shortness of breath. He states that over the last 5 days he has noticed decreased exercise tolerance unable to walk to the bathroom and back without a decline in his oxygen saturation which he checks at home. He has equally noticed increasing swelling of his lower extremities bilaterally with seepage of fluid from his skin. Physical by abdominal distention as well. He denies chest pain, fever, chills, nausea and vomiting however he does state that he has had a bothersome cough occasionally productive of clear sputum. He was previously placed on diuretics and potassium supplementation for his edema however it has not been responding adequately. He denies ever being diagnosed with heart failure. He admits to having smoked about 3 cigarettes since July when he supposedly quit. In the ER he received high-dose steroids, nebulizer therapy and one dose of furosemide. Past Med Surg Social Fam HX - Past Medical History Medical history: asthma, CHF, COPD, GERD Additional medical history: Possible COPD Psychiatric history: no psych history - Past Surgical History Surgical History: no surgical history - Social History Smoking Status: Former smoker Smokeless Tobacco Status: No Alcohol use: none Drug use: none - Family History Father Living Status: Still Living Hx Family Cardiac Disorders: Yes (CABG pacer) Mother Adopted: No Family Member Ethnicity: Non- Living Status: Hx Family Cardiac Disorders: Yes Hx Family Respiratory Disorders: Yes Hx Family Cancer: No Hx Family GI Disorders: Yes Hx Family Endocrine Disorder: Yes Hx Family Neuromuscular Disorders: No Hx Family Neurologic Disorders: No Hx Family HEENT Disorders: No Hx Family Autoimmune Disorders: No Internal Medicine - H&P: Meds Albuterol Neb [Proventil Neb] 2.5 mg IH [id number] PRN inhsol 12/10/17 [Rx] Budesonide/Formoterol 160/4.5 [Symbicort 160/4.5] 2 puff IH BIDR #1 inhaler [Rx] Acetaminophen [Tylenol] 650 mg PO Q6H PRN tablet 12/28/17 [Rx] Montelukast [Singulair] 10 mg PO HS tablet 12/28/17 [Rx] Furosemide [Lasix] 40 mg PO DAILY 02/05/18 [History] Tiotropium [Spiriva] 18 mcg IH DAILY 02/08/18 [History] Potassium Chloride [K-Tab ER] 80 meq PO DAILY 02/13/18 [History] Fluticasone Propionate Nasal [Flonase] 1 spr NS DAILY 03/14/18 [History] Spironolactone [Aldactone] 25 mg PO DAILY 03/14/18 [History] 3 Allergy/AdvReac Type Severity Reaction Status Date / Time No Known Allergies Allergy Verified 02/08/18 10:30 All Systems PM: A 10-system review of systems was performed and is negative for pertinent findings except as documented above in the HPI. - Constitutional Vitals: Temp Pulse Resp BP Pulse Ox 97.6 F 56 16 119/69 98 03/14/18 20:25 03/14/18 20:25 03/14/18 20:25 03/14/18 20:25 03/14/18 20:25 Exam: Vitals: Reviewed and seen to be within normal limits General: Obese male sitting comfortably in bed Skin: Warm and supple HEENT: Moist mucous membranes. No conjunctivae pallor. Neck: Short and thick. No lymphadenopathy. Chest: Diminished breath sounds globally. No wheezing, rales or rhonchi. Heart: Normal S1 & S2; rhythmic. Abdomen: Obese and distended with no tenderness on palpation. Extremities: 3+ pitting edema in both legs with suppuration of clear fluid noted from his skin. Neurological: Awake, alert and oriented to person, place and time. No focal deficits. Psych: Appropriate affect. Internal Med - H&P Results - Labs CBC & Chem 7: 03/14/18 15:35 03/14/18 15:35 - Assessment and plan (1) Acute exacerbation of chronic obstructive airways disease Current Visit: Yes Status: Acute Assessment and plan: The patient's oxygen saturation was dropping into the 80s even while on his baseline 3 L of oxygen. He has been having increasing cough productive of clear phlegm concerning for COPD exacerbation as the cause. He received high dose of steroids and nebulizer therapy which brought on relief. Symptoms also compounded by the presence of fluid overload and his underlying obstructive sleep apnea. -We will place on standing albuterol every 4-6 hours over the next 24 hours. -We will not continue high-dose systemic steroids as he has already received a high intravenous loading dose which should continue to work in his system and so as not to complicate his fluid retention state. -We will continue inhaled ICS/LABA combination and long acting anticholinergic. -Short course of azithromycin. (2) Fluid overload Current Visit: Yes Status: Acute Assessment and plan: The patient has significant pitting edema bilaterally which is extending upwards and not responsive to oral furosemide. I am concerned that he may have diastolic right heart failure (cor pulmonale) resulting from his COPD taking a note of his systolic EF of 70% from 6 months ago. -Will consider obtaining a repeat echo for assessment. -IV bumetanide loading dose of 2mg now then 1mg BID. -Continue oral spironolactone and monitor potassium. Qualifiers: Hypervolemia type: unspecified Qualified Code(s): E87.70 - Fluid overload, unspecified (3) Acute and chronic respiratory failure with hypoxia Current Visit: No Status: Acute Assessment and plan: Likely secondary to COPD exacerbation and heart failure given his symptoms of worsening exercise tolerance to mild to moderation exertion. -Management as indicated above. (4) Elevated liver enzymes Current Visit: Yes Status: Acute Assessment and plan: The elevation in LFTs in the presence of his fluid overload state and concern for cor pulmonale is suggestive of right heart strain causing congestive hepatopathy. He may also have hepatosteatosis. -Will obtain a hepatitis profile and liver ultrasound. (5) Elevated d-dimer Current Visit: No Status: Acute Assessment and plan: PE negative on chest CT. Only mildly elevated likely due to the stress from his current acute issues. -Will order duplex of his lower extremities given the swelling to ensure it is not compounded by venous clots as he does have risks factors for VTE. (6) ERNESTINA (obstructive sleep apnea) Current Visit: No Status: Chronic Assessment and plan: Will place on CPAP qhs prn. (7) Tobacco abuse Current Visit: No Status: Chronic Assessment and plan: Continued counseling given to ensure he does not resume smoking not just for his health but also risk of combustion as he is on tank oxygen. (8) Obesity (BMI 30-39.9) Current Visit: Yes Status: Chronic Assessment and plan: Should be a candidate for bariatric surgery given his BMI and comorbidities but unlikely able to tolerate surgery. -Educated on therapeutic dietary changes and lifestyle approaches for weight loss. (9) DVT prophylaxis Current Visit: No Status: Acute Assessment and plan: SubQ heparin ordered. - Time Spent With Patient Total time spent is greater than 50% in coordination of care (as documented) at patient's floor/unit and/or counseling patient: Greater than 35 minutes
[2018-03-14] MEDS: Budesonide/Formoterol 160/4.5 MDI IH SCH (23:19)
[2018-03-14] MEDS: Albuterol 2.5 MG/3 ML NEBULIZER IH SCH (23:24)
[2018-03-15] MEDS: Albuterol 2.5 MG/3 ML NEBULIZER IH SCH ×4 (04:23→22:21)
[2018-03-15] MEDS: *HR* Heparin 5,000 UNIT/ML VIAL SQ SCH ×3 (06:14→21:17)
[2018-03-15 07:11] LABS: Basophils % 0.3 %; Eosinophils % 0.1 %; Hematocrit 28.8 % (37.5-50.1); Lymphocytes # 0.6 K/mcL (0.6-4.6); Lymphocytes % 5.6 %; Mean Corpuscular HGB Conc 35.8 g/dL (31.6-35.5); Mean Corpuscular Hemoglobin 33.6 pg (28.0-33.3); Mean Corpuscular Volume 93.8 fL (83.0-100.0); Mean Platelet Volume 10.3 fL (9.4-12.4); Monocytes # 0.9 K/mcL (0.0-1.3); Monocytes % 8.8 %; Neutrophils # 8.9 K/mcL (1.6-8.9); Platelet Count 380 K/mcL (140-400); Red Blood Count 3.07 M/mcL (4.19-5.50); Red Cell Distribution Width 13.8 % (11.5-14.5); Segmented Neutrophils % 84.2 %
[2018-03-15 07:25] LABS: Hemoglobin 10.3 g/dL (12.9-16.9)
[2018-03-15 07:26] LABS: Alanine Aminotransferase 78 Units/L (7-52); Albumin 3.8 g/dL (3.5-5.7); Albumin/Globulin Ratio 1.4 (1.1-2.2); Alkaline Phosphatase 91 Units/L (34-104); Aspartate Amino Transferase 34 Units/L (13-39); BUN/Creatinine Ratio 15 (6-26); Bilirubin,Total 2.2 mg/dL (0.3-1.0); Blood Urea Nitrogen 18 mg/dL (6-20); Calcium 9.3 mg/dL (8.6-10.3); Carbon Dioxide 37 mEq/L (23-29); Chloride 90 mEq/L (98-107); Chol/HDL Ratio 3.6 (0-4.9); Cholesterol 142 mg/dL (< 200); Globulin 2.7 g/dL (2.4-3.5); Glucose 322 mg/dL (70-105); HDL Cholesterol 39 mg/dL (40-59); LDL Cholesterol,Calculated 87 mg/dL (0-99); Osmolality,Calculated 294 (280-300); Sodium 135 mEq/L (136-145); Total Protein 6.5 g/dL (6.4-8.9); Triglycerides 79 mg/dL (< 150); eGFR For Non-African Americans > 60 (> 60)
[2018-03-15 07:49] LABS: Estimated Average Glucose 100 mg/dl; Hemoglobin A1C 5.1 %
[2018-03-15] MEDS ORDERED: Potassium Chloride 40 MEQ, Lidocaine 1% 2 ML in D5% in Water 500 ML IVPB ONE (08:13)
[2018-03-15] MEDS ORDERED: LIDOCAINE 1% IVPB ONE (08:19)
[2018-03-15] MEDS ORDERED: D5 IVPB ONE (08:19)
[2018-03-15] MEDS ORDERED: POTASSIUM CHLORIDE IVPB ONE (08:19)
[2018-03-15] MEDS ORDERED: WATER IVPB ONE (08:19)
[2018-03-15] MEDS ORDERED: Potassium Chloride 20 MEQ, Lidocaine 1% 2 ML in D5% in Water 250 ML IVPB ONE (08:21)
[2018-03-15 08:35] LABS: Magnesium 2.1 mg/dL (1.6-2.6)
[2018-03-15 08:39] LABS: Hepatitis B Surface Antigen Nonreactive (Nonreactive)
[2018-03-15] MEDS: Spironolactone 25 MG TABLET PO SCH (10:20)
[2018-03-15] MEDS: Azithromycin 250 MG TABLET PO SCH (10:20)
[2018-03-15] MEDS: Tiotropium 18 MCG inhalation IH SCH (10:38)
[2018-03-15] MEDS: Budesonide/Formoterol 160/4.5 MDI IH SCH ×2 (10:38→22:21)
[2018-03-15] MEDS: Bumetanide 1 MG/4 ML VIAL IVP SCH ×2 (12:32→17:39)
[2018-03-15] MEDS: Fluticasone Propionate Nasal 50 MCG/SPRAY BOTTLE NS SCH (14:39)
--- NOTE | 2018-03-15 19:19 | Internal Med Progress Note ---
Hospitalist Progress Note - Encounter Date of Encounter: 03/15/18 Time of Encounter: 12:00 - Subjective Interval History: Patient seen and examined at bedside. Currently denies any chest pain however does express experiencing shortness of breath on exertion. - Exam Vitals: Temp Pulse Resp BP Pulse Ox 98.6 F 90 16 116/64 96 03/15/18 18:19 03/15/18 18:19 03/15/18 18:19 03/15/18 18:19 03/15/18 18:19 Exam: Skin: Free of rash and discoloration. Eyes: Sclera is white. There is no discharge from eyes. ENMT: Oral/pharyngeal mucosa is normal in appearance. There is no discharge from nose or ears. Respiratory: Faint scattered wheezes CV: Heart is regular with no gallop or murmur. 2+ pitting edema to lower extremities bilaterally GI: Abdomen is flat and soft with no palpable mass or visceromegaly. : There is no tenderness in patient's flanks bilaterally. Neuro exam: He has good strength in upper and lower extremities. He has normal eye movements. Examination of his gait is deferrered alert and oriented 3 Psychiatric: He has normal affect. His thought process is appropriate to the situation. - Assessment and Plan (1) Acute exacerbation of chronic obstructive airways disease Current Visit: Yes Status: Acute Assessment and Plan: 1 up on presentation patient had hypoxia sats in the 80s despite baseline oxygen use 3 L nasal cannula also had a cough. He was given high-dose steroids in the ER Some faint scattered wheezes noted at this time continue with bronchodilators No more steroids were given after receiving high IV loading dose of steroids-in order to not complicate further fluid retention azithromycin (2) Elevated liver enzymes Current Visit: Yes Status: Acute Assessment and Plan: Most likely from fluid overload and hepatic congestion will monitor liver panel Liver ultrasound (3) Fluid overload Current Visit: Yes Status: Acute Assessment and Plan: 1 Has been on diuretics per PCP and had recent adjustments. Patient is not complaint to fluid restrictions or low sodium diet. we will obtain echo fluid restriction 1500ml provide education on low sodium diet cont with lasix spironolactone bumex monitor I/O monitor electrolytes and creatinine (4) Obesity (BMI 30-39.9) Current Visit: Yes Status: Chronic Assessment and Plan: discussed weight loss and lifestyle changes (5) Acute and chronic respiratory failure with hypoxia Current Visit: No Status: Acute Assessment and Plan: secondary to fluid overload and COPD excerbation Cont with O2 and titrate to home level (6) Elevated d-dimer Current Visit: No Status: Acute Assessment and Plan: CTA negative for PE (7) ERNESTINA (obstructive sleep apnea) Current Visit: No Status: Chronic Assessment and Plan: cont with CPAP - Time Spent with Patient Total time spent is greater than 50% in coordination of care (as documented) at patient's floor/unit and/or counseling patient: Internal Medicine: Result - Labs CBC & Chem 7: 03/15/18 06:39 03/15/18 06:39 Labs: Short CBC 03/15/18 Range/Units 06:39 WBC 10.5 (4.3-11.1) K/mcL Hgb 10.3 L D (12.9-16.9) g/dL Hct 28.8 L (37.5-50.1) % Plt Count 380 (140-400) K/mcL Neutrophils # 8.9 (1.6-8.9) K/mcL BMP 03/15/18 06:39 Sodium 135 L Potassium 3.0 L Chloride 90 L Carbon Dioxide 37 H BUN 18 Creatinine 1.23 Glucose 322 H Calcium 9.3 Liver Function 03/15/18 Range/Units 06:39 Total Bilirubin 2.2 H (0.3-1.0) mg/dL AST 34 (13-39) Units/L ALT 78 H (7-52) Units/L Alkaline Phosphatase 91 (34-104) Units/L Albumin 3.8 (3.5-5.7) g/dL - ABG Interpretation ABG results: PT/INR, D-dimer PT 11.8 Seconds (9.4-12.1) 03/14/18 15:35 D-Dimer 881 ng/mLFEU (0-500) H 03/14/18 15:35 - Impressions Impressions Liver Ultrasound 03/15/18 00:00 IMPRESSION: 1. Hepatomegaly with steatosis. 2. Cholelithiasis without evidence of acute cholecystitis. 3. 9 cm complicated right renal cyst. D/ / Brcye Guerrero MD / Bryce Guerrero MD Interpreting Provider: Bryce Guerrero MD Echocardiogram 03/15/18 22:25 Impressions: LVEF 60%. Mild left ventricular diastolic dysfunction. Normal right ventricular structure and function. No significant valvular dysfunction. No pulmonary hypertension - TR signal not well obtained. Mild elevation of RA pressure. Left Ventricular Wall Motion: Rest Echo Findings The mid inferior lateral and basal inferior lateral silveira were not visualized. All other wall segments showed normal motion. Findings: Study Quality * Technically adequate exam. ECG Findings * Normal sinus rhythm. Left Ventricle * LVEF 60%. * Mild left ventricular diastolic dysfunction. * Normal LV chamber size and wall thickness. Right Ventricle * Normal right ventricular structure and function. Left Atrium * Normal left atrial size. Right Atrium * Normal right atrial size. Mitral Valve * Normal mitral valve structure. * No mitral stenosis. * No mitral regurgitation. Aortic Valve * No aortic regurgitation. * Aortic valve not well visualized. * No aortic stenosis. Tricuspid Valve * Tricuspid valve not well visualized. * No tricuspid regurgitation. * Estimated RA pressure is 8 mmHg. Pulmonic Valve * Pulmonic valve is not well visualized. * No pulmonic stenosis. * No pulmonic regurgitation. Pulmonary Artery * Pulmonary artery not well visualized. Interatrial Septum * No evidence of PFO by color Doppler. Aorta * Normally sized aortic root. Pericardium * There is no pericardial effusion present. IVC * The IVC is not dilated. * < 50% respiratory change. Consult Discharge Plan - Plan Referrals: Edinson Benedict MD [Primary Care Provider] - (3) Fluid overload Qualifiers: Hypervolemia type: unspecified Qualified Code(s): E87.70 - Fluid overload, unspecified
[2018-03-16 02:15] LABS: Hepatitis A Antibody IgM Nonreactive (Nonreactive); Hepatitis B Core IgM Nonreactive (Nonreactive); Hepatitis C Virus Antibody Nonreactive (Nonreactive)
--- NOTE | 2018-03-16 02:16 | Electrocardiograph Report ---
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
[2018-03-16] MEDS: Albuterol 2.5 MG/3 ML NEBULIZER IH SCH ×4 (04:09→22:07)
[2018-03-16] MEDS: *HR* Heparin 5,000 UNIT/ML VIAL SQ SCH ×3 (05:33→22:29)
[2018-03-16 05:34] LABS: BUN/Creatinine Ratio 17 (6-26); Blood Urea Nitrogen 19 mg/dL (6-20); Calcium 8.9 mg/dL (8.6-10.3); Carbon Dioxide 40 mEq/L (23-29); Chloride 92 mEq/L (98-107); Glucose 170 mg/dL (70-105); Osmolality,Calculated 296 (280-300); Potassium 3.5 mEq/L (3.5-5.1); Sodium 140 mEq/L (136-145); eGFR For Non-African Americans > 60 (> 60)
[2018-03-16 06:27] LABS: Basophils # 0.1 K/mcL (0.0-0.2); Basophils % 1.1 %; Eosinophils % 8.6 %; Immature Granulocytes % 0.4 % (0-4); Immature Platelets 5.2 % (1.1-6.1); Lymphocytes # 1.4 K/mcL (0.6-4.6); Lymphocytes % 12.9 %; Mean Corpuscular HGB Conc 33.3 g/dL (31.6-35.5); Mean Corpuscular Hemoglobin 32.2 pg (28.0-33.3); Mean Platelet Volume 10.4 fL (9.4-12.4); Monocytes # 1.2 K/mcL (0.0-1.3); Monocytes % 11.1 %; Neutrophils # 7.3 K/mcL (1.6-8.9); Platelet Count 332 K/mcL (140-400); Red Blood Count 3.42 M/mcL (4.19-5.50); Red Cell Distribution Width 14.6 % (11.5-14.5); Segmented Neutrophils % 65.9 %
[2018-03-16 06:28] LABS: Mean Corpuscular Volume 96.5 fL (83.0-100.0)
[2018-03-16] MEDS: Fluticasone Propionate Nasal 50 MCG/SPRAY BOTTLE NS SCH (08:37)
[2018-03-16] MEDS: Spironolactone 25 MG TABLET PO SCH (08:38)
[2018-03-16] MEDS: Bumetanide 1 MG/4 ML VIAL IVP SCH ×2 (08:38→16:41)
[2018-03-16] MEDS: Azithromycin 250 MG TABLET PO SCH (08:38)
[2018-03-16] MEDS: Budesonide/Formoterol 160/4.5 MDI IH SCH ×2 (11:01→22:07)
[2018-03-16] MEDS: Tiotropium 18 MCG inhalation IH SCH (11:04)
--- NOTE | 2018-03-16 16:47 | Internal Med Progress Note ---
Hospitalist Progress Note - Encounter Date of Encounter: 03/16/18 Time of Encounter: 11:00 - Subjective Interval History: Patient seen and examined at bedside. Currently denies any chest pain, past medical history of 2-3 pack a day smoker over the past 40 years recently quit in July COPD currently going to pulmonary rehabilitation on 3 L of oxygen nasal cannula CHF GERD. Past 5 days he has had decreased exercise tolerance unable to walk to the bathroom drop in oxygen saturation as well as lower extremity swelling bilaterally abdominal distention.He did have elevated liver enzymes- Liver ultrasound obtained Hepatomegaly with steatosis cholethiasisis without evidence of acute cholecystitis, Echo obtained with EF 60% Mild left ventricular diastolic dysfunction. Normal right ventricular structure and function. No significant valvular dysfunction. No pulmonary hypertension - TR signal not well obtained. Mild elevation of RA pressure. Normal bila extremity doppler Continue with diuretics dietary consult for CHF education monitor intake and out Daily weights monitor Hepatic panel - which is decreasing - Exam Vitals: Temp Pulse Resp BP Pulse Ox 97.8 F 83 16 128/68 99 03/16/18 15:44 03/16/18 15:44 03/16/18 15:44 03/16/18 15:44 03/16/18 15:44 Exam: Skin: Free of rash and discoloration. Eyes: Sclera is white. There is no discharge from eyes. ENMT: Oral/pharyngeal mucosa is normal in appearance. There is no discharge from nose or ears. Respiratory: Normal breath sounds with no crackles and wheezes bilaterally. CV: Heart is regular with no gallop or murmur.-Lower extremity edema bilaterally +1 pitting GI: Abdomen is flat and soft with no palpable mass or visceromegaly. : There is no tenderness in patient's flanks bilaterally. Neuro exam: He has good strength in upper and lower extremities. He has normal eye movements. Psychiatric: He has normal affect. His thought process is appropriate to the situation. - Assessment and Plan (1) Acute exacerbation of chronic obstructive airways disease Current Visit: Yes Status: Acute Assessment and Plan: 1 up on presentation patient had hypoxia sats in the 80s despite baseline oxygen use 3 L nasal cannula also had a cough. He was given high-dose steroids in the ER No wheezes noted at this time continue with bronchodilators No more steroids were given after receiving high IV loading dose of steroids-in order to not complicate further fluid retention azithromycin (2) Elevated liver enzymes Current Visit: Yes Status: Acute Assessment and Plan: Most likely from fluid overload and hepatic congestion will monitor liver panel -in am Liver ultrasound- 1. Hepatomegaly with steatosis. 2. Cholelithiasis without evidence of acute cholecystitis. 3. 9 cm complicated right renal cyst. (3) Fluid overload Current Visit: Yes Status: Acute Assessment and Plan: 1 Has been on diuretics per PCP and had recent adjustments. Patient is not complaint to fluid restrictions or low sodium diet. we will obtain echo LVEF 60%. Mild left ventricular diastolic dysfunction. Normal right ventricular structure and function. No significant valvular dysfunction. No pulmonary hypertension - TR signal not well obtained. Mild elevation of RA pressure. fluid restriction 1500ml provide education on low sodium diet -per diabetes cont with lasix spironolactone bumex monitor I/O weight is down edema improving monitor electrolytes and creatinine (4) Obesity (BMI 30-39.9) Current Visit: Yes Status: Chronic Assessment and Plan: discussed weight loss and lifestyle changes Dietitian consulted (5) Acute and chronic respiratory failure with hypoxia Current Visit: No Status: Acute Assessment and Plan: secondary to fluid overload and COPD excerbation Cont with O2 and titrate to home level (6) Elevated d-dimer Current Visit: No Status: Acute Assessment and Plan: CTA negative for PE Lower extremities negative for DVTs (7) ERNESTINA (obstructive sleep apnea) Current Visit: No Status: Chronic Assessment and Plan: cont with CPAP - Time Spent with Patient Total time spent is greater than 50% in coordination of care (as documented) at patient's floor/unit and/or counseling patient: Internal Medicine: Result - Labs CBC & Chem 7: 03/16/18 04:05 03/16/18 04:05 Labs: Short CBC 03/16/18 Range/Units 04:05 WBC 11.0 (4.3-11.1) K/mcL Hgb 11.0 L (12.9-16.9) g/dL Hct 33.0 L (37.5-50.1) % Plt Count 332 (140-400) K/mcL Neutrophils # 7.3 (1.6-8.9) K/mcL BMP 03/16/18 04:05 Sodium 140 Potassium 3.5 Chloride 92 L Carbon Dioxide 40 H* BUN 19 Creatinine 1.10 Glucose 170 H Calcium 8.9 - ABG Interpretation ABG results: PT/INR, D-dimer PT 11.8 Seconds (9.4-12.1) 03/14/18 15:35 D-Dimer 881 ng/mLFEU (0-500) H 03/14/18 15:35 Consult Discharge Plan - Plan Referrals: Edinson Benedict MD [Primary Care Provider] - (3) Fluid overload Qualifiers: Hypervolemia type: unspecified Qualified Code(s): E87.70 - Fluid overload, unspecified
[2018-03-17] MEDS: Albuterol 2.5 MG/3 ML NEBULIZER IH SCH ×4 (04:08→21:41)
[2018-03-17] MEDS: *HR* Heparin 5,000 UNIT/ML VIAL SQ SCH ×3 (05:45→21:20)
[2018-03-17 05:54] LABS: Alanine Aminotransferase 67 Units/L (7-52); Albumin 3.6 g/dL (3.5-5.7); Albumin/Globulin Ratio 1.5 (1.1-2.2); Alkaline Phosphatase 90 Units/L (34-104); Aspartate Amino Transferase 32 Units/L (13-39); BUN/Creatinine Ratio 19 (6-26); Bilirubin,Direct 0.2 mg/dL (0.0-0.2); Bilirubin,Indirect 1.5 mg/dL (0.0-1.2); Bilirubin,Total 1.7 mg/dL (0.3-1.0); Blood Urea Nitrogen 19 mg/dL (6-20); Calcium 8.4 mg/dL (8.6-10.3); Carbon Dioxide 38 mEq/L (23-29); Chloride 93 mEq/L (98-107); Globulin 2.4 g/dL (2.4-3.5); Glucose 151 mg/dL (70-105); Osmolality,Calculated 291 (280-300); Potassium 3.9 mEq/L (3.5-5.1); Sodium 138 mEq/L (136-145); eGFR For Non-African Americans > 60 (> 60)
[2018-03-17 06:55] LABS: Basophils # 0.1 K/mcL (0.0-0.2); Basophils % 1.3 %; Eosinophils # 1.7 K/mcL (0.0-0.6); Eosinophils % 19.2 %; Hematocrit 31.8 % (37.5-50.1); Hemoglobin 10.8 g/dL (12.9-16.9); Immature Granulocytes % 0.7 % (0-4); Lymphocytes # 1.5 K/mcL (0.6-4.6); Lymphocytes % 17.2 %; Mean Corpuscular Hemoglobin 32.7 pg (28.0-33.3); Mean Corpuscular Volume 96.4 fL (83.0-100.0); Mean Platelet Volume 10.4 fL (9.4-12.4); Monocytes # 1.2 K/mcL (0.0-1.3); Monocytes % 13.5 %; Neutrophils # 4.2 K/mcL (1.6-8.9); Platelet Count 339 K/mcL (140-400); Red Cell Distribution Width 14.5 % (11.5-14.5); Segmented Neutrophils % 48.1 %
[2018-03-17] MEDS: Fluticasone Propionate Nasal 50 MCG/SPRAY BOTTLE NS SCH (10:36)
[2018-03-17] MEDS: Spironolactone 25 MG TABLET PO SCH ×2 (10:37→13:38)
[2018-03-17] MEDS: Azithromycin 250 MG TABLET PO SCH (10:37)
[2018-03-17] MEDS: Bumetanide 1 MG/4 ML VIAL IVP SCH ×3 (10:37→17:13)
[2018-03-17] MEDS: Tiotropium 18 MCG inhalation IH SCH (10:53)
[2018-03-17] MEDS: Budesonide/Formoterol 160/4.5 MDI IH SCH ×2 (10:55→21:42)
--- NOTE | 2018-03-17 13:48 | Internal Med Progress Note ---
Hospitalist Progress Note - Encounter Date of Encounter: 03/17/18 Time of Encounter: 13:46 - Subjective Interval History: Seen and examined at bedside. Patient is new to me, information obtained from chart review and patient report. Still has some shortness of breath but overall significantly improved. He feels swelling in lower extremities is significantly improved as well. No chest pain. - Exam Vitals: Temp Pulse Resp BP Pulse Ox 97.5 F L 79 20 115/67 96 03/17/18 11:32 03/17/18 11:32 03/17/18 11:32 03/17/18 11:32 03/17/18 11:32 Exam: Skin: Free of rash and discoloration. Eyes: Sclera is white. There is no discharge from eyes. ENMT: Oral/pharyngeal mucosa is normal in appearance. There is no discharge from nose or ears. Respiratory: Normal breath sounds with no crackles and wheezes bilaterally. CV: Heart is regular with no gallop or murmur.-Lower extremity edema bilaterally +1 pitting GI: Abdomen is flat and soft with no palpable mass or visceromegaly. : There is no tenderness in patient's flanks bilaterally. Neuro exam: He has good strength in upper and lower extremities. He has normal eye movements. Psychiatric: He has normal affect. His thought process is appropriate to the situation. - Assessment and Plan (1) Acute on chronic diastolic (congestive) heart failure Current Visit: Yes Status: Acute Assessment and Plan: TTE with EF 60%, mild diastolic dysfunction. Symptomatically with SOB and lower extreme edema. Home Lasix held on admission. His diuresing well with IV Bumex; down 26 pounds as of 03/17 exam. Still with lower extremity edema. Continue IV diuresis for now. (2) Acute exacerbation of chronic obstructive airways disease Current Visit: Yes Status: Acute Assessment and Plan: Was found to be hypoxic with oxygen saturations in the 80s despite baseline oxygen use 3 L nasal cannu, also had a cough. CXR nonacute. Was given high- dose steroids in the ER. Hold on further steroids as he is not wheezing. Continue azithromycin. (3) ERNESTINA (obstructive sleep apnea) Current Visit: No Status: Chronic Assessment and Plan: cont with CPAP (4) Elevated d-dimer Current Visit: No Status: Acute Assessment and Plan: CTA negative for PE Lower extremities negative for DVTs (5) Acute and chronic respiratory failure with hypoxia Current Visit: No Status: Acute Assessment and Plan: secondary to fluid overload and COPD excerbation Cont with O2 and titrate to home level. Continue treating underlying causes. (6) Elevated liver enzymes Current Visit: Yes Status: Acute Assessment and Plan: Most likely from fluid overload and hepatic congestion. Liver US showed hepatomegaly with steatosis and cholelithiasis without evidence of acute cholecystitis. LFTs trending down (7) Obesity (BMI 30-39.9) Current Visit: Yes Status: Chronic Assessment and Plan: discussed weight loss and lifestyle changes Dietitian consulted DVT Prophylaxis: heparin - Time Spent with Patient Total time spent is greater than 50% in coordination of care (as documented) at patient's floor/unit and/or counseling patient: 25 - 35 minutes Plan of Care Discussed with: patient Internal Medicine: Result - Labs CBC & Chem 7: 03/17/18 04:41 03/17/18 04:41 Labs: Short CBC 03/17/18 Range/Units 04:41 WBC 8.7 (4.3-11.1) K/mcL Hgb 10.8 L (12.9-16.9) g/dL Hct 31.8 L (37.5-50.1) % Plt Count 339 (140-400) K/mcL Neutrophils # 4.2 (1.6-8.9) K/mcL BMP 03/17/18 04:41 Sodium 138 Potassium 3.9 Chloride 93 L Carbon Dioxide 38 H BUN 19 Creatinine 1.00 Glucose 151 H Calcium 8.4 L Liver Function 03/17/18 Range/Units 04:41 Total Bilirubin 1.7 H (0.3-1.0) mg/dL Direct Bilirubin 0.2 (0.0-0.2) mg/dL AST 32 (13-39) Units/L ALT 67 H (7-52) Units/L Alkaline Phosphatase 90 (34-104) Units/L Albumin 3.6 (3.5-5.7) g/dL - ABG Interpretation ABG results: PT/INR, D-dimer PT 11.8 Seconds (9.4-12.1) 03/14/18 15:35 D-Dimer 881 ng/mLFEU (0-500) H 03/14/18 15:35 Consult Discharge Plan - Plan Referrals: Edinson Benedict MD [Primary Care Provider] -
[2018-03-18] MEDS: Albuterol 2.5 MG/3 ML NEBULIZER IH SCH ×2 (03:42→09:33)
[2018-03-18] MEDS: *HR* Heparin 5,000 UNIT/ML VIAL SQ SCH (05:40)
[2018-03-18 07:59] LABS: Alanine Aminotransferase 57 Units/L (7-52); Albumin 3.5 g/dL (3.5-5.7); Albumin/Globulin Ratio 1.4 (1.1-2.2); Alkaline Phosphatase 90 Units/L (34-104); Aspartate Amino Transferase 26 Units/L (13-39); BUN/Creatinine Ratio 19 (6-26); Bilirubin,Total 1.8 mg/dL (0.3-1.0); Blood Urea Nitrogen 17 mg/dL (6-20); Calcium 8.8 mg/dL (8.6-10.3); Carbon Dioxide 36 mEq/L (23-29); Chloride 96 mEq/L (98-107); Globulin 2.5 g/dL (2.4-3.5); Glucose 141 mg/dL (70-105); Osmolality,Calculated 292 (280-300); Potassium 3.4 mEq/L (3.5-5.1); Sodium 139 mEq/L (136-145); eGFR For Non-African Americans > 60 (> 60)
[2018-03-18] MEDS: Tiotropium 18 MCG inhalation IH SCH (09:33)
[2018-03-18] MEDS: Budesonide/Formoterol 160/4.5 MDI IH SCH (09:33)
[2018-03-18] MEDS: Fluticasone Propionate Nasal 50 MCG/SPRAY BOTTLE NS SCH (09:53)
[2018-03-18] MEDS: Spironolactone 25 MG TABLET PO SCH (09:53)
[2018-03-18] MEDS: Bumetanide 1 MG/4 ML VIAL IVP SCH (09:53)
[2018-03-18 11:08] VITALS: BP 124/68
--- NOTE | 2018-03-18 14:10 | Discharge Summary ---
- NOTES TO OUTPATIENT PROVIDER Notes to Outpatient Provider: Recommend follow-up within one week Date of Encounter: 03/18/18 Time of Encounter: 14:06 - Discharge Diagnosis (1) Acute on chronic diastolic (congestive) heart failure Priority: Primary Status: Acute Assessment and Plan: TTE with EF 60%, mild diastolic dysfunction. Symptomatic with SOB and lower extreme edema. Home Lasix held on admission. He was diuresed with IV Bumex; question accuracy of I&Os/daily weights; he was down 26 pounds as of 03/17 exam and only 8 pounds on 03/18. Nonetheless his symptoms significantly improved with improvement in shortness of breath and significant improvement in lower extremity edema. Discussed diuretics at length with patient and plan we will to be discharge him home on his dose of Lasix and holding spironolactone. Patient reported PCP was in the process of adjusting diuretics due to shortness of breath and lower extremity edema. Advised on low sodium diet and daily weights at home. Defer further medication titration to PCP. Recommend follow- up within one week. (2) Acute exacerbation of chronic obstructive airways disease Priority: Primary Status: Acute Assessment and Plan: Was found to be hypoxic with oxygen saturations in the 80s despite baseline oxygen use 3 L, also had a cough. CXR nonacute. Was given high-dose steroids in the ER. Hold on further steroids as he is not wheezing. Continue azithromycin. (3) ERNESTINA (obstructive sleep apnea) Priority: Primary Status: Chronic Assessment and Plan: cont with CPAP (4) Elevated d-dimer Priority: Primary Status: Acute Assessment and Plan: CTA negative for PE. Lower extremities negative for DVTs (5) Acute and chronic respiratory failure with hypoxia Priority: Primary Status: Acute Assessment and Plan: secondary to fluid overload and mild COPD excerbation. Continue treating underlying causes as noted above. Discharge home on oxygen which is baseline (6) Elevated liver enzymes Priority: Primary Status: Acute Assessment and Plan: Most likely from fluid overload and hepatic congestion. Liver US showed hepatomegaly with steatosis and cholelithiasis without evidence of acute cholecystitis. LFTs normalized at time of discharge (7) Obesity (BMI 30-39.9) Priority: Secondary Status: Chronic Assessment and Plan: BMI 41; weight 137 kg. Lifestyle and dietary modifications recommended Hospital course: See assessment and plan for Hospital course Discharge discussed with: patient (Seen and examined at bedside. Patient says he feels significantly better today wants to go home. Still has some shortness of breath but overall improved. He says swelling in legs is significantly improved. We discussed his diuretics at length and patient reports his PCP was recently making multiple changes. Patient would prefer to go home on his dose of Lasix and holding spironolactone with follow-up with his PCP.) - Time Spent with Patient Total time spent providing and/or coordinating discharge services: - Discharge Medications Prescriptions: Azithromycin [Azithromycin 6-Tab Pack] 250 mg PO PER PKG DI #6 tab Home Medications: Albuterol Neb [Proventil Neb] 2.5 mg IH [id number] PRN inhsol 12/10/17 [Rx] Budesonide/Formoterol 160/4.5 [Symbicort 160/4.5] 2 puff IH BIDR #1 inhaler [Rx] Acetaminophen [Tylenol] 650 mg PO Q6H PRN tablet 12/28/17 [Rx] Montelukast [Singulair] 10 mg PO HS tablet 12/28/17 [Rx] Furosemide [Lasix] 40 mg PO DAILY 02/05/18 [History] Tiotropium [Spiriva] 18 mcg IH DAILY 02/08/18 [History] Potassium Chloride [K-Tab ER] 80 meq PO DAILY 02/13/18 [History] Fluticasone Propionate Nasal [Flonase] 1 spr NS DAILY 03/14/18 [History] Azithromycin [Azithromycin 6-Tab Pack] 250 mg PO PER PKG DI #6 tab 03/18/18 [Rx] Allergies/Adverse Reactions: 3 Allergy/AdvReac Type Severity Reaction Status Date / Time No Known Allergies Allergy Verified 02/08/18 10:30 Date of admission: 03/14/18 20:04 Primary care physician: Edinson Benedict MD Consults: 03/16/18 16:23 consult to tc operator [Consult to Nutrition] [CONS] Routine Comment: Consulting Provider: NUTRITION Reason for Dietary Consult: Diet Education Discharging clinician: Dominga Rodriguez Anticipated date of discharge: 03/18/18 - Constitutional Vitals: Temp Pulse Resp BP Pulse Ox 97.5 F L 75 18 124/68 95 03/18/18 11:03 03/18/18 11:03 03/18/18 11:03 03/18/18 11:03 03/18/18 11:03 General appearance: Present: A&O X 3, morbidly obese, pleasant, no acute distress - Head Head exam: Present: atraumatic, normocephalic - Eye Eye exam: Present: PERRL, conjuntiva pink, sclera anicteric Pupils: Present: PERRL - Neck Neck exam general surgery: Present: supple, trachea midline. Absent: lymphadenopathy - Respiratory Respiratory exam: Present: decreased breath sounds, CTAB. Absent: accessory muscle use, rales, rhonchi, wheezes - Cardiovascular Cardiovascular exam: Present: RRR, +S1, +S2. Absent: diastolic murmur, gallop, rubs, systolic murmur - GI/Abdominal GI/Abdominal exam: Present: normal bowel sounds, soft, no peritoneal signs. Absent: distended, tenderness - Extremities Exam Extremities exam: Present: pedal edema (Mild to moderate bilateral lower extreme deep pitting edema), warm, radial pulses palpable and symmetrical. Absent: calf tenderness, cyanotic - Neurological Exam Neurological exam: Present: CN II-XII intact, oriented X3, no focal deficits. Absent: pronater drift, facial droop, speech deficit - Skin Skin exam: Present: dry, intact - Patient Status Disposition: Home, Self-Care Condition: Good Functional capacity at discharge: uses cane/walker Overall status at discharge: patient is progressing back to baseline - Discharge Instructions Instructions: Heart Failure (DC), Furosemide (By mouth), Low Sodium Diet (DC) Follow Up With: Edinson Benedict MD [Primary Care Provider] - - Diet and Activity Activity: increase activity as tolerated Diet: low fat, low cholesterol, low salt diet
== END 2018-03-18 15:04 | disposition home or self-care (01) | DRG 291 ==
LOC: 3BNU 14:44 → EMEROO 14:44 → 3BNU 20:05
PROVIDERS: ADMIT Pediatrics; ATTEND Pediatrics

== ENCOUNTER 2018-03-21 20:35 | Observation (INO) ==
--- NOTE | 2018-03-21 20:41 | Emergency Department Note ---
Disposition Clinical Impression: COPD exacerbation Disposition: Admitted As Inpatient Condition: Fair Referrals: Edinson Benedict MD [Primary Care Provider] - Forms: ED Satisfaction Letter Time of Disposition: 23:23 SOB HPI - General Chief Complaint: ED Shortness of Breath/Dyspnea Stated Complaint: Ivonne Time Seen by Provider: 03/21/18 20:40 Source: patient Mode of arrival: ambulatory Limitations: no limitations Nursing Notes Reviewed: Yes Vital Signs Reviewed: Yes - History of Present Illness Patient is a 57-year-old male with past medical history of COPD, CHF, wears 3 L nasal cannula oxygen chronically, but is patent pulmonary rehabilitation. He had recent hospital stay due to CHF and COPD exacerbation. He was sent home with Lasix and spironolactone, low salt diet, water restriction. He presents today due to shortness of breath, right-sided chest discomfort that radiates into the right flank. He stated that he was sitting at his computer playing a game, developed pain in the right lateral chest that radiated down into his right flank. He stated that the pain was severe 10 out of 10, sharp. It has since dissipated and is currently a dull ache. He stated that when he got up from his chair and walked, he had some shortness of breath above his baseline. He came to the ER for further assessment. He currently states that his breathing is back to baseline. Denies any productive phlegm above baseline, any fevers, any nausea, vomiting, abdominal pain, dysuria, hematuria. No increase in his chronic lower extremity edema. - Related Data Home Medications Medication Instructions Recorded Confirmed Furosemide [Lasix] 40 mg PO DAILY 02/05/18 03/14/18 Tiotropium [Spiriva] 18 mcg IH DAILY 02/08/18 03/14/18 Potassium Chloride [K-Tab ER] 80 meq PO DAILY 02/13/18 03/14/18 Fluticasone Propionate Nasal 1 spr NS DAILY 03/14/18 03/14/18 [Flonase] Previous Rx's Medication Instructions Recorded Albuterol Neb [Proventil Neb] 2.5 mg IH [id number] PRN inhsol 12/10/17 Budesonide/Formoterol 160/4.5 2 puff IH BIDR #1 inhaler 12/10/17 [Symbicort 160/4.5] Acetaminophen [Tylenol] 650 mg PO Q6H PRN tablet 12/28/17 Montelukast [Singulair] 10 mg PO HS tablet 12/28/17 Azithromycin [Azithromycin 6-Tab 250 mg PO PER PKG DI #6 tab 03/18/18 Pack] Allergies Allergy/AdvReac Type Severity Reaction Status Date / Time No Known Allergies Allergy Verified 02/08/18 10:30 All systems ED: reviewed and negative except as stated. Constitutional: Denies: fever Cardiovascular: Reports: chest pain Respiratory: Reports: dyspnea. Denies: cough, wheezes Gastrointestinal: Denies: abdominal pain, nausea, vomiting Genitourinary: Denies: urgency, dysuria Integumentary: Denies: rash Neurological: Denies: headache, weakness, numbness, paresthesias Past Medical History - Past Medical History Attestation: Yes The following information was validated with the patient. Source: patient Medical history: Reports: asthma, CHF, COPD, GERD Surgical history: Reports: no surgical history Psychiatric history: Reports: no psych history - Social History Smoking Status: Former smoker Smokeless Tobacco Status: No Alcohol use: Reports: none Drug use: Reports: none Physical Exam - General Limitations: no limitations General appearance: alert, in no apparent distress - Head Head exam: atraumatic, normocephalic, normal inspection - Eye Eye exam: Present: normal appearance, PERRL, EOMI - ENT ENT exam: normal exam, normal oropharynx, mucous membranes moist - Neck Neck exam: Present: normal inspection, full ROM, trachea midline - Chest Chest inspection: Present: normal inspection, symmetric chest wall rise - Respiratory Respiratory exam: Present: normal lung sounds bilaterally - Cardiovascular Cardiovascular exam: Present: regular rate, normal rhythm, normal heart sounds - Abdominal Exam Abdominal exam: Present: soft, Non-Tender. Absent: tenderness, distention, guarding, rebound, rigidity - Extremities Exam Extremities exam: Present: other (Chronic moderate bilateral lower extremity pitting edema, no calf tenderness) - Neurological Exam Neurological exam: Present: alert, oriented X3 - Psychiatric Psychiatric exam: Present: normal affect, normal mood - Skin Skin exam: Present: warm, dry, intact, normal color Course Course Narrative: Currently satting 98% on room air. EKG shows normal sinus rhythm with no acute ST changes. Physical exam shows clear lungs, heart regular rate and rhythm, abdomen soft and nontender. Chronic lower extremity pitting edema. Patient had a CTA of the chest on March 14 that was negative for PE or dissection. Will perform EKG, chest x-ray, basic blood work, troponin level. 23:12 troponin negative. EKG showed no acute ST elevation or depression. Chest x-ray negative for any acute cardio pulmonary process. BNP not elevated. Patient had an echocardiogram within the past week that showed EF of approximately 60%. Patient had a CTA of the chest on March 14 that was negative for PE or dissection. Patient was ambulated around the department while on his home oxygen, failed ambulation challenge, dropped below 88% while on 3 L nasal cannula oxygen. We will give the patient Solu-Medrol and DuoNeb and admitted for further care, concern for COPD exacerbation. Chest X-Ray 03/21/18 21:00 IMPRESSION: No acute cardiopulmonary disease. D/ / Hi Munoz MD / Hi Munoz MD Interpreting Provider: Hi Munoz MD Vital Signs Temperature 97.0 F L 03/21/18 20:40 Pulse Rate 88 03/21/18 20:40 Respiratory Rate 22 03/21/18 20:40 Blood Pressure 148/80 03/21/18 20:40 O2 Sat by Pulse Oximetry 98 03/21/18 20:40 Temperature 97.0 F L 03/21/18 20:40 Pulse Rate 86 03/21/18 22:36 Respiratory Rate 18 03/21/18 23:20 Blood Pressure 149/51 03/21/18 22:36 O2 Sat by Pulse Oximetry 99 03/21/18 23:20 Oxygen Delivery Oxygen Delivery Nasal Cannula Shortness of Breath/Dyspnea - MDM Narrative Medical decision making narrative: Currently satting 98% on room air. EKG shows normal sinus rhythm with no acute ST changes. Physical exam shows clear lungs, heart regular rate and rhythm, abdomen soft and nontender. Chronic lower extremity pitting edema. Patient had a CTA of the chest on March 14 that was negative for PE or dissection. Will perform EKG, chest x-ray, basic blood work, troponin level. 23:12 troponin negative. EKG showed no acute ST elevation or depression. Chest x-ray negative for any acute cardio pulmonary process. BNP not elevated. Patient had an echocardiogram within the past week that showed EF of approximately 60%. Patient had a CTA of the chest on March 14 that was negative for PE or dissection. Patient was ambulated around the department while on his home oxygen, failed ambulation challenge, dropped below 88% while on 3 L nasal cannula oxygen. We will give the patient Solu-Medrol and DuoNeb and admitted for further care, concern for COPD exacerbation. - Medical Records Medical records reviewed: Yes I reviewed the patient's medical records. - Lab Data Lab results reviewed: Yes I reviewed the patient's lab results. Result diagrams: 03/21/18 21:00 03/21/18 21:00 Lab Results 03/21/18 03/21/18 03/21/18 Range/Units 21:00 21:00 21:00 WBC 12.7 H (4.3-11.1) K/mcL RBC 3.75 L (4.19-5.50) M/mcL Hgb 12.4 L D (12.9-16.9) g/dL Hct 35.6 L (37.5-50.1) % MCV 94.9 (83.0-100.0) fL MCH 33.1 (28.0-33.3) pg MCHC 34.8 (31.6-35.5) g/dL RDW 14.1 (11.5-14.5) % Plt Count 433 H (140-400) K/mcL MPV 10.1 (9.4-12.4) fL Immature Gran % 0.9 (0-4) % Seg Neutrophils % 50.8 % Lymphocytes % 11.9 % Monocytes % 11.9 % Eosinophils % 23.2 % Basophils % 1.3 % Neutrophils # 6.5 (1.6-8.9) K/mcL Lymphocytes # 1.5 (0.6-4.6) K/mcL Monocytes # 1.5 H (0.0-1.3) K/mcL Eosinophils # 3.0 H (0.0-0.6) K/mcL Basophils # 0.2 (0.0-0.2) K/mcL Sodium 137 (136-145) mEq/L Potassium 3.8 (3.5-5.1) mEq/L Chloride 97 L (98-107) mEq/L Carbon Dioxide 33 H (23-29) mEq/L BUN 17 (6-20) mg/dL Creatinine 0.99 (0.70-1.30) mg/dL Est GFR ( Amer) > 60 (> 60) Est GFR (Non-Af Amer) > 60 (> 60) BUN/Creatinine Ratio 17 (6-26) Glucose 122 H (70-105) mg/dL Calculated Osmolality 287 (280-300) Calcium 9.3 (8.6-10.3) mg/dL Troponin I < 0.03 (< 0.04) ng/mL B-Natriuretic Peptide 12 (Less than 100) pg/mL - Radiology Data Radiology results reviewed: Yes I reviewed the patient's radiology results. Chest X-Ray 03/21/18 21:00 IMPRESSION: No acute cardiopulmonary disease. D/ / Hi Munoz MD / Hi Munoz MD Interpreting Provider: Hi Muonz MD - EKG Data EKG attestation: Yes I reviewed and interpreted this EKG. EKG results narrative: 03/21/2018 at 20:42. Normal sinus rhythm. Rate 86. ND 186. QRS 17. QTC 387. Normal axis. No acute ST elevation or depression. S.B.A.R. - S.B.A.R. Situation: Demographics, MOA Background: Presenting Complaint, Relevant PMH, Meds, & Allergies Assessment: Vital Signs, Course and respsone to treatment, Exam Concerns, Patient/Family Expectation, Pertinant Lab Results, Outstanding Labs Recommendation: Barrier(s) to disposition, Recommendation based on pending studies, treatments, or consults S.B.A.R. Report Given to: dr. stafford
[2018-03-21 21:38] LABS: Basophils # 0.2 K/mcL (0.0-0.2); Basophils % 1.3 %; Eosinophils % 23.2 %; Hematocrit 35.6 % (37.5-50.1); Immature Granulocytes % 0.9 % (0-4); Lymphocytes # 1.5 K/mcL (0.6-4.6); Lymphocytes % 11.9 %; Mean Corpuscular HGB Conc 34.8 g/dL (31.6-35.5); Mean Corpuscular Hemoglobin 33.1 pg (28.0-33.3); Mean Corpuscular Volume 94.9 fL (83.0-100.0); Mean Platelet Volume 10.1 fL (9.4-12.4); Monocytes # 1.5 K/mcL (0.0-1.3); Monocytes % 11.9 %; Neutrophils # 6.5 K/mcL (1.6-8.9); Platelet Count 433 K/mcL (140-400); Red Blood Count 3.75 M/mcL (4.19-5.50); Red Cell Distribution Width 14.1 % (11.5-14.5); Segmented Neutrophils % 50.8 %
[2018-03-21 21:42] LABS: Hemoglobin 12.4 g/dL (12.9-16.9)
[2018-03-21 21:59] LABS: BUN/Creatinine Ratio 17 (6-26); Blood Urea Nitrogen 17 mg/dL (6-20); Calcium 9.3 mg/dL (8.6-10.3); Carbon Dioxide 33 mEq/L (23-29); Chloride 97 mEq/L (98-107); Glucose 122 mg/dL (70-105); Osmolality,Calculated 287 (280-300); Potassium 3.8 mEq/L (3.5-5.1); Sodium 137 mEq/L (136-145); Troponin I < 0.03 ng/mL (< 0.04); eGFR For Non-African Americans > 60 (> 60)
[2018-03-21] MEDS ORDERED: Ipratropium/Albuterol Neb 3 ML IH ONE (23:05)
[2018-03-21] MEDS ORDERED: Albuterol 2.5 MG/3 ML NEBULIZER IH ONE (23:05)
[2018-03-21] MEDS ORDERED: methylPREDNISolone 125 MG/2 ML VIAL IVP ONE (23:05)
--- NOTE | 2018-03-21 23:05 | Emergency Department Note ---
Disposition Clinical Impression: COPD exacerbation Disposition: Admitted As Inpatient Condition: Fair Referrals: Edinson Benedcit MD [Primary Care Provider] - Forms: ED Satisfaction Letter General Adult HPI - General Chief complaint: ED Shortness of Breath/Dyspnea Stated complaint: Ivonne Time Seen by Provider: 03/21/18 20:40 Source: patient Mode of arrival: ambulatory Limitations: no limitations Nursing Notes Reviewed: Yes Vital Signs Reviewed: Yes - History of Present Illness Pain Scale: 0 - Related Data Home Medications Medication Instructions Recorded Confirmed Furosemide [Lasix] 40 mg PO DAILY 02/05/18 03/14/18 Tiotropium [Spiriva] 18 mcg IH DAILY 02/08/18 03/14/18 Potassium Chloride [K-Tab ER] 80 meq PO DAILY 02/13/18 03/14/18 Fluticasone Propionate Nasal 1 spr NS DAILY 03/14/18 03/14/18 [Flonase] Previous Rx's Medication Instructions Recorded Albuterol Neb [Proventil Neb] 2.5 mg IH [id number] PRN inhsol 12/10/17 Budesonide/Formoterol 160/4.5 2 puff IH BIDR #1 inhaler 12/10/17 [Symbicort 160/4.5] Acetaminophen [Tylenol] 650 mg PO Q6H PRN tablet 12/28/17 Montelukast [Singulair] 10 mg PO HS tablet 12/28/17 Azithromycin [Azithromycin 6-Tab 250 mg PO PER PKG DI #6 tab 03/18/18 Pack] Allergies Allergy/AdvReac Type Severity Reaction Status Date / Time No Known Allergies Allergy Verified 02/08/18 10:30 Constitutional: Denies: fever Cardiovascular: Reports: chest pain Respiratory: Reports: dyspnea. Denies: cough, wheezes Gastrointestinal: Denies: abdominal pain, nausea, vomiting Genitourinary: Denies: urgency, dysuria Integumentary: Denies: rash Neurological: Denies: headache, weakness, numbness, paresthesias Past Medical History - Past Medical History Medical history: Reports: asthma, CHF, COPD, GERD Surgical history: Reports: no surgical history Psychiatric history: Reports: no psych history - Social History Smoking Status: Former smoker Smokeless Tobacco Status: No Alcohol use: Reports: none Drug use: Reports: none Physical Exam - General Limitations: no limitations General appearance: alert, in no apparent distress Course Vital Signs Temperature 97.0 F L 03/21/18 20:40 Pulse Rate 88 03/21/18 20:40 Respiratory Rate 22 03/21/18 20:40 Blood Pressure 148/80 03/21/18 20:40 O2 Sat by Pulse Oximetry 98 03/21/18 20:40 Temperature 97.0 F L 03/21/18 20:40 Pulse Rate 86 03/21/18 22:36 Respiratory Rate 16 03/21/18 21:48 Blood Pressure 149/51 03/21/18 22:36 O2 Sat by Pulse Oximetry 96 03/21/18 22:36 Oxygen Delivery Oxygen Delivery Nasal Cannula Medical Decision Making - Lab Data Result diagrams: 03/21/18 21:00 03/21/18 21:00 Lab Results 03/21/18 03/21/18 03/21/18 Range/Units 21:00 21:00 21:00 WBC 12.7 H (4.3-11.1) K/mcL RBC 3.75 L (4.19-5.50) M/mcL Hgb 12.4 L D (12.9-16.9) g/dL Hct 35.6 L (37.5-50.1) % MCV 94.9 (83.0-100.0) fL MCH 33.1 (28.0-33.3) pg MCHC 34.8 (31.6-35.5) g/dL RDW 14.1 (11.5-14.5) % Plt Count 433 H (140-400) K/mcL MPV 10.1 (9.4-12.4) fL Immature Gran % 0.9 (0-4) % Seg Neutrophils % 50.8 % Lymphocytes % 11.9 % Monocytes % 11.9 % Eosinophils % 23.2 % Basophils % 1.3 % Neutrophils # 6.5 (1.6-8.9) K/mcL Lymphocytes # 1.5 (0.6-4.6) K/mcL Monocytes # 1.5 H (0.0-1.3) K/mcL Eosinophils # 3.0 H (0.0-0.6) K/mcL Basophils # 0.2 (0.0-0.2) K/mcL Sodium 137 (136-145) mEq/L Potassium 3.8 (3.5-5.1) mEq/L Chloride 97 L (98-107) mEq/L Carbon Dioxide 33 H (23-29) mEq/L BUN 17 (6-20) mg/dL Creatinine 0.99 (0.70-1.30) mg/dL Est GFR ( Amer) > 60 (> 60) Est GFR (Non-Af Amer) > 60 (> 60) BUN/Creatinine Ratio 17 (6-26) Glucose 122 H (70-105) mg/dL Calculated Osmolality 287 (280-300) Calcium 9.3 (8.6-10.3) mg/dL Troponin I < 0.03 (< 0.04) ng/mL B-Natriuretic Peptide 12 (Less than 100) pg/mL Attestation Statement - Attestation Attestation: I, Rodney Archer, examined this patient and my medical decision-making was reviewed with the HAND INSERTER OPERATOR/PA/Advanced Practice Nurse/Resident Physician. I agree with the documented findings, disposition and treatment plan as described except to the extent set forth below. 57-year-old male presents emergency Department with concerns of acute right lateral inferior chest pain. Patient states symptoms lasted about 2 minutes, had acute onset while he was sitting in a chair playing computer games. Patient states the pain was sharp and stabbing, resolved within a few minutes without significant intervention. Patient denies fever, chills, nausea, vomiting, diarrhea, abdominal pain. Patient states pain is significantly improved during my evaluation emergency department. He does report being mildly short of breath with exertion which he states that has occurred multiple times in the past secondary to his COPD. On lung exam he does have decreased lung sounds on bilateral posterior lung tariq. Chest x-ray did not show evidence of acute pneumonia. Patient has swelling of the bilateral lower extremities however he states that these are much improved compared to his previous baseline. Patient had an EKG which did not show evidence of acute STEMI. Patient had difficulty with ambulation stating he was significantly more short of breath than his baseline.
[2018-03-22] MEDS ORDERED: Naloxone 0.4 MG/ML INJ IVP PRN (05:24)
[2018-03-22 06:29] LABS: Hematocrit 34.4 % (37.5-50.1); Hemoglobin 11.9 g/dL (12.9-16.9); Mean Corpuscular HGB Conc 34.6 g/dL (31.6-35.5); Mean Corpuscular Hemoglobin 32.8 pg (28.0-33.3); Mean Corpuscular Volume 94.8 fL (83.0-100.0); Mean Platelet Volume 9.8 fL (9.4-12.4); Platelet Count 390 K/mcL (140-400); Red Blood Count 3.63 M/mcL (4.19-5.50); Red Cell Distribution Width 14.2 % (11.5-14.5)
[2018-03-22] MEDS: Azithromycin 500 MG in D5% in Water 250 ML IVPB SCH (06:32)
[2018-03-22] MEDS: *HR* Heparin 5,000 UNIT/ML VIAL SQ SCH ×2 (06:32→18:45)
[2018-03-22 06:50] LABS: BUN/Creatinine Ratio 19 (6-26); Blood Urea Nitrogen 17 mg/dL (6-20); Calcium 8.9 mg/dL (8.6-10.3); Carbon Dioxide 30 mEq/L (23-29); Chloride 100 mEq/L (98-107); Glucose 218 mg/dL (70-105); Osmolality,Calculated 290 (280-300); Potassium 4.1 mEq/L (3.5-5.1); Sodium 136 mEq/L (136-145); eGFR For Non-African Americans > 60 (> 60)
[2018-03-22] MEDS: Ipratropium/Albuterol Neb 3 ML IH SCH ×6 (07:25→23:12)
[2018-03-22] MEDS ORDERED: Acetaminophen 325 MG TABLET PO PRN (08:09)
--- NOTE | 2018-03-22 08:33 | Internal Med History&Physical ---
Date of Encounter: 03/22/18 Time of Encounter: 02:50 Internal Medicine - H&P: HPI Chief complaint: COPD exacerbation Admitted From: Home Plans for Post Hospital Care: Home History of present illness: Mr. Paris is a 57 year old male Patient recently in the hospital and discharged 4 days ago returned to the emergency room for increased shortness of breath and right sided lower chest pain. Patient states he would get more short of breath with walking particularly going from his living room to his kitchen which is only about 10 feet. He is on 3 L of oxygen at home normally and has noticed that his oxygen saturation has been less the last few days despite being on oxygen. He has had multiple admissions to hospital for COPD exacerbation, stating he has been here about 5 times since last July. After his recent discharge he states he was feeling better but then over the last day or so shortness of breath was increasing. He denies nausea, vomiting, diarrhea and constipation. In the emergency room troponins were negative, EKG showed no ST elevations or depressions. Chest x-ray was negative for acute cardiopulmonary process. His BNP was not elevated. During his previous admission he had an echocardiogram that showed an ejection fraction of 60%. The ER did not repeat a CT angiogram, but a CT from March 14 showed no evidence of PE. He was nearly sent home from the emergency room as he was improving and was back to his baseline oxygen requirement however when patient was ambulating they noted that his oxygen saturation dropped to 88% despite being on his home oxygen. They elected to have patient admitted for COPD exacerbation. Past Med Surg Social Fam HX - Past Medical History Medical history: asthma, CHF, COPD, GERD Additional medical history: sleep apnea Psychiatric history: no psych history - Past Surgical History Surgical History: no surgical history - Social History Smoking Status: Former smoker Smokeless Tobacco Status: No Alcohol use: occasionally Drug use: none - Family History Father Living Status: Still Living Hx Family Cardiac Disorders: Yes (CABG pacer) Mother Adopted: No Family Member Ethnicity: Non- Living Status: Hx Family Cardiac Disorders: Yes Hx Family Respiratory Disorders: Yes Hx Family Cancer: No Hx Family GI Disorders: Yes Hx Family Endocrine Disorder: Yes Hx Family Neuromuscular Disorders: No Hx Family Neurologic Disorders: No Hx Family HEENT Disorders: No Hx Family Autoimmune Disorders: No Internal Medicine - H&P: Meds Albuterol Neb [Proventil Neb] 2.5 mg IH [id number] PRN inhsol 12/10/17 [Rx] Budesonide/Formoterol 160/4.5 [Symbicort 160/4.5] 2 puff IH BIDR #1 inhaler [Rx] Acetaminophen [Tylenol] 650 mg PO Q6H PRN tablet 12/28/17 [Rx] Montelukast [Singulair] 10 mg PO HS tablet 12/28/17 [Rx] Furosemide [Lasix] 40 mg PO DAILY 02/05/18 [History] Tiotropium [Spiriva] 18 mcg IH DAILY 02/08/18 [History] Potassium Chloride [K-Tab ER] 80 meq PO DAILY 02/13/18 [History] Fluticasone Propionate Nasal [Flonase] 1 spr NS DAILY 03/14/18 [History] Azithromycin [Azithromycin 6-Tab Pack] 250 mg PO PER PKG DI #6 tab 03/18/18 [Rx] 3 Allergy/AdvReac Type Severity Reaction Status Date / Time No Known Allergies Allergy Verified 02/08/18 10:30 All Systems PM: A 10-system review of systems was performed and is negative for pertinent findings except as documented above in the HPI. - Constitutional Vitals: Temp Pulse Resp BP Pulse Ox 98.1 F 89 17 125/76 98 03/22/18 06:42 03/22/18 06:42 03/22/18 06:42 03/22/18 06:42 03/22/18 06:42 General appearance: Present: cooperative, A&O X 3, pleasant, no acute distress, answers questions appropriately - Head Head exam: Present: normal inspection - Eye Eye exam: Present: normal appearance - Respiratory Respiratory exam: Present: decreased breath sounds, wheezes. Absent: chest wall tenderness, CTAB - Cardiovascular Cardiovascular exam: Present: RRR. Absent: diastolic murmur, systolic murmur - GI/Abdominal GI/Abdominal exam: Present: normal bowel sounds, tenderness. Absent: guarding Additional comments: Patient had right flank tenderness with palpation with mild pain across epigastric region with palpation. - Extremities Exam Extremities exam: Present: pedal edema, warm, radial pulses palpable and symmetrical. Absent: calf tenderness, tenderness Additional comments: 2+ pitting edema - Neurological Exam Neurological exam: Present: strengths equal and symetr throughout. Absent: facial droop, speech deficit - Skin Skin exam: Present: normal color, warm Internal Med - H&P Results - Labs CBC & Chem 7: 03/22/18 06:14 03/22/18 06:14 Labs: Short CBC 03/22/18 Range/Units 06:14 WBC 9.1 (4.3-11.1) K/mcL Hgb 11.9 L (12.9-16.9) g/dL Hct 34.4 L (37.5-50.1) % Plt Count 390 (140-400) K/mcL BMP 03/22/18 06:14 Sodium 136 Potassium 4.1 Chloride 100 Carbon Dioxide 30 H BUN 17 Creatinine 0.89 Glucose 218 H Calcium 8.9 - Assessment and plan (1) COPD exacerbation Current Visit: No Status: Resolved Assessment and plan: Similar to previous admission. Failed ambulatory O2 test in the emergency room. Continue supplemental oxygen DuoNeb nebs scheduled every 4 hours Prednisone 40 mg daily Azithromycin 500 mg IV (2) Acute on chronic respiratory failure with hypoxia and hypercapnia Current Visit: No Status: Chronic Assessment and plan: Secondary to COPD exacerbation Treatment as above (3) Lower extremity edema Current Visit: No Status: Acute Assessment and plan: Chronic, 2+ pitting edema on exam. Continue Lasix 40 mg daily (4) SOB (shortness of breath) on exertion Current Visit: No Status: Acute Assessment and plan: Secondary to COPD exacerbation Treatment as above Continue to monitor her oxygen requirement (5) Epigastric abdominal pain Current Visit: Yes Status: Acute Assessment and plan: Patient was mildly tender on exam with palpation over the epigastric region. Some pain over the right flank as well, although this pain overall is much better than it was on initial evaluation in the emergency room, and has improved without treatment. Continue to monitor Tylenol for pain (6) DVT prophylaxis Current Visit: No Status: Acute Assessment and plan: Heparin subcutaneous - Time Spent With Patient Total time spent is greater than 50% in coordination of care (as documented) at patient's floor/unit and/or counseling patient:
[2018-03-22] MEDS: predniSONE 20 MG TABLET PO SCH (08:52)
[2018-03-22] MEDS: Furosemide 40 MG TABLET PO SCH (08:53)
[2018-03-22] MEDS: Fluticasone Propionate Nasal 50 MCG/SPRAY BOTTLE NS SCH (08:53)
[2018-03-22] MEDS ORDERED: Tiotropium 18 MCG inhalation IH SCH (09:00)
[2018-03-22] MEDS: Budesonide/Formoterol 160/4.5 MDI IH SCH ×2 (11:11→20:12)
--- NOTE | 2018-03-22 16:30 | Electrocardiograph Report ---
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
[2018-03-23] MEDS: Ipratropium/Albuterol Neb 3 ML IH SCH ×3 (03:51→11:40)
[2018-03-23] MEDS: *HR* Heparin 5,000 UNIT/ML VIAL SQ SCH (06:04)
[2018-03-23] MEDS: Azithromycin 500 MG in D5% in Water 250 ML IVPB SCH (06:05)
[2018-03-23] MEDS: Budesonide/Formoterol 160/4.5 MDI IH SCH (07:38)
[2018-03-23 07:49] VITALS: BP 87/46
[2018-03-23] MEDS: predniSONE 20 MG TABLET PO SCH (08:59)
[2018-03-23] MEDS: Furosemide 40 MG TABLET PO SCH (08:59)
[2018-03-23] MEDS ORDERED: Tiotropium 18 MCG inhalation IH SCH (09:00)
[2018-03-23] MEDS: Fluticasone Propionate Nasal 50 MCG/SPRAY BOTTLE NS SCH (09:00)
--- NOTE | 2018-03-23 10:52 | Discharge Summary ---
- NOTES TO OUTPATIENT PROVIDER Notes to Outpatient Provider: f/u with PCP within a week. Date of Encounter: 03/23/18 Time of Encounter: 10:47 - Discharge Diagnosis (1) COPD exacerbation Priority: Primary Status: Acute (2) ERNESTINA (obstructive sleep apnea) Priority: Secondary Status: Chronic (3) Diastolic CHF Priority: Secondary Status: Chronic Qualifiers: Heart failure chronicity: chronic Qualified Code(s): I50.32 - Chronic diastolic (congestive) heart failure (4) Obesity (BMI 30-39.9) Priority: Secondary Status: Chronic Hospital course: Raina is a 57 year old male Patient recently in the hospital and discharged 4 days ago returned to the emergency room for increased shortness of breath and right sided lower chest pain. Patient states he would get more short of breath with walking particularly going from his living room to his kitchen which is only about 10 feet. He is on 3 L of oxygen at home normally and has noticed that his oxygen saturation has been less the last few days despite being on oxygen. He has had multiple admissions to hospital for COPD exacerbation, stating he has been here about 5 times since last July. After his recent discharge he states he was feeling better but then over the last day or so shortness of breath was increasing. He denies nausea, vomiting, diarrhea and constipation. In the emergency room troponins were negative, EKG showed no ST elevations or depressions. Chest x-ray was negative for acute cardiopulmonary process. His BNP was not elevated. During his previous admission he had an echocardiogram that showed an ejection fraction of 60%. The ER did not repeat a CT angiogram, but a CT from March 14 showed no evidence of PE. He was nearly sent home from the emergency room as he was improving and was back to his baseline oxygen requirement however when patient was ambulating they noted that his oxygen saturation dropped to 88% despite being on his home oxygen. Patient symptoms have significantly improved to the treatment, he is back to his baseline. Patient will be discharged home today with oral steroids. He was instructed to continue taking home medications and a follow-up with PCP as scheduled. Discharge discussed with: patient Time spent discussing smoking cessation with patient: more than 10 minutes - Time Spent with Patient Total time spent providing and/or coordinating discharge services: Greater than 30 minutes - Discharge Medications Prescriptions: predniSONE [PredniSONE] 40 mg PO DAILY #26 tablet Home Medications: Albuterol Neb [Proventil Neb] 2.5 mg IH [id number] PRN inhsol 12/10/17 [Rx] Budesonide/Formoterol 160/4.5 [Symbicort 160/4.5] 2 puff IH BIDR #1 inhaler [Rx] Acetaminophen [Tylenol] 650 mg PO Q6H PRN tablet 12/28/17 [Rx] Montelukast [Singulair] 10 mg PO HS tablet 12/28/17 [Rx] Furosemide [Lasix] 40 mg PO DAILY 02/05/18 [History] Tiotropium [Spiriva] 18 mcg IH DAILY 02/08/18 [History] Potassium Chloride [K-Tab ER] 80 meq PO DAILY 02/13/18 [History] Fluticasone Propionate Nasal [Flonase] 1 spr NS DAILY 03/14/18 [History] Azithromycin [Azithromycin 6-Tab Pack] 250 mg PO PER PKG DI #6 tab 03/18/18 [Rx] predniSONE [PredniSONE] 40 mg PO DAILY #26 tablet 03/23/18 [Rx] Allergies/Adverse Reactions: 3 Allergy/AdvReac Type Severity Reaction Status Date / Time No Known Allergies Allergy Verified 02/08/18 10:30 Date of admission: 03/21/18 23:23 Primary care physician: Edinson Benedict MD Consults: 03/22/18 05:28 Consult to Nurse Navigator [CONS] Routine Comment: Anticipated date of discharge: 03/23/18 - Constitutional Vitals: Temp Pulse Resp BP Pulse Ox 97.7 F 88 18 87/46 98 03/23/18 07:40 03/23/18 07:40 03/23/18 07:40 03/23/18 07:40 03/23/18 07:40 General appearance: Present: cooperative, A&O X 3, pleasant, no acute distress, answers questions appropriately Exam: PHYSICAL EXAMINATION: GENERAL APPEARANCE: The patient is alert, oriented and in no acute distress. HEENT: Head is normocephalic. The sinuses are nontender. Pupils are equal and reactive. The nares are patent. Oropharynx clear without lesions. NECK: Supple without lymphadenopathy. HEART: Regular rate and rhythm. LUNGS: No crackles or wheezes are heard. ABDOMEN: Soft, nontender, nondistended with good bowel sounds heard. Inguinal area is normal. EXTREMITIES: Without cyanosis, clubbing or edema. NEUROLOGICAL: Gross nonfocal. SKIN: Warm and dry without any rash. - Patient Status Disposition: Home, Self-Care Condition: Fair Functional capacity at discharge: independent ambulation Overall status at discharge: patient is back to baseline - Discharge Instructions Follow Up With: Edinson Benedict MD [Primary Care Provider] - 03/27/18 1:30 pm - Diet and Activity Activity: increase activity as tolerated Diet: advance to your usual diet
== END 2018-03-23 11:59 | disposition home or self-care (01) ==
LOC: 3BNU 20:35 → EMEROO 20:35 → 3BNU 23:53
PROVIDERS: ADMIT Family Medicine; ATTEND Family Medicine

== ENCOUNTER 2019-01-01 02:50 | Observation (INO) ==
[2019-01-01] MEDS ORDERED: methylPREDNISolone 125 MG/2 ML VIAL IVP ONE (03:00)
[2019-01-01] MEDS ORDERED: Aspirin 325 MG TABLET PO ONE (03:00)
--- NOTE | 2019-01-01 03:10 | Emergency Department Note ---
Disposition Clinical Impression: COPD exacerbation, Acute exacerbation of chronic obstructive airways disease Chest pain Qualifiers: Chest pain type: unspecified Qualified Code(s): R07.9 - Chest pain, unspecified Disposition: Admitted As Inpatient Condition: Fair Time of Disposition: 05:52 Chest Pain HPI - General Chief Complaint: ED Chest Pain Stated Complaint: Chest Pain Time Seen by Provider: 01/01/19 02:53 Source: patient, EMS Mode of arrival: EMS Limitations: no limitations Vital Signs Reviewed: Yes Nursing Notes Reviewed: Yes - History of Present Illness HPI Narrative: 58 yo male with PMHx of CHF and COPD presents via EMS with the complaint of chest pain and shortness of breath. He states he has been having on and off chest pain for the last 3 weeks and the current episode of chest pain has been constant for the last week and a half. He states he has had no period of time that he has been chest pain-free but sometimes the pain becomes more intense and sharp than others. He states tonight when he got up to use the restroom he had severe sudden onset chest pain on the left side of his chest that did not radiate anywhere along with increased shortness of breath. He did not take any medications prior to calling the squad. He was given one breathing treatment while on his way here and states that he is back to his baseline chest pain and shortness of breath. He denies headache, dizziness, abdominal pain, nausea and vomiting. Severity scale (1-10): 5 - Related Data Home Medications Medication Instructions Recorded Confirmed Furosemide [Lasix] 80 mg PO DAILY 02/05/18 01/01/19 Potassium Chloride [K-Tab ER] 40 meq PO QAM 02/13/18 01/01/19 Fluticasone Propionate Nasal 1 spr NS QAM PRN 03/14/18 01/01/19 [Flonase] Albuterol Sulfate [Proair Hfa] 2 puff IH DAILY PRN 01/01/19 01/01/19 Spironolactone [Aldactone] 50 mg PO QAM 01/01/19 01/01/19 hydrOXYzine pamoate [HydrOXYzine 25 mg PO BID PRN 01/01/19 01/01/19 Pamoate] Previous Rx's Medication Instructions Recorded Albuterol Neb [Proventil Neb] 2.5 mg IH [id number] PRN inhsol 12/10/17 Budesonide/Formoterol 160/4.5 2 puff IH BIDR #1 inhaler 12/10/17 [Symbicort 160/4.5] Acetaminophen [Tylenol] 650 mg PO Q6H PRN tablet 12/28/17 Aspirin 81 mg PO DAILY tab.chew 01/03/19 GuaiFENesin/Dextromethorphan 1 each PO BID PRN 7 Days #14 01/03/19 [Mucinex Dm] tab.er.12h predniSONE [PredniSONE] 10 mg PO DAILY #26 tablet 01/03/19 Allergies Allergy/AdvReac Type Severity Reaction Status Date / Time trazodone Allergy Rash Verified 01/01/19 17:11 All systems ED: reviewed and negative except as stated. Review of Systems: As Per HPI Constitutional: Denies: fever, chills, weakness Cardiovascular: Reports: chest pain, dyspnea on exertion. Denies: palpitations, orthopnea, edema, syncope Respiratory: Reports: dyspnea, wheezes. Denies: hemoptysis Gastrointestinal: Denies: abdominal pain, nausea, vomiting Musculoskeletal: Denies: back pain, neck pain Integumentary: Denies: rash Neurological: Denies: headache, weakness, numbness, paresthesias Endocrine: Denies: fatigue Chest Pain PMH - Past Medical History Medical history: Reports: asthma, CHF, COPD Surgical history: Reports: no surgical history Psychiatric history: Reports: no psych history - Social History Smoking Status: Current some day smoker Alcohol use: Reports: rarely Drug use: Reports: none Physical Exam - General Limitations: no limitations General appearance: alert, in no apparent distress - Head Head exam: atraumatic, normocephalic - Eye Eye exam: Present: normal appearance, PERRL, EOMI - ENT ENT exam: normal exam, normal oropharynx - Neck Neck exam: Present: normal inspection. Absent: tenderness, lymphadenopathy - Chest Chest inspection: Present: tenderness (left sided sternal chest pain to palpation). Absent: rash - Respiratory Respiratory exam: Present: wheezes (diffuse) - Cardiovascular Cardiovascular exam: Present: normal rhythm, tachycardia - Abdominal Exam Abdominal exam: Present: soft, Non-Tender. Absent: distention, guarding, rebound, rigidity - Extremities Exam Extremities exam: Present: pedal edema (1+ pedal edema bilaterally), other (chronic venous stasis changes). Absent: tenderness - Neurological Exam Neurological exam: Present: alert, oriented X3 - Psychiatric Psychiatric exam: Present: normal affect, normal mood - Skin Skin exam: Present: warm, dry, intact Course Vital Signs Temperature 98.5 F 01/01/19 02:53 Pulse Rate 107 01/01/19 02:53 Respiratory Rate 20 01/01/19 02:53 Blood Pressure 154/84 01/01/19 02:53 O2 Sat by Pulse Oximetry 91 01/01/19 02:53 Temperature 98.5 F 01/01/19 02:53 Pulse Rate 87 01/01/19 04:17 Respiratory Rate 20 01/01/19 04:17 Blood Pressure 125/66 01/01/19 04:17 O2 Sat by Pulse Oximetry 95 01/01/19 04:17 Oxygen Delivery Oxygen Delivery Nasal Cannula Chest Pain - MDM Narrative Medical decision making narrative: Pt presents with several weeks of chronic chest pain with acute worsening of his chest pain and shortness of breath. He now feels better after receiving a breathing treatment, but due to his history we will do an ACS workup with basic labs, troponin, bnp, ekg and cxr. The patient will also be given an aspirin as he is non-compliant with his home aspirin regimen. Pt does not have any risk factors for a blood clot and is PERC negative, therefore PE workup will not be performed at this time. 0530 - Pts lab work, EKG and cxr are all at his baseline without any acute changes. Pt is feeling moderately better after breathing treatments and steroids. 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 Pt has been accepted by Dr. Tirado. - Medical Records Medical records reviewed: Yes I reviewed the patient's medical records. - Lab Data Lab results reviewed: Yes I reviewed the patient's lab results. Result diagrams: 01/02/19 05:27 01/03/19 06:45 Lab Results 01/01/19 01/01/19 01/01/19 Range/Units 03:33 03:33 03:33 WBC 9.0 (4.3-11.1) K/mcL RBC 3.50 L (4.19-5.50) M/mcL Hgb 11.8 L (12.9-16.9) g/dL Hct 34.8 L (37.5-50.1) % MCV 99.4 (83.0-100.0) fL MCH 33.7 H (28.0-33.3) pg MCHC 33.9 (31.6-35.5) g/dL RDW 16.3 H (11.5-14.5) % Plt Count 431 H (140-400) K/mcL MPV 10.5 (9.4-12.4) fL Immature Gran % 0.7 (0-4) % Seg Neutrophils % 65.9 % Lymphocytes % 12.0 % Monocytes % 10.9 % Eosinophils % 9.2 % Basophils % 1.3 % Neutrophils # 5.9 (1.6-8.9) K/mcL Lymphocytes # 1.1 (0.6-4.6) K/mcL Monocytes # 1.0 (0.0-1.3) K/mcL Eosinophils # 0.8 H (0.0-0.6) K/mcL Basophils # 0.1 (0.0-0.2) K/mcL Sodium 139 (136-145) mEq/L Potassium 3.9 (3.5-5.1) mEq/L Chloride 93 L (98-107) mEq/L Carbon Dioxide 37 H (23-29) mEq/L BUN 20 (6-20) mg/dL Creatinine 0.87 (0.70-1.30) mg/dL Est GFR ( Amer) > 60 (> 60) Est GFR (Non-Af Amer) > 60 (> 60) BUN/Creatinine Ratio 23 (6-26) Glucose 135 H (70-105) mg/dL Calculated Osmolality 293 (280-300) Calcium 9.1 (8.6-10.3) mg/dL Magnesium 2.2 (1.6-2.6) mg/dL Troponin I < 0.03 (< 0.04) ng/mL B-Natriuretic Peptide 11 (Less than 100) pg/mL - Radiology Data Radiology results reviewed: Yes I reviewed the patient's radiology results. - EKG Data EKG attestation: Yes I reviewed and interpreted this EKG. EKG results narrative: EKG obtained at 2:54 on 01/01/2019 10 5 bpm, NH intervals 191, QRS duration 103, QT 333, QTC 441 Sinus tachycardia without any ST segment elevations or depressions. No other T- wave abnormalities. No significant changes compared to previous EKG dated 03/21/2018. Heart Score - Score History: Moderately Suspicious EKG: Normal Age: 45-65 Risk Factors: Equal/Greater than 3 risk factor or history of atherosclerotic disease Troponin: Less than normal limit HEART Score Total: 4 Attestation Statement - Attestation Attestation: I have seen this patient with the resident physician, I have personally evaluated this patient. I had reviewed the chart and document dictation by the resident physician and aM in agreement with the information documented by the resident physician. Please see documentation by the resident physician for complete chart including past medical history, family medical history, review of systems, current history and physical and laboratory and imaging studies. I was present for all procedures, provided direct supervision for all procedures, was present for the entirety of all procedures and provided direct guidance during the procedures. Please see documentation by the resident physician for any procedures performed. I have reviewed all interpretations of EKGs, and reviewed all EKGs performed on patient's as well. I have also reviewed reports of imaging as provided by radiology.
[2019-01-01 04:20] LABS: Basophils # 0.1 K/mcL (0.0-0.2); Basophils % 1.3 %; Eosinophils # 0.8 K/mcL (0.0-0.6); Eosinophils % 9.2 %; Hematocrit 34.8 % (37.5-50.1); Hemoglobin 11.8 g/dL (12.9-16.9); Immature Granulocytes % 0.7 % (0-4); Lymphocytes # 1.1 K/mcL (0.6-4.6); Mean Corpuscular HGB Conc 33.9 g/dL (31.6-35.5); Mean Corpuscular Hemoglobin 33.7 pg (28.0-33.3); Mean Platelet Volume 10.5 fL (9.4-12.4); Monocytes % 10.9 %; Neutrophils # 5.9 K/mcL (1.6-8.9); Platelet Count 431 K/mcL (140-400); Red Cell Distribution Width 16.3 % (11.5-14.5); Segmented Neutrophils % 65.9 %
[2019-01-01 04:21] LABS: BUN/Creatinine Ratio 23 (6-26); Blood Urea Nitrogen 20 mg/dL (6-20); Calcium 9.1 mg/dL (8.6-10.3); Carbon Dioxide 37 mEq/L (23-29); Chloride 93 mEq/L (98-107); Glucose 135 mg/dL (70-105); Magnesium 2.2 mg/dL (1.6-2.6); Mean Corpuscular Volume 99.4 fL (83.0-100.0); Osmolality,Calculated 293 (280-300); Potassium 3.9 mEq/L (3.5-5.1); Sodium 139 mEq/L (136-145); eGFR For Non-African Americans > 60 (> 60)
[2019-01-01 04:22] LABS: Troponin I < 0.03 ng/mL (< 0.04)
--- NOTE | 2019-01-01 05:39 | Emergency Department Note ---
Disposition Clinical Impression: Chest pain, COPD exacerbation, Acute exacerbation of chronic obstructive airways disease Disposition: Admitted As Inpatient Condition: Fair Forms: ED Satisfaction Letter Time of Disposition: 05:41 Chest Pain HPI - General Chief Complaint: ED Chest Pain Stated Complaint: Chest Pain Time Seen by Provider: 01/01/19 02:53 Source: patient, EMS Mode of arrival: EMS Limitations: no limitations Vital Signs Reviewed: Yes Nursing Notes Reviewed: Yes - History of Present Illness Severity scale (1-10): 5 - Related Data Home Medications Medication Instructions Recorded Confirmed Furosemide [Lasix] 40 mg PO DAILY 02/05/18 03/22/18 Tiotropium [Spiriva] 18 mcg IH DAILY 02/08/18 03/22/18 Potassium Chloride [K-Tab ER] 80 meq PO DAILY 02/13/18 03/22/18 Fluticasone Propionate Nasal 1 spr NS DAILY 03/14/18 03/22/18 [Flonase] Previous Rx's Medication Instructions Recorded Albuterol Neb [Proventil Neb] 2.5 mg IH [id number] PRN inhsol 12/10/17 Budesonide/Formoterol 160/4.5 2 puff IH BIDR #1 inhaler 12/10/17 [Symbicort 160/4.5] Acetaminophen [Tylenol] 650 mg PO Q6H PRN tablet 12/28/17 Montelukast [Singulair] 10 mg PO HS tablet 12/28/17 hydrOXYzine pamoate [HydrOXYzine 25 mg PO TID PRN #30 capsule 06/12/18 Pamoate] methylPREDNISolone [Medrol] 4 mg PO TAPER #21 tablet 06/12/18 Allergies Allergy/AdvReac Type Severity Reaction Status Date / Time trazodone Allergy Rash Verified 06/12/18 17:21 Constitutional: Denies: fever, chills, weakness Cardiovascular: Reports: chest pain, dyspnea on exertion. Denies: palpitations, orthopnea, edema, syncope Respiratory: Reports: dyspnea, wheezes. Denies: hemoptysis Gastrointestinal: Denies: abdominal pain, nausea, vomiting Musculoskeletal: Denies: back pain, neck pain Integumentary: Denies: rash Neurological: Denies: headache, weakness, numbness, paresthesias Endocrine: Denies: fatigue Chest Pain PMH - Past Medical History Medical history: Reports: asthma, CHF, COPD Surgical history: Reports: no surgical history Psychiatric history: Reports: no psych history - Social History Smoking Status: Current some day smoker Alcohol use: Reports: rarely Drug use: Reports: none Physical Exam - General Limitations: no limitations General appearance: alert, in no apparent distress Course Vital Signs Temperature 98.5 F 01/01/19 02:53 Pulse Rate 107 01/01/19 02:53 Respiratory Rate 20 01/01/19 02:53 Blood Pressure 154/84 01/01/19 02:53 O2 Sat by Pulse Oximetry 91 01/01/19 02:53 Temperature 98.5 F 01/01/19 02:53 Pulse Rate 87 01/01/19 04:17 Respiratory Rate 20 01/01/19 04:17 Blood Pressure 125/66 01/01/19 04:17 O2 Sat by Pulse Oximetry 95 01/01/19 04:17 Oxygen Delivery Oxygen Delivery Nasal Cannula Chest Pain - Lab Data Result diagrams: 01/01/19 03:33 01/01/19 03:33 Lab Results 01/01/19 01/01/19 01/01/19 Range/Units 03:33 03:33 03:33 WBC 9.0 (4.3-11.1) K/mcL RBC 3.50 L (4.19-5.50) M/mcL Hgb 11.8 L (12.9-16.9) g/dL Hct 34.8 L (37.5-50.1) % MCV 99.4 (83.0-100.0) fL MCH 33.7 H (28.0-33.3) pg MCHC 33.9 (31.6-35.5) g/dL RDW 16.3 H (11.5-14.5) % Plt Count 431 H (140-400) K/mcL MPV 10.5 (9.4-12.4) fL Immature Gran % 0.7 (0-4) % Seg Neutrophils % 65.9 % Lymphocytes % 12.0 % Monocytes % 10.9 % Eosinophils % 9.2 % Basophils % 1.3 % Neutrophils # 5.9 (1.6-8.9) K/mcL Lymphocytes # 1.1 (0.6-4.6) K/mcL Monocytes # 1.0 (0.0-1.3) K/mcL Eosinophils # 0.8 H (0.0-0.6) K/mcL Basophils # 0.1 (0.0-0.2) K/mcL Sodium 139 (136-145) mEq/L Potassium 3.9 (3.5-5.1) mEq/L Chloride 93 L (98-107) mEq/L Carbon Dioxide 37 H (23-29) mEq/L BUN 20 (6-20) mg/dL Creatinine 0.87 (0.70-1.30) mg/dL Est GFR ( Amer) > 60 (> 60) Est GFR (Non-Af Amer) > 60 (> 60) BUN/Creatinine Ratio 23 (6-26) Glucose 135 H (70-105) mg/dL Calculated Osmolality 293 (280-300) Calcium 9.1 (8.6-10.3) mg/dL Magnesium 2.2 (1.6-2.6) mg/dL Troponin I < 0.03 (< 0.04) ng/mL B-Natriuretic Peptide 11 (Less than 100) pg/mL Heart Score - Score History: Slightly Suspicious EKG: Normal Age: 45-65 Risk Factors: Equal/Greater than 3 risk factor or history of atherosclerotic disease Troponin: Less than normal limit HEART Score Total: 3 Attestation Statement - Attestation Attestation: I have seen this patient with the resident physician, I have personally evaluated this patient. I had reviewed the chart and document dictation by the resident physician and aM in agreement with the information documented by the resident physician. Please see documentation by the resident physician for complete chart including past medical history, family medical history, review of systems, current history and physical and laboratory and imaging studies. I was present for all procedures, provided direct supervision for all procedures, was present for the entirety of all procedures and provided direct guidance during the procedures. Please see documentation by the resident physician for any procedures performed. I have reviewed all interpretations of EKGs, and reviewed all EKGs performed on patient's as well. I have also reviewed reports of imaging as provided by radiology. Patient presented emergency department with chief complaint of chest pain michelet rtness of breath chest pain has been present for 3 weeks it was coming and going for the first week and a half but is now more constant for the last week and a half, with worsening pain tonight, with some progressively increasing shortness of breath cough and wheezing. He reports a history of COPD CHF hypertension. He denies any significant headache neck pain or jaw pain. Pain on the left side is both stabbing and dull. Nonradiating. No pain in his back. No pleuritic pain. No recent unilateral leg pain or leg swelling no recent travel surgery remobilization. He does report that his shortness of breath is worse with exertion. On physical examination, he had just received breathing treatments from the paramedics, has significant diffuse wheezing auscultated throughout the lungs, with some mild tachypnea without retractions or accessory muscle use. Cranial nerves are intact. No obvious JVD was limited by body habitus. Abdomen is soft morbidly obese nontender. Trace bilateral lower extremity edema no unilateral slight palpable cord Homans sign or clinical evidence of DVT. EKG was normal sinus rhythm with no evidence of acute ischemic dysrhythmia or hyperkalemia as interpreted by myself. No evidence of Wellens syndrome or Brugada pattern no significant normality of conduction. Chest x-ray as interpreted by radiology showed no acute findings. [facility] laboratory studies were within acceptable limits including negative cardiac enzymes. He was given breathing treatments prehospital, he was given IV steroids she was given by mouth aspirin. Patient has no history of coronary artery disease, but does have multiple risk factors for ACS, has chest pain is one of his acute complaints although I feel like this is likely related to a significant COPD exacerbation, he has not had any recent cardiac evaluation. Patient chart was reviewed he did have an echocardiogram last year with a normal ejection fraction. Patient will be admitted for further evaluation and management of acute COPD exacerbation as well as chest pain.
[2019-01-01] MEDS ORDERED: Naloxone 0.4 MG/ML INJ IVP PRN (05:41)
[2019-01-01] MEDS ORDERED: Azithromycin 250 MG TABLET PO ONE (05:41)
--- NOTE | 2019-01-01 05:41 | Internal Med History&Physical ---
<Otf Chavez S - Last Filed: 01/01/19 06:08> Date of Encounter: 01/01/19 Time of Encounter: 06:09 Internal Medicine - H&P: HPI Chief complaint: chest pain Admitted From: Home Plans for Post Hospital Care: Home History of present illness: Mr. Paris is a 58 year old male with a PMH of COPD on 3 L, ERNESTINA, CHF, ashtma and morbid obesity. He is here for the chief complaint of chest pain and shortness of breath. He has had chest pain x 3 weeks and it hurts when he presses on it. The chest pain worsens with palpation and deep inspiration. It has been on and off and radiates to his back. He denies radiation to the neck or arm. He states it can be sharp but sometimes it is dull and squeezing. He recently went to his PCP, where he says he was told to increase his lasix to 80mg PO BID and take aldactone. As of now, his medication reconcilation is not completed. SOB has been worsening as well. He has had increasing cough and congestion. Mucus production has gone form clear to green. He states he is coughing more too. He didn't take any meds before coming to the ER. He denies any other associated s/s like n/v/d, abd pain. He has had on and off chills. He states that he denies headache. He denies skin changes or numbness/tingling. He was reportedly found to be in the O2 sat 80's by EMS and has improved since going to the emergency room. In the ER he was found to have a negative troponin. BNP nor mal. EKG without ischemia. XR chest negative for acute cardiopulmonary change. He was diffusely wheezing and will be admitted for observation. Past Med Surg Social Fam HX - Past Medical History Medical history: asthma, CHF, COPD Additional medical history: sleep apnea Psychiatric history: no psych history - Past Surgical History Surgical History: no surgical history - Social History Smoking Status: Current some day smoker Smokeless Tobacco Status: No Alcohol use: rarely Drug use: none - Family History Father Living Status: Still Living Hx Family Cardiac Disorders: Yes (CABG pacer) Mother Adopted: No Family Member Ethnicity: Non- Living Status: Hx Family Cardiac Disorders: Yes Hx Family Respiratory Disorders: Yes Hx Family Cancer: No Hx Family GI Disorders: Yes Hx Family Endocrine Disorder: Yes Hx Family Neuromuscular Disorders: No Hx Family Neurologic Disorders: No Hx Family HEENT Disorders: No Hx Family Autoimmune Disorders: No Internal Medicine - H&P: Meds Albuterol Neb [Proventil Neb] 2.5 mg IH [id number] PRN inhsol 12/10/17 [Rx] Budesonide/Formoterol 160/4.5 [Symbicort 160/4.5] 2 puff IH BIDR #1 inhaler 12/10/17 [Rx] Acetaminophen [Tylenol] 650 mg PO Q6H PRN tablet 12/28/17 [Rx] Furosemide [Lasix] 80 mg PO DAILY 02/05/18 [History] Potassium Chloride [K-Tab ER] 40 meq PO DAILY 02/13/18 [History] Fluticasone Propionate Nasal [Flonase] 1 spr NS DAILY 03/14/18 [History] Albuterol Sulfate [Proair Hfa] 2 puff IH DAILY PRN 01/01/19 [History] Spironolactone [Aldactone] 50 mg PO DAILY 01/01/19 [History] hydrOXYzine pamoate [HydrOXYzine Pamoate] 25 mg PO BID PRN 01/01/19 [History] Allergy/AdvReac Type Severity Reaction Status Date / Time trazodone Allergy Rash Verified 06/12/18 17:21 All Systems PM: A 10-system review of systems was performed and is negative for pertinent findings except as documented above in the HPI. - Constitutional Constitutional: chills, fever(s), weakness - EENT Eyes: no blurry vision, no change in vision Ears: no tinnitus - Cardiovascular Cardiovascular ROS IM: chest pain, dyspnea, dyspnea on exertion - Respiratory Respiratory: cough, dyspnea, dyspnea on exertion, wheezing, pain on inspiration, chest congestion, excessive phlegm production, change in phlegm color - Gastrointestinal Gastrointestinal: nausea, no abdominal pain, no diarrhea, no vomiting - Musculoskeletal Musculoskeletal ROS IM: no numbness, no tingling - Integumentary Integumentary IM: no rash, no skin ulcer - Neurological Neurological ROS: weakness, no numbness, no tingling - Endocrine Endocrine IM: fatigue - Hematologic/Lymphatic Hematologic/Lymphatic: no easy bleeding, no easy bruising - Constitutional Vitals: Temp Pulse Resp BP Pulse Ox 98.5 F 87 20 125/66 95 01/01/19 02:53 01/01/19 04:17 01/01/19 04:17 01/01/19 04:17 01/01/19 04:17 Exam: general - aox3, nad, laying in bed, speaking in full sentences w/o respiratory distress heent - ncat, mmm, no scleral icterus neck- no jvd,trachea midline cardio- rrr s1s2, cta no mrg chest - reproducible chest pain under right breast lungs - decreased breath sounds, wheezing diffusely, no resp distress abd - distended, soft, nontender, no peritoneal signs extremities - moves all extremities equally, mild nonpitting edema bilaterally neuro- no fnd, sensation intact psych - appropriate mood/affect skin - warm, dry, intact Internal Med - H&P Results - Labs CBC & Chem 7: 01/01/19 03:33 01/01/19 03:33 Labs: Short CBC 01/01/19 Range/Units 03:33 WBC 9.0 (4.3-11.1) K/mcL Hgb 11.8 L (12.9-16.9) g/dL Hct 34.8 L (37.5-50.1) % Plt Count 431 H (140-400) K/mcL Neutrophils # 5.9 (1.6-8.9) K/mcL BMP 01/01/19 03:33 Sodium 139 Potassium 3.9 Chloride 93 L Carbon Dioxide 37 H BUN 20 Creatinine 0.87 Glucose 135 H Calcium 9.1 Cardiac Enzymes 01/01/19 Range/Units 03:33 Troponin I < 0.03 (< 0.04) ng/mL - Impressions ITS Impressions Chest X-Ray 01/01/19 03:00 IMPRESSION: Negative portable chest. D/ / Bryon Vásquez MD / Bryon Vásquez MD Interpreting Provider: Bryon Vásquez MD - Assessment and Plan (1) COPD exacerbation Current Visit: Yes Status: Acute Assessment and plan: Pt reports increasing SOB, cough, sputum production, wheezing - has hx of COPD on 3 L home oxygen - pt was reportedly found to be O2 sat in the 80's Pt is afebrile, no white count; HR 87 and RR 20 PFT performed 05/2018 - indicated airway obstruction reduced diffusing capacity indicating a moderately severe loss of functional alveolar capillary surface XR from admission was negative for acute cardiopulmonary disease - Scattered calcified granulomas are again seen without acute airspace disease seen Plan: - respiratory infxn panel pending - telemetry monitoring - pulse ox monitoring - vital signs per nursing protocol - IV solu-medrol q12hr - duonebs - azithromycin x 3 days, day 1 already given - limited ECHO pending - FEN: cardiac diet - dvt prophylaxis: sq heparin - dispo: observation pt (2) Anemia Current Visit: No Status: Chronic Assessment and plan: Pt has chronic baseline anemia, admission hemoglobin 11.8, around his baseline. Continue to monitor H&H. Qualifiers: Anemia type: unspecified type Qualified Code(s): D64.9 - Anemia, unspecified (3) CAD (coronary artery disease) Current Visit: No Status: Chronic Assessment and plan: Chronic, has multiple risk factors. Pt reportedly noncompliant. Not on home ASA, will add 81mg PO. Awaiting med reconcilation. Lipid panel pending. Limited ECHO pending. Qualifiers: Coronary Disease-Associated Artery/Lesion type: [place] artery [place] vs. transplanted heart: [place] heart Associated angina: with stable angina Qualified Code(s): I25.118 - Atherosclerotic heart disease of [place] coronary artery with other forms of angina pectoris (4) Acute on chronic respiratory failure with hypoxia and hypercapnia Current Visit: Yes Status: Acute Assessment and plan: Pt with increasing oxygen needs. Likely 2/2 AECOPD. See plan as above. (5) ERNESTINA (obstructive sleep apnea) Current Visit: No Status: Chronic Assessment and plan: Chronic. (6) Diastolic CHF Current Visit: No Status: Chronic Assessment and plan: NOT in acute exacerbation. Troponin negative x1. BNP 11. Last ECHO from 03/2018: LVEF 60%. Mild left ventricular diastolic dysfunction, normal right ventricular structure and function. No significant valvular dysfunction/pulmonary hypertension Plan: - await med reconcilation for current diuretic use - start ASA 81mg PO daily - limited ECHO pending - trend troponins x3 - telemetry monitoring Qualifiers: Heart failure chronicity: chronic Qualified Code(s): I50.32 - Chronic diastolic (congestive) heart failure (7) DVT prophylaxis Current Visit: Yes Status: Acute Assessment and plan: sq heparin (8) Chest pain Current Visit: Yes Status: Acute Assessment and plan: Pt has reproducible chest pain on exam. Likely secondary to coughing from AECOPD. Initial troponin negative. BNP normal. EKG negative for ischemia. Will trend x3 and order limited ECHO. Qualifiers: Chest pain type: unspecified Qualified Code(s): R07.9 - Chest pain, unspecified - Time Spent With Patient Total time spent is greater than 50% in coordination of care (as documented) at patient's floor/unit and/or counseling patient: 25 - 35 minutes <Rian Madrid - Last Filed: 01/01/19 06:39> Date of Encounter: 01/01/19 Internal Medicine - H&P: HPI History of present illness: Mr. Parsi is a 58 year old male All Systems PM: A 10-system review of systems was performed and is negative for pertinent findings except as documented above in the HPI. - Constitutional Vitals: Temp Pulse Resp BP Pulse Ox 98.5 F 91 20 140/78 99 01/01/19 02:53 01/01/19 06:03 01/01/19 06:03 01/01/19 06:03 01/01/19 06:03 Internal Med - H&P Results - Labs CBC & Chem 7: 01/01/19 03:33 01/01/19 03:33 Labs: Short CBC 01/01/19 Range/Units 03:33 WBC 9.0 (4.3-11.1) K/mcL Hgb 11.8 L (12.9-16.9) g/dL Hct 34.8 L (37.5-50.1) % Plt Count 431 H (140-400) K/mcL Neutrophils # 5.9 (1.6-8.9) K/mcL BMP 01/01/19 03:33 Sodium 139 Potassium 3.9 Chloride 93 L Carbon Dioxide 37 H BUN 20 Creatinine 0.87 Glucose 135 H Calcium 9.1 Cardiac Enzymes 01/01/19 Range/Units 03:33 Troponin I < 0.03 (< 0.04) ng/mL - Impressions ITS Impressions Chest X-Ray 01/01/19 03:00 IMPRESSION: Negative portable chest. D/ / Bryon Vásquez MD / Bryon Vásquez MD Interpreting Provider: Bryon Vásquez MD - Time Spent With Patient Total time spent is greater than 50% in coordination of care (as documented) at patient's floor/unit and/or counseling patient: - Attending Attestation I was present with resident during the history and exam. I discussed the case with the resident and agree with the findings and plan as documented in the residents note. I reviewed the residents note, performed my own physical examination and agree with findings and plan as documented in the residents note. Patient seen and examined on 01/01/19. Patient seen in the ER, resting comfortably in the hospital bed, no acute distress. Had chest pain and shortness of breath which has been gradually worsening over the last 3 weeks. Initial work up negative. Wheezy on exam. Will continue breathing treatments, monitor troponin and continue cardiac monitoring. Patient states that he had his lasix recently changed, no crackles on exam. Patient has non-pitting edema on exam. Will get limited echo today. Oxgen supplementation as needed.
[2019-01-01] MEDS ORDERED: Ipratropium/Albuterol Neb 3 ML IH ONE (06:07)
[2019-01-01] MEDS: Ipratropium/Albuterol Neb 3 ML IH SCH ×4 (07:20→20:16)
[2019-01-01] MEDS ORDERED: Ipratropium/Albuterol Neb 3 ML IH PRN (07:57)
[2019-01-01] MEDS ORDERED: Acetaminophen 325 MG TABLET PO PRN (07:57)
[2019-01-01] MEDS: *HR* Heparin 5,000 UNIT/ML VIAL SQ SCH ×3 (08:07→21:29)
--- NOTE | 2019-01-01 08:39 | Event Note ---
Date of Encounter: 01/01/19 Time of Encounter: 08:36 58-year-old male with past medical history of asthma/COPD and a CHF presented with several weeks of reproducible left-sided chest pain and dyspnea on exertion. Labs showed negative troponin, EKG has no acute changes. Chest x-ray was unremarkable. Patient is treated as COPD exacerbation with bronchodilators and IV steroids. Patient is euvolemic on physical exam, home dose of Lasix was continued. Pending echocardiogram.
[2019-01-01 09:12] LABS: Chol/HDL Ratio 3.6 (0-4.9); Cholesterol 148 mg/dL (< 200); HDL Cholesterol 41 mg/dL (40-59); LDL Cholesterol,Calculated 92 mg/dL (0-99); Magnesium 2.2 mg/dL (1.6-2.6); Triglycerides 77 mg/dL (< 150); Troponin I < 0.03 ng/mL (< 0.04)
[2019-01-01] MEDS: hydrOXYzine pamoate 25 MG CAPSULE PO PRN (09:54)
[2019-01-01] MEDS: Furosemide 40 MG TABLET PO SCH (09:54)
[2019-01-01] MEDS: Fluticasone Propionate Nasal 50 MCG/SPRAY BOTTLE NS SCH (09:57)
[2019-01-01] MEDS: Budesonide/Formoterol 160/4.5 1 PUFF INH IH SCH ×2 (11:45→20:16)
[2019-01-01 16:31] LABS: Adenovirus Not Detected (Not Detect); Bordetella Pertussis Not Detected (Not Detect); Chlamydophila pneumoniae Not Detected (Not Detect); Coronavirus 229E Not Detected (Not Detect); Coronavirus HKU1 Not Detected (Not Detect); Coronavirus NL63 Not Detected (Not Detect); Coronavirus OC43 Not Detected (Not Detect); Human Metapneumovirus Not Detected (Not Detect); Human Rhinovirus/Enterovirus Not Detected (Not Detect); Influenza A Subtype 2009 H1 Not Detected (Not Detect); Influenza A Untypeable Not Detected (Not Detect); Influenza B Not Detected (Not Detect); Mycoplasma pneumoniae Not Detected (Not Detect); Parainfluenza Virus 1 Not Detected (Not Detect); Parainfluenza Virus 2 Not Detected (Not Detect); Parainfluenza Virus 3 Not Detected (Not Detect); Parainfluenza Virus 4 Not Detected (Not Detect); Respiratory Syncytial Virus Not Detected (Not Detect)
[2019-01-01] MEDS: MethylPREDNISolone 40 MG/ML VIAL IVP SCH (17:13)
[2019-01-01] MEDS: GuaiFENesin/Dextromethorphan TABLET PO PRN (21:59)
[2019-01-02] MEDS: Ipratropium/Albuterol Neb 3 ML IH SCH ×7 (00:10→23:28)
[2019-01-02] MEDS: MethylPREDNISolone 40 MG/ML VIAL IVP SCH (05:27)
[2019-01-02] MEDS: *HR* Heparin 5,000 UNIT/ML VIAL SQ SCH ×3 (05:27→21:39)
[2019-01-02 06:15] LABS: BUN/Creatinine Ratio 25 (6-26); Blood Urea Nitrogen 28 mg/dL (6-20); Calcium 9.8 mg/dL (8.6-10.3); Carbon Dioxide 33 mEq/L (23-29); Chloride 95 mEq/L (98-107); Glucose 197 mg/dL (70-105); Osmolality,Calculated 293 (280-300); Potassium 4.3 mEq/L (3.5-5.1); Sodium 136 mEq/L (136-145); eGFR For Non-African Americans > 60 (> 60)
[2019-01-02 07:04] LABS: Basophils % 0.1 %; Eosinophils % 0.2 %; Hematocrit 33.9 % (37.5-50.1); Hemoglobin 11.4 g/dL (12.9-16.9); Lymphocytes # 0.7 K/mcL (0.6-4.6); Lymphocytes % 3.4 %; Mean Corpuscular HGB Conc 33.6 g/dL (31.6-35.5); Mean Corpuscular Hemoglobin 33.2 pg (28.0-33.3); Mean Corpuscular Volume 98.8 fL (83.0-100.0); Mean Platelet Volume 10.5 fL (9.4-12.4); Monocytes # 1.8 K/mcL (0.0-1.3); Monocytes % 8.7 %; Neutrophils # 17.8 K/mcL (1.6-8.9); Platelet Count 442 K/mcL (140-400); Red Blood Count 3.43 M/mcL (4.19-5.50); Red Cell Distribution Width 16.2 % (11.5-14.5); Segmented Neutrophils % 86.6 %
[2019-01-02] MEDS: Budesonide/Formoterol 160/4.5 1 PUFF INH IH SCH ×2 (07:30→20:28)
[2019-01-02] MEDS: Furosemide 40 MG TABLET PO SCH (08:12)
[2019-01-02] MEDS: Azithromycin 250 MG TABLET PO SCH (08:12)
[2019-01-02] MEDS: Aspirin 81 MG TAB.CHEW PO SCH (08:13)
[2019-01-02] MEDS: hydrOXYzine pamoate 25 MG CAPSULE PO PRN (08:17)
[2019-01-02] MEDS: Fluticasone Propionate Nasal 50 MCG/SPRAY BOTTLE NS SCH (08:17)
[2019-01-02] MEDS ORDERED: D5% in Water 1,000 ML IVC PRN (17:46)
[2019-01-02] MEDS ORDERED: *HR* Dextrose 50 % in Water (Syg) 50 ML SYRINGE IVP PRN (17:46)
[2019-01-02] MEDS ORDERED: Dextrose Gel 15 GM/37.5 ML TUBE PO PRN ×2 (17:46)
--- NOTE | 2019-01-02 17:57 | Internal Med Progress Note ---
Hospitalist Progress Note - Encounter Date of Encounter: 01/02/19 Time of Encounter: 17:44 - Subjective Interval History: Patient was seen and examined at bedside currently. Be in any respiratory distress denies any chest pain or shortness of breath. We will decrease his steroids continues to have elevated blood glucose continue to monitor closely patient has no history of diabetes most likely secondary to steroid use will place on sliding scale - Exam Vitals: Temp Pulse Resp BP Pulse Ox 98.1 F 96 18 124/71 97 01/02/19 16:07 01/02/19 16:07 01/02/19 16:21 01/02/19 16:07 01/02/19 16:21 Exam: general - aox3, nad, laying in bed, speaking in full sentences w/o respiratory distress heent - ncat, mmm, no scleral icterus neck- no jvd,trachea midline cardio- rrr s1s2, cta no mrg chest - reproducible chest pain under right breast lungs - decreased breath sounds, lung sounds sounds clear abd - distended, soft, nontender, no peritoneal signs extremities - moves all extremities equally, mild nonpitting edema bilaterally neuro- no fnd, sensation intact psych - appropriate mood/affect skin - warm, dry, intact - Assessment and Plan (1) COPD exacerbation Current Visit: Yes Status: Acute Assessment and Plan: Pt reports increasing SOB, cough, sputum production, wheezing - has hx of COPD on 3 L home oxygen - pt was reportedly found to be O2 sat in the 80's Pt is afebrile, no white count; HR 87 and RR 20 PFT performed 05/2018 - indicated airway obstruction reduced diffusing capacity indicating a moderately severe loss of functional alveolar capillary surface XR from admission was negative for acute cardiopulmonary disease - Scattered calcified granulomas are again seen without acute airspace disease seen Plan: - respiratory infxn panel negative - telemetry monitoring - pulse ox monitoring - vital signs per nursing protocol - Discontinue IV steroids and placed on prednisone - duonebs - azithromycin x 3 days, - limited ECHO Impressions: LVEF 60%. Normal LV chamber size, wall thickness and systolic function. There is a trivial pericardial effusion present. There is no echocardiographic evidence of tamponade. - FEN: cardiac diet - dvt prophylaxis: sq heparin (2) Acute on chronic respiratory failure with hypoxia and hypercapnia Current Visit: Yes Status: Acute Assessment and Plan: Pt with increasing oxygen needs. Likely 2/2 AECOPD. See plan as above. Patient states that he is on 3 L nasal cannula home appears to be on his home oxygen (3) ERNESITNA (obstructive sleep apnea) Current Visit: No Status: Chronic Assessment and Plan: Chronic. (4) Diastolic CHF Current Visit: No Status: Chronic Assessment and Plan: NOT in acute exacerbation. Troponin negative x1. BNP 11. Last ECHO from 03/2018: LVEF 60%. Mild left ventricular diastolic dysfunction, normal right ventricular structure and function. No significant valvular dysfunction/pulmonary hypertension Plan: - Continue 80 mg of Lasix by mouth daily - start ASA 81mg PO daily - ECHO pending Impressions: LVEF 60%. Normal LV chamber size, wall thickness and systolic function. There is a trivial pericardial effusion present. There is no echocardiographic evidence of tamponade. - Negative troponins x3 - telemetry monitoring (5) DVT prophylaxis Current Visit: Yes Status: Acute Assessment and Plan: sq heparin (6) Chest pain Current Visit: Yes Status: Acute Assessment and Plan: Pt has reproducible chest pain on exam. Likely secondary to coughing from AECOPD. Initial troponin negative. BNP normal. EKG negative for ischemia. Troponins negative 3 Echo Impressions: LVEF 60%. Normal LV chamber size, wall thickness and systolic function. There is a trivial pericardial effusion present. There is no echocardiographic evidence of tamponade. (7) Anemia Current Visit: No Status: Chronic Assessment and Plan: Pt has chronic baseline anemia, admission hemoglobin 11.8, around his baseline. Continue to monitor H&H. (8) CAD (coronary artery disease) Current Visit: No Status: Chronic Assessment and Plan: Chronic, has multiple risk factors. Pt reportedly noncompliant. Not on home ASA, will add 81mg PO. Continue at home medications (9) Hyperglycemia Current Visit: Yes Status: Acute Assessment and Plan: Secondary to steroid use we will continue to titrate steroids. Blood glucoses are [address] on sliding scale insulin and monitor closely. Check A1c - Time Spent with Patient Total time spent is greater than 50% in coordination of care (as documented) at patient's floor/unit and/or counseling patient: Internal Medicine: Result - Labs CBC & Chem 7: 01/02/19 05:27 01/02/19 05:27 Labs: Short CBC 01/02/19 Range/Units 05:27 WBC 20.6 H D (4.3-11.1) K/mcL Hgb 11.4 L (12.9-16.9) g/dL Hct 33.9 L (37.5-50.1) % Plt Count 442 H (140-400) K/mcL Neutrophils # 17.8 H (1.6-8.9) K/mcL BMP 01/02/19 05:27 Sodium 136 Potassium 4.3 Chloride 95 L Carbon Dioxide 33 H BUN 28 H Creatinine 1.12 Glucose 197 H Calcium 9.8 Cardiac Enzymes 01/01/19 Range/Units 20:21 Troponin I < 0.03 (< 0.04) ng/mL Consult Discharge Plan - Plan Referrals: Edinson Benedict MD [Primary Care Provider] - 01/10/19 1:30 pm () ___ (4) Diastolic CHF Qualifiers: Heart failure chronicity: chronic Qualified Code(s): I50.32 - Chronic diastolic (congestive) heart failure (6) Chest pain Qualifiers: Chest pain type: unspecified Qualified Code(s): R07.9 - Chest pain, unspecified (7) Anemia Qualifiers: Anemia type: unspecified type Qualified Code(s): D64.9 - Anemia, unspecified (8) CAD (coronary artery disease) Qualifiers: Coronary Disease-Associated Artery/Lesion type: [place] artery [place] vs. transplanted heart: [place] heart Associated angina: with stable angina Qualified Code(s): I25.118 - Atherosclerotic heart disease of [place] coronary artery with other forms of angina pectoris
[2019-01-02] MEDS ORDERED: Insulin LISPRO 300 UNITS/3 ML VIAL SQ SCH (21:00)
[2019-01-02] MEDS: GuaiFENesin/Dextromethorphan TABLET PO PRN (21:42)
[2019-01-03] MEDS: Ipratropium/Albuterol Neb 3 ML IH SCH ×3 (03:45→11:31)
[2019-01-03] MEDS: *HR* Heparin 5,000 UNIT/ML VIAL SQ SCH (06:25)
[2019-01-03] MEDS ORDERED: Insulin LISPRO 300 UNITS/3 ML VIAL SQ SCH (07:30)
[2019-01-03 08:12] VITALS: BP 117/71
[2019-01-03] MEDS: Furosemide 40 MG TABLET PO SCH (08:17)
[2019-01-03] MEDS: Azithromycin 250 MG TABLET PO SCH (08:18)
[2019-01-03] MEDS: Fluticasone Propionate Nasal 50 MCG/SPRAY BOTTLE NS SCH (08:18)
[2019-01-03] MEDS: Aspirin 81 MG TAB.CHEW PO SCH (08:18)
[2019-01-03] MEDS: Budesonide/Formoterol 160/4.5 1 PUFF INH IH SCH (08:30)
[2019-01-03 08:43] LABS: BUN/Creatinine Ratio 25 (6-26); Blood Urea Nitrogen 26 mg/dL (6-20); Carbon Dioxide 41 mEq/L (23-29); Chloride 96 mEq/L (98-107); Glucose 96 mg/dL (70-105); Osmolality,Calculated 297 (280-300); Potassium 4.3 mEq/L (3.5-5.1); Sodium 141 mEq/L (136-145); eGFR For Non-African Americans > 60 (> 60)
[2019-01-03] MEDS ORDERED: predniSONE 20 MG TABLET PO SCH (09:00)
[2019-01-03 09:30] LABS: ABG Base Excess 11 mEq/L (-2 to 3); ABG HCO3 40 mEq/L (21-27); ABG Oxygen Saturation 93 % (95-98); ABG PCO2 74 mmHg (35-45); ABG PH 7.34 pH Units (7.32-7.45); ABG PO2 75 mmHg (85-104); ABG TCO2 42 mEq/L (20-26)
--- NOTE | 2019-01-03 10:08 | Discharge Summary ---
- NOTES TO OUTPATIENT PROVIDER Notes to Outpatient Provider: COPD excerbation, steroid taper azithromycin 2 days Orders not resulted at time of discharge: Pending orders 01/03/19 06:45 CBC [Complete Blood Count] [HEME] AM 0400 Hgb A1C AM 0400 01/03/19 08:48 ABG [Arterial Blood Gas] Stat Date of Encounter: 01/03/19 Time of Encounter: 10:01 - Discharge Diagnosis (1) COPD exacerbation Priority: Secondary Status: Acute (2) Acute on chronic respiratory failure with hypoxia and hypercapnia Priority: Primary Status: Acute (3) ERNESTINA (obstructive sleep apnea) Priority: Secondary Status: Chronic (4) Diastolic CHF Priority: Secondary Status: Chronic Qualifiers: Heart failure chronicity: chronic Qualified Code(s): I50.32 - Chronic diastolic (congestive) heart failure (5) Chest pain Priority: Secondary Status: Acute Qualifiers: Chest pain type: unspecified Qualified Code(s): R07.9 - Chest pain, unspecified (6) Anemia Priority: Secondary Status: Chronic Qualifiers: Anemia type: unspecified type Qualified Code(s): D64.9 - Anemia, unspecified (7) CAD (coronary artery disease) Priority: Secondary Status: Chronic Qualifiers: Coronary Disease-Associated Artery/Lesion type: [place] artery [place] vs. transplanted heart: [place] heart Associated angina: with stable angina Qualified Code(s): I25.118 - Atherosclerotic heart disease of [place] coronary artery with other forms of angina pectoris (8) Hyperglycemia Priority: Secondary Status: Acute Hospital course: Mr. Paris is a 58 year old male past medical history of COPD on 3 L LSA on BiPAP at home CHF asthma and morbid obesity. Presented with complaints of chest pain shortness of breath. He has had chest pain 3 weeks with reproducible pain worse on deep inspiration. Also experiencing increasing shortness of breath cough and congestion. Subjective production which is green in color. Denies any fevers at all pain nausea or vomiting. Lab work with negative troponin and BNP within normal limits EKG without any ischemia chest x-ray negative for any acute cardiopulmonary changes he did have diffuse wheezing on presentation he was treated for COPD exacerbation given steroids as well as bronchodilators. Respiratory state did improve however his blood glucose did elevate over 300 he was given IV insulin and steroids were decreased he is returned back to baseline. He did have elevation in CO2 however patient did not wear BiPAP during admission. ABG did reveal compensated respiratory acidosis respiratory panel was negative. Advised patient to wear BiPAP at home as well as continue with oxygen follow-up with primary care provider. He will be given daily supply of azithromycin and a steroid taper. Patient verbalized understanding currently he is hemodynamically stable and ready for discharge. - Time Spent with Patient Total time spent providing and/or coordinating discharge services: - Discharge Medications Prescriptions: New Aspirin 81 mg PO DAILY tab.chew GuaiFENesin/Dextromethorphan [Mucinex Dm] 1 each PO BID PRN 7 Days #14 tab.er.12h PRN Reason: Cough Azithromycin [Zithromax] 500 mg PO DAILY 2 Days #2 tablet predniSONE [PredniSONE] 10 mg PO DAILY #26 tablet Continued Albuterol Neb [Proventil Neb] 2.5 mg IH [id number] PRN inhsol PRN Reason: Shortness Of Breath/Wheezing Budesonide/Formoterol 160/4.5 [Symbicort 160/4.5] 2 puff IH BIDR #1 inhaler Acetaminophen [Tylenol] 650 mg PO Q6H PRN tablet PRN Reason: Mild Pain/Fever Furosemide [Lasix] 80 mg PO DAILY Potassium Chloride [K-Tab ER] 40 meq PO QAM Fluticasone Propionate Nasal [Flonase] 1 spr NS QAM PRN PRN Reason: Allergy Symptoms hydrOXYzine pamoate [HydrOXYzine Pamoate] 25 mg PO BID PRN PRN Reason: Itching Spironolactone [Aldactone] 50 mg PO QAM Albuterol Sulfate [Proair Hfa] 2 puff IH DAILY PRN PRN Reason: Wheezing Home Medications: Albuterol Neb [Proventil Neb] 2.5 mg IH [id number] PRN inhsol 12/10/17 [Rx] Budesonide/Formoterol 160/4.5 [Symbicort 160/4.5] 2 puff IH BIDR #1 inhaler 12/10/17 [Rx] Acetaminophen [Tylenol] 650 mg PO Q6H PRN tablet 12/28/17 [Rx] Furosemide [Lasix] 80 mg PO DAILY 02/05/18 [History] Potassium Chloride [K-Tab ER] 40 meq PO QAM 02/13/18 [History] Fluticasone Propionate Nasal [Flonase] 1 spr NS QAM PRN 03/14/18 [History] Albuterol Sulfate [Proair Hfa] 2 puff IH DAILY PRN 01/01/19 [History] Spironolactone [Aldactone] 50 mg PO QAM 01/01/19 [History] hydrOXYzine pamoate [HydrOXYzine Pamoate] 25 mg PO BID PRN 01/01/19 [History] Aspirin 81 mg PO DAILY tab.chew 01/03/19 [Rx] Azithromycin [Zithromax] 500 mg PO DAILY 2 Days #2 tablet 01/03/19 [Rx] GuaiFENesin/Dextromethorphan [Mucinex Dm] 1 each PO BID PRN 7 Days #14 tab.er.12h 01/03/19 [Rx] predniSONE [PredniSONE] 10 mg PO DAILY #26 tablet 01/03/19 [Rx] Allergies/Adverse Reactions: Allergy/AdvReac Type Severity Reaction Status Date / Time trazodone Allergy Rash Verified 01/01/19 17:11 Date of admission: 01/01/19 05:48 Primary care physician: Edinson Benedict MD Consults: 01/01/19 06:38 Consult to Nurse Navigator [CONS] Routine Comment: COPD Discharging clinician: Thelma Beebe Anticipated date of discharge: 01/03/19 - Constitutional Vitals: Temp Pulse Resp BP Pulse Ox 98.6 F 87 18 117/71 100 01/03/19 08:10 01/03/19 08:10 01/03/19 08:27 01/03/19 08:10 01/03/19 08:27 Exam: Skin: Free of rash and discoloration. Eyes: Sclera is white. There is no discharge from eyes. ENMT: Oral/pharyngeal mucosa is normal in appearance. There is no discharge from nose or ears. Respiratory: Normal breath sounds with no crackles , faint expiratory wheeze CV: Heart is regular with no gallop or murmur. GI: Abdomen is flat and soft with no palpable mass or visceromegaly. : There is no tenderness in patient's flanks bilaterally. Neuro exam: He has good strength in upper and lower extremities. He has normal eye movements. Psychiatric: He has normal affect. His thought process is appropriate to the situation. - Patient Status Disposition: Home, Self-Care Condition: Fair Functional capacity at discharge: independent ambulation Overall status at discharge: patient is back to baseline - Discharge Instructions Instructions: Chronic Obstructive Pulmonary Disease (DC) Follow Up With: Edinson Benedict MD [Primary Care Provider] - 01/10/19 1:30 pm () - Diet and Activity Activity: increase activity as tolerated, wear oxygen at all times Diet: advance to your usual diet
--- NOTE | 2019-01-03 10:17 | Electrocardiograph Report ---
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
[2019-01-03 12:25] LABS: Estimated Average Glucose 100 mg/dl; Hemoglobin A1C 5.1 %
== END 2019-01-03 12:02 | disposition home or self-care (01) ==
LOC: 3BNU 02:50 → EMEROOARM 02:50 → 3BNU 06:11
PROVIDERS: ADMIT Family Medicine; ATTEND Family Medicine

== ENCOUNTER 2020-02-04 12:48 | Inpatient (IN) ==
[2020-02-04] MEDS ORDERED: Isovue-370 500 ML BOTTLE IVP ONE (13:09)
[2020-02-04] MEDS ORDERED: Ipratropium/Albuterol Neb 3 ML IH ONE (13:09)
[2020-02-04] MEDS ORDERED: methylPREDNISolone 125 MG/2 ML VIAL IVP ONE (13:10)
[2020-02-04 13:49] LABS: BUN/Creatinine Ratio 12 (6-26); Blood Urea Nitrogen 13 mg/dL (8-23); Calcium 8.7 mg/dL (8.6-10.3); Carbon Dioxide 39 mEq/L (23-29); Chloride 89 mEq/L (98-107); Glucose 272 mg/dL (70-105); Osmolality,Calculated 290 (280-300); Sodium 135 mEq/L (136-145); Troponin I < 0.03 ng/mL (< 0.04); eGFR For African Americans > 60 (> 60); eGFR For Non-African Americans > 60 (> 60)
[2020-02-04] MEDS ORDERED: Albuterol 2.5 MG/3 ML NEBULIZER IH ONE (14:04)
[2020-02-04] MEDS ORDERED: Aspirin 81 MG TAB.CHEW PO STA (14:05)
[2020-02-04 14:36] LABS: Alanine Aminotransferase 29 Units/L (7-52); Albumin/Globulin Ratio 1.5 (1.1-2.2); Alkaline Phosphatase 173 Units/L (34-104); Aspartate Amino Transferase 18 Units/L (13-39); Bilirubin,Direct 0.7 mg/dL (0.0-0.2); Bilirubin,Indirect 3.5 mg/dL (0.0-1.0); Bilirubin,Total 4.2 mg/dL (0.3-1.0); Globulin 2.7 g/dL (2.4-3.5); Lipase 10 Units/L (11-82); Total Protein 6.7 g/dL (6.4-8.9)
[2020-02-04 15:16] LABS: Basophils # 0.1 K/mcL (0.0-0.2); Basophils % 0.9 %; Eosinophils # 0.8 K/mcL (0.0-0.6); Eosinophils % 5.8 %; Hematocrit 31.1 % (37.5-50.1); Hemoglobin 10.4 g/dL (12.9-16.9); Immature Granulocytes % 2.5 % (0-4); Mean Corpuscular Hemoglobin 33.4 pg (28.0-33.3); Mean Platelet Volume 9.8 fL (9.4-12.4); Monocytes # 1.7 K/mcL (0.0-1.3); Monocytes % 12.4 %; Neutrophils # 9.8 K/mcL (1.6-8.9); Nucleated Red Blood Cells 0.8 /100 WBC (0); Platelet Count 422 K/mcL (140-400); Red Blood Count 3.11 M/mcL (4.19-5.50); Red Cell Distribution Width 16.7 % (11.5-14.5); Segmented Neutrophils % 71.4 %; White Blood Count 13.7 K/mcL (4.3-11.1)
[2020-02-04 15:18] LABS: Mean Corpuscular HGB Conc 33.4 g/dL (31.6-35.5)
[2020-02-04] MEDS ORDERED: Doxycycline 100 MG in 0.9 % Sodium Chloride Mini Bag 100 ML IVPB ONE (16:21)
[2020-02-04] MEDS ORDERED: Naloxone 0.4 MG/ML INJ IVP PRN (17:22)
[2020-02-04 18:48] LABS: Immature Reticulocyte % 43.9 % (11.0-38.0); Retculocyte # 0.14 M/mcL (0.05-0.10); Reticulocyte % 9.3 % (1.6-2.8)
[2020-02-04] MEDS ORDERED: Acetaminophen 325 MG TABLET PO PRN (18:55)
[2020-02-04 19:09] LABS: % Iron Saturation 17 % (20-55); Iron 61 mcg/dL (65-175); Transferrin 257 mg/dL (203-362)
[2020-02-04 19:27] LABS: Ferritin 191 ng/mL (20-250)
[2020-02-04 21:06] LABS: Lactate Dehydrogenase 277 Units/L (140-271)
[2020-02-04] MEDS: *HR* Heparin 5,000 UNIT/ML VIAL SQ SCH (21:42)
[2020-02-04] MEDS: Ipratropium/Albuterol Neb 3 ML IH SCH (22:15)
[2020-02-04] MEDS: Budesonide/Formoterol 160/4.5 1 PUFF INH IH SCH (22:15)
[2020-02-05] MEDS: Ipratropium/Albuterol Neb 3 ML IH SCH ×4 (03:49→22:12)
[2020-02-05] MEDS: *HR* Heparin 5,000 UNIT/ML VIAL SQ SCH ×2 (06:06→17:06)
[2020-02-05 07:17] LABS: Alanine Aminotransferase 27 Units/L (7-52); Albumin 3.8 g/dL (3.5-5.7); Albumin/Globulin Ratio 1.5 (1.1-2.2); Alkaline Phosphatase 159 Units/L (34-104); Aspartate Amino Transferase 13 Units/L (13-39); BUN/Creatinine Ratio 18 (6-26); Basophils % 0.3 %; Bilirubin,Total 2.9 mg/dL (0.3-1.0); Blood Urea Nitrogen 23 mg/dL (8-23); Calcium 9.1 mg/dL (8.6-10.3); Carbon Dioxide 37 mEq/L (23-29); Chloride 90 mEq/L (98-107); Eosinophils % 0.1 %; Globulin 2.5 g/dL (2.4-3.5); Glucose 380 mg/dL (70-105); Hematocrit 28.9 % (37.5-50.1); Hemoglobin 9.6 g/dL (12.9-16.9); Immature Granulocytes % 2.5 % (0-4); Lymphocytes # 0.5 K/mcL (0.6-4.6); Lymphocytes % 3.5 %; Mean Corpuscular HGB Conc 33.2 g/dL (31.6-35.5); Mean Corpuscular Hemoglobin 33.3 pg (28.0-33.3); Mean Platelet Volume 9.6 fL (9.4-12.4); Monocytes # 1.3 K/mcL (0.0-1.3); Monocytes % 8.3 %; Neutrophils # 13.2 K/mcL (1.6-8.9); Nucleated Red Blood Cells 0.4 /100 WBC (0); Osmolality,Calculated 295 (280-300); Platelet Count 448 K/mcL (140-400); Potassium 4.4 mEq/L (3.5-5.1); Red Blood Count 2.88 M/mcL (4.19-5.50); Red Cell Distribution Width 16.8 % (11.5-14.5); Segmented Neutrophils % 85.3 %; Sodium 133 mEq/L (136-145); Total Protein 6.3 g/dL (6.4-8.9); White Blood Count 15.5 K/mcL (4.3-11.1); eGFR For African Americans > 60 (> 60); eGFR For Non-African Americans 59 (> 60)
[2020-02-05 07:21] LABS: Mean Corpuscular Volume 100.3 fL (83.0-100.0)
[2020-02-05 07:37] LABS: Thyroid Stimulating Hormone 0.224 mcIU/mL (0.340-5.600)
[2020-02-05] MEDS ORDERED: Perflutren Lipid Microsphere 1.3 ML in 0.9 % Sodium Chloride 8.7 ML IVP ONE (10:01)
[2020-02-05] MEDS: predniSONE 20 MG TABLET PO SCH (10:38)
[2020-02-05] MEDS: Aspirin 81 MG TAB.CHEW PO SCH (10:38)
[2020-02-05] MEDS: Bumetanide 1 MG TABLET PO SCH (10:38)
[2020-02-05] MEDS: Budesonide/Formoterol 160/4.5 1 PUFF INH IH SCH ×2 (10:58→22:11)
[2020-02-05] MEDS: Azithromycin 250 MG TABLET PO SCH (13:32)
[2020-02-05] MEDS ORDERED: Dextrose Gel 15 GM/37.5 ML TUBE PO PRN ×2 (19:57)
[2020-02-05] MEDS ORDERED: D5% in Water 1,000 ML IVC PRN (19:57)
[2020-02-05] MEDS ORDERED: *HR* Dextrose 50 % in Water (Vial) 50 ML VIAL IVP PRN (19:57)
[2020-02-05] MEDS ORDERED: Insulin DETEMIR 100 UNIT/ML X5UNITS SQ SCH (21:00)
[2020-02-05] MEDS: Insulin LISPRO 300 UNITS/3 ML VIAL SQ SCH (23:39)
[2020-02-06] MEDS: Ipratropium/Albuterol Neb 3 ML IH SCH ×4 (03:29→21:34)
[2020-02-06] MEDS: Insulin LISPRO 300 UNITS/3 ML VIAL SQ SCH ×4 (05:58→20:22)
[2020-02-06] MEDS: *HR* Heparin 5,000 UNIT/ML VIAL SQ SCH ×2 (05:59→16:46)
[2020-02-06 06:56] LABS: Basophils # 0.1 K/mcL (0.0-0.2); Basophils % 0.4 %; Eosinophils # 0.1 K/mcL (0.0-0.6); Eosinophils % 0.6 %; Hematocrit 27.7 % (37.5-50.1); Hemoglobin 9.6 g/dL (12.9-16.9); Immature Granulocytes % 1.4 % (0-4); Lymphocytes # 1.4 K/mcL (0.6-4.6); Lymphocytes % 8.2 %; Mean Corpuscular Hemoglobin 34.5 pg (28.0-33.3); Mean Platelet Volume 9.3 fL (9.4-12.4); Monocytes # 2.1 K/mcL (0.0-1.3); Monocytes % 12.1 %; Neutrophils # 13.1 K/mcL (1.6-8.9); Nucleated Red Blood Cells 0.2 /100 WBC (0); Platelet Count 414 K/mcL (140-400); Red Blood Count 2.78 M/mcL (4.19-5.50); Red Cell Distribution Width 17.1 % (11.5-14.5); Segmented Neutrophils % 77.3 %
[2020-02-06 06:57] LABS: Mean Corpuscular HGB Conc 34.7 g/dL (31.6-35.5); Mean Corpuscular Volume 99.6 fL (83.0-100.0)
[2020-02-06 07:00] LABS: Alanine Aminotransferase 25 Units/L (7-52); Albumin 3.6 g/dL (3.5-5.7); Albumin/Globulin Ratio 1.6 (1.1-2.2); Alkaline Phosphatase 140 Units/L (34-104); Aspartate Amino Transferase 12 Units/L (13-39); BUN/Creatinine Ratio 22 (6-26); Bilirubin,Total 2.4 mg/dL (0.3-1.0); Blood Urea Nitrogen 28 mg/dL (8-23); Calcium 8.8 mg/dL (8.6-10.3); Carbon Dioxide 36 mEq/L (23-29); Chloride 91 mEq/L (98-107); Globulin 2.3 g/dL (2.4-3.5); Glucose 393 mg/dL (70-105); Osmolality,Calculated 300 (280-300); Phosphorous 2.8 mg/dL (2.7-4.5); Potassium 4.1 mEq/L (3.5-5.1); Sodium 134 mEq/L (136-145); Total Protein 5.9 g/dL (6.4-8.9); eGFR For African Americans > 60 (> 60); eGFR For Non-African Americans 57 (> 60)
[2020-02-06 07:09] LABS: Triiodothyronine (T3) Free 3.25 pg/mL (2.50-3.90)
[2020-02-06 08:35] LABS: Estimated Average Glucose 148 mg/dl; Hemoglobin A1C 6.8 %
[2020-02-06] MEDS: Budesonide/Formoterol 160/4.5 1 PUFF INH IH SCH ×2 (09:25→21:34)
[2020-02-06] MEDS: Bumetanide 1 MG TABLET PO SCH (10:05)
[2020-02-06] MEDS: predniSONE 20 MG TABLET PO SCH (10:05)
[2020-02-06] MEDS: Aspirin 81 MG TAB.CHEW PO SCH (10:05)
[2020-02-06] MEDS: Azithromycin 250 MG TABLET PO SCH (10:05)
[2020-02-06] MEDS: Cholecalciferol (D-3) 1,000 UNIT (25MCG) TABLET PO SCH (10:06)
[2020-02-06] MEDS ORDERED: Ergocalciferol (VIT D2) 50,000 UNIT (1.25MG) CAP PO SCH (16:00)
[2020-02-06] MEDS: Furosemide 40 MG/4 ML VIAL IVP SCH (16:46)
[2020-02-06] MEDS: Insulin DETEMIR 100 UNIT/ML X5UNITS SQ SCH (20:18)
[2020-02-07] MEDS: Ipratropium/Albuterol Neb 3 ML IH SCH ×4 (03:33→21:45)
[2020-02-07] MEDS: *HR* Heparin 5,000 UNIT/ML VIAL SQ SCH ×2 (05:31→18:07)
[2020-02-07 07:24] LABS: Prothrombin Time 11.4 Seconds (9.4-12.1)
[2020-02-07 08:47] LABS: Alanine Aminotransferase 28 Units/L (7-52); Albumin/Globulin Ratio 1.7 (1.1-2.2); Alkaline Phosphatase 146 Units/L (34-104); Aspartate Amino Transferase 15 Units/L (13-39); BUN/Creatinine Ratio 23 (6-26); Bilirubin,Direct 0.4 mg/dL (0.0-0.2); Bilirubin,Indirect 2.2 mg/dL (0.0-1.0); Bilirubin,Total 2.6 mg/dL (0.3-1.0); Blood Urea Nitrogen 25 mg/dL (8-23); Carbon Dioxide 35 mEq/L (23-29); Chloride 91 mEq/L (98-107); Globulin 2.4 g/dL (2.4-3.5); Glucose 198 mg/dL (70-105); Osmolality,Calculated 296 (280-300); Potassium 3.7 mEq/L (3.5-5.1); Sodium 138 mEq/L (136-145); Total Protein 6.4 g/dL (6.4-8.9); eGFR For African Americans > 60 (> 60); eGFR For Non-African Americans > 60 (> 60)
[2020-02-07] MEDS: Insulin LISPRO 300 UNITS/3 ML VIAL SQ SCH ×7 (09:50→20:42)
[2020-02-07] MEDS: Cholecalciferol (D-3) 1,000 UNIT (25MCG) TABLET PO SCH (09:51)
[2020-02-07] MEDS: predniSONE 20 MG TABLET PO SCH (09:51)
[2020-02-07] MEDS: Aspirin 81 MG TAB.CHEW PO SCH (09:51)
[2020-02-07] MEDS: Azithromycin 250 MG TABLET PO SCH (09:51)
[2020-02-07] MEDS: Furosemide 40 MG/4 ML VIAL IVP SCH ×2 (09:51→18:07)
[2020-02-07 10:20] LABS: Basophils # 0.1 K/mcL (0.0-0.2); Basophils % 0.7 %; Eosinophils # 0.2 K/mcL (0.0-0.6); Hematocrit 32.9 % (37.5-50.1); Hemoglobin 10.4 g/dL (12.9-16.9); Immature Granulocytes % 1.8 % (0-4); Lymphocytes # 1.5 K/mcL (0.6-4.6); Lymphocytes % 9.9 %; Mean Corpuscular Hemoglobin 33.3 pg (28.0-33.3); Mean Corpuscular Volume 105.4 fL (83.0-100.0); Mean Platelet Volume 9.5 fL (9.4-12.4); Monocytes # 1.7 K/mcL (0.0-1.3); Monocytes % 11.6 %; Nucleated Red Blood Cells 0.4 /100 WBC (0); Platelet Count 387 K/mcL (140-400); Red Blood Count 3.12 M/mcL (4.19-5.50); Red Cell Distribution Width 18.2 % (11.5-14.5); White Blood Count 14.7 K/mcL (4.3-11.1)
[2020-02-07] MEDS: Budesonide/Formoterol 160/4.5 1 PUFF INH IH SCH ×2 (10:26→21:45)
[2020-02-07 10:32] LABS: Mean Corpuscular HGB Conc 31.6 g/dL (31.6-35.5)
[2020-02-07 12:18] LABS: Immature Reticulocyte % 34.9 % (11.0-38.0); Retculocyte # 0.29 M/mcL (0.05-0.10); Reticulocyte % 10.6 % (1.6-2.8)
[2020-02-07] MEDS: Insulin DETEMIR 100 UNIT/ML X5UNITS SQ SCH (20:39)
[2020-02-08] MEDS: Ipratropium/Albuterol Neb 3 ML IH SCH ×4 (03:50→22:03)
[2020-02-08] MEDS: *HR* Heparin 5,000 UNIT/ML VIAL SQ SCH ×2 (05:35→16:42)
[2020-02-08] MEDS: Insulin LISPRO 300 UNITS/3 ML VIAL SQ SCH ×7 (08:38→20:51)
[2020-02-08] MEDS: Furosemide 40 MG/4 ML VIAL IVP SCH ×2 (08:39→16:42)
[2020-02-08] MEDS: predniSONE 20 MG TABLET PO SCH (08:39)
[2020-02-08] MEDS: Cholecalciferol (D-3) 1,000 UNIT (25MCG) TABLET PO SCH (08:39)
[2020-02-08] MEDS: Aspirin 81 MG TAB.CHEW PO SCH (08:39)
[2020-02-08] MEDS: Azithromycin 250 MG TABLET PO SCH (08:40)
[2020-02-08 10:37] LABS: BUN/Creatinine Ratio 23 (6-26); Blood Urea Nitrogen 28 mg/dL (8-23); Calcium 8.8 mg/dL (8.6-10.3); Carbon Dioxide 39 mEq/L (23-29); Chloride 89 mEq/L (98-107); Glucose 334 mg/dL (70-105); Osmolality,Calculated 299 (280-300); Potassium 3.6 mEq/L (3.5-5.1); Sodium 135 mEq/L (136-145); eGFR For African Americans > 60 (> 60); eGFR For Non-African Americans > 60 (> 60)
[2020-02-08] MEDS ORDERED: Furosemide 40 MG/4 ML VIAL IVP ONE (10:48)
[2020-02-08] MEDS: Budesonide/Formoterol 160/4.5 1 PUFF INH IH SCH ×2 (10:56→22:03)
[2020-02-08] MEDS ORDERED: predniSONE 20 MG TABLET PO ONE (11:00)
[2020-02-08 13:08] LABS: Hemoglobin 10.6 g/dL (12.9-16.9); Mean Platelet Volume 9.6 fL (9.4-12.4); Nucleated Red Blood Cells 0.7 /100 WBC (0)
[2020-02-08 13:11] LABS: Basophils # 0.2 K/mcL (0.0-0.2); Basophils % 1.2 %; Eosinophils # 0.3 K/mcL (0.0-0.6); Hematocrit 32.6 % (37.5-50.1); Immature Granulocytes % 2.3 % (0-4); Lymphocytes # 1.3 K/mcL (0.6-4.6); Lymphocytes % 10.5 %; Mean Corpuscular Hemoglobin 33.9 pg (28.0-33.3); Mean Corpuscular Volume 104.2 fL (83.0-100.0); Monocytes # 1.4 K/mcL (0.0-1.3); Monocytes % 11.3 %; Neutrophils # 9.1 K/mcL (1.6-8.9); Platelet Count 385 K/mcL (140-400); Red Blood Count 3.13 M/mcL (4.19-5.50); Red Cell Distribution Width 17.5 % (11.5-14.5); Segmented Neutrophils % 72.7 %; White Blood Count 12.4 K/mcL (4.3-11.1)
[2020-02-08 13:16] LABS: Mean Corpuscular HGB Conc 32.5 g/dL (31.6-35.5)
[2020-02-08] MEDS: Insulin DETEMIR 100 UNIT/ML X5UNITS SQ SCH (20:51)
[2020-02-08] MEDS ORDERED: Insulin LISPRO 300 UNITS/3 ML VIAL SQ ONE (23:09)
[2020-02-09] MEDS: Ipratropium/Albuterol Neb 3 ML IH SCH ×4 (03:28→21:45)
[2020-02-09 04:43] LABS: BUN/Creatinine Ratio 21 (6-26); Blood Urea Nitrogen 24 mg/dL (8-23); Calcium 8.7 mg/dL (8.6-10.3); Carbon Dioxide 37 mEq/L (23-29); Chloride 93 mEq/L (98-107); Glucose 208 mg/dL (70-105); Osmolality,Calculated 292 (280-300); Potassium 3.8 mEq/L (3.5-5.1); Sodium 136 mEq/L (136-145); eGFR For African Americans > 60 (> 60); eGFR For Non-African Americans > 60 (> 60)
[2020-02-09] MEDS: *HR* Heparin 5,000 UNIT/ML VIAL SQ SCH ×2 (05:56→18:05)
[2020-02-09] MEDS: Insulin LISPRO 300 UNITS/3 ML VIAL SQ SCH ×7 (07:47→21:59)
[2020-02-09] MEDS: Furosemide 40 MG/4 ML VIAL IVP SCH ×2 (07:48→18:05)
[2020-02-09] MEDS: Cholecalciferol (D-3) 1,000 UNIT (25MCG) TABLET PO SCH (07:49)
[2020-02-09] MEDS: predniSONE 20 MG TABLET PO SCH (07:49)
[2020-02-09] MEDS: Azithromycin 250 MG TABLET PO SCH (07:49)
[2020-02-09] MEDS: Aspirin 81 MG TAB.CHEW PO SCH (07:49)
[2020-02-09] MEDS: Budesonide/Formoterol 160/4.5 1 PUFF INH IH SCH ×2 (10:42→21:45)
[2020-02-09] MEDS ORDERED: Insulin LISPRO 300 UNITS/3 ML VIAL SQ SCH (17:00)
[2020-02-09] MEDS: Insulin DETEMIR 100 UNIT/ML X5UNITS SQ SCH (20:10)
[2020-02-10] MEDS: Ipratropium/Albuterol Neb 3 ML IH SCH ×4 (03:59→21:53)
[2020-02-10] MEDS: *HR* Heparin 5,000 UNIT/ML VIAL SQ SCH ×2 (06:08→16:02)
[2020-02-10 06:46] LABS: BUN/Creatinine Ratio 23 (6-26); Blood Urea Nitrogen 26 mg/dL (8-23); Calcium 8.9 mg/dL (8.6-10.3); Carbon Dioxide 40 mEq/L (23-29); Chloride 93 mEq/L (98-107); Glucose 191 mg/dL (70-105); Osmolality,Calculated 294 (280-300); Potassium 3.5 mEq/L (3.5-5.1); Sodium 137 mEq/L (136-145); eGFR For African Americans > 60 (> 60); eGFR For Non-African Americans > 60 (> 60)
[2020-02-10] MEDS ORDERED: Furosemide 40 MG/4 ML VIAL IVP ONE (07:58)
[2020-02-10] MEDS: Insulin LISPRO 300 UNITS/3 ML VIAL SQ SCH ×8 (08:22→20:48)
[2020-02-10] MEDS: Azithromycin 250 MG TABLET PO SCH (08:26)
[2020-02-10] MEDS: predniSONE 20 MG TABLET PO SCH (08:26)
[2020-02-10] MEDS: Aspirin 81 MG TAB.CHEW PO SCH (08:27)
[2020-02-10] MEDS: Cholecalciferol (D-3) 1,000 UNIT (25MCG) TABLET PO SCH (08:27)
[2020-02-10] MEDS: Budesonide/Formoterol 160/4.5 1 PUFF INH IH SCH ×2 (10:21→21:53)
[2020-02-10] MEDS: Chloraseptic Spray 177 ML BOTTLE MM PRN (16:01)
[2020-02-10] MEDS: Furosemide 40 MG TABLET PO SCH (16:01)
[2020-02-10] MEDS: Insulin DETEMIR 100 UNIT/ML X5UNITS SQ SCH (20:47)
[2020-02-11] MEDS: Chloraseptic Spray 177 ML BOTTLE MM PRN (00:57)
[2020-02-11 02:45] LABS: BUN/Creatinine Ratio 24 (6-26); Blood Urea Nitrogen 29 mg/dL (8-23); Calcium 8.4 mg/dL (8.6-10.3); Carbon Dioxide 36 mEq/L (23-29); Chloride 93 mEq/L (98-107); Glucose 154 mg/dL (70-105); Osmolality,Calculated 291 (280-300); Potassium 3.7 mEq/L (3.5-5.1); Sodium 136 mEq/L (136-145); eGFR For African Americans > 60 (> 60); eGFR For Non-African Americans > 60 (> 60)
[2020-02-11] MEDS: Ipratropium/Albuterol Neb 3 ML IH SCH (03:36)
[2020-02-11] MEDS: *HR* Heparin 5,000 UNIT/ML VIAL SQ SCH (05:52)
[2020-02-11 07:31] VITALS: BP 105/65
[2020-02-11] MEDS: Aspirin 81 MG TAB.CHEW PO SCH (08:04)
[2020-02-11] MEDS: Furosemide 40 MG TABLET PO SCH (08:04)
[2020-02-11] MEDS: Azithromycin 250 MG TABLET PO SCH (08:05)
[2020-02-11] MEDS: predniSONE 20 MG TABLET PO SCH (08:05)
[2020-02-11] MEDS: Cholecalciferol (D-3) 1,000 UNIT (25MCG) TABLET PO SCH (08:08)
[2020-02-11] MEDS: Insulin LISPRO 300 UNITS/3 ML VIAL SQ SCH ×2 (08:10→08:11)
== END 2020-02-11 10:50 | disposition home or self-care (01) | DRG 190 ==
LOC: EMEROOARM 12:48 → 3BNU 12:48 → SUATTDRO 16:47 → 3BNU 17:26
PROVIDERS: ADMIT Pharmacist; ATTEND Internal Medicine

== ENCOUNTER 2020-03-26 20:57 | Inpatient (IN) ==
[2020-03-26] MEDS ORDERED: Aspirin 81 MG TAB.CHEW PO ONE (21:06)
[2020-03-26] MEDS: Nitroglycerin 0.4 MG TAB.SUBL SL PRN ×2 (21:22→21:28)
[2020-03-26 22:03] LABS: INR 1.1; Prothrombin Time 12.8 Seconds (9.4-12.1)
[2020-03-26 22:06] LABS: Activated Partial Thrombo Time 29.3 Seconds (26.0-36.0)
[2020-03-26 22:15] LABS: Basophils # 0.2 K/mcL (0.0-0.2); Basophils % 1.2 %; Eosinophils # 1.3 K/mcL (0.0-0.6); Eosinophils % 9.7 %; Hematocrit 33.8 % (37.5-50.1); Hemoglobin 11.7 g/dL (12.9-16.9); Immature Granulocytes % 1.7 % (0-4); Lymphocytes # 1.2 K/mcL (0.6-4.6); Lymphocytes % 8.6 %; Mean Corpuscular HGB Conc 34.6 g/dL (31.6-35.5); Mean Corpuscular Volume 95.2 fL (83.0-100.0); Mean Platelet Volume 9.6 fL (9.4-12.4); Monocytes # 1.6 K/mcL (0.0-1.3); Monocytes % 11.4 %; Neutrophils # 9.2 K/mcL (1.6-8.9); Nucleated Red Blood Cells 0.5 /100 WBC (0); Platelet Count 374 K/mcL (140-400); Red Blood Count 3.55 M/mcL (4.19-5.50); Red Cell Distribution Width 14.7 % (11.5-14.5); Segmented Neutrophils % 67.4 %; White Blood Count 13.7 K/mcL (4.3-11.1)
[2020-03-26] MEDS ORDERED: Ipratropium/Albuterol Neb 3 ML IH ONE (22:32)
[2020-03-26 22:56] LABS: BUN/Creatinine Ratio 16 (6-26); Blood Urea Nitrogen 18 mg/dL (8-23); Calcium 9.1 mg/dL (8.6-10.3); Carbon Dioxide 42 mEq/L (23-29); Chloride 87 mEq/L (98-107); Glucose 228 mg/dL (70-105); Osmolality,Calculated 289 (280-300); Potassium 3.5 mEq/L (3.5-5.1); Sodium 135 mEq/L (136-145); Troponin I < 0.03 ng/mL (< 0.04); eGFR For African Americans > 60 (> 60); eGFR For Non-African Americans > 60 (> 60)
[2020-03-26] MEDS ORDERED: Isovue-370 500 ML BOTTLE IVP ONE (23:27)
[2020-03-26] MEDS ORDERED: Naloxone 0.4 MG/ML INJ IVP PRN (23:33)
[2020-03-27 01:54] LABS: Adenovirus Not Detected (Not Detect); Bordetella Pertussis Not Detected (Not Detect); Chlamydophila pneumoniae Not Detected (Not Detect); Coronavirus 229E Not Detected (Not Detect); Coronavirus HKU1 Not Detected (Not Detect); Coronavirus NL63 Not Detected (Not Detect); Coronavirus OC43 Not Detected (Not Detect); Human Metapneumovirus Not Detected (Not Detect); Human Rhinovirus/Enterovirus Not Detected (Not Detect); Influenza A Subtype 2009 H1 Not Detected (Not Detect); Influenza B Not Detected (Not Detect); Mycoplasma pneumoniae Not Detected (Not Detect); Parainfluenza Virus 1 Not Detected (Not Detect); Parainfluenza Virus 2 Not Detected (Not Detect); Parainfluenza Virus 3 Not Detected (Not Detect); Parainfluenza Virus 4 Not Detected (Not Detect); Respiratory Syncytial Virus Not Detected (Not Detect)
[2020-03-27] MEDS: Azithromycin 500 MG in 0.9 % Sodium Chloride 250 ML IVPB SCH (03:29)
[2020-03-27] MEDS: Furosemide 40 MG/4 ML VIAL IVP SCH ×2 (03:29→07:36)
[2020-03-27] MEDS: Ipratropium/Albuterol Neb 3 ML IH SCH ×6 (03:53→23:31)
[2020-03-27] MEDS: MethylPREDNISolone 40 MG/ML VIAL IVP SCH ×4 (04:59→23:12)
[2020-03-27] MEDS: *HR* Heparin 5,000 UNIT/ML VIAL SQ SCH ×3 (05:26→23:12)
[2020-03-27 05:57] LABS: Alanine Aminotransferase 43 Units/L (7-52); Albumin 3.9 g/dL (3.5-5.7); Albumin/Globulin Ratio 1.5 (1.1-2.2); Alkaline Phosphatase 149 Units/L (34-104); Aspartate Amino Transferase 26 Units/L (13-39); BUN/Creatinine Ratio 13 (6-26); Blood Urea Nitrogen 17 mg/dL (8-23); Carbon Dioxide 40 mEq/L (23-29); Chloride 87 mEq/L (98-107); Globulin 2.6 g/dL (2.4-3.5); Glucose 220 mg/dL (70-105); Osmolality,Calculated 288 (280-300); Potassium 3.2 mEq/L (3.5-5.1); Sodium 135 mEq/L (136-145); Total Protein 6.5 g/dL (6.4-8.9); Troponin I < 0.03 ng/mL (< 0.04); eGFR For African Americans > 60 (> 60); eGFR For Non-African Americans 58 (> 60)
[2020-03-27 06:19] LABS: Basophils # 0.2 K/mcL (0.0-0.2); Basophils % 1.1 %; Eosinophils # 1.5 K/mcL (0.0-0.6); Eosinophils % 10.8 %; Hematocrit 26.9 % (37.5-50.1); Hemoglobin 9.3 g/dL (12.9-16.9); Lymphocytes # 1.3 K/mcL (0.6-4.6); Lymphocytes % 9.3 %; Mean Corpuscular HGB Conc 34.6 g/dL (31.6-35.5); Monocytes # 1.6 K/mcL (0.0-1.3); Monocytes % 11.1 %; Neutrophils # 9.3 K/mcL (1.6-8.9); Nucleated Red Blood Cells 0.2 /100 WBC (0); Platelet Count 392 K/mcL (140-400); Red Blood Count 2.82 M/mcL (4.19-5.50); Red Cell Distribution Width 15.1 % (11.5-14.5); Segmented Neutrophils % 65.7 %; White Blood Count 14.2 K/mcL (4.3-11.1)
[2020-03-27 06:20] LABS: Mean Corpuscular Volume 95.4 fL (83.0-100.0)
[2020-03-27] MEDS: Aspirin 81 MG TAB.CHEW PO SCH (07:36)
[2020-03-27 08:54] LABS: ABG Base Excess 17 mEq/L (-2 to 3); ABG HCO3 44 mEq/L (21-27); ABG Oxygen Saturation 92 % (95-98); ABG PCO2 64 mmHg (35-45); ABG PH 7.44 pH Units (7.32-7.45); ABG PO2 65 mmHg (85-104); ABG TCO2 46 mEq/L (20-26)
[2020-03-27] MEDS ORDERED: cefTRIAXone 1,000 MG in 0.9 % Sodium Chloride Mini Bag 100 ML IVPB SCH (09:00)
[2020-03-27] MEDS: cefTRIAXone 1,000 MG in Water for inj. (sterile) 10 ML IVP SCH (09:18)
[2020-03-27 15:36] LABS: Hematocrit 25.7 % (37.5-50.1); Hemoglobin 8.9 g/dL (12.9-16.9)
[2020-03-27] MEDS ORDERED: Furosemide 40 MG TABLET PO SCH (17:00)
[2020-03-27] MEDS: Budesonide/Formoterol 160/4.5 1 PUFF INH IH SCH (20:00)
[2020-03-28] MEDS: Azithromycin 500 MG in 0.9 % Sodium Chloride 250 ML IVPB SCH (02:59)
[2020-03-28] MEDS: Ipratropium/Albuterol Neb 3 ML IH SCH ×6 (03:50→23:50)
[2020-03-28] MEDS: MethylPREDNISolone 40 MG/ML VIAL IVP SCH (04:17)
[2020-03-28] MEDS: *HR* Heparin 5,000 UNIT/ML VIAL SQ SCH (04:17)
[2020-03-28 06:59] LABS: Calcium 9.1 mg/dL (8.6-10.3); Potassium 4.3 mEq/L (3.5-5.1)
[2020-03-28] MEDS ORDERED: 0.9 % Sodium Chloride 250 ML IVC ONE (07:34)
[2020-03-28] MEDS ORDERED: Dextrose Gel 15 GM/37.5 ML TUBE PO PRN ×2 (07:35)
[2020-03-28] MEDS ORDERED: Insulin Human Regular 10 UNIT in 0.9 % Sodium Chloride 10 ML IV ONE ×3 (07:35→16:46)
[2020-03-28] MEDS ORDERED: *HR* Dextrose 50 % in Water (Vial) 50 ML VIAL IVP PRN (07:35)
[2020-03-28] MEDS ORDERED: D5% in Water 1,000 ML IVC PRN (07:35)
[2020-03-28] MEDS: Budesonide/Formoterol 160/4.5 1 PUFF INH IH SCH ×2 (07:53→20:17)
[2020-03-28 08:18] LABS: Basophils # 0.1 K/mcL (0.0-0.2); Basophils % 0.4 %; Eosinophils % 0.1 %; Hematocrit 26.1 % (37.5-50.1); Hemoglobin 8.4 g/dL (12.9-16.9); Immature Granulocytes % 1.8 % (0-4); Lymphocytes # 0.4 K/mcL (0.6-4.6); Lymphocytes % 2.6 %; Mean Corpuscular HGB Conc 32.2 g/dL (31.6-35.5); Mean Corpuscular Hemoglobin 32.8 pg (28.0-33.3); Mean Platelet Volume 9.6 fL (9.4-12.4); Monocytes # 1.1 K/mcL (0.0-1.3); Monocytes % 6.6 %; Neutrophils # 14.5 K/mcL (1.6-8.9); Nucleated Red Blood Cells 0.2 /100 WBC (0); Platelet Count 392 K/mcL (140-400); Red Blood Count 2.56 M/mcL (4.19-5.50); Red Cell Distribution Width 16.3 % (11.5-14.5); Segmented Neutrophils % 88.5 %; White Blood Count 16.4 K/mcL (4.3-11.1)
[2020-03-28] MEDS: hydrOXYzine pamoate 25 MG CAPSULE PO SCH (08:56)
[2020-03-28] MEDS: Aspirin 81 MG TAB.CHEW PO SCH (08:56)
[2020-03-28] MEDS: amLODIPine 5 MG TABLET PO SCH (08:57)
[2020-03-28] MEDS: cefTRIAXone 1,000 MG in Water for inj. (sterile) 10 ML IVP SCH (08:57)
[2020-03-28] MEDS: predniSONE 20 MG TABLET PO SCH (08:57)
[2020-03-28 09:36] LABS: Estimated Average Glucose 154 mg/dl
[2020-03-28] MEDS ORDERED: 0.9 % Sodium Chloride 1,000 ML IV ONE (11:03)
[2020-03-28] MEDS ORDERED: 0.9 % Sodium Chloride 1,000 ML ONE (11:13)
[2020-03-28] MEDS: Insulin LISPRO 300 UNITS/3 ML VIAL SQ SCH ×4 (11:21→19:40)
[2020-03-28 15:00] LABS: % Iron Saturation 25 % (20-55); BUN/Creatinine Ratio 19 (6-26); Blood Urea Nitrogen 25 mg/dL (8-23); Carbon Dioxide 33 mEq/L (23-29); Chloride 93 mEq/L (98-107); Glucose 467 mg/dL (70-105); Iron 86 mcg/dL (65-175); Osmolality,Calculated 307 (280-300); Potassium 5.1 mEq/L (3.5-5.1); Sodium 136 mEq/L (136-145); Transferrin 246 mg/dL (203-362); eGFR For African Americans > 60 (> 60); eGFR For Non-African Americans 57 (> 60)
[2020-03-28 15:53] LABS: Ferritin 159 ng/mL (20-250)
[2020-03-28 15:54] LABS: Folate 4.5 ng/mL (3.0-16.0)
[2020-03-28] MEDS ORDERED: Insulin LISPRO 300 UNITS/3 ML VIAL SQ SCH (21:00)
[2020-03-28] MEDS ORDERED: Insulin DETEMIR 100 UNIT/ML X5UNITS SQ ONE (23:35)
[2020-03-29 01:42] LABS: BUN/Creatinine Ratio 20 (6-26); Blood Urea Nitrogen 27 mg/dL (8-23); Carbon Dioxide 34 mEq/L (23-29); Chloride 94 mEq/L (98-107); Glucose 358 mg/dL (70-105); Osmolality,Calculated 302 (280-300); Potassium 4.3 mEq/L (3.5-5.1); Sodium 136 mEq/L (136-145); eGFR For African Americans > 60 (> 60); eGFR For Non-African Americans 55 (> 60)
[2020-03-29 02:33] LABS: Basophils % 0.2 %; Hematocrit 27.1 % (37.5-50.1); Hemoglobin 8.6 g/dL (12.9-16.9); Immature Granulocytes % 1.8 % (0-4); Lymphocytes # 1.1 K/mcL (0.6-4.6); Lymphocytes % 4.9 %; Mean Corpuscular HGB Conc 31.7 g/dL (31.6-35.5); Mean Corpuscular Hemoglobin 32.3 pg (28.0-33.3); Mean Corpuscular Volume 101.9 fL (83.0-100.0); Mean Platelet Volume 9.8 fL (9.4-12.4); Monocytes # 2.1 K/mcL (0.0-1.3); Monocytes % 9.6 %; Neutrophils # 18.3 K/mcL (1.6-8.9); Nucleated Red Blood Cells 0.2 /100 WBC (0); Platelet Count 426 K/mcL (140-400); Red Blood Count 2.66 M/mcL (4.19-5.50); Red Cell Distribution Width 16.7 % (11.5-14.5); Segmented Neutrophils % 83.5 %; White Blood Count 21.9 K/mcL (4.3-11.1)
[2020-03-29] MEDS: Azithromycin 500 MG in 0.9 % Sodium Chloride 250 ML IVPB SCH (03:07)
[2020-03-29] MEDS: Ipratropium/Albuterol Neb 3 ML IH SCH ×5 (03:23→20:33)
[2020-03-29] MEDS: Budesonide/Formoterol 160/4.5 1 PUFF INH IH SCH ×2 (07:29→20:33)
[2020-03-29] MEDS: Insulin LISPRO 300 UNITS/3 ML VIAL SQ SCH ×4 (08:41→20:43)
[2020-03-29] MEDS: Aspirin 81 MG TAB.CHEW PO SCH (08:42)
[2020-03-29] MEDS: amLODIPine 5 MG TABLET PO SCH (08:42)
[2020-03-29] MEDS: predniSONE 20 MG TABLET PO SCH (08:42)
[2020-03-29] MEDS: cefTRIAXone 1,000 MG in Water for inj. (sterile) 10 ML IVP SCH (08:42)
[2020-03-29] MEDS: hydrOXYzine pamoate 25 MG CAPSULE PO SCH (08:42)
[2020-03-29] MEDS: Furosemide 20 MG TABLET PO SCH ×2 (11:02→16:29)
[2020-03-30] MEDS: Ipratropium/Albuterol Neb 3 ML IH SCH ×6 (00:28→19:56)
[2020-03-30] MEDS: Azithromycin 500 MG in 0.9 % Sodium Chloride 250 ML IVPB SCH (02:30)
[2020-03-30 07:27] LABS: Basophils # 0.1 K/mcL (0.0-0.2); Basophils % 0.4 %; Eosinophils # 0.1 K/mcL (0.0-0.6); Eosinophils % 0.6 %; Hematocrit 27.2 % (37.5-50.1); Hemoglobin 9.2 g/dL (12.9-16.9); Immature Granulocytes % 3.3 % (0-4); Lymphocytes # 1.4 K/mcL (0.6-4.6); Lymphocytes % 8.8 %; Mean Corpuscular HGB Conc 33.8 g/dL (31.6-35.5); Mean Corpuscular Hemoglobin 33.6 pg (28.0-33.3); Mean Corpuscular Volume 99.3 fL (83.0-100.0); Mean Platelet Volume 10.3 fL (9.4-12.4); Monocytes # 1.8 K/mcL (0.0-1.3); Monocytes % 11.4 %; Neutrophils # 12.2 K/mcL (1.6-8.9); Nucleated Red Blood Cells 0.2 /100 WBC (0); Platelet Count 388 K/mcL (140-400); Red Blood Count 2.74 M/mcL (4.19-5.50); Red Cell Distribution Width 16.8 % (11.5-14.5); Segmented Neutrophils % 75.5 %; White Blood Count 16.2 K/mcL (4.3-11.1)
[2020-03-30] MEDS: cefTRIAXone 1,000 MG in Water for inj. (sterile) 10 ML IVP SCH (08:24)
[2020-03-30] MEDS: Insulin LISPRO 300 UNITS/3 ML VIAL SQ SCH ×4 (08:25→21:10)
[2020-03-30] MEDS: amLODIPine 5 MG TABLET PO SCH (08:26)
[2020-03-30] MEDS: hydrOXYzine pamoate 25 MG CAPSULE PO SCH (08:26)
[2020-03-30] MEDS: Aspirin 81 MG TAB.CHEW PO SCH (08:26)
[2020-03-30] MEDS: predniSONE 20 MG TABLET PO SCH (08:26)
[2020-03-30] MEDS: Furosemide 20 MG TABLET PO SCH ×2 (08:26→16:30)
[2020-03-30 10:52] LABS: BUN/Creatinine Ratio 23 (6-26); Blood Urea Nitrogen 24 mg/dL (8-23); Calcium 8.7 mg/dL (8.6-10.3); Carbon Dioxide 33 mEq/L (23-29); Chloride 95 mEq/L (98-107); Glucose 225 mg/dL (70-105); Osmolality,Calculated 291 (280-300); Potassium 3.9 mEq/L (3.5-5.1); Sodium 135 mEq/L (136-145); eGFR For African Americans > 60 (> 60); eGFR For Non-African Americans > 60 (> 60)
[2020-03-30] MEDS: Budesonide/Formoterol 160/4.5 1 PUFF INH IH SCH ×2 (11:15→19:56)
[2020-03-30 13:44] LABS: Bilirubin,Urine Negative (Negative); Blood,Urine Negative (Negative); Clarity,Urine Clear (Clear); Color,Urine Yellow (Yellow); Glucose,Urine (UA) Normal (Normal); Ketones,Urine Negative (Negative); Leukocyte Esterase,Urine Negative (Negative); Nitrite,Urine Negative (Negative); PH,Urine 5.5 pH Units (5.0-8.0); Protein,Urine Negative (Neg-Trace)
[2020-03-31] MEDS: Ipratropium/Albuterol Neb 3 ML IH SCH ×6 (00:15→20:23)
[2020-03-31] MEDS: Azithromycin 500 MG in 0.9 % Sodium Chloride 250 ML IVPB SCH (02:36)
[2020-03-31 06:37] LABS: Mean Corpuscular HGB Conc 33.3 g/dL (31.6-35.5); Mean Corpuscular Hemoglobin 33.2 pg (28.0-33.3); Mean Corpuscular Volume 99.6 fL (83.0-100.0); Mean Platelet Volume 9.5 fL (9.4-12.4); Platelet Count 393 K/mcL (140-400); Red Blood Count 2.71 M/mcL (4.19-5.50); Red Cell Distribution Width 16.8 % (11.5-14.5); White Blood Count 14.2 K/mcL (4.3-11.1)
[2020-03-31 07:17] LABS: BUN/Creatinine Ratio 27 (6-26); Blood Urea Nitrogen 30 mg/dL (8-23); Calcium 8.9 mg/dL (8.6-10.3); Carbon Dioxide 35 mEq/L (23-29); Chloride 97 mEq/L (98-107); Glucose 189 mg/dL (70-105); Osmolality,Calculated 293 (280-300); Sodium 136 mEq/L (136-145); eGFR For African Americans > 60 (> 60); eGFR For Non-African Americans > 60 (> 60)
[2020-03-31] MEDS: Budesonide/Formoterol 160/4.5 1 PUFF INH IH SCH ×2 (07:18→20:23)
[2020-03-31] MEDS: Aspirin 81 MG TAB.CHEW PO SCH (07:59)
[2020-03-31] MEDS: hydrOXYzine pamoate 25 MG CAPSULE PO SCH (07:59)
[2020-03-31] MEDS: Furosemide 20 MG TABLET PO SCH ×2 (08:00→16:01)
[2020-03-31] MEDS: amLODIPine 5 MG TABLET PO SCH (08:00)
[2020-03-31] MEDS: predniSONE 20 MG TABLET PO SCH (08:00)
[2020-03-31] MEDS: cefTRIAXone 1,000 MG in Water for inj. (sterile) 10 ML IVP SCH (08:01)
[2020-03-31] MEDS: Insulin LISPRO 300 UNITS/3 ML VIAL SQ SCH ×4 (08:02→21:52)
[2020-03-31] MEDS: Insulin DETEMIR 100 UNIT/ML X5UNITS SQ SCH (17:03)
[2020-04-01] MEDS: Ipratropium/Albuterol Neb 3 ML IH SCH ×7 (00:22→23:57)
[2020-04-01 02:51] LABS: Alanine Aminotransferase 59 Units/L (7-52); Albumin 3.5 g/dL (3.5-5.7); Albumin/Globulin Ratio 1.4 (1.1-2.2); Alkaline Phosphatase 109 Units/L (34-104); Aspartate Amino Transferase 19 Units/L (13-39); BUN/Creatinine Ratio 28 (6-26); Bilirubin,Direct 0.4 mg/dL (0.0-0.2); Bilirubin,Indirect 1.2 mg/dL (0.0-1.0); Bilirubin,Total 1.6 mg/dL (0.3-1.0); Blood Urea Nitrogen 26 mg/dL (8-23); Calcium 8.6 mg/dL (8.6-10.3); Carbon Dioxide 34 mEq/L (23-29); Chloride 98 mEq/L (98-107); Chol/HDL Ratio 2.4 (0-4.9); Cholesterol 111 mg/dL (< 200); Globulin 2.5 g/dL (2.4-3.5); Glucose 234 mg/dL (70-105); HDL Cholesterol 46 mg/dL (40-59); LDL Cholesterol,Calculated 49 mg/dL (< 100); Magnesium 2.1 mg/dL (1.6-2.6); Osmolality,Calculated 298 (280-300); Potassium 4.3 mEq/L (3.5-5.1); Sodium 138 mEq/L (136-145); Triglycerides 79 mg/dL (< 150); eGFR For African Americans > 60 (> 60); eGFR For Non-African Americans > 60 (> 60)
[2020-04-01 03:04] LABS: Basophils # 0.1 K/mcL (0.0-0.2); Basophils % 0.4 %; Eosinophils % 0.2 %; Hematocrit 27.8 % (37.5-50.1); Lymphocytes % 7.9 %; Mean Corpuscular HGB Conc 32.4 g/dL (31.6-35.5); Mean Platelet Volume 9.7 fL (9.4-12.4); Monocytes # 1.2 K/mcL (0.0-1.3); Monocytes % 9.3 %; Neutrophils # 10.3 K/mcL (1.6-8.9); Nucleated Red Blood Cells 0.3 /100 WBC (0); Platelet Count 370 K/mcL (140-400); Red Blood Count 2.73 M/mcL (4.19-5.50); Red Cell Distribution Width 16.6 % (11.5-14.5); Segmented Neutrophils % 79.2 %; White Blood Count 13.1 K/mcL (4.3-11.1)
[2020-04-01 03:08] LABS: Mean Corpuscular Volume 101.8 fL (83.0-100.0)
[2020-04-01 03:15] LABS: Hepatitis B Surface Antigen Nonreactive (Nonreactive)
[2020-04-01 03:44] LABS: Hepatitis C Virus Antibody Nonreactive (Nonreactive)
[2020-04-01] MEDS: Budesonide/Formoterol 160/4.5 1 PUFF INH IH SCH ×2 (07:30→19:55)
[2020-04-01] MEDS: Insulin LISPRO 300 UNITS/3 ML VIAL SQ SCH ×4 (08:30→20:08)
[2020-04-01] MEDS: Furosemide 20 MG TABLET PO SCH ×2 (08:31→16:55)
[2020-04-01] MEDS: predniSONE 20 MG TABLET PO SCH (08:31)
[2020-04-01] MEDS: amLODIPine 5 MG TABLET PO SCH (08:31)
[2020-04-01] MEDS: cefTRIAXone 1,000 MG in Water for inj. (sterile) 10 ML IVP SCH (08:31)
[2020-04-01] MEDS: hydrOXYzine pamoate 25 MG CAPSULE PO SCH (08:31)
[2020-04-01] MEDS: Aspirin 81 MG TAB.CHEW PO SCH (08:31)
[2020-04-01] MEDS: Insulin DETEMIR 100 UNIT/ML X5UNITS SQ SCH ×2 (08:32→20:08)
[2020-04-01 09:30] LABS: Prothrombin Time 11.4 Seconds (9.4-12.1)
[2020-04-02] MEDS: Ipratropium/Albuterol Neb 3 ML IH SCH ×6 (03:17→23:17)
[2020-04-02 07:04] LABS: Basophils # 0.1 K/mcL (0.0-0.2); Basophils % 0.5 %; Eosinophils # 0.2 K/mcL (0.0-0.6); Eosinophils % 1.4 %; Hematocrit 28.7 % (37.5-50.1); Hemoglobin 9.3 g/dL (12.9-16.9); Immature Granulocytes % 2.5 % (0-4); Lymphocytes # 1.2 K/mcL (0.6-4.6); Lymphocytes % 9.5 %; Mean Corpuscular HGB Conc 32.4 g/dL (31.6-35.5); Mean Corpuscular Hemoglobin 34.1 pg (28.0-33.3); Mean Corpuscular Volume 105.1 fL (83.0-100.0); Mean Platelet Volume 10.5 fL (9.4-12.4); Monocytes # 1.3 K/mcL (0.0-1.3); Monocytes % 10.2 %; Nucleated Red Blood Cells 0.2 /100 WBC (0); Platelet Count 302 K/mcL (140-400); Red Blood Count 2.73 M/mcL (4.19-5.50); Red Cell Distribution Width 17.3 % (11.5-14.5); Segmented Neutrophils % 75.9 %; White Blood Count 13.1 K/mcL (4.3-11.1)
[2020-04-02 07:12] LABS: Albumin 3.7 g/dL (3.5-5.7); Albumin/Globulin Ratio 1.6 (1.1-2.2); Bilirubin,Direct 0.4 mg/dL (0.0-0.2); Bilirubin,Indirect 1.6 mg/dL (0.0-1.0); Globulin 2.3 g/dL (2.4-3.5)
[2020-04-02 07:13] LABS: BUN/Creatinine Ratio 28 (6-26); Blood Urea Nitrogen 27 mg/dL (8-23); Calcium 8.9 mg/dL (8.6-10.3); Carbon Dioxide 33 mEq/L (23-29); Chloride 97 mEq/L (98-107); Glucose 180 mg/dL (70-105); Osmolality,Calculated 296 (280-300); Potassium 4.1 mEq/L (3.5-5.1); Sodium 138 mEq/L (136-145); eGFR For African Americans > 60 (> 60); eGFR For Non-African Americans > 60 (> 60)
[2020-04-02] MEDS: Budesonide/Formoterol 160/4.5 1 PUFF INH IH SCH ×2 (07:38→19:54)
[2020-04-02] MEDS: Insulin DETEMIR 100 UNIT/ML X5UNITS SQ SCH ×2 (08:18→21:08)
[2020-04-02] MEDS: Insulin LISPRO 300 UNITS/3 ML VIAL SQ SCH ×4 (08:18→21:08)
[2020-04-02] MEDS: cefTRIAXone 1,000 MG in Water for inj. (sterile) 10 ML IVP SCH (08:19)
[2020-04-02] MEDS: predniSONE 20 MG TABLET PO SCH (08:19)
[2020-04-02] MEDS: Furosemide 20 MG TABLET PO SCH ×2 (08:20→17:36)
[2020-04-02] MEDS: amLODIPine 5 MG TABLET PO SCH (08:20)
[2020-04-02] MEDS: Aspirin 81 MG TAB.CHEW PO SCH (08:20)
[2020-04-02] MEDS: hydrOXYzine pamoate 25 MG CAPSULE PO SCH (08:20)
[2020-04-02 14:43] LABS: Immature Reticulocyte % 39.1 % (11.0-38.0); Retculocyte # 0.32 M/mcL (0.05-0.10)
[2020-04-03 03:05] LABS: BUN/Creatinine Ratio 25 (6-26); Blood Urea Nitrogen 29 mg/dL (8-23); Calcium 8.4 mg/dL (8.6-10.3); Carbon Dioxide 36 mEq/L (23-29); Chloride 98 mEq/L (98-107); Glucose 194 mg/dL (70-105); Osmolality,Calculated 297 (280-300); Potassium 4.5 mEq/L (3.5-5.1); Sodium 138 mEq/L (136-145); eGFR For African Americans > 60 (> 60); eGFR For Non-African Americans > 60 (> 60)
[2020-04-03 03:07] LABS: Albumin 3.5 g/dL (3.5-5.7); Albumin/Globulin Ratio 1.5 (1.1-2.2); Bilirubin,Direct 0.4 mg/dL (0.0-0.2); Bilirubin,Indirect 1.1 mg/dL (0.0-1.0); Bilirubin,Total 1.5 mg/dL (0.3-1.0); Globulin 2.4 g/dL (2.4-3.5); Total Protein 5.9 g/dL (6.4-8.9)
[2020-04-03 03:22] LABS: Basophils # 0.1 K/mcL (0.0-0.2); Basophils % 0.4 %; Eosinophils % 0.3 %; Hemoglobin 9.3 g/dL (12.9-16.9); Lymphocytes # 1.1 K/mcL (0.6-4.6); Lymphocytes % 8.1 %; Mean Corpuscular HGB Conc 32.1 g/dL (31.6-35.5); Mean Corpuscular Hemoglobin 33.2 pg (28.0-33.3); Mean Corpuscular Volume 103.6 fL (83.0-100.0); Monocytes # 1.3 K/mcL (0.0-1.3); Monocytes % 10.1 %; Neutrophils # 10.4 K/mcL (1.6-8.9); Nucleated Red Blood Cells 0.2 /100 WBC (0); Platelet Count 357 K/mcL (140-400); Red Cell Distribution Width 16.8 % (11.5-14.5); Segmented Neutrophils % 79.1 %; White Blood Count 13.1 K/mcL (4.3-11.1)
[2020-04-03] MEDS: Ipratropium/Albuterol Neb 3 ML IH SCH ×3 (03:35→11:32)
[2020-04-03] MEDS ORDERED: Menthol 9.1 MG LOZENGE PO PRN (05:39)
[2020-04-03] MEDS: Budesonide/Formoterol 160/4.5 1 PUFF INH IH SCH (07:38)
[2020-04-03] MEDS: Insulin LISPRO 300 UNITS/3 ML VIAL SQ SCH ×2 (07:55→11:57)
[2020-04-03] MEDS ORDERED: *HR* Metformin 500 MG TABLET PO SCH (08:00)
[2020-04-03] MEDS: Aspirin 81 MG TAB.CHEW PO SCH (08:45)
[2020-04-03] MEDS: hydrOXYzine pamoate 25 MG CAPSULE PO SCH (08:45)
[2020-04-03] MEDS: Insulin DETEMIR 100 UNIT/ML X5UNITS SQ SCH (08:45)
[2020-04-03] MEDS: amLODIPine 5 MG TABLET PO SCH (08:46)
[2020-04-03] MEDS: Furosemide 20 MG TABLET PO SCH (08:46)
[2020-04-03] MEDS: cefTRIAXone 1,000 MG in Water for inj. (sterile) 10 ML IVP SCH (08:46)
[2020-04-03 11:29] VITALS: BP 103/61
== END 2020-04-03 15:05 | disposition home or self-care (01) | DRG 871 ==
LOC: 2NNU 20:57 → EMEROOARM 20:57 → SUATTDRO 03-27 02:00 → 2NNU 03-27 02:04 → 3BNU 03-28 15:38 → SUATTDRO 03-28 15:39 → 2ANU 03-30 18:01
PROVIDERS: ADMIT Student in an Organized Health Care Education/Training Program; ATTEND Internal Medicine

== ENCOUNTER 2020-05-30 20:12 | Inpatient (IN) ==
[2020-05-30] MEDS ORDERED: methylPREDNISolone 125 MG/2 ML VIAL IVP ONE (21:07)
[2020-05-30] MEDS ORDERED: Ipratropium/Albuterol Neb 3 ML IH ONE (21:07)
[2020-05-30 21:14] LABS: BUN/Creatinine Ratio 17 (6-26); Blood Urea Nitrogen 21 mg/dL (8-23); Carbon Dioxide 35 mEq/L (23-29); Chloride 96 mEq/L (98-107); Glucose 142 mg/dL (70-105); Osmolality,Calculated 293 (280-300); Potassium 4.1 mEq/L (3.5-5.1); Sodium 139 mEq/L (136-145); eGFR For African Americans > 60 (> 60); eGFR For Non-African Americans > 60 (> 60)
[2020-05-30 21:15] LABS: Troponin I < 0.03 ng/mL (< 0.04)
[2020-05-30 21:36] LABS: Basophils # 0.1 K/mcL (0.0-0.2); Basophils % 1.4 %; Eosinophils # 1.8 K/mcL (0.0-0.6); Eosinophils % 17.7 %; Hematocrit 26.7 % (37.5-50.1); Hemoglobin 9.6 g/dL (12.9-16.9); Immature Granulocytes % 0.5 % (0-4); Lymphocytes % 10.3 %; Mean Corpuscular Hemoglobin 37.4 pg (28.0-33.3); Mean Corpuscular Volume 103.9 fL (83.0-100.0); Mean Platelet Volume 9.8 fL (9.4-12.4); Monocytes % 10.2 %; Neutrophils # 6.1 K/mcL (1.6-8.9); Platelet Count 434 K/mcL (140-400); Red Blood Count 2.57 M/mcL (4.19-5.50); Red Cell Distribution Width 18.5 % (11.5-14.5); Segmented Neutrophils % 59.9 %; White Blood Count 10.1 K/mcL (4.3-11.1)
[2020-05-30 22:44] LABS: Adenovirus Not Detected (Not Detect); Bordetella Pertussis Not Detected (Not Detect); Chlamydophila pneumoniae Not Detected (Not Detect); Coronavirus 229E Not Detected (Not Detect); Coronavirus HKU1 Not Detected (Not Detect); Coronavirus NL63 Not Detected (Not Detect); Coronavirus OC43 Not Detected (Not Detect); Human Metapneumovirus Not Detected (Not Detect); Human Rhinovirus/Enterovirus Not Detected (Not Detect); Influenza A Subtype 2009 H1 Not Detected (Not Detect); Influenza B Not Detected (Not Detect); Mycoplasma pneumoniae Not Detected (Not Detect); Parainfluenza Virus 1 Not Detected (Not Detect); Parainfluenza Virus 2 Not Detected (Not Detect); Parainfluenza Virus 3 Not Detected (Not Detect); Parainfluenza Virus 4 Not Detected (Not Detect); Respiratory Syncytial Virus Not Detected (Not Detect); SARS-CoV-2 Not Detected (Not Detect)
[2020-05-30] MEDS ORDERED: Ondansetron 4 MG/2 ML VIAL IVP PRN (23:25)
[2020-05-30] MEDS ORDERED: Naloxone 0.4 MG/ML INJ IVP PRN (23:25)
[2020-05-30] MEDS ORDERED: Dextrose Gel 15 GM/37.5 ML TUBE PO PRN ×2 (23:29)
[2020-05-30] MEDS ORDERED: D5% in Water 1,000 ML IVC PRN (23:29)
[2020-05-30] MEDS ORDERED: *HR* Dextrose 50 % in Water (Vial) 50 ML VIAL IVP PRN (23:29)
[2020-05-31] MEDS: Azithromycin 500 MG in 0.9 % Sodium Chloride 250 ML IVPB SCH ×2 (00:19→23:52)
[2020-05-31] MEDS: Insulin LISPRO 300 UNITS/3 ML VIAL SQ SCH ×4 (00:19→17:19)
[2020-05-31 01:56] LABS: BUN/Creatinine Ratio 17 (6-26); Blood Urea Nitrogen 21 mg/dL (8-23); Calcium 9.2 mg/dL (8.6-10.3); Carbon Dioxide 33 mEq/L (23-29); Chloride 95 mEq/L (98-107); Glucose 269 mg/dL (70-105); Magnesium 2.1 mg/dL (1.6-2.6); Osmolality,Calculated 294 (280-300); Phosphorous 2.8 mg/dL (2.7-4.5); Potassium 4.1 mEq/L (3.5-5.1); Sodium 136 mEq/L (136-145); eGFR For African Americans > 60 (> 60); eGFR For Non-African Americans > 60 (> 60)
[2020-05-31 02:08] LABS: Thyroid Stimulating Hormone 0.579 mcIU/mL (0.340-5.600)
[2020-05-31 02:16] LABS: Hematocrit 31.1 % (37.5-50.1); Hemoglobin 10.1 g/dL (12.9-16.9); Mean Corpuscular HGB Conc 32.5 g/dL (31.6-35.5); Mean Corpuscular Hemoglobin 32.8 pg (28.0-33.3); Mean Platelet Volume 10.1 fL (9.4-12.4); Platelet Count 414 K/mcL (140-400); Red Blood Count 3.08 M/mcL (4.19-5.50); Red Cell Distribution Width 15.1 % (11.5-14.5); White Blood Count 10.4 K/mcL (4.3-11.1)
[2020-05-31] MEDS: methylPREDNISolone 125 MG/2 ML VIAL IVP SCH ×3 (05:16→21:43)
[2020-05-31] MEDS: Budesonide/Formoterol 160/4.5 1 PUFF INH IH SCH ×2 (08:13→20:29)
[2020-05-31] MEDS: Bumetanide 1 MG TABLET PO SCH ×2 (08:20→21:42)
[2020-05-31] MEDS: hydrOXYzine pamoate 25 MG CAPSULE PO SCH ×2 (08:21→21:42)
[2020-05-31] MEDS: Folic Acid 1 MG TABLET PO SCH (08:21)
[2020-05-31] MEDS: Aspirin 81 MG TAB.CHEW PO SCH (08:21)
[2020-05-31] MEDS: *HR* Metformin 500 MG TABLET PO SCH ×2 (08:22→17:19)
[2020-05-31] MEDS: Cholecalciferol (D-3) 1,000 UNIT (25MCG) TABLET PO SCH (08:22)
[2020-05-31] MEDS: *HR* Heparin 5,000 UNIT/ML VIAL SQ SCH (17:20)
[2020-05-31] MEDS: Ipratropium/Albuterol Neb 3 ML IH PRN (20:33)
[2020-06-01] MEDS: Ipratropium/Albuterol Neb 3 ML IH PRN ×2 (03:43→23:48)
[2020-06-01] MEDS: *HR* Heparin 5,000 UNIT/ML VIAL SQ SCH ×2 (05:43→16:27)
[2020-06-01] MEDS: methylPREDNISolone 125 MG/2 ML VIAL IVP SCH ×3 (05:43→22:01)
[2020-06-01 06:48] LABS: BUN/Creatinine Ratio 26 (6-26); Blood Urea Nitrogen 33 mg/dL (8-23); Calcium 9.1 mg/dL (8.6-10.3); Carbon Dioxide 35 mEq/L (23-29); Chloride 97 mEq/L (98-107); Glucose 249 mg/dL (70-105); Osmolality,Calculated 300 (280-300); Potassium 4.3 mEq/L (3.5-5.1); Sodium 137 mEq/L (136-145); eGFR For African Americans > 60 (> 60); eGFR For Non-African Americans 57 (> 60)
[2020-06-01 07:26] LABS: Hematocrit 27.6 % (37.5-50.1); Hemoglobin 9.5 g/dL (12.9-16.9); Mean Corpuscular HGB Conc 34.4 g/dL (31.6-35.5); Mean Corpuscular Hemoglobin 36.5 pg (28.0-33.3); Mean Corpuscular Volume 106.2 fL (83.0-100.0); Mean Platelet Volume 10.3 fL (9.4-12.4); Platelet Count 419 K/mcL (140-400); Red Cell Distribution Width 17.5 % (11.5-14.5); White Blood Count 16.4 K/mcL (4.3-11.1)
[2020-06-01] MEDS: Aspirin 81 MG TAB.CHEW PO SCH (07:54)
[2020-06-01] MEDS: Bumetanide 1 MG TABLET PO SCH ×2 (07:55→22:03)
[2020-06-01] MEDS: *HR* Metformin 500 MG TABLET PO SCH ×2 (07:55→16:27)
[2020-06-01] MEDS: Cholecalciferol (D-3) 1,000 UNIT (25MCG) TABLET PO SCH (07:55)
[2020-06-01] MEDS: Folic Acid 1 MG TABLET PO SCH (07:55)
[2020-06-01] MEDS: Insulin LISPRO 300 UNITS/3 ML VIAL SQ SCH ×3 (07:56→16:28)
[2020-06-01] MEDS: hydrOXYzine pamoate 25 MG CAPSULE PO SCH ×2 (07:56→22:49)
[2020-06-01] MEDS: Budesonide/Formoterol 160/4.5 1 PUFF INH IH SCH ×2 (08:21→20:00)
[2020-06-01] MEDS: Azithromycin 500 MG in 0.9 % Sodium Chloride 250 ML IVPB SCH (22:02)
[2020-06-02 02:34] LABS: BUN/Creatinine Ratio 31 (6-26); Blood Urea Nitrogen 38 mg/dL (8-23); Carbon Dioxide 34 mEq/L (23-29); Chloride 96 mEq/L (98-107); Glucose 262 mg/dL (70-105); Sodium 137 mEq/L (136-145); eGFR For African Americans > 60 (> 60); eGFR For Non-African Americans > 60 (> 60)
[2020-06-02 02:35] LABS: Calcium 9.2 mg/dL (8.6-10.3); Osmolality,Calculated 302 (280-300)
[2020-06-02 03:13] LABS: Hematocrit 29.5 % (37.5-50.1); Hemoglobin 9.9 g/dL (12.9-16.9); Mean Corpuscular HGB Conc 33.6 g/dL (31.6-35.5); Mean Corpuscular Hemoglobin 34.9 pg (28.0-33.3); Mean Corpuscular Volume 103.9 fL (83.0-100.0); Mean Platelet Volume 10.1 fL (9.4-12.4); Platelet Count 415 K/mcL (140-400); Red Blood Count 2.84 M/mcL (4.19-5.50); Red Cell Distribution Width 16.4 % (11.5-14.5); White Blood Count 16.5 K/mcL (4.3-11.1)
[2020-06-02] MEDS: *HR* Heparin 5,000 UNIT/ML VIAL SQ SCH (06:45)
[2020-06-02] MEDS: methylPREDNISolone 125 MG/2 ML VIAL IVP SCH (06:45)
[2020-06-02] MEDS: Ipratropium/Albuterol Neb 3 ML IH PRN (06:52)
[2020-06-02 07:07] VITALS: BP 133/71
[2020-06-02] MEDS: Budesonide/Formoterol 160/4.5 1 PUFF INH IH SCH (07:58)
[2020-06-02] MEDS: Aspirin 81 MG TAB.CHEW PO SCH (08:04)
[2020-06-02] MEDS: hydrOXYzine pamoate 25 MG CAPSULE PO SCH (08:05)
[2020-06-02] MEDS: Cholecalciferol (D-3) 1,000 UNIT (25MCG) TABLET PO SCH (08:06)
[2020-06-02] MEDS: Folic Acid 1 MG TABLET PO SCH (08:06)
[2020-06-02] MEDS: Insulin LISPRO 300 UNITS/3 ML VIAL SQ SCH (08:06)
[2020-06-02] MEDS: *HR* Metformin 500 MG TABLET PO SCH (08:06)
[2020-06-02] MEDS: Bumetanide 1 MG TABLET PO SCH (08:06)
== END 2020-06-02 11:12 | disposition home or self-care (01) | DRG 190 ==
LOC: 3BNU 20:12 → EMEROOARM 20:12 → 3BNU 23:35
PROVIDERS: ADMIT Family Medicine; ATTEND Family Medicine

== ENCOUNTER 2020-08-01 06:28 | Inpatient (IN) ==
[2020-08-01] MEDS ORDERED: Ipratropium/Albuterol Neb 3 ML IH ONE ×3 (06:43→09:41)
[2020-08-01] MEDS ORDERED: Ipratropium/Albuterol Neb 3 ML ONE (06:44)
[2020-08-01] MEDS ORDERED: methylPREDNISolone 125 MG/2 ML VIAL IVP ONE (07:01)
[2020-08-01 08:48] LABS: Basophils # 0.1 K/mcL (0.0-0.2); Basophils % 0.8 %; Eosinophils # 0.9 K/mcL (0.0-0.6); Eosinophils % 6.8 %; Hematocrit 33.9 % (37.5-50.1); Hemoglobin 10.8 g/dL (12.9-16.9); Immature Granulocytes % 1.4 % (0-4); Lymphocytes # 0.9 K/mcL (0.6-4.6); Lymphocytes % 6.8 %; Mean Corpuscular HGB Conc 31.9 g/dL (31.6-35.5); Mean Corpuscular Hemoglobin 30.8 pg (28.0-33.3); Mean Corpuscular Volume 96.6 fL (83.0-100.0); Mean Platelet Volume 10.1 fL (9.4-12.4); Monocytes # 1.1 K/mcL (0.0-1.3); Monocytes % 8.5 %; Neutrophils # 10.1 K/mcL (1.6-8.9); Platelet Count 320 K/mcL (140-400); Red Blood Count 3.51 M/mcL (4.19-5.50); Red Cell Distribution Width 16.2 % (11.5-14.5); Segmented Neutrophils % 75.7 %; White Blood Count 13.3 K/mcL (4.3-11.1)
[2020-08-01 09:08] LABS: BUN/Creatinine Ratio 21 (6-26); Blood Urea Nitrogen 18 mg/dL (8-23); Calcium 8.8 mg/dL (8.6-10.3); Carbon Dioxide 36 mEq/L (23-29); Chloride 99 mEq/L (98-107); Glucose 153 mg/dL (70-105); Osmolality,Calculated 295 (280-300); Potassium 4.4 mEq/L (3.5-5.1); Sodium 140 mEq/L (136-145); eGFR For African Americans > 60 (> 60); eGFR For Non-African Americans > 60 (> 60)
[2020-08-01 09:09] LABS: Troponin I < 0.03 ng/mL (< 0.04)
[2020-08-01] MEDS ORDERED: Naloxone 0.4 MG/ML INJ IVP PRN (10:26)
[2020-08-01] MEDS ORDERED: D5% in Water 1,000 ML IVC PRN (10:26)
[2020-08-01] MEDS ORDERED: Dextrose Gel 15 GM/37.5 ML TUBE PO PRN ×2 (10:26)
[2020-08-01] MEDS ORDERED: *HR* Dextrose 50 % in Water (Vial) 50 ML VIAL IVP PRN (10:26)
[2020-08-01 11:03] LABS: Estimated Average Glucose 111 mg/dl; Hemoglobin A1C 5.5 %
[2020-08-01] MEDS: Budesonide/Formoterol 160/4.5 1 PUFF INH IH SCH ×2 (12:00→20:26)
[2020-08-01] MEDS: Ipratropium/Albuterol Neb 3 ML IH SCH ×3 (12:00→20:24)
[2020-08-01] MEDS: *HR* Heparin 5,000 UNIT/ML VIAL SQ SCH ×2 (12:57→22:00)
[2020-08-01] MEDS: Insulin LISPRO 300 UNITS/3 ML VIAL SUBQ SCH ×2 (12:57→16:24)
[2020-08-01] MEDS: MethylPREDNISolone 40 MG/ML VIAL IVP SCH (16:25)
[2020-08-01] MEDS ORDERED: Insulin LISPRO 300 UNITS/3 ML VIAL SUBQ SCH (21:00)
[2020-08-01] MEDS: Bumetanide 1 MG TABLET PO SCH (22:00)
[2020-08-01] MEDS: Insulin DETEMIR 100 UNIT/ML X5UNITS SUBQ SCH (22:01)
[2020-08-02] MEDS: Ipratropium/Albuterol Neb 3 ML IH SCH ×7 (00:12→23:43)
[2020-08-02] MEDS: MethylPREDNISolone 40 MG/ML VIAL IVP SCH ×2 (00:27→07:29)
[2020-08-02 02:12] LABS: Hematocrit 31.9 % (37.5-50.1); Hemoglobin 10.4 g/dL (12.9-16.9); Mean Corpuscular HGB Conc 32.6 g/dL (31.6-35.5); Mean Corpuscular Hemoglobin 31.2 pg (28.0-33.3); Mean Corpuscular Volume 95.8 fL (83.0-100.0); Mean Platelet Volume 10.1 fL (9.4-12.4); Platelet Count 336 K/mcL (140-400); Red Blood Count 3.33 M/mcL (4.19-5.50); Red Cell Distribution Width 15.6 % (11.5-14.5)
[2020-08-02 02:16] LABS: INR 1.1; Prothrombin Time 13.1 Seconds (9.4-12.1)
[2020-08-02 02:35] LABS: BUN/Creatinine Ratio 24 (6-26); Blood Urea Nitrogen 25 mg/dL (8-23); Calcium 9.1 mg/dL (8.6-10.3); Carbon Dioxide 33 mEq/L (23-29); Chloride 97 mEq/L (98-107); Chol/HDL Ratio 2.7 (0-4.9); Cholesterol 116 mg/dL (< 200); Glucose 284 mg/dL (70-105); HDL Cholesterol 43 mg/dL (40-59); LDL Cholesterol,Calculated 57 mg/dL (< 100); Osmolality,Calculated 299 (280-300); Phosphorous 3.3 mg/dL (2.7-4.5); Potassium 4.4 mEq/L (3.5-5.1); Sodium 137 mEq/L (136-145); Triglycerides 78 mg/dL (< 150); eGFR For African Americans > 60 (> 60); eGFR For Non-African Americans > 60 (> 60)
[2020-08-02] MEDS: *HR* Heparin 5,000 UNIT/ML VIAL SQ SCH ×3 (05:30→20:19)
[2020-08-02] MEDS: Bumetanide 1 MG TABLET PO SCH ×2 (07:29→20:19)
[2020-08-02] MEDS: Cholecalciferol (D-3) 1,000 UNIT (25MCG) TABLET PO SCH (07:29)
[2020-08-02] MEDS: Folic Acid 1 MG TABLET PO SCH (07:29)
[2020-08-02] MEDS: Insulin LISPRO 300 UNITS/3 ML VIAL SUBQ SCH ×4 (07:30→20:20)
[2020-08-02] MEDS: Fluticasone Propionate Nasal 50 MCG/SPRAY BOTTLE NS SCH (07:41)
[2020-08-02 08:15] LABS: VBG HCO3 39 mEq/L (21-27); VBG PCO2 75 mmHg (41-51); VBG PH 7.32 pH Units (7.32-7.42); VBG PO2 24 mmHg (25-50)
[2020-08-02] MEDS: Budesonide/Formoterol 160/4.5 1 PUFF INH IH SCH ×2 (11:03→19:57)
[2020-08-02] MEDS ORDERED: MethylPREDNISolone 40 MG/ML VIAL IVP SCH (18:00)
[2020-08-02] MEDS: Insulin DETEMIR 100 UNIT/ML X5UNITS SUBQ SCH (20:19)
[2020-08-03] MEDS: Ipratropium/Albuterol Neb 3 ML IH SCH ×6 (03:57→23:37)
[2020-08-03] MEDS: *HR* Heparin 5,000 UNIT/ML VIAL SQ SCH ×3 (06:07→20:15)
[2020-08-03 06:56] LABS: BUN/Creatinine Ratio 26 (6-26); Blood Urea Nitrogen 29 mg/dL (8-23); Calcium 8.3 mg/dL (8.6-10.3); Carbon Dioxide 39 mEq/L (23-29); Chloride 96 mEq/L (98-107); Glucose 129 mg/dL (70-105); Osmolality,Calculated 300 (280-300); Sodium 141 mEq/L (136-145); eGFR For African Americans > 60 (> 60); eGFR For Non-African Americans > 60 (> 60)
[2020-08-03 07:18] LABS: Basophils % 0.1 %; Eosinophils % 0.2 %; Hemoglobin 10.5 g/dL (12.9-16.9); Immature Granulocytes % 0.6 % (0-4); Lymphocytes # 1.2 K/mcL (0.6-4.6); Lymphocytes % 7.2 %; Mean Corpuscular HGB Conc 32.8 g/dL (31.6-35.5); Mean Corpuscular Hemoglobin 31.5 pg (28.0-33.3); Mean Platelet Volume 10.5 fL (9.4-12.4); Monocytes # 1.5 K/mcL (0.0-1.3); Monocytes % 9.2 %; Neutrophils # 13.6 K/mcL (1.6-8.9); Platelet Count 320 K/mcL (140-400); Red Blood Count 3.33 M/mcL (4.19-5.50); Red Cell Distribution Width 16.3 % (11.5-14.5); Segmented Neutrophils % 82.7 %; White Blood Count 16.5 K/mcL (4.3-11.1)
[2020-08-03 07:22] LABS: Mean Corpuscular Volume 96.1 fL (83.0-100.0)
[2020-08-03] MEDS: Cholecalciferol (D-3) 1,000 UNIT (25MCG) TABLET PO SCH (09:24)
[2020-08-03] MEDS: Bumetanide 1 MG TABLET PO SCH ×2 (09:24→20:15)
[2020-08-03] MEDS: Folic Acid 1 MG TABLET PO SCH (09:24)
[2020-08-03] MEDS: Aspirin 81 MG TAB.CHEW PO SCH (09:24)
[2020-08-03] MEDS: Insulin LISPRO 300 UNITS/3 ML VIAL SUBQ SCH ×4 (09:24→20:15)
[2020-08-03] MEDS: Fluticasone Propionate Nasal 50 MCG/SPRAY BOTTLE NS SCH ×2 (09:25→14:49)
[2020-08-03] MEDS: predniSONE 20 MG TABLET PO SCH (09:25)
[2020-08-03] MEDS: Budesonide/Formoterol 160/4.5 1 PUFF INH IH SCH ×2 (11:06→19:39)
[2020-08-03] MEDS: Insulin DETEMIR 100 UNIT/ML X5UNITS SUBQ SCH (20:16)
[2020-08-03] MEDS ORDERED: Benzonatate 100 MG CAPSULE PO PRN (21:49)
[2020-08-04] MEDS: Ipratropium/Albuterol Neb 3 ML IH SCH ×3 (03:39→11:35)
[2020-08-04] MEDS: *HR* Heparin 5,000 UNIT/ML VIAL SQ SCH (05:21)
[2020-08-04] MEDS: Insulin LISPRO 300 UNITS/3 ML VIAL SUBQ SCH (06:52)
[2020-08-04] MEDS: Bumetanide 1 MG TABLET PO SCH (06:57)
[2020-08-04] MEDS: Cholecalciferol (D-3) 1,000 UNIT (25MCG) TABLET PO SCH (06:57)
[2020-08-04] MEDS: Fluticasone Propionate Nasal 50 MCG/SPRAY BOTTLE NS SCH (06:57)
[2020-08-04] MEDS: Folic Acid 1 MG TABLET PO SCH (06:57)
[2020-08-04] MEDS: Aspirin 81 MG TAB.CHEW PO SCH (06:57)
[2020-08-04] MEDS: predniSONE 20 MG TABLET PO SCH (06:57)
[2020-08-04] MEDS: Budesonide/Formoterol 160/4.5 1 PUFF INH IH SCH (07:33)
[2020-08-04 09:34] LABS: Basophils % 0.2 %; Eosinophils # 0.1 K/mcL (0.0-0.6); Eosinophils % 0.5 %; Hemoglobin 10.8 g/dL (12.9-16.9); Immature Granulocytes % 0.7 % (0-4); Lymphocytes # 0.5 K/mcL (0.6-4.6); Lymphocytes % 4.6 %; Mean Corpuscular HGB Conc 32.7 g/dL (31.6-35.5); Mean Corpuscular Volume 97.9 fL (83.0-100.0); Mean Platelet Volume 10.2 fL (9.4-12.4); Monocytes # 1.1 K/mcL (0.0-1.3); Monocytes % 9.1 %; Platelet Count 323 K/mcL (140-400); Red Blood Count 3.37 M/mcL (4.19-5.50); Red Cell Distribution Width 15.9 % (11.5-14.5); Segmented Neutrophils % 84.9 %; White Blood Count 11.8 K/mcL (4.3-11.1)
[2020-08-04 09:54] VITALS: BP 113/68
[2020-08-04 09:54] LABS: BUN/Creatinine Ratio 24 (6-26); Blood Urea Nitrogen 31 mg/dL (8-23); Calcium 8.5 mg/dL (8.6-10.3); Carbon Dioxide 37 mEq/L (23-29); Chloride 93 mEq/L (98-107); Glucose 210 mg/dL (70-105); Osmolality,Calculated 297 (280-300); Potassium 3.6 mEq/L (3.5-5.1); Sodium 137 mEq/L (136-145); eGFR For African Americans > 60 (> 60); eGFR For Non-African Americans 56 (> 60)
== END 2020-08-04 12:35 | disposition home or self-care (01) ==
LOC: 2ANU 06:28 → EMEROOARM 06:28 → 2ANU 11:56 → SUATTDRO 08-02 13:11
PROVIDERS: ADMIT Student in an Organized Health Care Education/Training Program; ATTEND General Practice

== ENCOUNTER 2020-08-26 22:50 | Inpatient (IN) ==
[2020-08-26] MEDS ORDERED: Ipratropium/Albuterol Neb 3 ML IH ONE (23:24)
[2020-08-26] MEDS ORDERED: cefTRIAXone 1,000 MG in Water for inj. (sterile) 10 ML IVP ONE (23:40)
[2020-08-26] MEDS ORDERED: Azithromycin 500 MG in 0.9 % Sodium Chloride 250 ML IVPB ONE (23:40)
[2020-08-26 23:50] LABS: VBG HCO3 39 mEq/L (21-27); VBG PCO2 75 mmHg (41-51); VBG PH 7.32 pH Units (7.32-7.42); VBG PO2 81 mmHg (25-50)
[2020-08-26 23:53] LABS: INR 1.1; Prothrombin Time 12.7 Seconds (9.4-12.1)
[2020-08-26 23:56] LABS: Activated Partial Thrombo Time 27.5 Seconds (26.0-36.0)
[2020-08-27 00:04] LABS: Alanine Aminotransferase 23 Units/L (7-52); Albumin 4.3 g/dL (3.5-5.7); Albumin/Globulin Ratio 1.6 (1.1-2.2); Alkaline Phosphatase 147 Units/L (34-104); Aspartate Amino Transferase 16 Units/L (13-39); BUN/Creatinine Ratio 17 (6-26); Bilirubin,Total 4.1 mg/dL (0.3-1.0); Blood Urea Nitrogen 20 mg/dL (8-23); Calcium 8.8 mg/dL (8.6-10.3); Carbon Dioxide 37 mEq/L (23-29); Chloride 92 mEq/L (98-107); Globulin 2.7 g/dL (2.4-3.5); Glucose 229 mg/dL (70-105); Osmolality,Calculated 294 (280-300); Potassium 4.3 mEq/L (3.5-5.1); Sodium 137 mEq/L (136-145); eGFR For African Americans > 60 (> 60); eGFR For Non-African Americans > 60 (> 60)
[2020-08-27 00:05] LABS: Troponin I < 0.03 ng/mL (< 0.04)
[2020-08-27 01:32] LABS: Basophils # 0.2 K/mcL (0.0-0.2); Basophils % 1.3 %; Eosinophils % 6.5 %; Hematocrit 37.2 % (37.5-50.1); Hemoglobin 11.9 g/dL (12.9-16.9); Immature Granulocytes % 1.3 % (0-4); Lymphocytes # 0.4 K/mcL (0.6-4.6); Lymphocytes % 2.9 %; Mean Corpuscular Hemoglobin 30.2 pg (28.0-33.3); Mean Platelet Volume 10.4 fL (9.4-12.4); Monocytes # 1.1 K/mcL (0.0-1.3); Monocytes % 7.2 %; Neutrophils # 12.1 K/mcL (1.6-8.9); Nucleated Red Blood Cells 0.1 /100 WBC (0); Platelet Count 396 K/mcL (140-400); Red Blood Count 3.94 M/mcL (4.19-5.50); Red Cell Distribution Width 15.6 % (11.5-14.5); Segmented Neutrophils % 80.8 %; White Blood Count 14.9 K/mcL (4.3-11.1)
[2020-08-27 01:33] LABS: Mean Corpuscular Volume 94.4 fL (83.0-100.0)
[2020-08-27] MEDS ORDERED: Naloxone 0.4 MG/ML INJ IVP PRN (02:27)
[2020-08-27] MEDS ORDERED: Acetaminophen 325 MG TABLET PO PRN (02:27)
[2020-08-27] MEDS ORDERED: Dextrose Gel 15 GM/37.5 ML TUBE PO PRN ×2 (02:33)
[2020-08-27] MEDS ORDERED: D5% in Water 1,000 ML IVC PRN (02:33)
[2020-08-27] MEDS ORDERED: *HR* Dextrose 50 % in Water (Vial) 50 ML VIAL IVP PRN (02:33)
[2020-08-27] MEDS: Ipratropium/Albuterol Neb 3 ML IH SCH ×4 (03:49→23:22)
[2020-08-27] MEDS ORDERED: Ondansetron ODT 4 MG TAB.RAPDIS SL PRN (04:30)
[2020-08-27] MEDS: *HR* Heparin 5,000 UNIT/ML VIAL SQ SCH ×2 (06:16→17:37)
[2020-08-27 06:42] LABS: Hematocrit 32.2 % (37.5-50.1); Hemoglobin 11.2 g/dL (12.9-16.9); Mean Corpuscular HGB Conc 34.8 g/dL (31.6-35.5); Mean Corpuscular Hemoglobin 32.8 pg (28.0-33.3); Mean Corpuscular Volume 94.4 fL (83.0-100.0); Mean Platelet Volume 10.2 fL (9.4-12.4); Platelet Count 370 K/mcL (140-400); Red Blood Count 3.41 M/mcL (4.19-5.50); Red Cell Distribution Width 15.3 % (11.5-14.5); White Blood Count 13.3 K/mcL (4.3-11.1)
[2020-08-27 07:05] LABS: BUN/Creatinine Ratio 21 (6-26); Blood Urea Nitrogen 24 mg/dL (8-23); Carbon Dioxide 35 mEq/L (23-29); Chloride 95 mEq/L (98-107); Glucose 209 mg/dL (70-105); Osmolality,Calculated 294 (280-300); Potassium 4.1 mEq/L (3.5-5.1); Sodium 137 mEq/L (136-145); eGFR For African Americans > 60 (> 60); eGFR For Non-African Americans > 60 (> 60)
[2020-08-27] MEDS ORDERED: Insulin LISPRO 300 UNITS/3 ML VIAL SUBQ SCH ×2 (08:00→21:00)
[2020-08-27] MEDS: Aspirin 81 MG TAB.CHEW PO SCH (08:30)
[2020-08-27] MEDS: Bumetanide 1 MG TABLET PO SCH (08:30)
[2020-08-27] MEDS: hydrOXYzine pamoate 25 MG CAPSULE PO SCH ×2 (08:31→21:10)
[2020-08-27] MEDS: methylPREDNISolone 125 MG/2 ML VIAL IVP SCH ×3 (08:32→23:08)
[2020-08-27] MEDS ORDERED: predniSONE 20 MG TABLET PO SCH ×2 (09:00)
[2020-08-27] MEDS ORDERED: Azithromycin 250 MG TABLET PO SCH ×2 (09:00→20:00)
[2020-08-27] MEDS ORDERED: Budesonide/Formoterol 160/4.5 1 PUFF INH IH SCH (10:00)
[2020-08-27] MEDS: Budesonide/Formoterol 160/4.5 1 PUFF INH IH SCH ×2 (10:31→23:24)
[2020-08-27] MEDS: Insulin LISPRO 300 UNITS/3 ML VIAL SUBQ SCH ×2 (12:32→17:37)
[2020-08-27 16:38] LABS: Albumin/Globulin Ratio 1.5 (1.1-2.2); Bilirubin,Direct 0.4 mg/dL (0.0-0.2); Bilirubin,Indirect 2.3 mg/dL (0.0-1.0); Bilirubin,Total 2.7 mg/dL (0.3-1.0); Globulin 2.6 g/dL (2.4-3.5); Total Protein 6.6 g/dL (6.4-8.9)
[2020-08-27] MEDS ORDERED: Insulin DETEMIR 100 UNIT/ML X5UNITS SUBQ SCH (21:00)
[2020-08-28] MEDS: Ipratropium/Albuterol Neb 3 ML IH SCH ×2 (04:22→10:11)
[2020-08-28] MEDS: *HR* Heparin 5,000 UNIT/ML VIAL SQ SCH (05:29)
[2020-08-28 06:14] LABS: Alanine Aminotransferase 19 Units/L (7-52); Albumin/Globulin Ratio 1.7 (1.1-2.2); Alkaline Phosphatase 116 Units/L (34-104); Aspartate Amino Transferase 11 Units/L (13-39); BUN/Creatinine Ratio 28 (6-26); Blood Urea Nitrogen 32 mg/dL (8-23); Calcium 9.4 mg/dL (8.6-10.3); Carbon Dioxide 35 mEq/L (23-29); Chloride 95 mEq/L (98-107); Globulin 2.3 g/dL (2.4-3.5); Glucose 296 mg/dL (70-105); Osmolality,Calculated 298 (280-300); Potassium 4.6 mEq/L (3.5-5.1); Sodium 135 mEq/L (136-145); Total Protein 6.3 g/dL (6.4-8.9); eGFR For African Americans > 60 (> 60); eGFR For Non-African Americans > 60 (> 60)
[2020-08-28 06:55] LABS: Basophils % 0.2 %; Hematocrit 32.7 % (37.5-50.1); Hemoglobin 10.8 g/dL (12.9-16.9); Immature Granulocytes % 1.5 % (0-4); Lymphocytes # 0.5 K/mcL (0.6-4.6); Mean Corpuscular Hemoglobin 30.8 pg (28.0-33.3); Mean Corpuscular Volume 93.2 fL (83.0-100.0); Mean Platelet Volume 10.5 fL (9.4-12.4); Monocytes # 0.7 K/mcL (0.0-1.3); Monocytes % 4.5 %; Neutrophils # 14.7 K/mcL (1.6-8.9); Platelet Count 340 K/mcL (140-400); Red Blood Count 3.51 M/mcL (4.19-5.50); Red Cell Distribution Width 15.2 % (11.5-14.5); Segmented Neutrophils % 90.8 %; White Blood Count 16.1 K/mcL (4.3-11.1)
[2020-08-28] MEDS ORDERED: Folic Acid 1 MG TABLET PO SCH (09:00)
[2020-08-28] MEDS ORDERED: Azithromycin 250 MG TABLET PO SCH (09:00)
[2020-08-28] MEDS ORDERED: Cefdinir 300 MG CAPSULE PO SCH (09:45)
[2020-08-28] MEDS: Insulin LISPRO 300 UNITS/3 ML VIAL SUBQ SCH ×2 (10:03→12:57)
[2020-08-28] MEDS: methylPREDNISolone 125 MG/2 ML VIAL IVP SCH (10:03)
[2020-08-28] MEDS: Bumetanide 1 MG TABLET PO SCH (10:04)
[2020-08-28] MEDS: Aspirin 81 MG TAB.CHEW PO SCH (10:05)
[2020-08-28] MEDS: hydrOXYzine pamoate 25 MG CAPSULE PO SCH (10:05)
[2020-08-28] MEDS: Budesonide/Formoterol 160/4.5 1 PUFF INH IH SCH (10:16)
[2020-08-28 10:28] VITALS: BP 120/60
== END 2020-08-28 13:27 | disposition home or self-care (01) | DRG 189 ==
LOC: EMEROOARM 22:50 → 3ANU 22:50 → SUATTDRO 08-27 17:48
PROVIDERS: ADMIT Student in an Organized Health Care Education/Training Program; ATTEND Family Medicine

== ENCOUNTER 2020-10-26 09:24 | Inpatient (IN) ==
[2020-10-26] MEDS ORDERED: Ipratropium/Albuterol Neb 3 ML IH ONE (09:38)
[2020-10-26] MEDS ORDERED: methylPREDNISolone 125 MG/2 ML VIAL IVP ONE (09:38)
[2020-10-26 10:23] LABS: VBG HCO3 37 mEq/L (21-27); VBG PCO2 62 mmHg (41-51); VBG PH 7.39 pH Units (7.32-7.42); VBG PO2 159 mmHg (25-50)
[2020-10-26 11:20] LABS: INR 1.1; Prothrombin Time 12.3 Seconds (9.4-12.1)
[2020-10-26 11:26] LABS: Basophils # 0.1 K/mcL (0.0-0.2); Eosinophils # 0.5 K/mcL (0.0-0.6); Eosinophils % 3.7 %; Hematocrit 35.6 % (37.5-50.1); Hemoglobin 11.7 g/dL (12.9-16.9); Lymphocytes # 0.3 K/mcL (0.6-4.6); Lymphocytes % 2.3 %; Mean Corpuscular HGB Conc 32.9 g/dL (31.6-35.5); Mean Corpuscular Hemoglobin 31.9 pg (28.0-33.3); Mean Platelet Volume 10.3 fL (9.4-12.4); Monocytes # 0.8 K/mcL (0.0-1.3); Monocytes % 6.7 %; Neutrophils # 10.8 K/mcL (1.6-8.9); Platelet Count 342 K/mcL (140-400); Red Blood Count 3.67 M/mcL (4.19-5.50); Red Cell Distribution Width 15.4 % (11.5-14.5); Segmented Neutrophils % 85.3 %; White Blood Count 12.6 K/mcL (4.3-11.1)
[2020-10-26 11:42] LABS: BUN/Creatinine Ratio 19 (6-26); Blood Urea Nitrogen 19 mg/dL (8-23); Calcium 8.7 mg/dL (8.6-10.3); Carbon Dioxide 40 mEq/L (23-29); Chloride 92 mEq/L (98-107); Glucose 220 mg/dL (70-105); Osmolality,Calculated 299 (280-300); Potassium 3.9 mEq/L (3.5-5.1); Sodium 140 mEq/L (136-145); Troponin I < 0.03 ng/mL (< 0.04); eGFR For African Americans > 60 (> 60); eGFR For Non-African Americans > 60 (> 60)
[2020-10-26 11:54] LABS: Adenovirus Not Detected (Not Detect); Bordetella Pertussis Not Detected (Not Detect); Chlamydophila pneumoniae Not Detected (Not Detect); Coronavirus 229E Not Detected (Not Detect); Coronavirus HKU1 Not Detected (Not Detect); Coronavirus NL63 Not Detected (Not Detect); Coronavirus OC43 Not Detected (Not Detect); Human Metapneumovirus Not Detected (Not Detect); Human Rhinovirus/Enterovirus Not Detected (Not Detect); Influenza A Subtype 2009 H1 Not Detected (Not Detect); Influenza B Not Detected (Not Detect); Mycoplasma pneumoniae Not Detected (Not Detect); Parainfluenza Virus 1 Not Detected (Not Detect); Parainfluenza Virus 2 Not Detected (Not Detect); Parainfluenza Virus 3 Not Detected (Not Detect); Parainfluenza Virus 4 Not Detected (Not Detect); Respiratory Syncytial Virus Not Detected (Not Detect); SARS-CoV-2 Not Detected (Not Detect)
[2020-10-26] MEDS ORDERED: Furosemide 40 MG/4 ML VIAL IVP ONE (12:04)
[2020-10-26] MEDS ORDERED: Azithromycin 500 MG in D5% in Water 250 ML IVPB STA (12:05)
[2020-10-26] MEDS ORDERED: Azithromycin 500 MG VIAL ONE (12:07)
[2020-10-26] MEDS ORDERED: Naloxone 0.4 MG/ML INJ IVP PRN (12:49)
[2020-10-26] MEDS ORDERED: Ipratropium/Albuterol Neb 3 ML IH PRN (12:51)
[2020-10-26] MEDS ORDERED: D5% in Water 1,000 ML IVC PRN (14:34)
[2020-10-26] MEDS ORDERED: *HR* Dextrose 50 % in Water (Vial) 50 ML VIAL IVP PRN (14:34)
[2020-10-26] MEDS ORDERED: Dextrose Gel 15 GM/37.5 ML TUBE PO PRN ×2 (14:34)
[2020-10-26] MEDS: Insulin LISPRO 300 UNITS/3 ML VIAL SUBQ SCH ×2 (16:00→16:47)
[2020-10-26] MEDS: Ipratropium/Albuterol Neb 3 ML IH SCH ×3 (16:02→23:28)
[2020-10-26] MEDS: *HR* Heparin 5,000 UNIT/ML VIAL SQ SCH (16:47)
[2020-10-26] MEDS: Doxycycline 100 MG CAPSULE PO SCH (19:38)
[2020-10-27] MEDS: Ipratropium/Albuterol Neb 3 ML IH SCH ×6 (04:07→23:40)
[2020-10-27 05:26] LABS: Basophils % 0.2 %; Hematocrit 31.4 % (37.5-50.1); Hemoglobin 10.6 g/dL (12.9-16.9); Immature Granulocytes % 1.1 % (0-4); Lymphocytes # 0.6 K/mcL (0.6-4.6); Lymphocytes % 3.9 %; Mean Corpuscular HGB Conc 33.8 g/dL (31.6-35.5); Mean Corpuscular Volume 97.8 fL (83.0-100.0); Mean Platelet Volume 10.2 fL (9.4-12.4); Monocytes # 1.7 K/mcL (0.0-1.3); Monocytes % 10.6 %; Neutrophils # 13.7 K/mcL (1.6-8.9); Platelet Count 320 K/mcL (140-400); Red Blood Count 3.21 M/mcL (4.19-5.50); Red Cell Distribution Width 14.9 % (11.5-14.5); Segmented Neutrophils % 84.2 %; White Blood Count 16.2 K/mcL (4.3-11.1)
[2020-10-27] MEDS: MethylPREDNISolone 40 MG/ML VIAL IVP SCH ×2 (05:28→17:51)
[2020-10-27] MEDS: *HR* Heparin 5,000 UNIT/ML VIAL SQ SCH ×2 (05:28→17:52)
[2020-10-27 05:46] LABS: BUN/Creatinine Ratio 27 (6-26); Blood Urea Nitrogen 31 mg/dL (8-23); Calcium 8.8 mg/dL (8.6-10.3); Carbon Dioxide 39 mEq/L (23-29); Chloride 93 mEq/L (98-107); Glucose 369 mg/dL (70-105); Magnesium 2.2 mg/dL (1.6-2.6); Osmolality,Calculated 306 (280-300); Phosphorous 2.9 mg/dL (2.7-4.5); Potassium 4.3 mEq/L (3.5-5.1); Sodium 137 mEq/L (136-145); eGFR For African Americans > 60 (> 60); eGFR For Non-African Americans > 60 (> 60)
[2020-10-27] MEDS: Doxycycline 100 MG CAPSULE PO SCH ×2 (07:35→20:34)
[2020-10-27] MEDS: Insulin LISPRO 300 UNITS/3 ML VIAL SUBQ SCH ×3 (07:37→16:59)
[2020-10-27 08:41] LABS: Estimated Average Glucose 111 mg/dl; Hemoglobin A1C 5.5 %
[2020-10-27] MEDS ORDERED: Chloraseptic Spray 177 ML BOTTLE MM PRN (14:14)
[2020-10-27] MEDS ORDERED: Benzonatate 100 MG CAPSULE PO PRN (14:14)
[2020-10-27] MEDS ORDERED: Spironolactone 25 MG TABLET PO ONE (16:03)
[2020-10-27] MEDS ORDERED: Furosemide 40 MG TABLET PO ONE (16:03)
[2020-10-27] MEDS: Insulin DETEMIR 100 UNIT/ML X5UNITS SUBQ SCH (20:34)
[2020-10-28] MEDS: Ipratropium/Albuterol Neb 3 ML IH SCH ×6 (03:46→23:19)
[2020-10-28] MEDS: MethylPREDNISolone 40 MG/ML VIAL IVP SCH (06:36)
[2020-10-28] MEDS: *HR* Heparin 5,000 UNIT/ML VIAL SQ SCH ×2 (06:36→17:28)
[2020-10-28 07:31] LABS: BUN/Creatinine Ratio 35 (6-26); Blood Urea Nitrogen 33 mg/dL (8-23); Calcium 8.9 mg/dL (8.6-10.3); Carbon Dioxide 36 mEq/L (23-29); Chloride 97 mEq/L (98-107); Glucose 295 mg/dL (70-105); Osmolality,Calculated 304 (280-300); Potassium 4.9 mEq/L (3.5-5.1); Sodium 138 mEq/L (136-145); eGFR For African Americans > 60 (> 60); eGFR For Non-African Americans > 60 (> 60)
[2020-10-28] MEDS: Furosemide 40 MG TABLET PO SCH (08:27)
[2020-10-28] MEDS: Aspirin 81 MG TAB.CHEW PO SCH (08:27)
[2020-10-28] MEDS: Doxycycline 100 MG CAPSULE PO SCH ×2 (08:27→21:51)
[2020-10-28] MEDS: Insulin LISPRO 300 UNITS/3 ML VIAL SUBQ SCH ×3 (08:27→17:28)
[2020-10-28] MEDS ORDERED: hydrOXYzine pamoate 25 MG CAPSULE PO PRN (13:38)
[2020-10-28] MEDS: *HR* Metformin 500 MG TABLET PO SCH (17:28)
[2020-10-28] MEDS: Sucralfate 1 GM TABLET PO SCH (21:50)
[2020-10-28] MEDS: Insulin DETEMIR 100 UNIT/ML X5UNITS SUBQ SCH (21:52)
[2020-10-29] MEDS: Ipratropium/Albuterol Neb 3 ML IH SCH ×5 (04:00→19:57)
[2020-10-29] MEDS: *HR* Heparin 5,000 UNIT/ML VIAL SQ SCH ×2 (06:08→17:19)
[2020-10-29] MEDS: Doxycycline 100 MG CAPSULE PO SCH ×2 (08:36→21:13)
[2020-10-29] MEDS: Cholecalciferol (D-3) 1,000 UNIT (25MCG) TABLET PO SCH (08:36)
[2020-10-29] MEDS: Furosemide 40 MG TABLET PO SCH (08:36)
[2020-10-29] MEDS: predniSONE 20 MG TABLET PO SCH (08:36)
[2020-10-29] MEDS: hydrOXYzine pamoate 25 MG CAPSULE PO SCH (08:37)
[2020-10-29] MEDS: Aspirin 81 MG TAB.CHEW PO SCH (08:37)
[2020-10-29] MEDS: *HR* Metformin 500 MG TABLET PO SCH ×2 (08:37→17:19)
[2020-10-29] MEDS: Insulin LISPRO 300 UNITS/3 ML VIAL SUBQ SCH ×3 (08:38→17:18)
[2020-10-29] MEDS: Insulin DETEMIR 100 UNIT/ML X5UNITS SUBQ SCH (21:13)
[2020-10-29] MEDS: Sucralfate 1 GM TABLET PO SCH (21:13)
[2020-10-30] MEDS: Ipratropium/Albuterol Neb 3 ML IH SCH ×4 (00:09→11:24)
[2020-10-30] MEDS: *HR* Heparin 5,000 UNIT/ML VIAL SQ SCH (06:20)
[2020-10-30] MEDS: Insulin LISPRO 300 UNITS/3 ML VIAL SUBQ SCH (09:02)
[2020-10-30] MEDS: *HR* Metformin 500 MG TABLET PO SCH (09:03)
[2020-10-30] MEDS: Aspirin 81 MG TAB.CHEW PO SCH (09:03)
[2020-10-30] MEDS: predniSONE 20 MG TABLET PO SCH (09:04)
[2020-10-30] MEDS: Doxycycline 100 MG CAPSULE PO SCH (09:04)
[2020-10-30] MEDS: hydrOXYzine pamoate 25 MG CAPSULE PO SCH (09:04)
[2020-10-30] MEDS: Cholecalciferol (D-3) 1,000 UNIT (25MCG) TABLET PO SCH (09:04)
[2020-10-30] MEDS: Furosemide 40 MG TABLET PO SCH (09:04)
[2020-10-30] MEDS ORDERED: Furosemide 20 MG/2 ML VIAL IVP ONE (09:34)
[2020-10-30 10:20] VITALS: BP 117/74
== END 2020-10-30 15:20 | disposition home or self-care (01) | DRG 190 ==
LOC: 2NENU 09:24 → EMEROOARM 09:24 → SUATTDRO 14:16 → 2NENU 14:45 → SUATTDRO 10-27 23:13
PROVIDERS: ADMIT Family Medicine; ATTEND Internal Medicine

== ENCOUNTER 2020-11-23 10:24 | Inpatient (IN) ==
[2020-11-23] MEDS ORDERED: Furosemide 40 MG/4 ML VIAL IVP ONE (11:12)
[2020-11-23] MEDS ORDERED: predniSONE 20 MG TABLET PO ONE (11:12)
[2020-11-23] MEDS ORDERED: Ipratropium/Albuterol Neb 3 ML IH ONE (11:16)
[2020-11-23 12:07] LABS: BUN/Creatinine Ratio 22 (6-26); Blood Urea Nitrogen 22 mg/dL (8-23); Carbon Dioxide 34 mEq/L (23-29); Chloride 92 mEq/L (98-107); Glucose 252 mg/dL (70-105); Osmolality,Calculated 294 (280-300); Potassium 4.3 mEq/L (3.5-5.1); Sodium 136 mEq/L (136-145); Troponin I < 0.03 ng/mL (< 0.04); eGFR For African Americans > 60 (> 60); eGFR For Non-African Americans > 60 (> 60)
[2020-11-23 13:18] LABS: Basophils # 0.1 K/mcL (0.0-0.2); Basophils % 1.1 %; Eosinophils # 0.7 K/mcL (0.0-0.6); Eosinophils % 9.4 %; Immature Granulocytes % 1.9 % (0-4); Lymphocytes # 0.6 K/mcL (0.6-4.6); Lymphocytes % 7.9 %; Mean Corpuscular HGB Conc 34.1 g/dL (31.6-35.5); Mean Corpuscular Hemoglobin 32.9 pg (28.0-33.3); Mean Corpuscular Volume 96.5 fL (83.0-100.0); Monocytes # 0.9 K/mcL (0.0-1.3); Monocytes % 11.9 %; Neutrophils # 5.3 K/mcL (1.6-8.9); Platelet Count 279 K/mcL (140-400); Red Blood Count 4.25 M/mcL (4.19-5.50); Segmented Neutrophils % 67.8 %; White Blood Count 7.9 K/mcL (4.3-11.1)
[2020-11-23] MEDS ORDERED: Naloxone 0.4 MG/ML INJ IVP PRN (14:54)
[2020-11-23] MEDS ORDERED: Acetaminophen 325 MG TABLET PO PRN (14:54)
[2020-11-23] MEDS ORDERED: Ondansetron ODT 4 MG TAB.RAPDIS SL PRN (14:54)
[2020-11-23] MEDS ORDERED: D5% in Water 1,000 ML IVC PRN (14:57)
[2020-11-23] MEDS ORDERED: *HR* Dextrose 50 % in Water (Vial) 50 ML VIAL IVP PRN (14:57)
[2020-11-23] MEDS ORDERED: Dextrose Gel 15 GM/37.5 ML TUBE PO PRN ×2 (14:57)
[2020-11-23] MEDS: Ipratropium/Albuterol Neb 3 ML IH SCH ×3 (15:35→23:13)
[2020-11-23 16:10] LABS: VBG HCO3 40 mEq/L (21-27); VBG PCO2 66 mmHg (41-51); VBG PH 7.39 pH Units (7.32-7.42); VBG PO2 70 mmHg (25-50)
[2020-11-23] MEDS: hydrALAZINE 25 MG TABLET PO SCH ×3 (17:01→23:37)
[2020-11-23] MEDS: Furosemide 40 MG/4 ML VIAL IVP SCH (17:01)
[2020-11-23] MEDS: MethylPREDNISolone 40 MG/ML VIAL IVP SCH (17:02)
[2020-11-23] MEDS: Insulin LISPRO 300 UNITS/3 ML VIAL SUBQ SCH ×2 (17:02→21:28)
[2020-11-23] MEDS: Insulin DETEMIR 100 UNIT/ML X5UNITS SUBQ SCH (17:02)
[2020-11-23] MEDS: Azithromycin 500 MG in 0.9 % Sodium Chloride 250 ML IVPB SCH (17:03)
[2020-11-24 03:38] LABS: BUN/Creatinine Ratio 28 (6-26); Blood Urea Nitrogen 30 mg/dL (8-23); Calcium 9.1 mg/dL (8.6-10.3); Carbon Dioxide 33 mEq/L (23-29); Chloride 93 mEq/L (98-107); Glucose 307 mg/dL (70-105); Magnesium 2.4 mg/dL (1.6-2.6); Osmolality,Calculated 298 (280-300); Potassium 4.3 mEq/L (3.5-5.1); Sodium 135 mEq/L (136-145); eGFR For African Americans > 60 (> 60); eGFR For Non-African Americans > 60 (> 60)
[2020-11-24 03:53] LABS: Hematocrit 32.1 % (37.5-50.1); Hemoglobin 11.4 g/dL (12.9-16.9); Mean Corpuscular HGB Conc 35.5 g/dL (31.6-35.5); Mean Corpuscular Hemoglobin 34.5 pg (28.0-33.3); Mean Platelet Volume 9.9 fL (9.4-12.4); Platelet Count 345 K/mcL (140-400); Red Cell Distribution Width 14.6 % (11.5-14.5); White Blood Count 11.1 K/mcL (4.3-11.1)
[2020-11-24 03:54] LABS: Mean Corpuscular Volume 97.3 fL (83.0-100.0)
[2020-11-24] MEDS: Ipratropium/Albuterol Neb 3 ML IH SCH ×6 (03:56→22:59)
[2020-11-24] MEDS: MethylPREDNISolone 40 MG/ML VIAL IVP SCH ×2 (05:52→16:14)
[2020-11-24] MEDS ORDERED: *HR* Enoxaparin 40 MG/0.4 ML SYRINGE SQ SCH (06:00)
[2020-11-24] MEDS: hydrALAZINE 25 MG TABLET PO SCH ×3 (07:42→23:34)
[2020-11-24] MEDS: Furosemide 40 MG/4 ML VIAL IVP SCH (07:42)
[2020-11-24] MEDS: Insulin LISPRO 300 UNITS/3 ML VIAL SUBQ SCH ×4 (07:43→20:01)
[2020-11-24] MEDS: Insulin DETEMIR 100 UNIT/ML X5UNITS SUBQ SCH ×2 (07:43→20:00)
[2020-11-24] MEDS ORDERED: Furosemide 80 MG in 0.9 % Sodium Chloride 50 ML IV SCH (09:00)
[2020-11-24] MEDS ORDERED: Furosemide 40 MG/4 ML VIAL IVP ONE (11:00)
[2020-11-24] MEDS: Furosemide 80 MG in 0.9 % Sodium Chloride 50 ML IV SCH (16:15)
[2020-11-24] MEDS: *HR* Enoxaparin 40 MG/0.4 ML SYRINGE SQ SCH (17:38)
[2020-11-24] MEDS: Azithromycin 500 MG in 0.9 % Sodium Chloride 250 ML IVPB SCH (17:40)
[2020-11-25 03:05] LABS: BUN/Creatinine Ratio 31 (6-26); Blood Urea Nitrogen 36 mg/dL (8-23); Calcium 9.1 mg/dL (8.6-10.3); Carbon Dioxide 34 mEq/L (23-29); Chloride 92 mEq/L (98-107); Glucose 323 mg/dL (70-105); Magnesium 2.2 mg/dL (1.6-2.6); Osmolality,Calculated 299 (280-300); Sodium 134 mEq/L (136-145); eGFR For African Americans > 60 (> 60); eGFR For Non-African Americans > 60 (> 60)
[2020-11-25] MEDS: Ipratropium/Albuterol Neb 3 ML IH SCH ×2 (03:43→07:30)
[2020-11-25] MEDS: *HR* Enoxaparin 40 MG/0.4 ML SYRINGE SQ SCH (05:33)
[2020-11-25 06:03] LABS: ABG Base Excess 10 mEq/L (-2 to 3); ABG HCO3 36 mEq/L (21-27); ABG Oxygen Saturation 89 % (95-98); ABG PCO2 59 mmHg (35-45); ABG PH 7.39 pH Units (7.32-7.45); ABG PO2 59 mmHg (85-104); ABG TCO2 38 mEq/L (20-26)
[2020-11-25 07:36] VITALS: BP 117/74
[2020-11-25] MEDS: Furosemide 80 MG in 0.9 % Sodium Chloride 50 ML IV SCH (08:00)
[2020-11-25] MEDS: Insulin DETEMIR 100 UNIT/ML X5UNITS SUBQ SCH (08:00)
[2020-11-25] MEDS: hydrALAZINE 25 MG TABLET PO SCH (08:00)
[2020-11-25] MEDS: Insulin LISPRO 300 UNITS/3 ML VIAL SUBQ SCH (08:01)
[2020-11-25] MEDS ORDERED: predniSONE 20 MG TABLET PO SCH (09:00)
== END 2020-11-25 10:55 | disposition home or self-care (01) | DRG 190 ==
LOC: EMEROOARM 10:24 → 2ANU 10:24 → SUATTDRO 14:57 → 2ANU 15:41
PROVIDERS: ADMIT General Practice; ATTEND Internal Medicine

== ENCOUNTER 2021-01-11 13:40 | Inpatient (IN) ==
[2021-01-11] MEDS ORDERED: Ipratropium/Albuterol Neb 3 ML IH ONE (13:56)
[2021-01-11] MEDS ORDERED: Furosemide 40 MG/4 ML VIAL IVP ONE (13:57)
[2021-01-11] MEDS ORDERED: cefTRIAXone 1,000 MG in 0.9 % Sodium Chloride Mini Bag 100 ML IVPB ONE (14:09)
[2021-01-11 15:02] LABS: Alanine Aminotransferase 23 Units/L (7-52); Albumin 4.3 g/dL (3.5-5.7); Albumin/Globulin Ratio 1.7 (1.1-2.2); Alkaline Phosphatase 132 Units/L (34-104); Aspartate Amino Transferase 20 Units/L (13-39); BUN/Creatinine Ratio 16 (6-26); Bilirubin,Direct 0.6 mg/dL (0.0-0.2); Bilirubin,Indirect 3.2 mg/dL (0.0-1.0); Bilirubin,Total 3.8 mg/dL (0.3-1.0); Blood Urea Nitrogen 16 mg/dL (8-23); Calcium 9.2 mg/dL (8.6-10.3); Carbon Dioxide 38 mEq/L (23-29); Chloride 95 mEq/L (98-107); Globulin 2.6 g/dL (2.4-3.5); Glucose 154 mg/dL (70-105); Osmolality,Calculated 292 (280-300); Sodium 139 mEq/L (136-145); Total Protein 6.9 g/dL (6.4-8.9); Troponin I < 0.03 ng/mL (< 0.04); eGFR For African Americans > 60 (> 60); eGFR For Non-African Americans > 60 (> 60)
[2021-01-11 15:44] LABS: Basophils # 0.1 K/mcL (0.0-0.2); Basophils % 1.4 %; Eosinophils # 1.1 K/mcL (0.0-0.6); Eosinophils % 10.2 %; Hematocrit 32.7 % (37.5-50.1); Hemoglobin 11.9 g/dL (12.9-16.9); Lymphocytes # 0.8 K/mcL (0.6-4.6); Mean Corpuscular HGB Conc 36.4 g/dL (31.6-35.5); Mean Corpuscular Volume 98.8 fL (83.0-100.0); Mean Platelet Volume 10.3 fL (9.4-12.4); Monocytes # 1.6 K/mcL (0.0-1.3); Monocytes % 15.5 %; Neutrophils # 6.5 K/mcL (1.6-8.9); Nucleated Red Blood Cells 0.3 /100 WBC (0); Platelet Count 375 K/mcL (140-400); Red Blood Count 3.31 M/mcL (4.19-5.50); Red Cell Distribution Width 16.6 % (11.5-14.5); Segmented Neutrophils % 62.9 %; White Blood Count 10.3 K/mcL (4.3-11.1)
[2021-01-11] MEDS ORDERED: Naloxone 0.4 MG/ML INJ IVP PRN (16:02)
[2021-01-11] MEDS ORDERED: Ondansetron 4 MG/2 ML VIAL IVP PRN (16:02)
[2021-01-11] MEDS ORDERED: *HR* HYDROcodone/Acet 5/325 mg TABLET PO PRN (16:02)
[2021-01-11] MEDS ORDERED: *HR* Dextrose 50 % in Water (Vial) 50 ML VIAL IVP PRN (16:27)
[2021-01-11] MEDS ORDERED: Dextrose Gel 15 GM/37.5 ML TUBE PO PRN ×2 (16:27)
[2021-01-11] MEDS ORDERED: D5% in Water 1,000 ML IVC PRN (16:27)
[2021-01-11] MEDS ORDERED: hydrOXYzine pamoate 25 MG CAPSULE PO PRN (16:48)
[2021-01-11] MEDS: Insulin LISPRO 300 UNITS/3 ML VIAL SUBQ SCH ×3 (16:57→21:00)
[2021-01-11] MEDS: Doxycycline 100 MG in 0.9 % Sodium Chloride Mini Bag 100 ML IVPB SCH (18:09)
[2021-01-11] MEDS: MethylPREDNISolone 40 MG/ML VIAL IVP SCH (19:56)
[2021-01-11] MEDS: Furosemide 40 MG/4 ML VIAL IVP SCH (20:02)
[2021-01-11] MEDS: Sucralfate 1 GM TABLET PO SCH (20:02)
[2021-01-11] MEDS: Budesonide/Formoterol 160/4.5 1 PUFF INH IH SCH (22:13)
[2021-01-12] MEDS: Doxycycline 100 MG in 0.9 % Sodium Chloride Mini Bag 100 ML IVPB SCH ×2 (05:36→17:34)
[2021-01-12] MEDS: MethylPREDNISolone 40 MG/ML VIAL IVP SCH ×2 (05:37→17:34)
[2021-01-12 06:41] LABS: BUN/Creatinine Ratio 21 (6-26); Blood Urea Nitrogen 23 mg/dL (8-23); Carbon Dioxide 33 mEq/L (23-29); Chloride 93 mEq/L (98-107); Glucose 296 mg/dL (70-105); Magnesium 1.9 mg/dL (1.6-2.6); Osmolality,Calculated 291 (280-300); Phosphorous 1.2 mg/dL (2.7-4.5); Potassium 4.4 mEq/L (3.5-5.1); Sodium 133 mEq/L (136-145); eGFR For African Americans > 60 (> 60); eGFR For Non-African Americans > 60 (> 60)
[2021-01-12 07:14] LABS: Basophils # 0.1 K/mcL (0.0-0.2); Basophils % 0.7 %; Eosinophils % 0.1 %; Hematocrit 28.7 % (37.5-50.1); Hemoglobin 10.7 g/dL (12.9-16.9); Immature Granulocytes % 2.1 % (0-4); Lymphocytes # 0.5 K/mcL (0.6-4.6); Mean Corpuscular Hemoglobin 36.3 pg (28.0-33.3); Mean Platelet Volume 10.5 fL (9.4-12.4); Monocytes # 0.5 K/mcL (0.0-1.3); Monocytes % 4.1 %; Neutrophils # 10.6 K/mcL (1.6-8.9); Nucleated Red Blood Cells 0.3 /100 WBC (0); Platelet Count 354 K/mcL (140-400); Red Blood Count 2.95 M/mcL (4.19-5.50); Red Cell Distribution Width 15.9 % (11.5-14.5); White Blood Count 11.9 K/mcL (4.3-11.1)
[2021-01-12 07:15] LABS: Mean Corpuscular HGB Conc 37.3 g/dL (31.6-35.5); Mean Corpuscular Volume 97.3 fL (83.0-100.0)
[2021-01-12] MEDS: Folic Acid 1 MG TABLET PO SCH (08:21)
[2021-01-12] MEDS: Furosemide 40 MG/4 ML VIAL IVP SCH ×2 (08:21→17:34)
[2021-01-12] MEDS: Aspirin 81 MG TAB.CHEW PO SCH (08:21)
[2021-01-12] MEDS: Ascorbic Acid 500 MG TABLET PO SCH (08:22)
[2021-01-12] MEDS: hydrOXYzine pamoate 25 MG CAPSULE PO SCH (08:22)
[2021-01-12] MEDS: Budesonide/Formoterol 160/4.5 1 PUFF INH IH SCH ×2 (09:44→19:54)
[2021-01-12] MEDS: Ipratropium/Albuterol Neb 3 ML IH PRN ×2 (09:45→19:54)
[2021-01-12] MEDS: Insulin LISPRO 300 UNITS/3 ML VIAL SUBQ SCH ×4 (11:52→21:25)
[2021-01-12] MEDS: *HR* Heparin 5,000 UNIT/ML VIAL SQ SCH (17:34)
[2021-01-12] MEDS: Sucralfate 1 GM TABLET PO SCH (21:27)
[2021-01-12] MEDS: Insulin DETEMIR 100 UNIT/ML X5UNITS SUBQ SCH (21:27)
[2021-01-13] MEDS: Doxycycline 100 MG in 0.9 % Sodium Chloride Mini Bag 100 ML IVPB SCH (05:32)
[2021-01-13] MEDS: *HR* Heparin 5,000 UNIT/ML VIAL SQ SCH ×2 (05:33→16:38)
[2021-01-13] MEDS: MethylPREDNISolone 40 MG/ML VIAL IVP SCH (05:33)
[2021-01-13 06:35] LABS: BUN/Creatinine Ratio 25 (6-26); Blood Urea Nitrogen 29 mg/dL (8-23); Calcium 9.1 mg/dL (8.6-10.3); Carbon Dioxide 34 mEq/L (23-29); Chloride 95 mEq/L (98-107); Glucose 297 mg/dL (70-105); Magnesium 2.2 mg/dL (1.6-2.6); Osmolality,Calculated 299 (280-300); Phosphorous 2.5 mg/dL (2.7-4.5); Potassium 4.2 mEq/L (3.5-5.1); Sodium 136 mEq/L (136-145); eGFR For African Americans > 60 (> 60); eGFR For Non-African Americans > 60 (> 60)
[2021-01-13 06:49] LABS: Basophils % 0.2 %; Hemoglobin 10.9 g/dL (12.9-16.9); Immature Granulocytes % 1.9 % (0-4); Lymphocytes # 0.6 K/mcL (0.6-4.6); Lymphocytes % 2.9 %; Mean Corpuscular HGB Conc 35.2 g/dL (31.6-35.5); Mean Corpuscular Hemoglobin 34.6 pg (28.0-33.3); Mean Platelet Volume 10.4 fL (9.4-12.4); Monocytes # 1.9 K/mcL (0.0-1.3); Monocytes % 8.8 %; Nucleated Red Blood Cells 0.1 /100 WBC (0); Platelet Count 385 K/mcL (140-400); Red Blood Count 3.15 M/mcL (4.19-5.50); Red Cell Distribution Width 14.5 % (11.5-14.5); Segmented Neutrophils % 86.2 %; White Blood Count 22.1 K/mcL (4.3-11.1)
[2021-01-13 06:50] LABS: Mean Corpuscular Volume 98.4 fL (83.0-100.0); Neutrophils # 19.1 K/mcL (1.6-8.9)
[2021-01-13] MEDS: Aspirin 81 MG TAB.CHEW PO SCH (08:03)
[2021-01-13] MEDS: BuPROPion SR (12 HR) 150 MG TABLET PO SCH (08:03)
[2021-01-13] MEDS: hydrOXYzine pamoate 25 MG CAPSULE PO SCH (08:03)
[2021-01-13] MEDS: Ascorbic Acid 500 MG TABLET PO SCH (08:03)
[2021-01-13] MEDS: Cholecalciferol (D-3) 1,000 UNIT (25MCG) TABLET PO SCH (08:03)
[2021-01-13] MEDS: Folic Acid 1 MG TABLET PO SCH (08:03)
[2021-01-13] MEDS: Insulin LISPRO 300 UNITS/3 ML VIAL SUBQ SCH ×7 (08:04→21:06)
[2021-01-13] MEDS: Insulin DETEMIR 100 UNIT/ML X5UNITS SUBQ SCH ×2 (08:06→21:07)
[2021-01-13] MEDS: Budesonide/Formoterol 160/4.5 1 PUFF INH IH SCH ×2 (08:14→20:32)
[2021-01-13] MEDS: Ipratropium/Albuterol Neb 3 ML IH PRN ×3 (08:14→20:30)
[2021-01-13] MEDS: Bumetanide 1 MG/4 ML VIAL IVP SCH ×2 (10:32→16:39)
[2021-01-13] MEDS: Fluticasone Propionate Nasal 50 MCG/SPRAY BOTTLE NS SCH (10:33)
[2021-01-13] MEDS: Sucralfate 1 GM TABLET PO SCH (21:06)
[2021-01-13] MEDS: Doxycycline 100 MG CAPSULE PO SCH (21:06)
[2021-01-14] MEDS ORDERED: Menthol 1 EACH LOZENGE PO PRN (03:32)
[2021-01-14] MEDS: Ipratropium/Albuterol Neb 3 ML IH PRN (04:10)
[2021-01-14] MEDS: *HR* Heparin 5,000 UNIT/ML VIAL SQ SCH ×2 (04:59→19:33)
[2021-01-14 05:27] LABS: Hemoglobin 10.7 g/dL (12.9-16.9)
[2021-01-14 05:40] LABS: BUN/Creatinine Ratio 29 (6-26); Blood Urea Nitrogen 33 mg/dL (8-23); Carbon Dioxide 33 mEq/L (23-29); Chloride 98 mEq/L (98-107); Glucose 202 mg/dL (70-105); Magnesium 2.2 mg/dL (1.6-2.6); Osmolality,Calculated 301 (280-300); Phosphorous 3.9 mg/dL (2.7-4.5); Potassium 4.2 mEq/L (3.5-5.1); Sodium 139 mEq/L (136-145); eGFR For African Americans > 60 (> 60); eGFR For Non-African Americans > 60 (> 60)
[2021-01-14 05:59] LABS: Basophils # 0.1 K/mcL (0.0-0.2); Basophils % 0.4 %; Eosinophils # 0.1 K/mcL (0.0-0.6); Eosinophils % 0.7 %; Hematocrit 29.1 % (37.5-50.1); Immature Granulocytes % 2.7 % (0-4); Lymphocytes # 1.4 K/mcL (0.6-4.6); Lymphocytes % 7.9 %; Mean Corpuscular HGB Conc 36.8 g/dL (31.6-35.5); Mean Corpuscular Hemoglobin 35.9 pg (28.0-33.3); Mean Corpuscular Volume 97.7 fL (83.0-100.0); Mean Platelet Volume 10.5 fL (9.4-12.4); Monocytes # 2.2 K/mcL (0.0-1.3); Monocytes % 11.8 %; Neutrophils # 13.9 K/mcL (1.6-8.9); Nucleated Red Blood Cells 0.3 /100 WBC (0); Platelet Count 341 K/mcL (140-400); Red Blood Count 2.98 M/mcL (4.19-5.50); Red Cell Distribution Width 14.5 % (11.5-14.5); Segmented Neutrophils % 76.5 %; White Blood Count 18.2 K/mcL (4.3-11.1)
[2021-01-14] MEDS: Furosemide 40 MG/4 ML VIAL IVP SCH (07:25)
[2021-01-14] MEDS: Insulin LISPRO 300 UNITS/3 ML VIAL SUBQ SCH ×7 (09:00→21:22)
[2021-01-14] MEDS ORDERED: predniSONE 20 MG TABLET PO SCH (09:00)
[2021-01-14] MEDS: Insulin DETEMIR 100 UNIT/ML X5UNITS SUBQ SCH ×2 (09:00→21:22)
[2021-01-14] MEDS: Bumetanide 1 MG/4 ML VIAL IVP SCH ×2 (09:01→19:33)
[2021-01-14] MEDS: Cholecalciferol (D-3) 1,000 UNIT (25MCG) TABLET PO SCH (09:02)
[2021-01-14] MEDS: Folic Acid 1 MG TABLET PO SCH (09:02)
[2021-01-14] MEDS: Ascorbic Acid 500 MG TABLET PO SCH (09:02)
[2021-01-14] MEDS: hydrOXYzine pamoate 25 MG CAPSULE PO SCH (09:02)
[2021-01-14] MEDS: BuPROPion SR (12 HR) 150 MG TABLET PO SCH (09:02)
[2021-01-14] MEDS: Aspirin 81 MG TAB.CHEW PO SCH (09:02)
[2021-01-14] MEDS: Doxycycline 100 MG CAPSULE PO SCH ×2 (09:02→21:22)
[2021-01-14] MEDS: Fluticasone Propionate Nasal 50 MCG/SPRAY BOTTLE NS SCH (09:03)
[2021-01-14] MEDS: Budesonide/Formoterol 160/4.5 1 PUFF INH IH SCH ×2 (11:07→20:12)
[2021-01-14] MEDS: Sucralfate 1 GM TABLET PO SCH (21:22)
[2021-01-15] MEDS: Ipratropium/Albuterol Neb 3 ML IH PRN ×2 (03:55→10:49)
[2021-01-15] MEDS: *HR* Heparin 5,000 UNIT/ML VIAL SQ SCH (05:27)
[2021-01-15 06:41] LABS: BUN/Creatinine Ratio 29 (6-26); Blood Urea Nitrogen 34 mg/dL (8-23); Calcium 8.8 mg/dL (8.6-10.3); Carbon Dioxide 34 mEq/L (23-29); Chloride 97 mEq/L (98-107); Glucose 137 mg/dL (70-105); Magnesium 2.2 mg/dL (1.6-2.6); Osmolality,Calculated 296 (280-300); Potassium 4.3 mEq/L (3.5-5.1); Sodium 138 mEq/L (136-145); eGFR For African Americans > 60 (> 60); eGFR For Non-African Americans > 60 (> 60)
[2021-01-15 07:59] VITALS: BP 127/78
[2021-01-15] MEDS ORDERED: predniSONE 20 MG TABLET PO SCH (09:00)
[2021-01-15] MEDS: Budesonide/Formoterol 160/4.5 1 PUFF INH IH SCH (10:51)
[2021-01-15] MEDS: hydrOXYzine pamoate 25 MG CAPSULE PO SCH (11:12)
[2021-01-15] MEDS: Aspirin 81 MG TAB.CHEW PO SCH (11:12)
[2021-01-15] MEDS: Folic Acid 1 MG TABLET PO SCH (11:12)
[2021-01-15] MEDS: BuPROPion SR (12 HR) 150 MG TABLET PO SCH (11:12)
[2021-01-15] MEDS: Ascorbic Acid 500 MG TABLET PO SCH (11:13)
[2021-01-15] MEDS: Insulin LISPRO 300 UNITS/3 ML VIAL SUBQ SCH ×2 (11:13)
[2021-01-15] MEDS: Insulin DETEMIR 100 UNIT/ML X5UNITS SUBQ SCH (11:13)
[2021-01-15] MEDS: Doxycycline 100 MG CAPSULE PO SCH (11:13)
[2021-01-15] MEDS: Cholecalciferol (D-3) 1,000 UNIT (25MCG) TABLET PO SCH (11:13)
[2021-01-15] MEDS: Fluticasone Propionate Nasal 50 MCG/SPRAY BOTTLE NS SCH (11:13)
[2021-01-15] MEDS: Bumetanide 1 MG/4 ML VIAL IVP SCH (11:14)
== END 2021-01-15 13:32 | disposition home or self-care (01) | DRG 602 ==
LOC: 3ANU 13:40 → EMEROOARM 13:40 → SUATTDRO 16:08 → 3ANU 17:51
PROVIDERS: ADMIT Internal Medicine; ATTEND Internal Medicine

== ENCOUNTER 2021-02-28 15:42 | Inpatient (IN) ==
[2021-02-28] MEDS ORDERED: Ipratropium/Albuterol Neb 3 ML IH ONE (16:20)
[2021-02-28] MEDS ORDERED: methylPREDNISolone 125 MG/2 ML VIAL IVP ONE (16:20)
[2021-02-28 17:04] LABS: Alanine Aminotransferase 23 Units/L (7-52); Albumin 4.1 g/dL (3.5-5.7); Albumin/Globulin Ratio 1.5 (1.1-2.2); Alkaline Phosphatase 105 Units/L (34-104); Aspartate Amino Transferase 20 Units/L (13-39); BUN/Creatinine Ratio 18 (6-26); Bilirubin,Total 3.3 mg/dL (0.3-1.0); Blood Urea Nitrogen 19 mg/dL (8-23); Calcium 8.8 mg/dL (8.6-10.3); Carbon Dioxide 36 mEq/L (23-29); Chloride 93 mEq/L (98-107); Globulin 2.7 g/dL (2.4-3.5); Glucose 156 mg/dL (70-105); Osmolality,Calculated 291 (280-300); Potassium 3.8 mEq/L (3.5-5.1); Sodium 138 mEq/L (136-145); Total Protein 6.8 g/dL (6.4-8.9); Troponin I < 0.03 ng/mL (< 0.04); eGFR For African Americans > 60 (> 60); eGFR For Non-African Americans > 60 (> 60)
[2021-02-28 17:11] LABS: Basophils # 0.1 K/mcL (0.0-0.2); Basophils % 1.2 %; Eosinophils # 1.3 K/mcL (0.0-0.6); Eosinophils % 11.2 %; Hematocrit 29.6 % (37.5-50.1); Hemoglobin 11.2 g/dL (12.9-16.9); Immature Granulocytes % 1.3 % (0-4); Lymphocytes % 9.1 %; Mean Corpuscular Hemoglobin 39.2 pg (28.0-33.3); Mean Platelet Volume 10.2 fL (9.4-12.4); Monocytes # 1.4 K/mcL (0.0-1.3); Monocytes % 12.6 %; Neutrophils # 7.3 K/mcL (1.6-8.9); Platelet Count 342 K/mcL (140-400); Red Blood Count 2.86 M/mcL (4.19-5.50); Red Cell Distribution Width 19.5 % (11.5-14.5); Segmented Neutrophils % 64.6 %; White Blood Count 11.3 K/mcL (4.3-11.1)
[2021-02-28 17:12] LABS: Mean Corpuscular HGB Conc 37.8 g/dL (31.6-35.5); Mean Corpuscular Volume 103.5 fL (83.0-100.0)
[2021-02-28 17:26] LABS: VBG HCO3 38 mEq/L (21-27); VBG PCO2 58 mmHg (41-51); VBG PH 7.43 pH Units (7.32-7.42); VBG PO2 144 mmHg (25-50)
[2021-02-28] MEDS ORDERED: Naloxone 0.4 MG/ML INJ IVP PRN (19:43)
[2021-02-28] MEDS ORDERED: Melatonin 3 MG TABLET PO PRN (19:43)
[2021-02-28] MEDS ORDERED: Ondansetron 4 MG/2 ML VIAL IVP PRN (19:43)
[2021-02-28] MEDS: Ipratropium/Albuterol Neb 3 ML IH SCH ×2 (20:12→23:45)
[2021-02-28] MEDS: Azithromycin 500 MG in 0.9 % Sodium Chloride 250 ML IVPB SCH (20:18)
[2021-02-28] MEDS ORDERED: Furosemide 40 MG/4 ML VIAL IVP ONE (21:08)
[2021-02-28] MEDS ORDERED: Morphine Sulfate 2 MG/ML SYRINGE IVP ONE (21:23)
[2021-02-28] MEDS: *HR* Heparin 5,000 UNIT/ML VIAL SQ SCH (21:32)
[2021-02-28] MEDS ORDERED: Dextrose Gel 15 GM/37.5 ML TUBE PO PRN ×2 (22:41)
[2021-02-28] MEDS ORDERED: D5% in Water 1,000 ML IVC PRN (22:41)
[2021-02-28] MEDS ORDERED: *HR* Dextrose 50 % in Water (Vial) 50 ML VIAL IVP PRN (22:41)
[2021-02-28 22:48] LABS: Adenovirus Not Detected (Not Detect); Bordetella Pertussis Not Detected (Not Detect); Chlamydophila pneumoniae Not Detected (Not Detect); Coronavirus 229E Not Detected (Not Detect); Coronavirus HKU1 Not Detected (Not Detect); Coronavirus NL63 Not Detected (Not Detect); Coronavirus OC43 Not Detected (Not Detect); Human Metapneumovirus Not Detected (Not Detect); Human Rhinovirus/Enterovirus Not Detected (Not Detect); Influenza A Subtype 2009 H1 Not Detected (Not Detect); Influenza B Not Detected (Not Detect); Mycoplasma pneumoniae Not Detected (Not Detect); Parainfluenza Virus 1 Not Detected (Not Detect); Parainfluenza Virus 2 Not Detected (Not Detect); Parainfluenza Virus 3 Not Detected (Not Detect); Parainfluenza Virus 4 Not Detected (Not Detect); Respiratory Syncytial Virus Not Detected (Not Detect); SARS-CoV-2 Not Detected (Not Detect)
[2021-02-28] MEDS: GuaiFENesin Liq 200 MG/10 ML UDC PO PRN (22:55)
[2021-02-28] MEDS: MethylPREDNISolone 40 MG/ML VIAL IVP SCH (22:57)
[2021-02-28] MEDS: Insulin LISPRO 300 UNITS/3 ML VIAL SUBQ SCH (23:04)
[2021-03-01 02:13] LABS: BUN/Creatinine Ratio 21 (6-26); Blood Urea Nitrogen 24 mg/dL (8-23); Calcium 8.9 mg/dL (8.6-10.3); Carbon Dioxide 33 mEq/L (23-29); Chloride 95 mEq/L (98-107); Glucose 268 mg/dL (70-105); Osmolality,Calculated 297 (280-300); Potassium 4.4 mEq/L (3.5-5.1); Sodium 137 mEq/L (136-145); eGFR For African Americans > 60 (> 60); eGFR For Non-African Americans > 60 (> 60)
[2021-03-01] MEDS: Ipratropium/Albuterol Neb 3 ML IH SCH ×6 (03:44→23:20)
[2021-03-01 04:03] LABS: Hemoglobin 11.2 g/dL (12.9-16.9); Mean Corpuscular Hemoglobin 33.3 pg (28.0-33.3); Mean Platelet Volume 10.5 fL (9.4-12.4); Platelet Count 291 K/mcL (140-400); Red Blood Count 3.36 M/mcL (4.19-5.50); Red Cell Distribution Width 14.2 % (11.5-14.5)
[2021-03-01 04:21] LABS: Mean Corpuscular Volume 95.2 fL (83.0-100.0)
[2021-03-01] MEDS: MethylPREDNISolone 40 MG/ML VIAL IVP SCH (06:02)
[2021-03-01] MEDS: *HR* Heparin 5,000 UNIT/ML VIAL SQ SCH ×3 (06:02→20:19)
[2021-03-01] MEDS: Insulin LISPRO 300 UNITS/3 ML VIAL SUBQ SCH ×4 (08:23→17:26)
[2021-03-01] MEDS: GuaiFENesin Liq 200 MG/10 ML UDC PO PRN ×2 (11:25→20:18)
[2021-03-01] MEDS ORDERED: hydrOXYzine pamoate 25 MG CAPSULE PO PRN (14:02)
[2021-03-01] MEDS: Insulin DETEMIR 100 UNIT/ML X5UNITS SUBQ SCH (14:43)
[2021-03-01] MEDS: Aspirin 81 MG TAB.CHEW PO SCH (14:53)
[2021-03-01] MEDS: Bumetanide 1 MG TABLET PO SCH (17:55)
[2021-03-01] MEDS ORDERED: MethylPREDNISolone 40 MG/ML VIAL IVP SCH (18:00)
[2021-03-01] MEDS: Budesonide/Formoterol 160/4.5 1 PUFF INH IH SCH (19:45)
[2021-03-01] MEDS: Azithromycin 500 MG in 0.9 % Sodium Chloride 250 ML IVPB SCH (20:16)
[2021-03-01] MEDS ORDERED: hydrOXYzine pamoate 25 MG CAPSULE PO SCH (21:00)
[2021-03-01] MEDS ORDERED: Sucralfate 1 GM TABLET PO SCH (21:00)
[2021-03-01] MEDS ORDERED: Insulin LISPRO 300 UNITS/3 ML VIAL SUBQ SCH (21:00)
[2021-03-02] MEDS: Ipratropium/Albuterol Neb 3 ML IH SCH ×3 (03:33→10:59)
[2021-03-02 04:19] LABS: BUN/Creatinine Ratio 26 (6-26); Blood Urea Nitrogen 33 mg/dL (8-23); Calcium 9.1 mg/dL (8.6-10.3); Carbon Dioxide 28 mEq/L (23-29); Chloride 97 mEq/L (98-107); Glucose 237 mg/dL (70-105); Magnesium 2.3 mg/dL (1.6-2.6); Osmolality,Calculated 301 (280-300); Potassium 4.7 mEq/L (3.5-5.1); Sodium 138 mEq/L (136-145); eGFR For African Americans > 60 (> 60); eGFR For Non-African Americans 58 (> 60)
[2021-03-02 05:38] LABS: Estimated Average Glucose 100 mg/dl; Hemoglobin A1C 5.1 %
[2021-03-02] MEDS: *HR* Heparin 5,000 UNIT/ML VIAL SQ SCH (05:40)
[2021-03-02] MEDS: Budesonide/Formoterol 160/4.5 1 PUFF INH IH SCH (07:31)
[2021-03-02 07:45] VITALS: BP 110/66; PULSE 83; TEMP 97.5; O2SAT 100
[2021-03-02] MEDS: Insulin LISPRO 300 UNITS/3 ML VIAL SUBQ SCH (07:45)
[2021-03-02] MEDS: Aspirin 81 MG TAB.CHEW PO SCH (07:47)
[2021-03-02] MEDS: Bumetanide 1 MG TABLET PO SCH (07:48)
[2021-03-02] MEDS: Insulin DETEMIR 100 UNIT/ML X5UNITS SUBQ SCH (07:54)
[2021-03-02] MEDS ORDERED: predniSONE 20 MG TABLET PO SCH (09:00)
[2021-03-02] MEDS ORDERED: Folic Acid 1 MG TABLET PO SCH (09:00)
== END 2021-03-02 11:17 | disposition home or self-care (01) | DRG 291 ==
LOC: EMEROOARM 15:42 → 3BNU 15:42 → SUATTDRO 19:09 → 3BNU 19:26
PROVIDERS: ADMIT Pharmacist; ATTEND Internal Medicine

== ENCOUNTER 2021-11-01 10:36 | Inpatient (IN) ==
[2021-11-01] MEDS ORDERED: Furosemide 40 MG/4 ML VIAL IVP ONE (11:24)
[2021-11-01 11:56] LABS: ABG Base Excess 12 mEq/L (-2 to 3); ABG HCO3 39 mEq/L (21-27); ABG Oxygen Saturation 95 % (95-98); ABG PCO2 66 mmHg (35-45); ABG PH 7.38 pH Units (7.32-7.45); ABG PO2 79 mmHg (85-104); ABG TCO2 41 mEq/L (20-26)
[2021-11-01 12:12] LABS: Bilirubin,Urine Negative (Negative); Blood,Urine Negative (Negative); Clarity,Urine Clear (Clear); Color,Urine Yellow (Yellow); Glucose,Urine (UA) Normal (Normal); Ketones,Urine Negative (Negative); Leukocyte Esterase,Urine Negative (Negative); Nitrite,Urine Negative (Negative); Protein,Urine 30 mg/dL (Neg-Trace); RBC,Urine 0-3 per hpf (0-3); Specific Gravity,Urine 1.025 (1.010-1.025); WBC,Urine 0-3 per hpf (0-3)
[2021-11-01 13:34] LABS: Basophils % 1.5 %; Hemoglobin 11.6 g/dL (12.9-16.9)
[2021-11-01 13:35] LABS: INR 1.1; Prothrombin Time 11.7 Seconds (9.4-12.1)
[2021-11-01 13:37] LABS: Activated Partial Thrombo Time 30.3 Seconds (26.0-36.0)
[2021-11-01 13:56] LABS: Alanine Aminotransferase 30 Units/L (7-52); Albumin/Globulin Ratio 1.6 (1.1-2.2); Alkaline Phosphatase 125 Units/L (34-104); Aspartate Amino Transferase 29 Units/L (13-39); BUN/Creatinine Ratio 21 (6-26); Bilirubin,Direct 0.6 mg/dL (0.0-0.2); Bilirubin,Indirect 3.8 mg/dL (0.0-1.0); Bilirubin,Total 4.4 mg/dL (0.3-1.0); Blood Urea Nitrogen 20 mg/dL (8-23); Calcium 9.1 mg/dL (8.6-10.3); Carbon Dioxide 35 mEq/L (23-29); Chloride 96 mEq/L (98-107); Globulin 2.5 g/dL (2.4-3.5); Glucose 134 mg/dL (70-105); Osmolality,Calculated 295 (280-300); Potassium 4.5 mEq/L (3.5-5.1); Sodium 140 mEq/L (136-145); Total Protein 6.5 g/dL (6.4-8.9); Troponin I < 0.03 ng/mL (< 0.04); eGFR For African Americans > 60 (> 60); eGFR For Non-African Americans > 60 (> 60)
[2021-11-01] MEDS ORDERED: Isovue-370 500 ML BOTTLE IVP ONE (14:03)
[2021-11-01 15:17] LABS: Basophils # 0.2 K/mcL (0.0-0.2); Eosinophils % 9.1 %; Hematocrit 33.7 % (37.5-50.1); Immature Granulocytes % 2.8 % (0-4); Lymphocytes # 0.7 K/mcL (0.6-4.6); Lymphocytes % 6.9 %; Mean Corpuscular HGB Conc 34.4 g/dL (31.6-35.5); Mean Corpuscular Hemoglobin 32.5 pg (28.0-33.3); Mean Platelet Volume 10.1 fL (9.4-12.4); Monocytes # 1.3 K/mcL (0.0-1.3); Monocytes % 12.2 %; Nucleated Red Blood Cells 0.3 /100 WBC (0); Platelet Count 330 K/mcL (140-400); Red Blood Count 3.57 M/mcL (4.19-5.50); Segmented Neutrophils % 67.5 %; White Blood Count 10.4 K/mcL (4.3-11.1)
[2021-11-01 15:20] LABS: Mean Corpuscular Volume 94.4 fL (83.0-100.0)
[2021-11-01 15:56] LABS: Influenza A PCR Negative (Negative); Influenza B PCR Negative (Negative); Resp. Syncytial Virus PCR Negative (Negative); SARS-CoV-2 by PCR (In House) Negative (Negative)
[2021-11-01] MEDS ORDERED: Ipratropium/Albuterol Neb 3 ML IH ONE (16:16)
[2021-11-01] MEDS ORDERED: methylPREDNISolone 125 MG/2 ML VIAL IVP ONE (16:16)
[2021-11-01] MEDS ORDERED: Naloxone 0.4 MG/ML INJ IVP PRN (16:54)
[2021-11-01] MEDS ORDERED: Ondansetron ODT 4 MG TAB.RAPDIS SL PRN (16:54)
[2021-11-01] MEDS ORDERED: *HR* Dextrose 50 % in Water (Syg) 50 ML SYRINGE IVP PRN (16:56)
[2021-11-01] MEDS ORDERED: D5% in Water 1,000 ML IVC PRN (16:56)
[2021-11-01] MEDS ORDERED: Dextrose 4 GM Chewable Tablets PO PRN ×2 (16:56)
[2021-11-01] MEDS ORDERED: Perflutren Lipid Microsphere 1.3 ML in 0.9 % Sodium Chloride 8.7 ML IVP PRN (17:29)
[2021-11-01] MEDS ORDERED: Albuterol 2.5 MG/3 ML NEBULIZER ONE (20:37)
[2021-11-01] MEDS: Budesonide/Formoterol 160/4.5 1 PUFF INH IH SCH (20:45)
[2021-11-01] MEDS: Albuterol 2.5 MG/3 ML NEBULIZER IH SCH (20:45)
[2021-11-01] MEDS ORDERED: Insulin LISPRO 300 UNITS/3 ML VIAL SUBQ SCH (21:00)
[2021-11-01] MEDS: Sucralfate 1 GM TABLET PO SCH (21:29)
[2021-11-01] MEDS: hydrOXYzine pamoate 25 MG CAPSULE PO SCH (21:29)
[2021-11-01] MEDS: Bumetanide 1 MG/4 ML VIAL IVP SCH (21:29)
[2021-11-01] MEDS: *HR* Heparin 5,000 UNIT/ML VIAL SQ SCH (21:30)
[2021-11-02] MEDS: Melatonin 3 MG TABLET PO PRN (00:03)
[2021-11-02] MEDS: GuaiFENesin Liq 200 MG/10 ML UDC PO PRN ×2 (00:04→20:26)
[2021-11-02 02:56] LABS: Hematocrit 29.6 % (37.5-50.1); Hemoglobin 10.9 g/dL (12.9-16.9); Mean Corpuscular HGB Conc 36.8 g/dL (31.6-35.5); Mean Corpuscular Hemoglobin 33.9 pg (28.0-33.3); Mean Corpuscular Volume 91.9 fL (83.0-100.0); Mean Platelet Volume 10.1 fL (9.4-12.4); Platelet Count 330 K/mcL (140-400); Red Blood Count 3.22 M/mcL (4.19-5.50); Red Cell Distribution Width 14.4 % (11.5-14.5); White Blood Count 10.6 K/mcL (4.3-11.1)
[2021-11-02 03:18] LABS: BUN/Creatinine Ratio 18 (6-26); Blood Urea Nitrogen 22 mg/dL (8-23); Calcium 8.5 mg/dL (8.6-10.3); Carbon Dioxide 35 mEq/L (23-29); Chloride 93 mEq/L (98-107); Glucose 259 mg/dL (70-105); Osmolality,Calculated 292 (280-300); Potassium 4.5 mEq/L (3.5-5.1); Sodium 135 mEq/L (136-145); eGFR For African Americans > 60 (> 60); eGFR For Non-African Americans > 60 (> 60)
[2021-11-02] MEDS: Albuterol 2.5 MG/3 ML NEBULIZER IH SCH ×4 (04:10→20:37)
[2021-11-02] MEDS: *HR* Heparin 5,000 UNIT/ML VIAL SQ SCH ×3 (05:51→20:26)
[2021-11-02] MEDS ORDERED: Insulin LISPRO 300 UNITS/3 ML VIAL SUBQ SCH (07:30)
[2021-11-02] MEDS: predniSONE 20 MG TABLET PO SCH (09:48)
[2021-11-02] MEDS: Aspirin 81 MG TAB.CHEW PO SCH (09:48)
[2021-11-02] MEDS: Ascorbic Acid 500 MG TABLET PO SCH (09:48)
[2021-11-02] MEDS: Cholecalciferol (D-3) 1,000 UNIT (25MCG) TABLET PO SCH (09:48)
[2021-11-02] MEDS: Folic Acid 1 MG TABLET PO SCH (09:48)
[2021-11-02] MEDS: Bumetanide 1 MG/4 ML VIAL IVP SCH ×2 (09:49→16:58)
[2021-11-02] MEDS: Budesonide/Formoterol 160/4.5 1 PUFF INH IH SCH ×2 (11:35→20:38)
[2021-11-02] MEDS: BuPROPion SR (12 HR) 150 MG TABLET PO SCH (12:17)
[2021-11-02] MEDS: Insulin LISPRO 300 UNITS/3 ML VIAL SUBQ SCH ×3 (12:18→20:26)
[2021-11-02] MEDS: Sucralfate 1 GM TABLET PO SCH (20:25)
[2021-11-02] MEDS: hydrOXYzine pamoate 25 MG CAPSULE PO SCH (20:26)
[2021-11-03] MEDS: GuaiFENesin Liq 200 MG/10 ML UDC PO PRN (02:58)
[2021-11-03] MEDS: Albuterol 2.5 MG/3 ML NEBULIZER IH SCH ×4 (04:15→20:48)
[2021-11-03] MEDS: *HR* Heparin 5,000 UNIT/ML VIAL SQ SCH ×3 (06:37→20:33)
[2021-11-03] MEDS: predniSONE 20 MG TABLET PO SCH (08:18)
[2021-11-03] MEDS: Bumetanide 1 MG/4 ML VIAL IVP SCH (08:18)
[2021-11-03] MEDS: Aspirin 81 MG TAB.CHEW PO SCH (08:18)
[2021-11-03] MEDS: Ascorbic Acid 500 MG TABLET PO SCH (08:19)
[2021-11-03] MEDS: Folic Acid 1 MG TABLET PO SCH (08:19)
[2021-11-03] MEDS: BuPROPion SR (12 HR) 150 MG TABLET PO SCH (08:19)
[2021-11-03] MEDS: Cholecalciferol (D-3) 1,000 UNIT (25MCG) TABLET PO SCH (08:19)
[2021-11-03] MEDS: Insulin LISPRO 300 UNITS/3 ML VIAL SUBQ SCH ×4 (08:25→20:33)
[2021-11-03 08:53] LABS: BUN/Creatinine Ratio 26 (6-26); Blood Urea Nitrogen 32 mg/dL (8-23); Calcium 8.5 mg/dL (8.6-10.3); Carbon Dioxide 39 mEq/L (23-29); Chloride 94 mEq/L (98-107); Glucose 156 mg/dL (70-105); Osmolality,Calculated 296 (280-300); Potassium 3.5 mEq/L (3.5-5.1); Sodium 138 mEq/L (136-145); eGFR For African Americans > 60 (> 60); eGFR For Non-African Americans 59 (> 60)
[2021-11-03] MEDS: Budesonide/Formoterol 160/4.5 1 PUFF INH IH SCH ×2 (11:04→20:48)
[2021-11-03] MEDS ORDERED: Ergocalciferol (VIT D2) 50,000 UNIT (1.25MG) CAP PO SCH (12:00)
[2021-11-03] MEDS: Bumetanide 1 MG TABLET PO SCH (16:33)
[2021-11-03] MEDS: Sucralfate 1 GM TABLET PO SCH (20:33)
[2021-11-03] MEDS: Melatonin 3 MG TABLET PO PRN (20:33)
[2021-11-03] MEDS: hydrOXYzine pamoate 25 MG CAPSULE PO SCH (20:33)
[2021-11-04] MEDS: GuaiFENesin Liq 200 MG/10 ML UDC PO PRN (00:46)
[2021-11-04 03:32] LABS: BUN/Creatinine Ratio 24 (6-26); Blood Urea Nitrogen 32 mg/dL (8-23); Calcium 8.3 mg/dL (8.6-10.3); Carbon Dioxide 36 mEq/L (23-29); Chloride 97 mEq/L (98-107); Glucose 178 mg/dL (70-105); Osmolality,Calculated 299 (280-300); Sodium 139 mEq/L (136-145); eGFR For African Americans > 60 (> 60); eGFR For Non-African Americans 54 (> 60)
[2021-11-04] MEDS: Albuterol 2.5 MG/3 ML NEBULIZER IH SCH ×4 (04:03→23:46)
[2021-11-04] MEDS: *HR* Heparin 5,000 UNIT/ML VIAL SQ SCH ×3 (06:21→20:47)
[2021-11-04] MEDS: Insulin LISPRO 300 UNITS/3 ML VIAL SUBQ SCH ×4 (08:00→20:46)
[2021-11-04] MEDS: Folic Acid 1 MG TABLET PO SCH (08:53)
[2021-11-04] MEDS: Aspirin 81 MG TAB.CHEW PO SCH (08:54)
[2021-11-04] MEDS: Bumetanide 1 MG TABLET PO SCH (08:54)
[2021-11-04] MEDS: BuPROPion SR (12 HR) 150 MG TABLET PO SCH (08:54)
[2021-11-04] MEDS: Cholecalciferol (D-3) 1,000 UNIT (25MCG) TABLET PO SCH (08:54)
[2021-11-04] MEDS: Ascorbic Acid 500 MG TABLET PO SCH (08:54)
[2021-11-04] MEDS: predniSONE 20 MG TABLET PO SCH (08:55)
[2021-11-04] MEDS: Budesonide/Formoterol 160/4.5 1 PUFF INH IH SCH ×2 (10:56→23:46)
[2021-11-04] MEDS ORDERED: Bumetanide 1 MG TABLET PO SCH (17:00)
[2021-11-04] MEDS: Sucralfate 1 GM TABLET PO SCH (20:40)
[2021-11-04] MEDS: hydrOXYzine pamoate 25 MG CAPSULE PO SCH (20:40)
[2021-11-05] MEDS: Albuterol 2.5 MG/3 ML NEBULIZER IH SCH ×2 (03:45→11:18)
[2021-11-05] MEDS: *HR* Heparin 5,000 UNIT/ML VIAL SQ SCH (05:40)
[2021-11-05] MEDS: Insulin LISPRO 300 UNITS/3 ML VIAL SUBQ SCH ×2 (08:00→11:36)
[2021-11-05] MEDS: BuPROPion SR (12 HR) 150 MG TABLET PO SCH (08:05)
[2021-11-05] MEDS: Aspirin 81 MG TAB.CHEW PO SCH (08:06)
[2021-11-05] MEDS: Cholecalciferol (D-3) 1,000 UNIT (25MCG) TABLET PO SCH (08:06)
[2021-11-05] MEDS: Ascorbic Acid 500 MG TABLET PO SCH (08:06)
[2021-11-05] MEDS: predniSONE 20 MG TABLET PO SCH (08:06)
[2021-11-05] MEDS: Folic Acid 1 MG TABLET PO SCH (08:06)
[2021-11-05 08:35] LABS: Basophils # 0.1 K/mcL (0.0-0.2); Basophils % 0.8 %; Eosinophils # 0.2 K/mcL (0.0-0.6); Eosinophils % 1.5 %; Hematocrit 30.6 % (37.5-50.1); Hemoglobin 11.1 g/dL (12.9-16.9); Immature Granulocytes % 3.3 % (0-4); Lymphocytes # 1.3 K/mcL (0.6-4.6); Lymphocytes % 10.2 %; Mean Corpuscular HGB Conc 36.3 g/dL (31.6-35.5); Mean Corpuscular Hemoglobin 35.1 pg (28.0-33.3); Mean Corpuscular Volume 96.8 fL (83.0-100.0); Monocytes # 1.6 K/mcL (0.0-1.3); Monocytes % 12.2 %; Neutrophils # 9.2 K/mcL (1.6-8.9); Nucleated Red Blood Cells 0.2 /100 WBC (0); Platelet Count 320 K/mcL (140-400); Red Blood Count 3.16 M/mcL (4.19-5.50); Red Cell Distribution Width 14.7 % (11.5-14.5); White Blood Count 12.8 K/mcL (4.3-11.1)
[2021-11-05 08:53] LABS: BUN/Creatinine Ratio 26 (6-26); Blood Urea Nitrogen 31 mg/dL (8-23); Calcium 8.6 mg/dL (8.6-10.3); Carbon Dioxide 37 mEq/L (23-29); Chloride 97 mEq/L (98-107); Glucose 141 mg/dL (70-105); Osmolality,Calculated 297 (280-300); Potassium 3.4 mEq/L (3.5-5.1); Sodium 139 mEq/L (136-145); eGFR For African Americans > 60 (> 60); eGFR For Non-African Americans > 60 (> 60)
[2021-11-05 10:51] VITALS: BP 126/66; PULSE 79; TEMP 98.2; O2SAT 96
[2021-11-05] MEDS: Budesonide/Formoterol 160/4.5 1 PUFF INH IH SCH (11:18)
== END 2021-11-05 13:46 | disposition home or self-care (01) | DRG 682 ==
LOC: 2ANU 10:36 → EMEROOARM 10:36 → SUATTDRO 16:38 → 2ANU 17:45
PROVIDERS: ADMIT Internal Medicine; ATTEND Family Medicine

== ENCOUNTER 2022-02-07 06:18 | Inpatient (IN) ==
[2022-02-07] MEDS ORDERED: levoFLOXacin 500 MG/100 ML 500 MG/100 ML BAG IVPB ONE (06:47)
[2022-02-07] MEDS ORDERED: *HR* Propofol 200 MG/20 ML VIAL IVP ONE (06:58)
[2022-02-07] MEDS ORDERED: Lidocaine -MPF 2% 2 ML VIAL ONE (07:00)
[2022-02-07] MEDS ORDERED: Ringers Solution, Lactated 1,000 ML IVC SCH (07:00)
[2022-02-07] MEDS ORDERED: Famotidine 20 MG TABLET PO ONE (07:00)
[2022-02-07] MEDS ORDERED: *HR* Succinylcholine 200 MG/10 ML VIAL IVP ONE (07:00)
[2022-02-07] MEDS ORDERED: Ondansetron 4 MG/2 ML VIAL ONE (07:00)
[2022-02-07] MEDS ORDERED: *HR* Rocuronium Bromide 50 MG/5 ML VIAL ONE ×2 (07:00→08:39)
[2022-02-07] MEDS ORDERED: *HR* FentaNYL (PF) 100 MCG/2 ML VIAL ONE (07:12)
[2022-02-07] MEDS ORDERED: *HR* Midazolam HCl 2 MG/2 ML VIAL ONE (07:12)
[2022-02-07] MEDS ORDERED: Mannitol 20% 0 GM/0 ML IV.SOLN IVC ONE (07:15)
[2022-02-07] MEDS ORDERED: Dexmedetomidine HCl 0 MCG/0 ML MLS IVC ONE (07:16)
[2022-02-07] MEDS ORDERED: Heparin 1,000 UNITS/500 mL 500 ML ONE (07:21)
[2022-02-07] MEDS ORDERED: Bupivacaine-MPF 0.25% 10 ML VIAL ONE (07:24)
[2022-02-07] MEDS ORDERED: Ondansetron 4 MG/2 ML VIAL IVP PRN ×2 (08:37→11:49)
[2022-02-07] MEDS: *HR* HYDROmorphone PF 0.5 MG/0.5 ML SYRINGE IVP PRN ×2 (10:27→10:40)
[2022-02-07] MEDS ORDERED: *HR* HYDROcodone/Acet 5/325 mg TABLET PO PRN (11:49)
[2022-02-07] MEDS ORDERED: Dextrose Gel 15 GM/37.5 ML TUBE PO PRN ×2 (11:49)
[2022-02-07] MEDS ORDERED: Naloxone 0.4 MG/ML INJ IVP PRN (11:49)
[2022-02-07] MEDS ORDERED: *HR* Belladonna Alkaloids/Opium 30 MG RECTAL SUPPOSITORY RC PRN (11:49)
[2022-02-07] MEDS ORDERED: *HR* Dextrose 50 % in Water (Syg) 50 ML SYRINGE IVP PRN (11:49)
[2022-02-07] MEDS ORDERED: D5% in Water 1,000 ML IVC PRN (11:49)
[2022-02-07] MEDS: Insulin LISPRO 300 UNITS/3 ML VIAL SUBQ SCH ×2 (12:00→16:16)
[2022-02-07] MEDS ORDERED: Albuterol 2.5 MG/3 ML NEBULIZER IH SCH (13:00)
[2022-02-07] MEDS ORDERED: Albuterol 2.5 MG/3 ML NEBULIZER ONE (15:29)
[2022-02-07] MEDS: Albuterol 2.5 MG/3 ML NEBULIZER IH SCH ×2 (15:30→23:06)
[2022-02-07] MEDS: 0.9 % Sodium Chloride 1,000 ML IVC SCH (16:13)
[2022-02-07] MEDS: Acetaminophen IV 1,000 MG/100 ML BAG IVPB SCH ×2 (16:18→23:26)
[2022-02-07] MEDS: *HR* OxyCODONE Immed Rel 5 MG TABLET PO PRN (18:35)
[2022-02-07] MEDS: Budesonide/Formoterol 160/4.5 1 PUFF INH IH SCH (23:06)
[2022-02-08] MEDS: Albuterol 2.5 MG/3 ML NEBULIZER IH SCH ×4 (04:40→22:38)
[2022-02-08] MEDS: 0.9 % Sodium Chloride 1,000 ML IVC SCH ×2 (05:04→19:38)
[2022-02-08] MEDS: Insulin LISPRO 300 UNITS/3 ML VIAL SUBQ SCH ×4 (07:38→18:29)
[2022-02-08] MEDS: Acetaminophen IV 1,000 MG/100 ML BAG IVPB SCH ×2 (08:05→16:29)
[2022-02-08] MEDS: levoFLOXacin 500 MG/100 ML 500 MG/100 ML BAG IVPB SCH (09:24)
[2022-02-08 10:08] LABS: Potassium 4.5 mEq/L (3.5-5.1)
[2022-02-08] MEDS: Budesonide/Formoterol 160/4.5 1 PUFF INH IH SCH ×2 (10:27→22:38)
[2022-02-08] MEDS: Tiotropium 10 INH DOSE IH SCH (10:31)
[2022-02-08 11:55] LABS: Basophils # 0.1 K/mcL (0.0-0.2); Basophils % 0.5 %; Eosinophils # 0.1 K/mcL (0.0-0.6); Eosinophils % 0.6 %; Hematocrit 30.8 % (37.5-50.1); Hemoglobin 9.9 g/dL (12.9-16.9); Immature Granulocytes % 0.6 % (0-4); Lymphocytes # 0.6 K/mcL (0.6-4.6); Mean Corpuscular Hemoglobin 33.2 pg (28.0-33.3); Mean Corpuscular Volume 103.4 fL (83.0-100.0); Mean Platelet Volume 10.5 fL (9.4-12.4); Monocytes # 1.4 K/mcL (0.0-1.3); Monocytes % 11.7 %; Neutrophils # 10.1 K/mcL (1.6-8.9); Platelet Count 306 K/mcL (140-400); Red Blood Count 2.98 M/mcL (4.19-5.50); Segmented Neutrophils % 81.6 %; White Blood Count 12.3 K/mcL (4.3-11.1)
[2022-02-08 11:56] LABS: Mean Corpuscular HGB Conc 32.1 g/dL (31.6-35.5)
[2022-02-08] MEDS: *HR* OxyCODONE Immed Rel 5 MG TABLET PO PRN (14:29)
[2022-02-09] MEDS: *HR* OxyCODONE Immed Rel 5 MG TABLET PO PRN (00:37)
[2022-02-09] MEDS: Acetaminophen IV 1,000 MG/100 ML BAG IVPB SCH ×2 (01:51→09:15)
[2022-02-09] MEDS: Albuterol 2.5 MG/3 ML NEBULIZER IH SCH ×2 (04:09→10:36)
[2022-02-09] MEDS: Insulin LISPRO 300 UNITS/3 ML VIAL SUBQ SCH ×2 (09:08→11:38)
[2022-02-09] MEDS: levoFLOXacin 500 MG/100 ML 500 MG/100 ML BAG IVPB SCH (09:20)
[2022-02-09] MEDS: 0.9 % Sodium Chloride 1,000 ML IVC SCH (09:21)
[2022-02-09 10:29] LABS: ABG Base Excess 4 mEq/L (-2 to 3); ABG Chloride 103 mEq/L (98-107); ABG Glucose 100 mg/dL (60-95); ABG HCO3 30 mEq/L (21-27); ABG Ionized Calcium 1.16 mmol/L (1.15-1.35); ABG Oxygen Saturation 100 % (95-98); ABG PCO2 51 mmHg (35-45); ABG PH 7.39 pH Units (7.32-7.45); ABG PO2 312 mmHg (85-104); ABG TCO2 32 mEq/L (20-26)
[2022-02-09] MEDS: Budesonide/Formoterol 160/4.5 1 PUFF INH IH SCH (10:36)
[2022-02-09] MEDS: Tiotropium 10 INH DOSE IH SCH (10:36)
[2022-02-09 10:52] VITALS: BP 124/65; PULSE 78; TEMP 98.7; O2SAT 98
== END 2022-02-09 13:20 | disposition home or self-care (01) | DRG 657 ==
LOC: SAMDAY 06:18 → 3NENU 11:34
PROVIDERS: ADMIT Urology; ATTEND Urology